=== PATIENT | female | born 1965 | race Two or more races ===

== ENCOUNTER 2021-05-20 12:42 | Emergency (ER) | payer OTHER, SELFPAY ==
--- NOTE | ~2021-05-20 | XR_ITS ---
EXAMINATION: XR LUMBOSACRAL SPINE CLINICAL INFORMATION: Fall. Pain. COMPARISON: 06/13/2015 TECHNIQUE: Three views of the lumbosacral spine. FINDINGS: No fracture or subluxation. Vertebral body height and alignment is maintained. Disc spaces are maintained. The sacroiliac joints are symmetric. The visualized sacrum is intact. XR/XR lumbar spine 2-3V IMPRESSION: Unremarkable appearance of the lumbar spine.
[2021-05-20 13:26] VITALS: BP 144/99; PULSE 84; RESP 16; TEMP 36.1; O2SAT 98; BMI 25.0
--- NOTE | 2021-05-20 15:07 | ED.FALL ---
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 Related Data Previous Rx's Medication Instructions Recorded ibuprofen 600 mg tablet 600 mg PO TID PRN #20 tab 05/20/21 Allergies Allergy/AdvReac Type Severity Reaction Status Date / Time No Known Allergies Allergy Unverified 04/05/20 17:10 Review of Systems Review of Systems: all other systems are reviewed and are negative Constitutional: Reports as per HPI and Reports no additional constitutional complaints Eyes: Reports as per HPI and Reports no additional eye complaints Reports system reviewed and no additional complaints, except as documented Cardiovascular: Reports as per HPI and Reports no additional cardiovascular complaints Respiratory: Reports as per HPI and Reports no additional respiratory complaints Gastrointestinal: Reports as per HPI and Reports no additional gastrointestinal complaints Genitourinary: Reports no additional female genitourinary complaints Musculoskeletal: Reports no additional musculoskeletal complaints Skin/Breast: Reports system reviewed and no additional complaints, except as docu Psychiatric: Reports no additional psychiatric complaints Endocrine: Reports no additional endocrine complaints Hematologic/Lymphatic: Reports no additional hematologic/lymphatic complaints Allergic/Immunologic: Reports no additional allergic/immunologic complaints Reports system reviewed and no additional complaints, except as documented and Reports Abnormal speech present [facility] Past Medical History Medical History delivery delivered Social History Social History Advance Directives: No Patient : No Physical Exam Vital Signs: Vital Signs: Last Vital Signs Temp 97 F 05/20/21 13:26 Pulse 84 05/20/21 13:26 Resp 16 05/20/21 13:26 BP 144/99 H 05/20/21 13:26 Pulse Ox 98 05/20/21 13:26 Body Mass Index 25.0 vital signs have been reviewed as appeared to be correct. Blood pressure normal. Heart rate normal. Respiration rate normal. Temperature normal. Oxygen saturation normal. Appearance: Alert. Oriented X3. No acute distress. Head: Normal external exam. Normocephalic. Atraumatic. No Paulino signs noted. No raccoon eyes noted Eyes: PERRLA. EOMI. Conjunctiva and sclera normal. Eyelids normal. ENT: TM's Normal. Pharynx normal. Uvula midline. Moist mucous membranes. No trismus noted. No drooling noted. No muffled voice noted. Neck: Normal inspection. Neck supple. FROM. No adenopathy. Thyroid Normal. No meningeal signs. No neck mass noted. CVS: Normal heart rate and rhythm. Heart sound normal. No murmurs noted. Pulses normal throughout. Respiratory: No respiratory distress. Painless inspiration. Breath sounds normal. No wheezes/rales/rhonchi noted. Chest nontender. No accessory muscle usage noted or decreased air movement noted. Abdomen: Soft and nontender. Bowel sounds normal in all 4 quadrants. No distention noted. No organomegaly noted. No visible injury noted. Back: No CVA tenderness. low back pain mostly in the lumbar area, no step-off, no deformity.. Skin: Skin warm and dry. Normal skin color. Normal skin turgor. No rashes/lesions/lacerations noted. Extremities: No lower extremity edema. Extremities exhibit normal range of motion. Extremities nontender. Neuro: Oriented X 3. Cranial nerve exam: II-XII are grossly intact No motor deficit. No sensory deficit. Reflexes normal. Course Course Course Narrative: assessment and plan. Lumbar contusion no acute fracture, no neurological deficit, able to ambulate and function. Discharge the patient on NSAIDs and heating pads if needed. MDM - Fall Imaging Data lumbar spine xrays: Radiologist's impression: Unremarkable appearance of the lumbar spine. Discharge Plan Discharge Clinical Impression: Back contusion Qualifiers: Encounter type: initial encounter Laterality: unspecified laterality Qualified Code(s): S20.229A - Contusion of unspecified back wall of thorax, initial encounter Patient Disposition: Home, Self-Care Instructions: Contusion in Adults (ED) Prescriptions: New ibuprofen 600 mg tablet 600 mg PO TID PRN (Reason: pain) Qty: 20 RF: 0 Referrals: Ashlyn Roberto MD [Primary Care Provider] - 2 days Stand Alone Forms: Work/School Release
== END 2021-05-20 16:06 | disposition home or self-care (01) ==
PROVIDERS: Emergency Provider Emergency Medicine; PCP Internal Medicine
DX: S30.0XXA Contusion of lower back and pelvis, initial encounter (principal); W19.XXXA Unspecified fall, initial encounter; Y93.9 Activity, unspecified; Y92.9 Unspecified place or not applicable; Y99.0 Civilian activity done for income or pay
CPT/HCPCS: 72100; 99283

== ENCOUNTER 2021-06-25 16:26 | Outpatient (REF) | payer OTHER, SELFPAY ==
--- NOTE | ~2021-06-25 | XR_ITS ---
EXAMINATION: XR THORACIC SPINE CLINICAL INFORMATION: Back pain. COMPARISON: None TECHNIQUE: 3 views of the thoracic spine were obtained. FINDINGS: Mild mid thoracic levoscoliosis with normal spinal alignment. The vertebral bodies are intact. The intervertebral disc spaces are unremarkable. The soft tissues are unremarkable. XR/XR thoracic spine 3V IMPRESSION: Mild thoracic levoscoliosis without other significant abnormality.
== END 2021-06-25 16:27 | disposition home or self-care (01) ==
LOC: HO.XRAY 16:26
PROVIDERS: PCP Internal Medicine; Visit Provider Nurse Practitioner Family
DX: M54.9 Dorsalgia, unspecified (principal)
CPT/HCPCS: 72072

== ENCOUNTER 2021-12-30 16:17 | Emergency (ER) | payer OTHER, SELFPAY ==
--- NOTE | ~2021-12-30 | CT_ITS ---
EXAMINATION: CT HEAD WITHOUT CONTRAST CLINICAL INFORMATION: Status post head injury with persistent pain COMPARISON: None TECHNIQUE: Imaging was performed from the skull base to vertex without intravenous administration of contrast. This CT examination was performed using dose optimization techniques as appropriate, variously including the following: *Automated exposure control *Adjustment of mA and/or kV according to patient size (this includes techniques or standardized protocols for targeted exams where dose is matched to indication/reason for exam; i.e. extremities or head) *Use of iterative reconstruction technique Total exam dose length product: 567 mGy-cm FINDINGS: No intra or extra-axial fluid collection, hemorrhage, or mass. No ventriculomegaly. No midline shift or herniation. Basal cisterns are patent. Farias-white matter differentiation is maintained. No territorial encephalomalacia. No significant volume loss. There is no abnormal attenuation within the brain parenchyma. No calvarial fracture or soft tissue abnormality. The mastoid air cells and visualized portions of the paranasal sinuses are well aerated. Mild bilateral cavernous carotid vascular calcifications. CT/CT head/brain wo con IMPRESSION: 1. No acute intracranial pathology.
[2021-12-30 16:25] VITALS: BP 136/61; PULSE 87; RESP 18; TEMP 36.6; O2SAT 100; BMI 30.1
--- NOTE | 2021-12-30 17:32 | ED_ITS ---
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 She denies loss of consciousness or being on any blood thinners or any other injuries complaints or concerns at this time. MD Complaint: head injury and head pain Onset (ago): day(s) (2) Mechanism of Injury: work related injury Place: work Loss of Consciousness: no Location of injury: parietal Severity: moderate Quality: aching Radiation: none Other Injuries: none Associated symptoms: denies other symptoms Related Data Previous Rx's Medication Instructions Recorded baclofen 10 mg tablet 10 mg PO BEDTIME PRN pain 7 days 06/25/21 #7 tabs naproxen 500 mg tablet 500 mg PO Q12H PRN pain #20 tabs 06/25/21 Allergies Allergy/AdvReac Type Severity Reaction Status Date / Time No Known Allergies Allergy Verified 12/30/21 16:25 Review of Systems Review of Systems: Constitutional : No changes in activity, No lethargy, No recent prior head injury, No agitation, No increased fussiness ENT/Mouth : No Ear Pain, No Nasal discharge/drainage Eyes: No Eye Pain, No Swelling, No Redness, No Foreign Body, No Vision Changes Cardiovascular : No Chest Pain, No SOB Respiratory : No Cough Gastrointestinal : No Nausea, No Vomiting, No abdominal Pain Genitourinary : No Dysuria, No Urinary Frequency, No Urinary Incontinence, No Urgency, No Flank Pain Musculoskeletal : No joint pain, No neck stiffness, No back pain/injury Skin : No lacerations Neuro : No unsteady gait, No Paresthesias, No Loss of Consciousness, No altered mental status, No dizziness, + Headache Denies past medical history of HIV, recent trauma, coagulopathy, recent spinal/ epidural procedure, new medication, URI symptoms, close contacts with similar symptoms, tick bite, or known CO2 exposure. Yes all other systems are reviewed and are negative PMFSH Past Medical History Attestation statement: The following information was validated with the patient. Source: old records reviewed and nursing notes reviewed Medical History delivery delivered Social History Social History Patient Tobacco Use Status: Never used Tobacco e-Cigarette/Vaping Use: Never Used Second Hand Smoke Exposure: No Advance Directives: No Advance Directives Information Provided: Yes service: No Current occupational status: unemployed Physical Exam Vital Signs: Vital Signs: Last Vital Signs Temp 97.8 F 12/30/21 16:25 Pulse 87 12/30/21 16:25 Resp 18 12/30/21 16:25 BP 136/61 12/30/21 16:25 Pulse Ox 100 12/30/21 16:25 O2 Del Method 12/30/21 16:25 BMI result Body Mass Index 30.1 vital signs have been reviewed as normal and appeared to be correct. Blood pressure normal. Heart rate normal. Respiration rate normal. Temperature normal. Oxygen saturation normal. Appearance: Alert. Oriented X3. No acute distress. Head: Normal external exam. Normocephalic. Atraumatic. No Paulino signs noted. No raccoon eyes noted Eyes: PERRLA. EOMI. Conjunctiva and sclera normal. Eyelids normal. ENT: EAC normal. TM's Normal. No septal hematoma noted. No hemotympanum noted. Pharynx normal. Uvula midline. Moist mucous membranes. No lesions/ulcerations or masses noted on the tongue. Normal voice. No trismus noted. No drooling noted. No muffled voice noted. Neck: Normal inspection. Neck supple. FROM. No adenopathy. Thyroid Normal. No meningeal signs. No neck mass noted. No signs of trauma noted. CVS: Normal heart rate and rhythm. Heart sound normal. Pulses normal throughout. No murmurs/rales/gallops. Respiratory: No respiratory distress. Painless inspiration. Breath sounds normal. No wheezes/rales/rhonchi noted. Chest nontender. No crepitus is noted. No signs of trauma noted. No accessory muscle usage noted or decreased air movement noted. No signs of trauma. Abdomen: Soft and nontender. Bowel sounds normal in all 4 quadrants. No distention noted. No organomegaly noted. No visible injury noted. Back: Full range of motion noted. Nontender. No signs of trauma. Patient neuro intact bilaterally and distally on all 4 extremities. Patient's reflexes intact bilaterally and distally on all 4 extremities. No rashes/lesion/induration/fluctuance or signs of infection noted. Skin: Skin warm and dry. Normal skin color. Normal skin turgor. No rashes/lesions/lacerations noted. Extremities: No lower extremity edema. No calf tenderness is noted. Extremities exhibit normal range of motion and nontender. Neuro: Oriented X 3. No motor deficit. No sensory deficit. Reflexes normal. Normal steady gait. No focal neuro deficits noted. CN's II-XII intact bilaterally? Vascular: + radial pulses/+ 2 distal pedal pulses/+2 dorsalis pedis b/l. Normal cap refill. No cyanosis noted to upper extremity nails and lower extremity toes nails. Course Course Course Narrative: CT scan of brain within normal limits no acute processes noted. No other injuries therefore no additional labs or imaging indicated at this time. Will DC home with instructions return if any new or worsening symptoms and to take Motrin and Tylenol and to follow-up with primary care provider. Patient understands agrees with this plan. MDM - Head Injury Medical Records Attestation: I reviewed the patient's medical records. Imaging Data CT scan of brain without contrast: Attestation: I personally reviewed and interpreted this imaging study as follows: Radiologist's impression: FINDINGS: No intra or extra-axial fluid collection, hemorrhage, or mass. No ventriculomegaly. No midline shift or herniation. Basal cisterns are patent. Farias-white matter differentiation is maintained. No territorial encephalomalacia. ?No significant volume loss. There is no abnormal attenuation within the brain parenchyma. No calvarial fracture or soft tissue abnormality. ?The mastoid air cells and visualized portions of the paranasal sinuses are well aerated. Mild bilateral cavernous carotid vascular calcifications. CT/CT head/brain wo con IMPRESSION: 1. No acute intracranial pathology. Discharge Plan Discharge Clinical Impression: Closed head injury, Concussion without loss of consciousness Patient Disposition: Home, Self-Care Instructions: Concussion (ED), Head Injury (ED) Prescriptions: No Action baclofen 10 mg tablet 10 mg PO BEDTIME PRN (Reason: pain) 7 Days Qty: 7 0RF naproxen 500 mg tablet 500 mg PO Q12H PRN (Reason: pain) Qty: 20 0RF Referrals: Ashlyn Roberto MD [Primary Care Provider] - 2 days Stand Alone Forms: Work/School Release Print Language: [place]
== END 2021-12-30 18:15 | disposition home or self-care (01) ==
PROVIDERS: Emergency Provider Internal Medicine; PCP Internal Medicine
DX: S06.0X0A Concussion without loss of consciousness, initial encounter (principal); W20.8XXA Other cause of strike by thrown, projected or falling object, initial encounter; Y93.9 Activity, unspecified; Y92.59 Other trade areas as the place of occurrence of the external cause; Y99.0 Civilian activity done for income or pay
CPT/HCPCS: 70450; 99283; 99284

== ENCOUNTER 2022-10-25 15:10 | Emergency (ER) | payer OTHER, SELFPAY ==
--- NOTE | ~2022-10-25 | XR_ITS ---
EXAMINATION: XR THORACOLUMBAR SPINE CLINICAL INFORMATION: Back pain COMPARISON: None available. TECHNIQUE: 3 views of the thoracic spine FINDINGS: The vertebral alignment is normal. No intrinsic bony abnormality. The disc heights and neural foramina are well maintained. Minimal endplate degenerative disease. No fracture or subluxation. The surrounding prevertebral soft tissues are unremarkable. XR/XR thoracic spine 2V IMPRESSION: Minimal degenerative disease of the thoracic spine.
[2022-10-25 16:01] VITALS: BP 114/70; PULSE 76; RESP 18; TEMP 36.7; O2SAT 100; BMI 24.4
--- NOTE | 2022-10-25 16:01 | ED.GENADULT ---
HPI - General Adult General Chief complaint: General Medical <WARREN Polanco Last Filed: 10/25/22 17:34> Stated complaint: Back pain <WARREN Polanco Last Filed: 10/25/22 17:34> Time Seen by Provider: 10/25/22 17:29 <WARREN Polanco Last Filed: 10/25/22 17:34> Source: patient and RN notes reviewed <WARREN Chamberlain Last Filed: 10/25/22 19:19> Mode of arrival: ambulatory <WARREN Chamberlain Last Filed: 10/25/22 19:19> Limitations: no limitations <WARREN Chamberlain Last Filed: 10/25/22 19:19> History of Present Illness HPI narrative: This is a 57-year-old female, with no significant past medical history, who presents to the emergency department today with complaints of low back pain x 3 days. patient reports that her symptoms started as she was bending over to filler picker an object. She reports that she has had a burning/itching back pain that starts in her thoracic back and radiates down to her lower back. She reports she has had no fevers, chills, nausea, vomiting, diarrhea rashes. Patient reports that her urine feels warm , but denies burning sensation. Denies any dysuria, hematuria, urinary urgency or frequency. Denies any bladder or bowel incontinence. Denies any saddle paresthesias. Denies any weakness, numbness, or tingling. Denies taking any other medications at home to treat her symptoms. <WARREN Chamberlain Last Filed: 10/25/22 19:19> MD complaint: back pain <WARREN Chamberlain Last Filed: 10/25/22 19:19> Onset (ago): day(s) <WARREN Chamberlain Last Filed: 10/25/22 19:19> Location: back <WARREN Chamberlain Last Filed: 10/25/22 19:19> Radiation: non-radiation <WARREN Chamberlain Last Filed: 10/25/22 19:19> Severity: moderate <WARREN Chamberlain Last Filed: 10/25/22 19:19> Quality: burning <WARREN Chamberlain Last Filed: 10/25/22 19:19> Pain Consistency: constant <WARREN Chamberlain - Last Filed: 10/25/22 19:19> Relieving factors: immobilization <WARREN Chamberlain - Last Filed: 10/25/22 19:19> Exacerbating factors: movement <WARREN Chamberlain - Last Filed: 10/25/22 19:19> Associated symptoms: denies other symptoms <WARREN Chamberlain - Last Filed: 10/25/22 19:19> Treatments prior to arrival: none <WARREN Chamberlain - Last Filed: 10/25/22 19:19> Related Data Home medications: Previous Rx's Medication Instructions Recorded baclofen 10 mg tablet 10 mg PO BEDTIME PRN pain 7 days 06/25/21 #7 tabs naproxen 500 mg tablet 500 mg PO Q12H PRN pain #20 tabs 06/25/21 <WARREN Polanco - Last Filed: 10/25/22 17:34> Allergies/adverse reactions: Allergies Allergy/AdvReac Type Severity Reaction Status Date / Time No Known Allergies Allergy Verified 10/25/22 16:00 <WARREN Polanco - Last Filed: 10/25/22 17:34> Review of Systems Review of Systems: Yes all other systems are reviewed and are negative <WARREN Chamberlain - Last Filed: 10/25/22 19:19> [facility] Past Medical History Medical History: Medical History delivery delivered <WARREN Polanco - Last Filed: 10/25/22 17:34> Social History Social History: Social History Patient Tobacco Use Status: Never used Tobacco e-Cigarette/Vaping Use: Never Used Second Hand Smoke Exposure: No Advance Directives: No Advance Directives Information Provided: No service: No Current occupational status: unemployed <WARREN Polanco Last Filed: 10/25/22 17:34> Physical Exam ED Vital Signs: Vital Signs - 24 hr 10/25/22 16:01 Temperature 98.0 F Pulse Rate 76 Respiratory Rate 18 Blood Pressure 114/70 Pulse Oximetry 100 Oxygen Delivery Method Room Air BMI result Body Mass Index 24.4 <WARREN Polanco Last Filed: 10/25/22 17:34> Vital Signs - 24 hr 10/25/22 16:01 Temperature 98.0 F Pulse Rate 76 Respiratory Rate 18 Blood Pressure 114/70 Pulse Oximetry 100 Oxygen Delivery Method Room Air BMI result Body Mass Index 24.4 <WARREN Chamberlain Last Filed: 10/25/22 19:19> Appearance: Alert. Oriented X3. No acute distress. Eyes: Pupils equal, round and reactive to light. ENT: Pharynx normal. Neck: Normal inspection. Neck supple. no cervical midline spine tenderness CVS: Normal heart rate and rhythm. Pulses normal. Respiratory: No respiratory distress. Breath sounds normal. Abdomen: Soft and nontender. +BS x4 Skin: Skin warm and dry. Normal skin color. Normal skin turgor. No rashes. Extremities: No lower extremity edema. Back: Tenderness to palpation over the lumbar paraspinous muscles. Negative straight leg raise. Strength is 5/5 in upper and lower extremities. Neuro: Oriented X 3. No motor deficit. No sensory deficit. CN II-XII intact. <WARREN Chamberlain Last Filed: 10/25/22 19:19> Course Course Course Narrative: RME performed by Italia Long PA-C. Patient is a 57 year old assigned female at presenting to the emergency department with back pain and a burning sensation on both sides of her back. Patient placed back in the waiting room pending room availability and results. <WARREN Polanco Last Filed: 10/25/22 17:34> Reevaluation(s) Reevaluation #1: X-rays unremarkable, blood work within normal limits, urine shows trace leuk esterase. I will not treat at this time as patient is only urinary complaint was that her urine felt warm . educated patient that her back pain is likely musculoskeletal in nature, discussed gentle stretching, massage, and ibuprofen help alleviate some of her symptoms. Advised to return if she develops any new or worsening symptoms. Patient understands and agrees with plan. Vital signs stable, patient stable for discharge <WARREN Chamberlain Last Filed: 10/25/22 19:19> Time: 19:13 <WARREN Chamberlain Last Filed: 10/25/22 19:19> Medical Decision Making Medical Decision Making [facility] Narrative: 57-year-old female presents to the emergency department for evaluation of back pain x3 days. On examination patient has tenderness to palpation Lumbar paraspinous muscles. Negative straight leg raise. No overlying rashes. Vital signs within normal limits, patient is well-appearing. Ambulatory. No red flag symptoms back pain. Will obtain x-rays common labs, and urine for further evaluation <WARREN Chamberlain - Last Filed: 10/25/22 19:19> Differential Diagnosis Differential Diagnoses: The differential diagnosis associated with the presentation includes <WARREN Chamberlain Last Filed: 10/25/22 19:19> Lumbar strain, sprain, contusion, spasm, sciatica, UTI <WARREN Chamberlain Last Filed: 10/25/22 19:19> Lab Data [facility] Lab Attestation statement: I reviewed the patient's lab results. <WARREN Chamberlain Last Filed: 10/25/22 19:19> Result Diagrams: 10/25/22 16:45 10/25/22 16:45 <WARREN Polanco - Last Filed: 10/25/22 17:34> Labs: Lab Results 10/25/22 10/25/22 10/25/22 Range/Units 16:45 16:45 18:35 WBC 9.0 (4.8-10.8) X10*3/uL RBC 5.08 (4.20-5.50) X10*6/uL Hgb 13.1 (12.0-16.0) g/dl Hct 41.0 (37.0-47.0) % MCV 80.7 (80.0-98.0) fL MCH 25.8 L (27.0-33.0) pg MCHC 32.0 (31.0-35.0) g/dl RDW 14.0 (11.0-16.0) % Plt Count 251 (160-400) X10*3/uL MPV 9.6 (9.4-12.3) fL Immature Gran % (Auto) 0.1 (0.0-0.4) % Neut % (Auto) 44.2 L (45-73) % Lymph % (Auto) 48.0 H (20-40) % Kings % (Auto) 4.7 (2-11) % Eos % (Auto) 2.6 (0-4) % Baso % (Auto) 0.4 (0-2) % Lymph # (Auto) 4.3 (1.2-4.9) X10*3/uL Kings # (Auto) 0.4 (0.1-1.2) X10*3/uL Eos # (Auto) 0.2 (0.0-0.4) X10*3/uL Baso # (Auto) 0.0 (0.0-0.2) X10*3/uL Abs Immat Gran (auto) 0.01 (0.00-0.03) X10*3/uL Absolute Neuts (auto) 4.0 (2.0-8.3) x10*3/uL Absolute Nucleated RBC 0.000 (0.0-0.012) X10*3/uL Nucleated RBC % (auto) 0.0 (0.0-0.2) /100WBC Sodium 144 (135-145) mmol/L Potassium 4.1 (3.3-5.1) mmol/L Chloride 109 H (96-108) mmol/L Carbon Dioxide 28 (22-29) mmol/L Anion Gap 11 L (12-20) BUN 13 (9-16) mg/dL Creatinine 0.75 (0.5-1.4) mg/dL Estim Creat Clear Calc 65.3 Estimated GFR > 60 Random Glucose 93 (60-115) mg/dL Calcium 9.3 (8.4-10.2) mg/dL Magnesium 2.1 (1.6-2.6) mg/dL Total Bilirubin 1.1 H (0.0-1.0) mg/dL AST 16 (5-31) U/L ALT 8 (0-31) U/L Alkaline Phosphatase 74 (39-117) U/L Total Protein 6.8 (6.5-8.0) g/dL Albumin 4.3 (3.5-5.0) g/dL Urine Color Yellow Urine Appearance Clear Urine pH 5.5 (5.0-9.0) Ur Specific [place] 1.025 (1.005-1.025) Urine Protein Negative (Neg-Trace) mg/dL Urine Glucose (UA) Negative (Negative) mg/dL Urine Ketones Trace (Negative) mg/dL Urine Blood Negative (Negative) Urine Nitrite Negative (Negative) Ur Leukocyte Esterase Trace H (Negative) Urine RBC 0-2 (0-2) /HPF Urine WBC 0-5 (0-5) /HPF Ur Squamous Epith Cells 0-2 (0-2) /HPF Urine Bacteria None Seen (None Seen) Hyaline Casts 0-2 (0-2) /LPF <WARREN Polanco - Last Filed: 10/25/22 17:34> Lab Results 10/25/22 10/25/22 10/25/22 Range/Units 16:45 16:45 18:35 WBC 9.0 (4.8-10.8) X10*3/uL RBC 5.08 (4.20-5.50) X10*6/uL Hgb 13.1 (12.0-16.0) g/dl Hct 41.0 (37.0-47.0) % MCV 80.7 (80.0-98.0) fL MCH 25.8 L (27.0-33.0) pg MCHC 32.0 (31.0-35.0) g/dl RDW 14.0 (11.0-16.0) % Plt Count 251 (160-400) X10*3/uL MPV 9.6 (9.4-12.3) fL Immature Gran % (Auto) 0.1 (0.0-0.4) % Neut % (Auto) 44.2 L (45-73) % Lymph % (Auto) 48.0 H (20-40) % Kings % (Auto) 4.7 (2-11) % Eos % (Auto) 2.6 (0-4) % Baso % (Auto) 0.4 (0-2) % Lymph # (Auto) 4.3 (1.2-4.9) X10*3/uL Kings # (Auto) 0.4 (0.1-1.2) X10*3/uL Eos # (Auto) 0.2 (0.0-0.4) X10*3/uL Baso # (Auto) 0.0 (0.0-0.2) X10*3/uL Abs Immat Gran (auto) 0.01 (0.00-0.03) X10*3/uL Absolute Neuts (auto) 4.0 (2.0-8.3) x10*3/uL Absolute Nucleated RBC 0.000 (0.0-0.012) X10*3/uL Nucleated RBC % (auto) 0.0 (0.0-0.2) /100WBC Sodium 144 (135-145) mmol/L Potassium 4.1 (3.3-5.1) mmol/L Chloride 109 H (96-108) mmol/L Carbon Dioxide 28 (22-29) mmol/L Anion Gap 11 L (12-20) BUN 13 (9-16) mg/dL Creatinine 0.75 (0.5-1.4) mg/dL Estim Creat Clear Calc 65.3 Estimated GFR > 60 Random Glucose 93 (60-115) mg/dL Calcium 9.3 (8.4-10.2) mg/dL Magnesium 2.1 (1.6-2.6) mg/dL Total Bilirubin 1.1 H (0.0-1.0) mg/dL AST 16 (5-31) U/L ALT 8 (0-31) U/L Alkaline Phosphatase 74 (39-117) U/L Total Protein 6.8 (6.5-8.0) g/dL Albumin 4.3 (3.5-5.0) g/dL Urine Color Yellow Urine Appearance Clear Urine pH 5.5 (5.0-9.0) Ur Specific [place] 1.025 (1.005-1.025) Urine Protein Negative (Neg-Trace) mg/dL Urine Glucose (UA) Negative (Negative) mg/dL Urine Ketones Trace (Negative) mg/dL Urine Blood Negative (Negative) Urine Nitrite Negative (Negative) Ur Leukocyte Esterase Trace H (Negative) Urine RBC 0-2 (0-2) /HPF Urine WBC 0-5 (0-5) /HPF Ur Squamous Epith Cells 0-2 (0-2) /HPF Urine Bacteria None Seen (None Seen) Hyaline Casts 0-2 (0-2) /LPF <WARREN Chamberlain - Last Filed: 10/25/22 19:19> Discharge Plan Discharge Clinical Impression: Back pain <WARREN Polanco - Last Filed: 10/25/22 17:34> Patient Disposition: Home, Self-Care <WARREN Polanco - Last Filed: 10/25/22 17:34> Instructions: Acute Low Back Pain (ED) <WARREN Polanco - Last Filed: 10/25/22 17:34> Additional Instructions: Your x-rays were normal today. Urine does not show any signs of infection at this time. Please take ibuprofen as directed as needed for your pain. Gentle stretching and massage can help alleviate some of your back pain. If any new or worsening symptoms occur please return for further evaluation. follow-up with your primary care physician regarding this visit. Tus radiograf?as fueron normales hoy. La orina no muestra signos de infecci?n en nixon momento. [place] ibuprofeno seg?n las indicaciones seg?n lo necesite para rahman dolor. Los estiramientos y masajes suaves pueden ayudar a aliviar parte del dolor de espalda. Si se presentan s?ntomas nuevos o que empeoran, regrese para roshni evaluaci?n adicional. seguimiento con rahman m?dico de atenci?n primaria con respecto a esta visita. <WARREN Polanco - Last Filed: 10/25/22 17:34> Prescriptions: No Action baclofen 10 mg tablet 10 mg PO BEDTIME PRN (Reason: pain) 7 Days Qty: 7 0RF naproxen 500 mg tablet 500 mg PO Q12H PRN (Reason: pain) Qty: 20 0RF <WARREN Polanco - Last Filed: 10/25/22 17:34> Print Language: Kinyarwanda <WARREN Polanco - Last Filed: 10/25/22 17:34>
[2022-10-25 16:49] LABS: MANUAL DIFF FLAG NO
[2022-10-25 16:50] LABS: Basophils Percent Auto 0.4 % (0-2); Eosinophils Absolute Auto 0.2 X10*3/uL (0.0-0.4); Eosinophils Percent Auto 2.6 % (0-4); Hemoglobin 13.1 g/dl (12.0-16.0); Imm Gran Abs Auto 0.01 X10*3/uL (0.00-0.03); Imm Gran Pct Auto 0.1 % (0.0-0.4); Lymphocytes Absolute Auto 4.3 X10*3/uL (1.2-4.9); Mean Corpuscular Hemoglobin 25.8 pg (27.0-33.0); Mean Corpuscular Volume 80.7 fL (80.0-98.0); Mean Platelet Volume 9.6 fL (9.4-12.3); Monocytes Absolute Auto 0.4 X10*3/uL (0.1-1.2); Monocytes Percent Auto 4.7 % (2-11); Neutrophils Percent Auto 44.2 % (45-73); Platelet Count 251 X10*3/uL (160-400); Red Blood Count 5.08 X10*6/uL (4.20-5.50)
[2022-10-25 17:16] LABS: Alanine Aminotransferase 8 U/L (0-31); Albumin Level 4.3 g/dL (3.5-5.0); Alkaline Phosphatase 74 U/L (39-117); Anion Gap 11 (12-20); Aspartate Amino Transferase 16 U/L (5-31); Bilirubin Total 1.1 mg/dL (0.0-1.0); Blood Urea Nitrogen 13 mg/dL (9-16); Calcium 9.3 mg/dL (8.4-10.2); Carbon Dioxide 28 mmol/L (22-29); Chloride 109 mmol/L (96-108); Creatinine Clr Calc Pharmacy 65.3; Estimated Glomerular Filt Rate > 60; Glucose Random 93 mg/dL (60-115); Magnesium 2.1 mg/dL (1.6-2.6); Potassium 4.1 mmol/L (3.3-5.1); Sodium 144 mmol/L (135-145); Total Protein 6.8 g/dL (6.5-8.0)
[2022-10-25 18:56] LABS: Appearance Urine Clear; Color Urine Yellow; Glucose Urine UA Negative (Negative); Leukocyte Esterase Urine Trace (Negative); Nitrite Urine Negative (Negative); PH 5.5 (5.0-9.0); Specific Gravity - Urine 1.025 (1.005-1.025); UMIC TRIGGER UACC YES; Urine Blood Negative (Negative); Urine Ketones Trace mg/dL (Negative); Urine Protein Negative (Neg-Trace)
[2022-10-25 18:58] LABS: Bacteria Urine None Seen (None Seen); Hyaline Casts Urine 0-2 /LPF (0-2); RBC Urine 0-2 /HPF (0-2); Squamous Epithelial Cell Urine 0-2 /HPF (0-2); WBC Urine 0-5 /HPF (0-5)
== END 2022-10-25 19:43 | disposition home or self-care (01) ==
PROVIDERS: Physician Assistant Medical; Emergency Provider Emergency Medicine; PCP Internal Medicine
DX: M54.50 Low back pain, unspecified (principal)
CPT/HCPCS: 36415; 72070; 80053; 81001; 83735; 85025; 99282; 99283

== ENCOUNTER 2023-04-07 13:24 | Emergency (ER) | payer OTHER, SELFPAY ==
[2023-04-07 14:40] VITALS: BP 110/62; PULSE 86; RESP 18; TEMP 36.1; O2SAT 98; BMI 28.2
--- NOTE | 2023-04-07 14:42 | ED.EXTPRO ---
HPI - Extremity Problem General Chief complaint: Extremity Problem Stated complaint: Pain R Foot Time Seen by Provider: 04/07/23 14:52 Source: patient and RN notes reviewed Mode of arrival: ambulatory Limitations: no limitations History of Present Illness HPI Narrative: This is a 57-year-old female presenting to the emergency department with complaints of acute on chronic right foot pain x2 months. She states that over 20 yearas ago she stepped on a piece of glass. She states that she has had pain in this region that waxes and wanes. She states she has multiple surgeries on her foot for these symptoms, and states that they remove something from my foot each time . 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 She previously was seen by bench technician, she has not called regarding her pain symptoms. No other complaints of concerns at this time. MD Complaint: extremity pain Onset (ago): year(s) Pain Consistency: constant Location: right Quality: aching Radiation: none Relieving factors: nothing Exacerbating factors: nothing Associated symptoms: denies other symptoms Related Data Previous Rx's Medication Instructions Recorded baclofen 10 mg tablet 10 mg PO BEDTIME PRN pain 7 days 06/25/21 #7 tabs naproxen 500 mg tablet 500 mg PO Q12H PRN pain #20 tabs 06/25/21 Allergies Allergy/AdvReac Type Severity Reaction Status Date / Time No Known Allergies Allergy Verified 10/25/22 16:00 Review of Systems Review of Systems: Yes all other systems are reviewed and are negative PMFSH Past Medical History Medical History delivery delivered Social History Social History Patient Tobacco Use Status: Never used Tobacco e-Cigarette/Vaping Use: Never Used Second Hand Smoke Exposure: No service: No Current occupational status: unemployed Physical Exam Vital Signs: Vital Signs: Last Vital Signs Temp 97 F 04/07/23 14:40 Pulse 86 04/07/23 14:40 Resp 18 04/07/23 14:40 BP 110/62 04/07/23 14:40 Pulse Ox 98 04/07/23 14:40 O2 Del Method Room Air 04/07/23 14:40 BMI result Body Mass Index 28.2 Const: Other: General: Awake, alert, and oriented X3. No acute distress. HEENT: Normal inspection CVS: Normal heart rate and rhythm. Pulses normal. Respiratory: No respiratory distress Skin: Warm, dry, no rashes noted to exposed skin. Normal skin color. Normal skin turgor. Extremities: Right foot, dorsal aspect, overlying the forefoot there is a plantar wart with overlying callous noted. No surrounding erythema or edema Neuro: Oriented X 3. No motor deficit. No sensory deficit. Medical Decision Making Medical Decision Making [facility] Narrative: 57 y/o F presenting to the ER for evaluation of right foot pain. On arrival, VSS. Pt is alert and nontoxic appearing. Right foot with plantar wart noted to the forefoot without any evidence of infection. She has been seen by [facility] in the past for this and was hoping to have it treated in the ER today. I urged the importance of following up with them, advised to call to make an appointment. No evidence of infection to warrant abx at this time. Pt understands and agrees with plan. Stable for d/c Differential Diagnosis Differential Diagnoses: The differential diagnosis associated with the presentation includes plantar wart, cellulitis, abscess, foreign body Discharge Plan Discharge Clinical Impression: Plantar wart of right foot Patient Disposition: Home, Self-Care Instructions: Plantar Wart (ED) Additional Instructions: You have a plantar wart on your foot that needs to be treated through bench technician or foot doctor. We unfortunately will not be able to treat this. This does not look infected, but give a close eye on this. If you develop any fevers, chills or increased redness or pain, please return for re-evaluation. If any new or worsening symptoms occur please return. Tiene roshni verruga plantar en el pie que debe ser tratada por un pod?logo o un pod?logo. Lamentablemente no podremos tratar esto. [place] no parece infectado, chana vig?caden de cerca. Si presenta fiebre, escalofr?os o aumento del enrojecimiento o dolor, regrese para roshni nueva evaluaci?n. Si ocurre alg?n s?ntoma nuevo o que empeora, regrese. Prescriptions: No Action baclofen 10 mg tablet 10 mg PO BEDTIME PRN (Reason: pain) 7 Days Qty: 7 0RF naproxen 500 mg tablet 500 mg PO Q12H PRN (Reason: pain) Qty: 20 0RF Referrals: Namita Mortensen DPM [Physician] - Stand Alone Forms: Work/School Release Discharge Date/Time: 04/07/23 15:00 Print Language: Haitian
== END 2023-04-07 15:00 | disposition home or self-care (01) ==
PROVIDERS: Emergency Provider Emergency Medicine; PCP Internal Medicine
DX: B07.0 Plantar wart (principal); M79.671 Pain in right foot
CPT/HCPCS: 99281; 99283

== ENCOUNTER 2023-05-13 10:59 | Outpatient (AMB) | payer OTHER, SELFPAY ==
[2023-05-13 11:05] VITALS: BP 112/80; PULSE 81; O2SAT 95; BMI 27.5
--- NOTE | 2023-05-13 11:05 | MHC.PC.OV ---
Vital Signs 05/13/23 11:05 Height 5 ft Weight 141 lb 0.8 oz BMI 27.5 BP 112/80 Blood Pressure Location Lt brachial Position Sitting Pulse 81 Pulse Source Pulse Oximeter Pulse Oximetry (%) 95 Oxygen Delivery Method Room Air Intake Visit Reasons: [facility], R foot pain, 04/07 Intake Note: Patient is here to follow-up after a visit the emergency department at [facility] on 04/07 Assembler Gold Frame Required: Yes Assembler Gold Frame Language: Hong [place]er Allergies No Known Allergies Allergy (Verified 05/13/23 11:31) Medication List - Last Reconciled 05/13/23 by ALYSHA Nj No Known Home Meds Tobacco use date assessed: 05/13/23 Dental Screening Dental Screen Date: 05/13/23 Did you have a dental visit in the last 12 months?: Yes Did you have a dental problem in the last 6 months where you did not have access to dental care?: No Was dental information given to patient?: Patient has dentist HPI [facility], R foot pain, 04/07 HPI Details Patient is a 57-year-old female who presents today with abdominal pain for over 3 years now. Patient reports she is not here to follow-up after ED visit due to right foot pain. Patient of Dr. Trevino. Patient reports generalized abdominal pains, acid reflux, nausea, constipation for many years now. Patient reports that her care was on hold because she was caring for her who 3 years ago. Patient also reports grief, interested in counseling referral. Patient reports normal bowel movement yesterday, she reports eating raising to help her move bowels. She does not take anything for acid reflux. No fever or chills. Denies vomiting no diarrhea no blood in stool. Reports intermittently she can feel bump on her left lower quadrant. Patient reports family history significant for cancer, her sister with history of bladder cancer and uterus. Patient also reports her daughter had stomach cancer in the past. No shortness of breath or chest pain. Patient is a [place]er-speaking and Anna was helping with interpretation. [facility] Medical History delivery delivered Social History Patient Tobacco Use Status: Never used Tobacco e-Cigarette/Vaping Use: Never Used Second Hand Smoke Exposure: No service: No Current occupational status: unemployed Cognitive needs: No Hearing needs: No Vision needs: No Questionnaire AUDIT C Alcohol Use Questionnaire (AUDIT-C) 1. How often do you have a drink containing alcohol?: Never 3. How often do you have six or more drinks on one occasion?: Never Total Score: 0 Score Reviewed/Action Taken: No EILEEN-7 AMB Questionnaire EILEEN-7 Date EILEEN - 7 assessed: 06/25/21 Source: Developed by Drs. Nick Tejada, Nadya Vyas, Adrian Mcallister and colleagues, with an educational gail from [employer]. Review of Systems Const Denies body aches, Denies chills, Denies fever(s) and Denies headache(s) ENT Denies dizziness, Denies otalgia, Denies headache(s), Denies nasal discharge, Denies sinus pain and Denies sore throat Card Denies chest pain, Denies edema, Denies lightheadedness and Denies dyspnea Resp Denies cough, Denies dyspnea and Denies wheezing GI Reports abdominal pain, Reports bloating, Denies hematochezia, Reports constipation, Reports heartburn, Denies diarrhea, Reports nausea and Denies vomiting Denies dysuria Musc Denies myalgias Skin/Breast Denies rash Neuro Denies dizziness and Denies headache(s) Aller/Immun Denies wheezing Physical exam (Primary Care) Vital Signs: Last Vital Signs Pulse 81 05/13/23 11:05 BP 112/80 05/13/23 11:05 Pulse Ox 95 05/13/23 11:05 Oxygen Delivery Method Room Air 05/13/23 11:05 BMI result Body Mass Index 27.5 Tobacco/Smoking Status: Tobacco use Status Tobacco use date assessed 05/13/23 05/13/23 11:08 Patient Tobacco Use Status Never used Tobacco 05/13/23 11:08 e-Cigarette/Vaping Use Never Used 05/13/23 11:08 Const General: cooperative and no acute distress Orientation/consciousness: patient oriented x3 HENMT Head: Yes normocephalic and Yes atraumatic Face and sinus: Yes sinuses nontender Mouth: oropharynx normal and moist mucous membranes Throat: Yes posterior oropharynx normal Eyes General: appearance normal, both eyes and all related structures Neck Neck: Yes normal visual inspection, Yes full ROM and Yes no lymphadenopathy Resp Effort & Inspection: normal respiratory effort and able to speak in complete sentences Auscultation: clear to auscultation bilaterally, no crackles, no rales, no rhonchi and no wheezes Cardio Rate: regular rate Rhythm: regular rhythm Heart sounds: S1 normal heart sound present, S2 normal heart sound present and no murmurs GI Inspection: Yes normal to inspection Palpation (GI): Soft to palpation, not firm, Tenderness to palpation present (GI) in the epigastrum, in the LLQ, in the LUQ and in the RUQ; Candelario's sign negative and with no rebound tenderness, no guarding, not rigid and no hepatosplenomegaly Auscultation: normal bowel sounds Skin General skin exam: no rashes or lesions noted Neuro General: patient oriented x3 Gait exam (Neuro): Normal gait present Extrem General: Yes full ROM and No edema Assessment and Plan Assessment & Plan (1) Grief: Code(s): F43.21 - Adjustment disorder with depressed mood Plan: Counseling referral (2) Constipation: Code(s): K59.00 - Constipation, unspecified Plan: Continue dietary fiber and fluid consumption Start Colace daily p.r.n. (3) GERD (gastroesophageal reflux disease): Code(s): K21.9 - Gastro-esophageal reflux disease without esophagitis Plan: Start omeprazole 20 mg daily Avoid GERD trigger foods Do not lay down 2-3 hours after evening meal (4) Abdominal pain: Code(s): R10.9 - Unspecified abdominal pain Plan: Patient presents with abdominal pains for over 3 years now Physical exam with right upper quadrant, epigastric, left upper quadrant, left lower quadrant tenderness, no rebound tenderness. Will obtain abdominal CT scan, blood work, urinalysis. Signs and symptoms reviewed when to notify provider or go to the emergency department. Patient agreed with the plan Plan Follow-up with PCP in 2 months for physical exam Orders: Orders UA CC w/rflx Micro + Cult Today R10.9 - Unspecified abdominal pain CT abdomen pelvis wo IV con Today R10.9 - Unspecified abdominal pain Complete Blood Count Auto Diff Today R10.9 - Unspecified abdominal pain Comprehensive Met. Panel Today R10.9 - Unspecified abdominal pain Lipase Today R10.9 - Unspecified abdominal pain Referrals Counseling Referral F43.21 - Adjustment disorder with depressed mood Medications: New omeprazole 20 mg PO DAILY 60 caps 0RF K21.9 - Gastro-esophageal reflux disease without esophagitis docusate sodium (Colace) 100 mg PO DAILY 30 caps 0RF K59.00 - Constipation, unspecified Coding Level of Care Code Est Pt Level 4 (70745) Diagnoses Grief F43.21 Constipation K59.00 GERD (gastroesophageal reflux disease) K21.9 Abdominal pain R10.9
== END 2023-05-13 12:00 | disposition home or self-care (01) ==
PROVIDERS: PCP Internal Medicine; Visit Provider Nurse Practitioner Family
DX: F43.21 Adjustment disorder with depressed mood (principal); K59.00 Constipation, unspecified; K21.9 Gastro-esophageal reflux disease without esophagitis; R10.9 Unspecified abdominal pain
CPT/HCPCS: 99214

== ENCOUNTER 2023-05-14 09:49 | Outpatient (REF) | payer OTHER, SELFPAY ==
[2023-05-14 10:06] LABS: MANUAL DIFF FLAG NO
[2023-05-14 10:54] LABS: Appearance Urine Clear; Color Urine Yellow; Glucose Urine UA Negative (Negative); Leukocyte Esterase Urine Negative (Negative); Nitrite Urine Negative (Negative); Specific Gravity - Urine 1.015 (1.005-1.025); Urine Blood Negative (Negative); Urine Ketones Negative (Negative); Urine Protein Negative (Neg-Trace)
[2023-05-14 10:55] LABS: Basophils Percent Auto 0.6 % (0-2); Eosinophils Absolute Auto 0.3 X10*3/uL (0.0-0.4); Eosinophils Percent Auto 3.7 % (0-4); Hematocrit 41.4 % (37.0-47.0); Hemoglobin 13.2 g/dl (12.0-16.0); Imm Gran Abs Auto 0.01 X10*3/uL (0.00-0.03); Imm Gran Pct Auto 0.1 % (0.0-0.4); Lymphocytes Absolute Auto 3.7 X10*3/uL (1.2-4.9); Lymphocytes Percent Auto 55.6 % (20-40); Mean Corpuscular HGB Conc 31.9 g/dl (31.0-35.0); Mean Corpuscular Volume 81.5 fL (80.0-98.0); Mean Platelet Volume 10.2 fL (9.4-12.3); Monocytes Absolute Auto 0.4 X10*3/uL (0.1-1.2); Monocytes Percent Auto 5.5 % (2-11); Neutrophils Absolute Auto 2.3 x10*3/uL (2.0-8.3); Neutrophils Percent Auto 34.5 % (45-73); Platelet Count 268 X10*3/uL (160-400); Red Blood Count 5.08 X10*6/uL (4.20-5.50); Red Cell Distribution Width 14.2 % (11.0-16.0); White Blood Count 6.7 X10*3/uL (4.8-10.8)
[2023-05-14 11:20] LABS: Alanine Aminotransferase 13 U/L (0-31); Albumin Level 4.2 g/dL (3.5-5.0); Alkaline Phosphatase 70 U/L (39-117); Anion Gap 13 (12-20); Aspartate Amino Transferase 18 U/L (5-31); Blood Urea Nitrogen 9 mg/dL (9-16); Calcium 9.5 mg/dL (8.4-10.2); Carbon Dioxide 27 mmol/L (22-29); Chloride 108 mmol/L (96-108); Estimated Glomerular Filt Rate > 60; Glucose Random 108 mg/dL (60-115); Lipase 27 U/L (8-78); Potassium 3.9 mmol/L (3.3-5.1); Sodium 144 mmol/L (135-145); Total Protein 7.1 g/dL (6.5-8.0)
== END 2023-05-14 09:50 | disposition home or self-care (01) ==
LOC: HO.LAB 09:49
PROVIDERS: PCP Nurse Practitioner Family; Visit Provider Nurse Practitioner Family
DX: R10.9 Unspecified abdominal pain (principal)
CPT/HCPCS: 36415; 80053; 81003; 83690; 85025

== ENCOUNTER 2023-06-24 15:01 | Outpatient (REF) | payer OTHER, SELFPAY ==
--- NOTE | ~2023-06-24 | MM_ITS ---
EXAMINATION: MM SCREENING DIGITAL BREAST TOMOSYNTHESIS, BILATERAL CLINICAL INFORMATION: Screening. Asymptomatic. COMPARISON: Mammography: This study is compared with prior exams dating back to 2015. TECHNIQUE: Digital breast tomosynthesis is performed in both the craniocaudal and mediolateral oblique views along with computer-aided detection (CAD). Synthesized 2D images are generated from the tomosynthesis. FINDINGS: There are scattered areas of fibroglandular density (ACR BI-RADS breast composition Category b). There are no significant masses, abnormal calcifications, or other abnormalities. MM/MM tomosynthesis screening BI IMPRESSION: No mammographic evidence of malignancy. ASSESSMENT: BI-RADS BI-RADS 1 - Negative RECOMMENDATION: Routine annual mammography screening. 1 year F/U This examination should not preclude the clinical evaluation of a suspicious palpable abnormality. This patient's information was entered into a reminder system with a target due date for their next mammogram.
== END 2023-06-24 15:02 | disposition home or self-care (01) ==
LOC: HO.MAMMO 15:01
PROVIDERS: PCP Internal Medicine; Visit Provider Internal Medicine
DX: Z12.31 Encounter for screening mammogram for malignant neoplasm of breast (principal)
CPT/HCPCS: 77063; 77067

== ENCOUNTER → 2023-06-24 15:30 | Outpatient (BNV) | payer OTHER, SELFPAY | PROVIDERS: PCP Internal Medicine; Visit Provider Radiology Diagnostic Radiology | DX: Z12.31 Encounter for screening mammogram for malignant neoplasm of breast (principal) | CPT/HCPCS: 77063; 77067 ==

== ENCOUNTER 2023-06-30 08:53 | Outpatient (REF) | payer OTHER, SELFPAY ==
--- NOTE | ~2023-06-30 | CT_ITS ---
EXAMINATION: CT ABDOMEN AND PELVIS WITH CONTRAST CLINICAL INFORMATION: Unspecified abdominal pain. COMPARISON: CT abdomen and pelvis 08/28/2015. TECHNIQUE: Multidetector volumetric images were obtained from the superior aspect of the liver through the pubic symphysis following administration 85 mL of Omnipaque 350 intravenous contrast. Sagittal and coronal reformatted images were obtained on the technologist's workstation. Oral contrast: No This CT examination was performed using dose optimization techniques as appropriate, variously including the following: *Automated exposure control *Adjustment of mA and/or kV according to patient size (this includes techniques or standardized protocols for targeted exams where dose is matched to indication/reason for exam; i.e. extremities or head) *Use of iterative reconstruction technique DLP: 361 mGy-cm FINDINGS: LUNG BASES: The visualized lung bases are unremarkable. Bibasilar atelectasis is present. LIVER, GALLBLADDER, AND BILIARY TREE: The liver is normal in size, shape, and attenuation. No focal hepatic lesion or biliary ductal dilatation is present. The gallbladder is unremarkable with no evidence of radiopaque gallstones, gallbladder wall thickening, or obvious pericholecystic inflammatory changes. PANCREAS: Unremarkable. SPLEEN: Unremarkable. ADRENAL GLANDS: Unremarkable. KIDNEYS AND URETERS: The kidneys are normal in size, shape, and attenuation. No hydronephrosis, hydroureter, or calculi seen. Mild prominence of the right ureter compared to the left. However, no filling defects or stones are seen within the ureter. There are phleboliths in the pelvis close to the ureter but not within the ureter. No perinephric stranding. BLADDER: Unremarkable. GASTROINTESTINAL TRACT: The small and large bowel are unremarkable. The appendix is unremarkable. ABDOMINAL WALL: No significant hernia is appreciated. LYMPH NODES: Normal. VASCULAR: Unremarkable. PELVIC VISCERA: The uterus and adnexa are unremarkable. OSSEOUS STRUCTURES: Some minimal degenerative changes are present in the spine most marked at T11-T12. CT/CT abdomen pelvis w IV con IMPRESSION: A cause for the patient's abdominal pain has not been found. Fleischner guidelines were followed.
[2023-06-30] MEDS: iohexoL 350 MG/ML 100 ML INFUS..BTL IV (11:30)
[2023-06-30] MEDS: Barium Sulfate Oral (Berry) 450 ML ORAL.SUSP 900 ML PO (11:30)
[2023-07-03 09:30] LABS: Creatinine POC 0.8 mg/dL (0.5-1.4); GFR POC > 60
== END 2023-06-30 08:54 | disposition home or self-care (01) ==
LOC: HO.CT 08:53
PROVIDERS: PCP Internal Medicine; Visit Provider Nurse Practitioner Family
DX: R10.9 Unspecified abdominal pain (principal)
CPT/HCPCS: 74177; 82565; Q9967

== ENCOUNTER 2023-12-11 09:44 | Emergency (ER) | payer MEDICAID, SELFPAY ==
--- NOTE | ~2023-12-11 | XR_ITS ---
EXAMINATION: XR CHEST CLINICAL INFORMATION: Lower extremity edema. COMPARISON: Chest radiograph dated 02/12/2019. TECHNIQUE: 2 views of the chest were obtained. FINDINGS: Heart size is normal. The lungs are clear. There is no pleural effusion or pneumothorax. No acute osseous abnormality. XR/XR chest 2V IMPRESSION: No acute cardiopulmonary disease. Stable appearance of the heart and lungs.
[2023-12-11 09:48] VITALS: BP 108/63; PULSE 75; RESP 16; TEMP 36.3; O2SAT 100; BMI 28.9
--- NOTE | 2023-12-11 12:25 | ECG_ITS ---
Test Reason : BL LE EDEMA Blood Pressure : / mmHG Vent. Rate : 072 BPM Atrial Rate : 072 BPM P-R Int : 148 ms QRS Dur : 076 ms QT Int : 406 ms P-R-T Axes : 055 030 029 degrees QTc Int : 444 ms Normal sinus rhythm Normal ECG Referred By: Generic ED Physician Electronically Signed By:Mike Esparza
[2023-12-11 12:50] VITALS: BP 107/63; PULSE 63; RESP 18; TEMP 36.6; O2SAT 98
[2023-12-11 12:50] LABS: MANUAL DIFF FLAG NO
[2023-12-11 12:52] LABS: Basophils Percent Auto 0.6 % (0-2); Eosinophils Absolute Auto 0.2 X10*3/uL (0.0-0.4); Eosinophils Percent Auto 3.2 % (0-4); Hemoglobin 13.4 g/dl (12.0-16.0); Imm Gran Abs Auto 0.01 X10*3/uL (0.00-0.03); Imm Gran Pct Auto 0.1 % (0.0-0.4); Lymphocytes Absolute Auto 3.2 X10*3/uL (1.2-4.9); Lymphocytes Percent Auto 44.1 % (20-40); Mean Corpuscular HGB Conc 31.9 g/dl (31.0-35.0); Mean Corpuscular Hemoglobin 26.6 pg (27.0-33.0); Mean Corpuscular Volume 83.3 fL (80.0-98.0); Mean Platelet Volume 9.5 fL (9.4-12.3); Monocytes Absolute Auto 0.4 X10*3/uL (0.1-1.2); Monocytes Percent Auto 5.5 % (2-11); Neutrophils Absolute Auto 3.4 x10*3/uL (2.0-8.3); Neutrophils Percent Auto 46.5 % (45-73); Platelet Count 234 X10*3/uL (160-400); Red Blood Count 5.04 X10*6/uL (4.20-5.50); Red Cell Distribution Width 14.1 % (11.0-16.0); White Blood Count 7.2 X10*3/uL (4.8-10.8)
[2023-12-11 12:57] LABS: INTERNATIONAL NORM RATIO 0.9 (0.9-1.1); Prothrombin Time 11.4 SEC (11.1-13.3)
[2023-12-11 13:06] LABS: Anion Gap 9 (12-20); Blood Urea Nitrogen 9 mg/dL (9-16); Calcium 9.3 mg/dL (8.4-10.2); Carbon Dioxide 30 mmol/L (22-29); Chloride 109 mmol/L (96-108); Estimated Glomerular Filt Rate > 60; Glucose Random 67 mg/dL (60-115); Potassium 3.6 mmol/L (3.3-5.1); Sodium 144 mmol/L (135-145)
[2023-12-11 13:11] LABS: Appearance Urine Clear; Color Urine Yellow; Glucose Urine UA Negative (Negative); Leukocyte Esterase Urine Negative (Negative); Nitrite Urine Negative (Negative); PH 6.5 (5.0-9.0); Specific Gravity - Urine <= 1.005 (1.005-1.025); Urine Blood Negative (Negative); Urine Ketones Negative (Negative); Urine Protein Negative (Neg-Trace)
[2023-12-11 13:13] LABS: B Type Natriuretic Peptide 90 pg/mL (<100)
--- NOTE | 2023-12-11 13:13 | ED_ITS ---
HPI - Extremity Problem General Chief complaint: Extremity Problem Stated complaint: swollen legs Time Seen by Provider: 12/11/23 12:40 Source: patient Mode of arrival: ambulatory Limitations: language barrier ( Portuguese-speaking nuclear operations specialist utilized) History of Present Illness HPI Narrative: patient is a 58-year-old female with who presents emergency department for evaluation of bilateral lower extremity edema primarily to the ankles and feet. First noticed 2 days ago after flying from [place]. Swelling was noted at the end of the day, resolved with elevation of the legs. Had similar appearance yesterday at the end of the day which again resolved after rest. Denies any wounds, lesions, rashes, redness, warmth, calf pain, precipitating trauma, shortness of breath, chest pain. Denies personal history of DVT /PE / malignancy. Reports a history of chronic right lower back pain for which she is being evaluated by her primary care provider, unchanged from her baseline. Related Data Previous Rx's ?Medication ?Instructions ?Recorded docusate sodium 100 mg capsule 100 mg PO DAILY #30 caps 05/13/23 (Colace) omeprazole 20 mg capsule,delayed 20 mg PO DAILY #60 caps 07/11/23 release Allergies Allergy/AdvReac Type Severity Reaction Status Date / Time No Known Allergies Allergy Verified 12/11/23 09:49 Review of Systems 2 Review of Systems: Yes all other systems are reviewed and are negative PMFSH Past Medical History Attestation statement: The following information was validated with the patient. Source: old records reviewed Medical History delivery delivered Social History Social History Patient Tobacco Use Status: Never used Tobacco e-Cigarette/Vaping Use: Never Used Second Hand Smoke Exposure: No Advance Directives: No Advance Directives Information Provided: Yes service: No Current occupational status: unemployed Cognitive needs: No Hearing needs: No Vision needs: No Physical Exam 2 Vital Signs: Vital Signs: Last Vital Signs Temp 97.7 F 12/11/23 14:00 Pulse 61 12/11/23 14:00 Resp 16 12/11/23 14:00 BP 106/66 12/11/23 14:00 Pulse Ox 98 12/11/23 14:00 O2 Del Method Room Air 12/11/23 14:00 BMI result Body Mass Index 28.9 Appearance: Alert.?Oriented to person, place and time. No acute distress.?Normal affect. Eyes: Pupils equal, round and reactive to light.? ENT: Pharynx normal.?? Neck: Normal inspection.? Neck supple.?? CVS: Heart sounds normal. Normal heart rate and rhythm.? Pulses normal.?? Respiratory: No respiratory distress.? Lung sounds clear to auscultation bilaterally?? Abdomen: Soft and non-tender. Normoactive bowel sounds. No pulsatile mass.?? Skin: Skin warm and dry.? Normal skin color.? Normal skin turgor.?? Extremities: No lower extremity edema.? No calf ttp. 2+ DP/PT pulse bilaterally? Neuro: Moves all extremities spontaneously. Sensation intact bilaterally. Ambulates with normal steady gait. Medical Decision Making Medical Decision Making [facility] Narrative: patient is a 58-year-old female presents emergency department for evaluation of intermittent dependent edema to the bilateral lower extremities. On examination she does not lower extremity edema. Examination is normal. Extremities are neurovascularly intact distally. Lung sounds bilaterally she is in no respiratory distress. Unlikely to be DVT given it is bilateral and resolving, favor swelling to be dependent edema venous insufficiency. Serum labs were obtain CBC is without leukocytosis anemia or thrombocytopenia. No CHAY. High sensitive troponin within normal range, EKG revealing a normal sinus rhythm with ventricular rate of 72, QTC 444, no ST elevation, ST depression or acute ischemic findings. BNP not consistent with CHF. Urinalysis without evidence of infection. CXR reveals no evidence of pulmonary congestion or acute cardiopulmonary abnormality. At this time, blood pressures are slightly soft, would defer initiating diuretics, discussed conservative treatment including rest, elevation, compression stockings with follow-up primary care provider. Differential Diagnosis Differential Diagnoses: The differential diagnosis associated with the presentation includes ( See narrative above) Admission/Observation Consideration of admission/observation: Escalation of care including admission/observation considered Lab Data [facility] Lab Attestation statement: I reviewed the patient's lab results. ( see narrative above) 12/11/23 12:46 12/11/23 12:46 Labs: Lab Results 12/11/23 12/11/23 Range/Units 12:46 13:04 WBC 7.2 (4.8-10.8) X10*3/uL RBC 5.04 (4.20-5.50) X10*6/uL Hgb 13.4 (12.0-16.0) g/dl Hct 42.0 (37.0-47.0) % MCV 83.3 (80.0-98.0) fL MCH 26.6 L (27.0-33.0) pg MCHC 31.9 (31.0-35.0) g/dl RDW 14.1 (11.0-16.0) % Plt Count 234 (160-400) X10*3/uL MPV 9.5 (9.4-12.3) fL Immature Gran % (Auto) 0.1 (0.0-0.4) % Neut % (Auto) 46.5 (45-73) % Lymph % (Auto) 44.1 H (20-40) % [place] % (Auto) 5.5 (2-11) % Eos % (Auto) 3.2 (0-4) % Baso % (Auto) 0.6 (0-2) % Lymph # (Auto) 3.2 (1.2-4.9) X10*3/uL [place] # (Auto) 0.4 (0.1-1.2) X10*3/uL Eos # (Auto) 0.2 (0.0-0.4) X10*3/uL Baso # (Auto) 0.0 (0.0-0.2) X10*3/uL Abs Immat Gran (auto) 0.01 (0.00-0.03) X10*3/uL Absolute Neuts (auto) 3.4 (2.0-8.3) x10*3/uL Absolute Nucleated RBC 0.000 (0.0-0.012) X10*3/uL Nucleated RBC % (auto) 0.0 (0.0-0.2) /100WBC PT 11.4 (11.1-13.3) SEC INR 0.9 (0.9-1.1) Sodium 144 (135-145) mmol/L Potassium 3.6 (3.3-5.1) mmol/L Chloride 109 H (96-108) mmol/L Carbon Dioxide 30 H (22-29) mmol/L Anion Gap 9 L (12-20) BUN 9 (9-16) mg/dL Creatinine 0.77 (0.5-1.4) mg/dL Estim Creat Clear Calc 68.0 Estimated GFR > 60 Random Glucose 67 (60-115) mg/dL Calcium 9.3 (8.4-10.2) mg/dL Troponin I High Sens < 2.7 (<3.5-17.0) ng/L B-Natriuretic Peptide 90 (<100) pg/mL Urine Color Yellow Urine Appearance Clear Urine pH 6.5 (5.0-9.0) Ur Specific [place] <= 1.005 (1.005-1.025) Urine Protein Negative (Neg-Trace) mg/dL Urine Glucose (UA) Negative (Negative) mg/dL Urine Ketones Negative (Negative) mg/dL Urine Blood Negative (Negative) Urine Nitrite Negative (Negative) Ur Leukocyte Esterase Negative (Negative) Independent Interpretation I performed an independent interpretation of an: EKG ( see narrative above) and Plain X-Ray ( No pulmonary congestion) Radiology Impression Discussion of test interpretation with radiology: I have reviewed the radiologist's reading. Radiologist Impression: XR/XR chest 2V IMPRESSION: No acute cardiopulmonary disease. Stable appearance of the heart and lungs. Independent Historian Clinical information obtained from an independent historian. History obtained from or confirmed by: Other ( daughter who confirms history) External Record Review External record reviewed: Outpatient record Prescription Management I considered prescription management with: Other ( see narrative above) Discharge Plan Discharge Clinical Impression: Pedal edema Patient Disposition: Home, Self-Care Instructions: Leg Edema (ED) Additional Instructions: as discussed, your blood work today was very reassuring. the swelling in your legs appears to be dependent in nature, please be sure to elevate your legs above the level of your chest, use compression stockings as described. Avoid a diet high in salt, stay as active as you can, avoid sitting or standing for prolonged periods time. If you develop new or worsening symptoms or concerns such as shortness of breath especially if you are lying down, chest pain, palpitations, redness swelling or pain to the calf /foot, cold sensation to the feet or pale color then this should be re-evaluated. Follow-up with your primary care provider. Prescriptions: No Action omeprazole 20 mg capsule,delayed release(DR/EC) 20 mg PO DAILY Qty: 60 0RF docusate sodium [Colace] 100 mg capsule 100 mg PO DAILY Qty: 30 0RF Referrals: Ashlyn Roberto MD [Primary Care Provider] - Print Language: Portuguese
[2023-12-11 13:15] LABS: Troponin-I High Sensitivity < 2.7 ng/L (<3.5-17.0)
[2023-12-11 14:00] VITALS: BP 106/66; PULSE 61; RESP 16; TEMP 36.5; O2SAT 98
[2023-12-11 15:03] VITALS: BP 106/66; PULSE 61; RESP 16; TEMP 36.5; O2SAT 98
== END 2023-12-11 15:04 | disposition home or self-care (01) ==
PROVIDERS: Nurse Practitioner Family; Emergency Provider Emergency Medicine Emergency Medical Services; PCP Internal Medicine
DX: R60.0 Localized edema (principal)
CPT/HCPCS: 36415; 71046; 80048; 81003; 83880; 84484; 85025; 85610; 93005; 99283; 99284

== ENCOUNTER → 2023-12-11 12:25 | Outpatient (BNV) | payer MEDICAID, SELFPAY | PROVIDERS: Emergency Provider Emergency Medicine Emergency Medical Services; PCP Internal Medicine; Visit Provider Internal Medicine Cardiovascular Disease | DX: R60.0 Localized edema (principal) | CPT/HCPCS: 93010 ==

== ENCOUNTER 2023-12-26 11:42 | Outpatient (AMB) | payer OTHER, SELFPAY ==
[2023-12-26 12:03] VITALS: BP 106/62; PULSE 62; TEMP 36.6; O2SAT 98
--- NOTE | 2023-12-26 12:03 | MHC.OFFWIV ---
Intake Vital Signs 12/26/23 12:03 Height 5 ft BP 106/62 Blood Pressure Location Rt brachial Position Sitting Pulse 62 Pulse Source Pulse Oximeter Temp 97.9 F Temp Source Oral Pulse Oximetry (%) 98 Intake Visit Reasons: EP Stomach heaviness/bloated 3 days-normally flat Intake Note: pt is here for stomach heaviness, bloating for 3 days Patient Tobacco Use Status: Never used Tobacco Allergies No Known Allergies Allergy (Verified 01/08/24 10:41) Do you need a note to return to daycare/school/sports/work: Yes HPI EP Stomach heaviness/bloated 3 days-normally flat HPI Details Patient is a 58-year-old female with history of GERD and constipation. She reports that she has had about 3 days of feeling like her abdomen is more bloated than usual. She denies current abdominal pain, but reports that she has had recent flare up of her GERD, and uses omeprazole as needed. She has not tried [id number]-[id number] remedies such as Mylanta or antacids for the bloating. She reports no change to her baseline diet, and no change to our activities of daily living. No fever or chills, dizziness or weakness, chest pain or shortness of breath, cough, nausea vomiting or diarrhea, changes to bowel pattern or texture, blood or coffee grinds in her stools, urinary symptoms, back pain or flank pain, or other significant associated symptoms. [facility] Medical History delivery delivered Social History Alcohol intake: never Patient Tobacco Use Status: Never used Tobacco e-Cigarette/Vaping Use: Never Used Second Hand Smoke Exposure: No service: No Current occupational status: unemployed Cognitive needs: No Hearing needs: No Vision needs: No Review of Systems Const All systems reviewed & are unremarkable except as noted in HPI and below Physical Exam Vital Signs: Last Vital Signs Temp 97.9 F 12/26/23 12:03 Pulse 62 12/26/23 12:03 BP 106/62 12/26/23 12:03 Pulse Ox 98 12/26/23 12:03 Const General: cooperative, healthy appearing, comfortable, no acute distress, alert, awake, Physically active and well groomed; No diaphoretic, ill appearing, intoxicated appearing, poor hygiene or tired appearing Nutritional Appearance: average body habitus Chest Chest palpation & inspection: normal palpation of entire chest wall Resp Effort & Inspection: normal respiratory effort, able to speak in complete sentences, no audible wheezes, no cough, no grunting, not labored, no nasal flaring, no retractions and symmetric chest movement Auscultation: clear to auscultation bilaterally, no crackles, no rales, no rhonchi, no wheezes, lung sounds not diminished and No rub present Cardio Palpation: normal PMI Rate: regular rate Rhythm: regular rhythm Heart sounds: S1 normal heart sound present and S2 normal heart sound present GI Inspection: No Abdominal wall edema and No distended Palpation (GI): Soft to palpation, not firm, Tenderness to palpation present (GI) (Mildly diffuse) not at McBurney's point, Candelario's sign negative and with no rebound tenderness, no guarding, not rigid, No hepatosplenomegaly present, no hernias and no masses Auscultation: normal bowel sounds General: Yes no CVA tenderness Back/Spine/Pelvis Back: no CVA tenderness Skin Other: Good color, warm and dry Psych Appearance: grossly normal Mental Status: mental status grossly normal Speech and movement: Normal speech and movement present Affect: normal affect Attitude: cooperative Thought process: Normal thought process present Insight: Good insight present (Psych) Judgement: Good judgement present (Psych) Results AMB Urinalysis, Automated UA Leukoctes 0 Jarod/uL Last Edit by Karri Cote CMA on 12/26/23 12:56 UA Nitrite Negative Last Edit by Karri Cote CMA on 12/26/23 12:56 UA Urobilinogen 0.2 mg/dL Last Edit by Karri Cote CMA on 12/26/23 12:56 UA Protein 0 mg/dL Last Edit by Karri Cote CMA on 12/26/23 12:56 UA pH 6.0 Last Edit by Karri Cote CMA on 12/26/23 12:56 UA Blood 10 Bhupendra/uL Last Edit by Karri Cote CMA on 12/26/23 12:56 UA Specific [place] 1.015 Last Edit by Karri Cote CMA on 12/26/23 12:56 UA Ketone Positive Last Edit by Karri Cote CMA on 12/26/23 12:56 UA Bilirubin 0 mg/dL Last Edit by Karri Cote CMA on 12/26/23 12:56 UA Glucose 0 mg/dL Last Edit by Karri Cote CMA on 12/26/23 12:56 Results Reviewed Results Reviewed: Laboratory Last Values Urine pH (Auto) 6.0 12/26/23 12:48 Specific [place] (Auto) 1.015 12/26/23 12:48 Urine Protein (Auto) 0 mg/dL 12/26/23 12:48 Glucose (UA)(Auto) 0 mg/dL 12/26/23 12:48 Urine Ketones (Auto) Positive 12/26/23 12:48 Urine Blood (Auto) 10 Bhupendra/uL 12/26/23 12:48 Urine Nitrite (Auto) Negative 12/26/23 12:48 Urine Bilirubin (Auto) 0 mg/dL 12/26/23 12:48 Urine Urobilinogen (Auto) 0.2 mg/dL 12/26/23 12:48 Leukocyte Esterase (Auto) 0 Jarod/uL 12/26/23 12:48 Positive ketones and trace heme Assessment & Plan Assessment & Plan (1) Gastritis: Code(s): K29.70 - Gastritis, unspecified, without bleeding Qualifiers: Chronicity: acute Gastritis bleeding: without bleeding Gastritis type: superficial Qualified Code(s): K29.00 - Acute gastritis without bleeding Plan: Patient is a 58-year-old female with a history of GERD, who comes to the walk-in clinic complaining of recent GERD flare-up and feeling bloated. Her vitals are stable and her exam is overall unremarkable except for some mild diffuse tenderness which would account for feeling bloated, but no localized tenderness and no surgical abdomen apparent. She has no urinary symptoms, and urinalysis was nondiagnostic for a UTI. She seems anxious and we discussed that she appears stable today, and after taking her GERD medication, her mild bloating could be due to her GERD flare-up. She should continue to take her medication regularly, and avoid any foods that might aggravate her symptoms. We discussed monitoring her symptoms and following up with PCP if they persist. She should go to the emergency department with worrisome symptoms. Orders: Orders Basic Metabolic Panel 12/26/23 R14.0 - Abdominal distension (gaseous) Amylase 12/26/23 R14.0 - Abdominal distension (gaseous) Lipase 12/26/23 R10.9 - Unspecified abdominal pain AMB Urinalysis Automated 12/26/23 Z13.9 - Encounter for screening, unspecified Coding Level of Care Code Est Pt Level 4 (37180) Diagnoses Acute superficial gastritis without hemorrhage K29.00 Chronicity: acute Gastritis bleeding: without bleeding Gastritis type: superficial
== END 2023-12-26 13:04 | disposition home or self-care (01) ==
PROVIDERS: PCP Internal Medicine; Visit Provider Physician Assistant Medical
DX: K29.00 Acute gastritis without bleeding (principal)
CPT/HCPCS: 81003; 99051; 99214

== ENCOUNTER 2023-12-27 08:45 | Emergency (ER) | payer OTHER, SELFPAY ==
--- NOTE | ~2023-12-27 | CT_ITS ---
EXAMINATION: CT ABDOMEN AND PELVIS WITHOUT CONTRAST CLINICAL INFORMATION: Abdominal distention COMPARISON: CT from 06/30/2023 TECHNIQUE: Multidetector volumetric imaging was performed from the superior aspect of the liver through the pubic symphysis. Sagittal and coronal reformatted images were obtained on the technologist's workstation. This CT examination was performed using dose optimization techniques as appropriate, variously including the following: *Automated exposure control *Adjustment of mA and/or kV according to patient size (this includes techniques or standardized protocols for targeted exams where dose is matched to indication/reason for exam; i.e. extremities or head) *Use of iterative reconstruction technique DLP: 432 mGy-cm FINDINGS: LUNG BASES: The visualized lung bases are unremarkable. LIVER, GALLBLADDER, AND BILIARY TREE: The liver is normal in size, shape, and attenuation. No focal hepatic lesion or biliary ductal dilatation is present. The gallbladder is unremarkable with no evidence of radiopaque gallstones, gallbladder wall thickening, or obvious pericholecystic inflammatory changes. PANCREAS: Unremarkable. SPLEEN: Unremarkable. ADRENAL GLANDS: Unremarkable. KIDNEYS AND URETERS: The kidneys are normal in size, shape, and attenuation. No hydronephrosis, hydroureter, or calculi seen. No perinephric stranding. BLADDER: Unremarkable. GASTROINTESTINAL TRACT: The small and large bowel are unremarkable. The appendix is unremarkable. ABDOMINAL WALL: No significant hernia is appreciated. LYMPH NODES: Normal. VASCULAR: Unremarkable. PELVIC VISCERA: The uterus and adnexa are unremarkable. OSSEOUS STRUCTURES: Unremarkable. CT/CT abdomen pelvis wo IV con IMPRESSION: No significant abnormality.
[2023-12-27 09:04] VITALS: BP 107/62; PULSE 73; RESP 16; TEMP 36.4; O2SAT 100; BMI 28.8
[2023-12-27 09:35] LABS: Basophils Absolute Auto 0.1 X10*3/uL (0.0-0.2); Basophils Percent Auto 0.7 % (0-2); Eosinophils Absolute Auto 0.3 X10*3/uL (0.0-0.4); Hemoglobin 13.6 g/dl (12.0-16.0); Imm Gran Abs Auto 0.01 X10*3/uL (0.00-0.03); Imm Gran Pct Auto 0.1 % (0.0-0.4); Lymphocytes Absolute Auto 3.6 X10*3/uL (1.2-4.9); Lymphocytes Percent Auto 51.3 % (20-40); MANUAL DIFF FLAG NO; Mean Corpuscular HGB Conc 32.4 g/dl (31.0-35.0); Mean Corpuscular Hemoglobin 26.6 pg (27.0-33.0); Mean Corpuscular Volume 82.2 fL (80.0-98.0); Mean Platelet Volume 9.4 fL (9.4-12.3); Monocytes Absolute Auto 0.4 X10*3/uL (0.1-1.2); Monocytes Percent Auto 5.4 % (2-11); Neutrophils Absolute Auto 2.7 x10*3/uL (2.0-8.3); Neutrophils Percent Auto 38.5 % (45-73); Platelet Count 244 X10*3/uL (160-400); Red Blood Count 5.11 X10*6/uL (4.20-5.50); Red Cell Distribution Width 13.7 % (11.0-16.0); White Blood Count 7.1 X10*3/uL (4.8-10.8)
[2023-12-27 09:51] LABS: Alanine Aminotransferase 15 U/L (0-31); Albumin Level 4.2 g/dL (3.5-5.0); Alkaline Phosphatase 71 U/L (39-117); Anion Gap 10 (12-20); Aspartate Amino Transferase 21 U/L (5-31); Bilirubin Total 1.1 mg/dL (0.0-1.0); Blood Urea Nitrogen 12 mg/dL (9-16); Calcium 9.8 mg/dL (8.4-10.2); Carbon Dioxide 29 mmol/L (22-29); Chloride 106 mmol/L (96-108); Creatinine Clr Calc Pharmacy 68.8; Estimated Glomerular Filt Rate > 60; Glucose Random 90 mg/dL (60-115); Potassium 4.4 mmol/L (3.3-5.1); Sodium 141 mmol/L (135-145); Total Protein 7.2 g/dL (6.5-8.0)
[2023-12-27 12:04] LABS: Lipase 17 U/L (8-78)
[2023-12-27 12:13] LABS: HCG Quantitative < 2 mIU/mL
[2023-12-27 16:13] LABS: Appearance Urine Clear; Color Urine Yellow; Glucose Urine UA Negative (Negative); Leukocyte Esterase Urine Trace (Negative); Nitrite Urine Negative (Negative); PH 6.5 (5.0-9.0); Specific Gravity - Urine 1.015 (1.005-1.025); UMIC TRIGGER UACC YES; Urine Blood Negative (Negative); Urine Ketones Negative (Negative); Urine Protein Negative (Neg-Trace)
--- NOTE | 2023-12-27 16:19 | ED_ITS ---
HPI - General Adult General Chief complaint: Abdominal Pain Stated complaint: Abd pain Time Seen by Provider: 12/27/23 15:51 History of Present Illness HPI narrative: The patient is a 58-year-old female who comes to the emergency room stating that she has had upper abdominal pain. She also feels that her abdomen is more bloated than it has been. She says that she normally has a flat abdomen. She has had no fever, sweats, chills. Her last bowel movement was yesterday and it was a normal bowel movement. She has had no black or bloody stools. The patient says that she has some siblings who have had colon cancer. She herself has never had a colonoscopy. Related Data Previous Rx's ?Medication ?Instructions ?Recorded docusate sodium 100 mg capsule 100 mg PO DAILY #30 caps 05/13/23 (Colace) pantoprazole 40 mg tablet,delayed 40 mg PO DAILY 90 days #90 tabs 01/04/24 release Allergies Allergy/AdvReac Type Severity Reaction Status Date / Time No Known Allergies Allergy Verified 01/04/24 12:49 Review of Systems 2 Review of Systems: Yes all other systems are reviewed and are negative [facility] Past Medical History Medical History delivery delivered Social History Social History (Updated 01/04/24 @ 12:55 by Ashlyn Becker MD) Alcohol intake: never Patient Tobacco Use Status: Never used Tobacco e-Cigarette/Vaping Use: Never Used Second Hand Smoke Exposure: No service: No Current occupational status: unemployed Cognitive needs: No Hearing needs: No Vision needs: No Physical Exam ED Vital Signs: Vital Signs - 24 hr 12/27/23 09:04 Temperature 97.6 F Pulse Rate 73 Respiratory Rate 16 Blood Pressure 107/62 Pulse Oximetry 100 Oxygen Delivery Method Room Air BMI result Body Mass Index 28.8 Const Other: The patient is a 58-year-old woman who was awake and alert and did not appear ill. HENMT Other: The face is symmetrical. Mucous membranes moist. Eyes Other: Pupils are round equal, conjunctivae are clear, extraocular movements intact Neck Other: No JVD Resp Effort & Inspection: normal respiratory effort Auscultation: clear to auscultation bilaterally Cardio Rate: regular rate Rhythm: regular rhythm Heart sounds: S1 normal heart sound present and S2 normal heart sound present GI Other: Mild diffuse abdominal tenderness Skin Other: Skin is dry and unremarkable Neuro Other: The patient is awake and alert. Cranial nerves 2-12 are grossly intact. She moves all 4 extremities normally. She has a normal gait. She is grossly neurologically intact. Extrem Other: No peripheral edema, no calf swelling or tenderness Medications Administered Discontinued Medications Generic Name Dose Route Start Last Admin Trade Name Nicholasq PRN Reason Stop Dose Admin Sucralfate 1 gm 12/27/23 16:47 12/27/23 17:06 Sucralfate Oral Suspension 1 Gm/10 Ml Oral.Susp PO 12/27/23 16:48 1 gm ONCE ONE Administration Medical Decision Making Medical Decision Making [facility] Narrative: The patient is a 58-year-old female who presents with a complaint of abdominal pain and bloating. She says that she feels her abdomen is much more protuberant than it typically is. She also was concerned that there is a strong family history of colon cancer and she has never had a colonoscopy. Labs were done as was a CT scan of the abdomen and pelvis. All findings are unremarkable. The patient was advised that although it is reassuring that no concerning findings were present on her abdominal CT that this does not rule out a possible problem with colon cancer. She was strongly advised to work on getting a colonoscopy as an outpatient given her concerns and family history. She will be referred to her primary care doctor for Gastroenterology referral. Lab Data 12/27/23 09:30 12/27/23 09:30 Labs: Lab Results 12/27/23 12/27/23 Range/Units 09:30 16:05 WBC 7.1 (4.8-10.8) X10*3/uL RBC 5.11 (4.20-5.50) X10*6/uL Hgb 13.6 (12.0-16.0) g/dl Hct 42.0 (37.0-47.0) % MCV 82.2 (80.0-98.0) fL MCH 26.6 L (27.0-33.0) pg MCHC 32.4 (31.0-35.0) g/dl RDW 13.7 (11.0-16.0) % Plt Count 244 (160-400) X10*3/uL MPV 9.4 (9.4-12.3) fL Immature Gran % (Auto) 0.1 (0.0-0.4) % Neut % (Auto) 38.5 L (45-73) % Lymph % (Auto) 51.3 H (20-40) % Evans % (Auto) 5.4 (2-11) % Eos % (Auto) 4.0 (0-4) % Baso % (Auto) 0.7 (0-2) % Lymph # (Auto) 3.6 (1.2-4.9) X10*3/uL Evans # (Auto) 0.4 (0.1-1.2) X10*3/uL Eos # (Auto) 0.3 (0.0-0.4) X10*3/uL Baso # (Auto) 0.1 (0.0-0.2) X10*3/uL Abs Immat Gran (auto) 0.01 (0.00-0.03) X10*3/uL Absolute Neuts (auto) 2.7 (2.0-8.3) x10*3/uL Absolute Nucleated RBC 0.000 (0.0-0.012) X10*3/uL Nucleated RBC % (auto) 0.0 (0.0-0.2) /100WBC Sodium 141 (135-145) mmol/L Potassium 4.4 D (3.3-5.1) mmol/L Chloride 106 (96-108) mmol/L Carbon Dioxide 29 (22-29) mmol/L Anion Gap 10 L (12-20) BUN 12 (9-16) mg/dL Creatinine 0.76 (0.5-1.4) mg/dL Estim Creat Clear Calc 68.8 Estimated GFR > 60 Random Glucose 90 (60-115) mg/dL Calcium 9.8 (8.4-10.2) mg/dL Total Bilirubin 1.1 H (0.0-1.0) mg/dL AST 21 (5-31) U/L ALT 15 (0-31) U/L Alkaline Phosphatase 71 (39-117) U/L Total Protein 7.2 (6.5-8.0) g/dL Albumin 4.2 (3.5-5.0) g/dL Lipase 17 (8-78) U/L Beta HCG, Quant < 2 mIU/mL Urine Color Yellow Urine Appearance Clear Urine pH 6.5 (5.0-9.0) Ur Specific [place] 1.015 (1.005-1.025) Urine Protein Negative (Neg-Trace) mg/dL Urine Glucose (UA) Negative (Negative) mg/dL Urine Ketones Negative (Negative) mg/dL Urine Blood Negative (Negative) Urine Nitrite Negative (Negative) Ur Leukocyte Esterase Trace H (Negative) Urine RBC 0-2 (0-2) /HPF Urine WBC 0-5 (0-5) /HPF Ur Squamous Epith Cells 0-2 (0-2) /HPF Urine Bacteria Trace (None Seen) Hyaline Casts 0-2 (0-2) /LPF Discharge Plan Discharge Clinical Impression: Acute epigastric pain, Abdominal bloating Patient Disposition: Home, Self-Care Instructions: Gastritis (ED) Additional Instructions: Your CT scan is not showing any concerning findings. Additionally your blood work is reassuring. I think the pain in your upper abdomen may be related to a condition we called gastritis. This is usually a problem related to stomach acid. I have sent a prescription for omeprazole to your pharmacy. Please start taking this medication daily. Please also plan on contacting your regular doctor's office tomorrow to discuss what may be gastritis and also to help you arrange for a colonoscopy to get additional testing to ensure you do not have colon cancer. Return to the emergency room if you feel significantly worse. Prescriptions: No Action docusate sodium [Colace] 100 mg capsule 100 mg PO DAILY Qty: 30 0RF pantoprazole 40 mg tablet,delayed release (DR/EC) 40 mg PO DAILY 90 Days Qty: 90 1RF Referrals: Ashlyn Roberto MD [Primary Care Provider] - (Epigastric pain likely gastritis, also patient is concerned about possible colon cancer, needs to be set up for colonoscopy) Discharge Date/Time: 12/27/23 17:00 Print Language: Welsh
[2023-12-27 16:48] LABS: Bacteria Urine Trace (None Seen); Hyaline Casts Urine 0-2 /LPF (0-2); RBC Urine 0-2 /HPF (0-2); Squamous Epithelial Cell Urine 0-2 /HPF (0-2); WBC Urine 0-5 /HPF (0-5)
[2023-12-27 16:55] VITALS: BP 107/57; PULSE 64; RESP 18; TEMP 37; O2SAT 99
[2023-12-27] MEDS: Sucralfate Oral Suspension 1 GM/10 ML ORAL.SUSP PO (17:06)
== END 2023-12-27 17:00 | disposition home or self-care (01) ==
PROVIDERS: Physician Assistant; Emergency Provider Emergency Medicine; PCP Internal Medicine
DX: R10.13 Epigastric pain (principal); R14.0 Abdominal distension (gaseous); K21.9 Gastro-esophageal reflux disease without esophagitis
CPT/HCPCS: 36415; 74176; 80053; 81001; 83690; 84702; 85025; 99282; 99284

== ENCOUNTER 2024-01-04 12:30 | Outpatient (AMB) | payer OTHER, SELFPAY ==
[2024-01-04 12:38] VITALS: BP 102/60; PULSE 74; O2SAT 98; BMI 28.3
--- NOTE | 2024-01-04 12:38 | A.OFFPC_ITS ---
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 Accompanied by: Self / Same As Patient Allergies No Known Allergies Allergy (Verified 01/04/24 12:49) Medication List - Last Reconciled 01/04/24 by Ashlyn Becker MD docusate sodium (Colace) 100 mg PO DAILY omeprazole 40 mg PO DAILY Tobacco use date assessed: 01/04/24 Dental Screening Dental Screen Date: 01/04/24 Did you have a dental visit in the last 12 months?: No Did you have a dental problem in the last 6 months where you did not have access to dental care?: No HPI HPI Comments History of Present Illness Details This is a 58-year-old female with GERD and constipation that complains of right foot pain that started few months ago. She had an injury years ago in which had a wound puncture in right foot and requires surgery occasionally to do something with the cartilage of the foot. She does get relief after surgery. I will refer her to Podiatry. GERD still present with omeprazole and I will give her pantoprazole and order an upper GI series. She does have diffuse abdominal pain and bloating and has never had a colonoscopy and will have a colonoscopy in February. Constipation stable with medications as needed. No chest pain or shortness on breath. [facility] Medical History (Updated 01/04/24 @ 13:07 by Ashlyn Becker MD) delivery delivered Social History (Updated 01/04/24 @ 12:55 by Ashlyn Becker MD) Alcohol intake: never Patient Tobacco Use Status: Never used Tobacco e-Cigarette/Vaping Use: Never Used Second Hand Smoke Exposure: No service: No Current occupational status: unemployed Cognitive needs: No Hearing needs: No Vision needs: No Questionnaire PHQ-9 Over the last 2 weeks, how often have you been bothered by any of the following problems? 1. Little interest or pleasure in doing things: not at all 2. Feeling down, depressed, or hopeless: not at all 3. Trouble falling or staying asleep, or sleeping too much: not at all 4. Feeling tired or having little energy: not at all 5. Poor appetite or overeating: not at all 6. Feeling bad about yourself - or that you are a failure or have let yourself or your family down: not at all 7. Trouble concentrating on things, such as reading the newspaper or watching television: not at all 8. Moving or speaking so slowly that other people could have noticed. Or the opposite - being so fidgety or restless that you have been moving around a lot more than usual: not at all 9. Thoughts that you would be better off or of hurting yourself in some way: not at all Total score: 0 Depression Screening Interpretation: Negative Depression Screening Done: Yes 17193 - PHQ-9 Billing: Yes Source: Developed by Drs. Nick Tejada, Nadya Vyas, Adrian Mcallister and colleagues, with an educational gail from [employer]. Thrive Questionnaire Date Thrive assessed: 01/04/24 I am a: Patient What is your living situation today?: I have a steady place to live Within the past 12 months, did the food you bought not last and you didn't have the money to get more?: Never true Within the past 12 months, did you worry whether your food would run out before you got money to buy more?: Never true Do you have trouble paying for medicines?: No Do you have trouble getting transportation to medical appointments?: No Do you have trouble paying your heating and electricity bill?: No Do you have trouble taking care of your child, family member or friend?: No Do you have trouble with day-to-day activities such as bathing, preparing meals, shopping, managing finances, etc.?: No Are you currently unemployed and looking for a job?: No Are you interested in more education?: No Please select the resources that you would like help with: None Currently or been in a relationship where the following occur: no concerns reported THRIVE Score: 0 AUDIT C Alcohol Use Questionnaire (AUDIT-C) 1. How often do you have a drink containing alcohol?: Never 3. How often do you have six or more drinks on one occasion?: Never Total Score: 0 Score Reviewed/Action Taken: No EILEEN-7 AMB Questionnaire EILEEN-7 Date EILEEN - 7 assessed: 01/04/24 Source: Developed by Drs. Nick Tejada, Nadya Vyas, Adrian Mcallister and colleagues, with an educational gail from [employer]. Review of Systems Card Denies chest pain at rest, Denies chest pain with activity, Denies edema, Denies irregular heart rhythm, Denies claudication, Denies dyspnea, Denies dyspnea on exertion, Denies orthopnea, Denies paroxysmal nocturnal dyspnea and Denies slow heart rate Resp Denies cough, Denies dyspnea and Denies dyspnea on exertion Physical exam (Primary Care) Vital Signs: Last Vital Signs Pulse 74 01/04/24 12:38 BP 102/60 01/04/24 12:38 Pulse Ox 98 01/04/24 12:38 Oxygen Delivery Method Room Air 01/04/24 12:38 BMI result Body Mass Index 28.3 Tobacco/Smoking Status: Tobacco use Status Tobacco use date assessed 01/04/24 01/04/24 12:40 Patient Tobacco Use Status Never used Tobacco 01/04/24 12:40 e-Cigarette/Vaping Use Never Used 01/04/24 12:40 PHQ-9: PHQ-9 Score PHQ-9: Total score 0 01/04/24 12:43 Depression Screening Interpretation: Negative Thrive Assessment: Date of Thrive Assessment Date Thrive assessed 01/04/24 01/04/24 12:40 Currently or been in a relationship where the following occur: no concerns reported Resp Effort & Inspection: normal respiratory effort Auscultation: clear to auscultation bilaterally Cardio Jugular venous distension: no JVD Rate: regular rate Rhythm: regular rhythm Heart sounds: S1 normal heart sound present and S2 normal heart sound present GI Inspection: Yes normal to inspection Palpation (GI): Soft to palpation and nontender Auscultation: normal bowel sounds Extrem Right lower extremity: foot (callus) Details: tenderness Assessment and Plan Assessment & Plan (1) Right foot pain: Code(s): M79.671 - Pain in right foot Plan: Referred to Podiatry. (2) GERD (gastroesophageal reflux disease): Code(s): K21.9 - Gastro-esophageal reflux disease without esophagitis Qualifiers: Esophagitis presence: esophagitis presence not specified Qualified Code(s): K21.9 - Gastro-esophageal reflux disease without esophagitis Plan: Discontinue omeprazole. Start pantoprazole. Upper GI series order. (3) Constipation: Code(s): K59.00 - Constipation, unspecified Qualifiers: Constipation type: chronic idiopathic constipation Qualified Code(s): K59.04 - Chronic idiopathic constipation Plan: Continue docusate as needed. Orders: Orders [place] upper GI series Today R10.13 - Epigastric pain Referrals Podiatry Referral L84 - Corns and callosities, M79.671 - Pain in right foot Medications: New pantoprazole 40 mg PO DAILY 90 days 90 tabs 1RF Discontinued omeprazole Discontinued Reason: Patient Completed Course 40 mg PO DAILY 30 caps 0RF Coding Level of Care Code Est Pt Level 3 (44085) Complex EM visit Add On G2211 Diagnoses Right foot pain M79.671 Gastroesophageal reflux disease, unspecified whether esophagitis present K21.9 Esophagitis presence: esophagitis presence not specified Chronic idiopathic constipation K59.04 Constipation type: chronic idiopathic constipation Time Spent (min) 19
== END 2024-01-04 13:01 | disposition home or self-care (01) ==
PROVIDERS: PCP Internal Medicine; Visit Provider Internal Medicine
DX: M79.671 Pain in right foot (principal); K21.9 Gastro-esophageal reflux disease without esophagitis; K59.04 Chronic idiopathic constipation
CPT/HCPCS: 99213; G2211

== ENCOUNTER 2024-01-08 10:31 | Outpatient (AMB) | payer OTHER, SELFPAY ==
--- NOTE | 2024-01-08 10:40 | MHC.PC.OV ---
Vital Signs 01/08/24 10:41 Height 5 ft Weight 147 lb BMI 28.7 BP 110/64 Blood Pressure Location Lt brachial Position Sitting Intake Visit Reasons: ED FOLLOW UP BLOATED STOMACH Intake Note: Patient is here to follow-up after a visit the emergency department at [facility] on 12/27/23. Complaint of right side flank pain radiating to the front. Patient Accounts Specialist Required: Yes Patient Accounts Specialist Language: Binder Coverstitch Name: Sinai ([id number]) Information Interpreted: non-clinical & clinical Bias Cutter: Not Required per policy Accompanied by: Self / Same As Patient Allergies No Known Allergies Allergy (Verified 01/08/24 10:41) Tobacco use date assessed: 01/08/24 Dental Screening Dental Screen Date: 01/04/24 HPI HPI Comments History of Present Illness Details 58 y/o female patient who presents to the clinic for ED follow up. DOS: 12/27/23 and DOD: 12/27/23 She was seen for Diagnosis of Acute abdominal bloating and Acute epigastric pain. She was prescribed Docusate and Pantoprazole Today she reports feeling much better after discharge. She has an upcoming GI appointment in February 2024. No other concerns today. [facility] Medical History delivery delivered Social History Alcohol intake: never Patient Tobacco Use Status: Never used Tobacco e-Cigarette/Vaping Use: Never Used Second Hand Smoke Exposure: No service: No Current occupational status: unemployed Cognitive needs: No Hearing needs: No Vision needs: No Questionnaire Thrive Questionnaire Date Thrive assessed: 01/04/24 EILEEN-7 AMB Questionnaire EILEEN-7 Date EILEEN - 7 assessed: 01/04/24 Source: Developed by Drs. Nick Tejada, Nadya Vyas, Adrian Mcallister and colleagues, with an educational gail from [employer]. Review of Systems Const All systems reviewed & are unremarkable except as noted in HPI and below Physical exam (Primary Care) Vital Signs: Last Vital Signs BP 110/64 01/08/24 10:41 BMI result Body Mass Index 28.7 Tobacco/Smoking Status: Tobacco use Status Tobacco use date assessed 01/08/24 01/08/24 11:01 Patient Tobacco Use Status Never used Tobacco 01/08/24 11:01 e-Cigarette/Vaping Use Never Used 01/08/24 11:01 Thrive Assessment: Date of Thrive Assessment Date Thrive assessed 01/04/24 01/08/24 11:01 Const General: comfortable and no acute distress Orientation/consciousness: patient oriented x3 GI Inspection: Yes normal to inspection Palpation (GI): Soft to palpation, not firm, Tenderness to palpation present (GI) in the epigastrum, no guarding, No hepatosplenomegaly present, no hernias and no masses Neuro General: patient oriented x3, gait normal and moves all extremities Psych Speech and movement: Normal speech and movement present Vital Signs: Last Vital Signs BP 110/64 01/08/24 10:41 BMI result Body Mass Index 28.7 Const General: comfortable and no acute distress Orientation/consciousness: patient oriented x3 GI Inspection: Yes normal to inspection Palpation (GI): Soft to palpation, not firm, Tenderness to palpation present (GI) in the epigastrum, no guarding, No hepatosplenomegaly present, no hernias and no masses Neuro General: patient oriented x3, gait normal and moves all extremities Psych Speech and movement: Normal speech and movement present Assessment and Plan Assessment & Plan (1) Acute epigastric pain: Code(s): R10.13 - Epigastric pain (2) Abdominal bloating: Code(s): R14.0 - Abdominal distension (gaseous) Coding Level of Care Code Est Pt Level 4 (92710) Diagnoses Acute epigastric pain R10.13 Abdominal bloating R14.0 Time Spent (min) 20 Comment Spent 20 minutes reviewing hospital notes and answering questions.
[2024-01-08 10:41] VITALS: BP 110/64; BMI 28.7
== END 2024-01-08 13:27 | disposition home or self-care (01) ==
PROVIDERS: PCP Internal Medicine; Visit Provider Nurse Practitioner Family
DX: R10.13 Epigastric pain (principal); R14.0 Abdominal distension (gaseous)
CPT/HCPCS: 99214

== ENCOUNTER 2024-01-21 08:02 | Emergency (ER) | payer OTHER, SELFPAY ==
--- NOTE | ~2024-01-21 | US_ITS ---
EXAMINATION: US ABDOMEN LIMITED CLINICAL INFORMATION: Right upper quadrant pain. COMPARISON: CT abdomen pelvis December 27, 2023 TECHNIQUE: Real-time imaging of the right upper quadrant abdominal viscera. FINDINGS: PANCREAS: Normal. LIVER: The liver is normal in size. The liver contour is normal. Diffusely increased liver echogenicity. No focal hepatic lesion. There is no intrahepatic biliary duct dilatation seen. GALLBLADDER: Normal. The gallbladder is physiologically distended without evidence of stones, sludge, polyps, wall thickening or pericholecystic fluid. COMMON BILE DUCT: Normal in caliber measuring 0.3 cm in diameter. RIGHT KIDNEY: Normal. No hydronephrosis. No renal calculi or focal parenchymal lesions. The kidney measures 9.4 cm in maximum dimension. FREE FLUID: None. US/US abdomen limited IMPRESSION: Diffusely increased liver echogenicity. This is a nonspecific finding but most suggestive of hepatic steatosis. Correlation with liver enzymes recommended.
[2024-01-21 08:13] VITALS: BP 129/68; PULSE 74; RESP 16; TEMP 36.6; O2SAT 100; BMI 28.8
[2024-01-21 08:33] VITALS: PULSE 71; O2SAT 100
--- NOTE | 2024-01-21 08:47 | PC.NURSE ---
pt is alert and oriented, skin appropriate for ethnicity, respirations even and unlabored, pt reports for about a week having right upper abd pain/feeling of bloating/ some nausea pain at 10/10, pain gets worse with movement, states she cant eat much because of the pain and feeling of bloating, intermittent soft/loose stools.
[2024-01-21 08:49] LABS: MANUAL DIFF FLAG NO
[2024-01-21 08:50] LABS: Basophils Percent Auto 0.5 % (0-2); Eosinophils Absolute Auto 0.2 X10*3/uL (0.0-0.4); Eosinophils Percent Auto 3.3 % (0-4); Hematocrit 37.3 % (37.0-47.0); Hemoglobin 12.2 g/dl (12.0-16.0); Imm Gran Abs Auto 0.01 X10*3/uL (0.00-0.03); Imm Gran Pct Auto 0.2 % (0.0-0.4); Lymphocytes Absolute Auto 3.5 X10*3/uL (1.2-4.9); Mean Corpuscular HGB Conc 32.7 g/dl (31.0-35.0); Mean Corpuscular Hemoglobin 26.7 pg (27.0-33.0); Mean Corpuscular Volume 81.6 fL (80.0-98.0); Mean Platelet Volume 9.8 fL (9.4-12.3); Monocytes Absolute Auto 0.3 X10*3/uL (0.1-1.2); Neutrophils Absolute Auto 2.6 x10*3/uL (2.0-8.3); Platelet Count 210 X10*3/uL (160-400); Red Blood Count 4.57 X10*6/uL (4.20-5.50); Red Cell Distribution Width 14.1 % (11.0-16.0); White Blood Count 6.7 X10*3/uL (4.8-10.8)
[2024-01-21 09:09] LABS: Alanine Aminotransferase 15 U/L (0-31); Albumin Level 3.9 g/dL (3.5-5.0); Alkaline Phosphatase 68 U/L (39-117); Anion Gap 10 (12-20); Aspartate Amino Transferase 19 U/L (5-31); Bilirubin Total 0.9 mg/dL (0.0-1.0); Blood Urea Nitrogen 10 mg/dL (9-16); Calcium 9.3 mg/dL (8.4-10.2); Carbon Dioxide 27 mmol/L (22-29); Chloride 111 mmol/L (96-108); Creatinine Clr Calc Pharmacy 70.7; Estimated Glomerular Filt Rate > 60; Glucose Random 93 mg/dL (60-115); Lipase 16 U/L (8-78); Potassium 3.6 mmol/L (3.3-5.1); Sodium 144 mmol/L (135-145); Total Protein 6.6 g/dL (6.5-8.0)
--- NOTE | 2024-01-21 10:11 | ED_ITS ---
HPI - Abdominal Pain General Chief Complaint: Abdominal Pain Stated Complaint: Abd pain/bloating Time Seen by Provider: 01/21/24 08:11 Source: patient Mode of arrival: ambulatory Limitations: no limitations History of Present Illness ED Provider: Dr. Almonte HPI narrative: patient presents with increasing abdominal distention and pain for the past few weeks. She was seen in the ED recently had a full work up including CT of Abd and labs. she now states that she has worsening RUQ pain, no fever or vomiting MD elicited complaint: abdominal pain Onset (ago): week(s) Pain Consistency: constant Location: RUQ Severity: mild Related Data Previous Rx's ?Medication ?Instructions ?Recorded docusate sodium 100 mg capsule 100 mg PO DAILY #30 caps 05/13/23 (Colace) pantoprazole 40 mg tablet,delayed 40 mg PO DAILY 90 days #90 tabs 01/04/24 release Allergies Allergy/AdvReac Type Severity Reaction Status Date / Time No Known Allergies Allergy Verified 01/21/24 08:15 Review of Systems Review of Systems Yes all other systems are reviewed and are negative Denies Sensory deficit (Neuro) [facility] Past Medical History Medical History delivery delivered Social History Social History Alcohol intake: never Patient Tobacco Use Status: Never used Tobacco Smoked in Last 30 Days: No e-Cigarette/Vaping Use: Never Used Second Hand Smoke Exposure: No Use of substances other than those prescribed or required for medical reasons: No Advance Directives: No Advance Directives Information Provided: Yes service: No Current occupational status: unemployed Cognitive needs: No Hearing needs: No Vision needs: No Physical Exam ED Vital Signs: Vital Signs - 24 hr 01/21/24 08:13 01/21/24 08:33 Temperature 97.9 F Pulse Rate 74 71 Respiratory Rate 16 Blood Pressure 129/68 Pulse Oximetry 100 100 Oxygen Delivery Method Room Air Room Air BMI result Body Mass Index 28.8 Const General: healthy appearing Nutritional Appearance: average body habitus Orientation/consciousness: oriented to person and patient oriented x3 Limitations: no limitations HENMT Head: Yes normal to inspection Ears: external ears normal General nose exam: Normal external nose present Mouth: Normal oral and palatal mucosa present and oropharynx normal Throat: Yes posterior oropharynx normal Eyes General: appearance normal, both eyes and all related structures Neck Neck: Yes normal visual inspection Chest Chest palpation & inspection: normal inspection of the chest Resp Auscultation: clear to auscultation bilaterally Cardio Jugular venous distension: no JVD Rate: regular rate Rhythm: regular rhythm Heart sounds: S1 normal heart sound present and S2 normal heart sound present GI Other: mild right upper quadrant pain Inspection: Yes normal to inspection Palpation (GI): Soft to palpation Auscultation: normal bowel sounds General: Yes no CVA tenderness Back/Spine/Pelvis Back: no CVA tenderness Skin General skin exam: no rashes or lesions noted Neuro General: oriented to person and patient oriented x3 Cranial nerves: Yes CN's II-XII intact bilaterally Motor exam (neuro): 5/5 motor strength present throughout Sensory Exam: No Sensory deficit (Neuro) Extrem General: Yes normal to inspection Psych Appearance: grossly normal Course Reevaluation(s) Reevaluation #1: no evidence of liver inflammation, normal US Time: 10:14 Medical Decision Making Differential Diagnosis Differential Diagnoses: The differential diagnosis associated with the presentation includes (biliary colic, cholecystitis, hepatitis, liver disease) Admission/Observation Consideration of admission/observation: Escalation of care including admission/observation considered (upon arrival admission was considered) Lab Data 01/21/24 08:43 01/21/24 08:43 Labs: Lab Results 01/21/24 Range/Units 08:43 WBC 6.7 (4.8-10.8) X10*3/uL RBC 4.57 (4.20-5.50) X10*6/uL Hgb 12.2 (12.0-16.0) g/dl Hct 37.3 (37.0-47.0) % MCV 81.6 (80.0-98.0) fL MCH 26.7 L (27.0-33.0) pg MCHC 32.7 (31.0-35.0) g/dl RDW 14.1 (11.0-16.0) % Plt Count 210 (160-400) X10*3/uL MPV 9.8 (9.4-12.3) fL Immature Gran % (Auto) 0.2 (0.0-0.4) % Neut % (Auto) 39.0 L (45-73) % Lymph % (Auto) 52.0 H (20-40) % [place] % (Auto) 5.0 (2-11) % Eos % (Auto) 3.3 (0-4) % Baso % (Auto) 0.5 (0-2) % Lymph # (Auto) 3.5 (1.2-4.9) X10*3/uL [place] # (Auto) 0.3 (0.1-1.2) X10*3/uL Eos # (Auto) 0.2 (0.0-0.4) X10*3/uL Baso # (Auto) 0.0 (0.0-0.2) X10*3/uL Abs Immat Gran (auto) 0.01 (0.00-0.03) X10*3/uL Absolute Neuts (auto) 2.6 (2.0-8.3) x10*3/uL Absolute Nucleated RBC 0.000 (0.0-0.012) X10*3/uL Nucleated RBC % (auto) 0.0 (0.0-0.2) /100WBC Sodium 144 (135-145) mmol/L Potassium 3.6 (3.3-5.1) mmol/L Chloride 111 H (96-108) mmol/L Carbon Dioxide 27 (22-29) mmol/L Anion Gap 10 L (12-20) BUN 10 (9-16) mg/dL Creatinine 0.74 (0.5-1.4) mg/dL Estim Creat Clear Calc 70.7 Estimated GFR > 60 Random Glucose 93 (60-115) mg/dL Calcium 9.3 (8.4-10.2) mg/dL Total Bilirubin 0.9 (0.0-1.0) mg/dL AST 19 (5-31) U/L ALT 15 (0-31) U/L Alkaline Phosphatase 68 (39-117) U/L Total Protein 6.6 (6.5-8.0) g/dL Albumin 3.9 (3.5-5.0) g/dL Lipase 16 (8-78) U/L Independent Interpretation I performed an independent interpretation of an: Ultrasound (no biliary stones) Radiology Impression Discussion of test interpretation with radiology: I have reviewed the radiologist's reading. (patient has fatty liver disease) External Record Review External record reviewed: Outpatient record and Prior outpatient radiology Prescription Management I considered prescription management with: Antibiotic (no infection noted) Discharge Plan Discharge Clinical Impression: Abdominal pain, Fatty liver disease, nonalcoholic Patient Disposition: Home, Self-Care Instructions: Liver Disease Diet (DC), Non-Alcoholic Fatty Liver Disease (ED) Prescriptions: No Action docusate sodium [Colace] 100 mg capsule 100 mg PO DAILY Qty: 30 0RF pantoprazole 40 mg tablet,delayed release (DR/EC) 40 mg PO DAILY 90 Days Qty: 90 1RF Referrals: Ashlyn Roberto MD [Primary Care Provider] - 5 days Print Language: Belarusian
[2024-01-21 10:40] VITALS: BP 136/72; PULSE 54; RESP 18; O2SAT 99
[2024-01-21 10:41] VITALS: BP 136/72; PULSE 54; RESP 18; TEMP -17.7; TEMP 0; O2SAT 99
== END 2024-01-21 10:43 | disposition home or self-care (01) ==
PROVIDERS: Emergency Provider Emergency Medicine; PCP Internal Medicine
DX: R14.0 Abdominal distension (gaseous) (principal); R10.11 Right upper quadrant pain; K76.0 Fatty (change of) liver, not elsewhere classified; Z79.899 Other long term (current) drug therapy
CPT/HCPCS: 36415; 76705; 80053; 83690; 85025; 99284

== ENCOUNTER 2024-03-07 08:01 | Outpatient (AMB) | payer OTHER, SELFPAY ==
--- NOTE | 2024-03-07 08:18 | MHC.OFFVIS ---
Vital Signs 03/07/24 08:19 Height 5 ft Weight 141 lb 15.643 oz BMI 27.7 Pulse 70 Pulse Source Pulse Oximeter Pulse Oximetry (%) 99 Oxygen Delivery Method Room Air Intake Visit Reasons: Colonoscopy Screening Intake Note: Salena presents in office today for a scheduled colo s/p scrn CC; Initial screening with previous GI hx. Pt has prior family hx of colo cancer (sister and niece). Pt reports that they are doing well with their current medications. However, she does report constant RUQ bloating. Pt reports onset approximately 3.5 months ago. Hr Shared Services Consultant Required: Yes Hr Shared Services Consultant Services: Hr Shared Services Consultant Present Hr Shared Services Consultant Name: [id number] Giovani Accompanied by: Family/Other Allergies No Known Allergies Allergy (Verified 03/07/24 08:19) HPI HPI Colonoscopy Screening: Details: 58 year old? female is here today for pre colonoscopy screening.? Patient was sent to us by her PCP.? ?Patient reports that she never had colonoscopy in the past. States that she visited [place] back in November and when she returned she started with right upper quadrant pain visitation to ER with CT scan and abdominal ultrasound both normal. Patient continues to have epigastric pain, right upper quadrant pain and swelling. Patient reports that she moves her bowels daily. Patient feels like she does empty her bowels completely. Patient denies nausea or vomiting. Was sent by PCP for upper GI series. Appointment never made. Patient reports family history of CRC. Patient's sister got diagnosed with CRC at age of 70 and her cousin at age 40. Denies history of difficulty with sedation or anesthesia in the past.? Negative for history of sleep apnea.? Denies any history of cardiac, renal, pulmonary, or hepatic disease.?? No history of infectious? diseases like hepatitis A, B, C, HIV or tuberculosis.? Patient is not on any anticoagulation [facility] Medical History delivery delivered Family History Sister Colon cancer Family/Other Colon cancer Social History Alcohol intake: never Patient Tobacco Use Status: Never used Tobacco e-Cigarette/Vaping Use: Never Used Second Hand Smoke Exposure: No service: No Current occupational status: unemployed Cognitive needs: No Hearing needs: No Vision needs: No Review of Systems Const Denies weight gain and Denies weight loss ENT Reports no additional complaints, Denies dysphagia and Denies odynophagia Card Reports no additional complaints Resp Reports no additional complaints GI Reports abdominal pain, Denies belching, Denies melena, Reports bloating, Denies change in bowel habits, Denies dysphagia, Denies excessive flatus, Reports dyspepsia, Reports heartburn, Denies diarrhea, Denies loose stools, Denies nausea, Denies odynophagia and Denies vomiting Reports no additional complaints Musc Reports no additional complaints Neuro Reports no additional complaints Psych Reports no additional complaints Endo Reports no additional complaints Physical Exam Vital Signs: Last Vital Signs Pulse 70 03/07/24 08:19 Pulse Ox 99 03/07/24 08:19 Oxygen Delivery Method Room Air 03/07/24 08:19 BMI result Body Mass Index 27.7 Const General: healthy appearing, no acute distress and well developed Nutritional Appearance: well nourished Orientation/consciousness: patient oriented x3 Resp Effort & Inspection: normal respiratory effort, able to speak in complete sentences, no tracheal deviation and symmetric chest movement Auscultation: clear to auscultation bilaterally Cardio Rate: regular rate GI Inspection: Yes normal to inspection and No distended Palpation (GI): Soft to palpation, not firm, nontender and No hepatosplenomegaly present Auscultation: normal bowel sounds General: Yes no CVA tenderness Back/Spine/Pelvis Back: no CVA tenderness Skin General skin exam: elasticity normal, turgor normal and dry skin Neuro General: patient oriented x3 Psych Appearance: grossly normal Mental Status: mental status grossly normal Assessment & Plan Assessment & Plan (1) GERD (gastroesophageal reflux disease): Code(s): K21.9 - Gastro-esophageal reflux disease without esophagitis Category: Medical Qualifiers: Esophagitis presence: esophagitis presence not specified Qualified Code(s): K21.9 - Gastro-esophageal reflux disease without esophagitis (2) Screen for colon cancer: Code(s): Z12.11 - Encounter for screening for malignant neoplasm of colon Plan Patient denies any cardiac or respiratory symptoms.? Denies any issues with anesthesia in the past.? Denies any history of sleep apnea.? No history infectious diseases in the past or present.? Positive family history for CRC. Patient reports severe abdominal bloating and pain in right upper quadrant. Patient reports that the pain is there feels like the bloating is there almost all the time. Pain is mostly in right upper quadrant postprandially. Will send patient for HIDA scan to rule out dyskinesia. Patient will start taking Nexium and stop pantoprazole. Patient reports that pantoprazole has not been working for her. Will order transglutaminase, lipase, vitamin-B 12, folate, vitamin D levels. Patient's bowel sounds are sluggish we will send her script for senna. Patient will try to take it daily to help her empty bowels completely. Severe bloating. Discussed with patient low FODMAP diet. List of food recommended as well as list of food to avoid given to patient. Colonoscopy will be scheduled. Message sent to surgical schedulers to book upper endoscopy and colonoscopy. I will see patient in 3 months to re-evaluate. Patient will call our office if she will have worsening symptoms or any other GI concerning symptoms. Patient is agreeable to this plan and verbalizes understanding of instructions. She was given the opportunity to ask questions and all questions answered. Thank you for allowing me to participate her care Orders: Orders Transglutaminase Ab IgG Today R10.9 - Unspecified abdominal pain Transglutaminase IgA Today R10.9 - Unspecified abdominal pain Lipase Today R10.9 - Unspecified abdominal pain Vitamin B12 and Folate Today R19.7 - Diarrhea, unspecified Vitamin D 25-OH (D2 and D3) Today E55.9 - Vitamin D deficiency, unspecified NM hepatobiliary w pharm Today R10.11 - Right upper quadrant pain Medications: New esomeprazole magnesium (Nexium) 40 mg PO DAILY 30 caps 5RF K21.9 - Gastro-esophageal reflux disease without esophagitis simethicone (Gas Relief (simethicone)) 125 mg PO TID-QID PRN 120 caps 2RF abdominal distention sennosides (Natural Senna Laxative) 17.2 mg (2 x 8.6 mg) PO BEDTIME 60 tabs 3RF constipation K59.00 - Constipation, unspecified Discontinued pantoprazole Discontinued Reason: Doctor's Order 40 mg PO DAILY 90 days 90 tabs 1RF Coding Level of Care Code New Pt Level 4 (80403) Diagnoses Gastroesophageal reflux disease, unspecified whether esophagitis present K21.9 Esophagitis presence: esophagitis presence not specified Screen for colon cancer Z12.11 Time Spent (min) 45 Comment 30 minutes spent with patient and additional 15 minutes spent reviewing her records
[2024-03-07 08:19] VITALS: PULSE 70; O2SAT 99; BMI 27.7
== END 2024-03-07 09:47 | disposition home or self-care (01) ==
PROVIDERS: PCP Internal Medicine; Visit Provider Nurse Practitioner Family
DX: K21.9 Gastro-esophageal reflux disease without esophagitis (principal); Z12.11 Encounter for screening for malignant neoplasm of colon
CPT/HCPCS: 99204

== ENCOUNTER 2024-03-07 08:01 | Outpatient (REF) | payer OTHER, SELFPAY ==
[2024-03-07 13:08] LABS: Lipase 23 U/L (8-78)
[2024-03-07 19:15] LABS: Folate 9.7 ng/mL (> or = 4.0); Vitamin B12 391 pg/mL (200-900)
[2024-03-08 19:37] LABS: Transglutaminase Ab IgG <1.0 U/mL; Transglutaminase IgA <1.0 U/mL
[2024-03-11 16:28] LABS: Vitamin D 25-OH, D2 <4 ng/mL; Vitamin D 25-OH, D3 23 ng/mL; Vitamin D 25-OH, Total 23 ng/mL (30-100)
== END 2024-03-07 08:02 | disposition home or self-care (01) ==
LOC: HO.LAB 08:01
PROVIDERS: PCP Internal Medicine; Visit Provider Nurse Practitioner Family
DX: R10.9 Unspecified abdominal pain (principal); E55.9 Vitamin D deficiency, unspecified; R19.7 Diarrhea, unspecified; K21.9 Gastro-esophageal reflux disease without esophagitis; Z12.11 Encounter for screening for malignant neoplasm of colon; R10.11 Right upper quadrant pain; Z80.0 Family history of malignant neoplasm of digestive organs
CPT/HCPCS: 36415; 82306; 82607; 82746; 83690; 86364; 99202

== ENCOUNTER 2024-03-14 08:06 | Outpatient (REF) | payer OTHER, SELFPAY ==
--- NOTE | ~2024-03-14 | FL_ITS ---
EXAMINATION: XR FLUOROSCOPY UPPER GI WITH AIR CLINICAL INFORMATION: Epigastric pain. Reflux. COMPARISON: None TECHNIQUE: Fluoroscopic air contrast upper GI examination was performed utilizing standard techniques with thin and thick barium and effervescent granules. Numerous spot images were obtained. FINDINGS: Dual and single contrast images of the esophagus demonstrate normal caliber, contour, and mucosal pattern. Mild cricopharyngeal achalasia is present. There is a granular appearance of the esophageal mucosa, suggestive of esophagitis. No evidence of stricture, mass, or ulcerations identified. Esophageal peristalsis is mildly disorganized. No evidence of hiatus hernia identified. No significant gastroesophageal reflux was seen during the course of the examination and on reflux views. Dual contrast and single contrast images of the stomach demonstrated a normal contour. The gastric rugal folds have a mildly thickened appearance. There are multiple foci of contrast pooling throughout the fundus and body of the stomach that may represent small superficial aphthous ulcers. No masses are present. Contrast freely passed into the gastric antrum and duodenal bulb without delay. Single and air-contrast images of the duodenal bulb demonstrate no abnormality. The duodenal sweep has a normal appearance, course, and mucosal fold appearance. The imaged proximal jejunum folds are thickened in appearance. There is also jejunization of the ileum noted. There is rapid transit of the barium with the right colon opacified less than 10 minutes. FLUOROSCOPY TIME: 3 minutes 48 seconds Number of Spot Images: 6 Number of Cine: 10 DOSE AREA PRODUCT: 1590 uGy-m2 (microgray-meter squared) FL/FL upper GI w air IMPRESSION: 1. Mild cricopharyngeal achalasia. 2. Granular appearance of the esophageal mucosa, suggestive of esophagitis. 3. Mildly disorganized esophageal peristalsis. 4. Thickened appearance of the gastric rugal folds. In addition, there are multiple foci of contrast pooling throughout the fundus and body of the stomach. These findings are suggestive of erosive gastritis. Recommend correlation of EGD. 5. Jejunization of the ileum. In addition, there is rapid transit of the barium column, with the right colon opacified in less than 10 minutes. These findings suggest a malabsorption disorder, in particular celiac disease. This procedure was performed by Noam Mishra PA-C, and supervised by Dr. Carter Electronically signed by: Yonatan Carter MD 03/15/2024 04:47 PM EDT
== END 2024-03-14 08:07 | disposition home or self-care (01) ==
LOC: HO.XRAY 08:06
PROVIDERS: PCP Internal Medicine; Visit Provider Internal Medicine
DX: R10.13 Epigastric pain (principal)
CPT/HCPCS: 74246

== ENCOUNTER → 2024-03-14 08:08 | Outpatient (BNV) | payer OTHER, SELFPAY | PROVIDERS: PCP Internal Medicine; Visit Provider Radiology Diagnostic Radiology | DX: K21.9 Gastro-esophageal reflux disease without esophagitis (principal); R10.13 Epigastric pain | CPT/HCPCS: 74246 ==

== ENCOUNTER → 2024-03-16 08:13 | Outpatient (REF) | payer OTHER, SELFPAY ==
--- NOTE | ~2024-03-16 | NM_ITS ---
EXAMINATION: BILIARY TRACT IMAGING STUDY WITH CCK CLINICAL INFORMATION: Right upper quadrant abdominal pain. COMPARISON: Right upper quadrant abdominal ultrasound done on 01/21/2024. TECHNIQUE: Serial gamma scintillation camera images were obtained over the abdomen for a total observation period of 60 minutes following the intravenous administration of 5.0 mCi Tc-99m mebrofenin. The radiotracer was injected through a right antecubital superficial vein. FINDINGS: There is good concentration of activity in the liver by 5 minutes post injection. Biliary activity is visualized by 10 minutes. The gallbladder is well visualized by 30 minutes. Small bowel is well visualized by 30 minutes. At 60 minutes post radiopharmaceutical injection, a 30-minute infusion of 1.25 micrograms Sincalide was then begun and an additional 40 minutes of images were obtained. There is good emptying of the gallbladder. By the end of the study there is good clearance of activity from the liver and visualization of diffuse small bowel activity. The calculated gallbladder ejection fraction is 78% (Normal range of gallbladder ejection fraction is between 35-80%; GBEF <35% is considered biliary hypokinesia and >80% is considered biliary hyperkinesia; Ref. #1-Clinical Journal of Gastroenterology (2020) 14:1421-6170; Ref.#2-[email or web address]). NM/NM hepatobiliary w pharm IMPRESSION: Visualization of the gallbladder is evidence of a patent cystic duct and strong evidence against the diagnosis of acute cholecystitis. The common bile duct is patent. Gallbladder emptying and ejection fraction are normal. Liver function appears normal. Electronically signed by: Lu Lucero MD 03/17/2024 10:14 AM EDT
== END ==
LOC: HO.NUCMED 08:13
PROVIDERS: PCP Internal Medicine; Visit Provider Nurse Practitioner Family
DX: R10.11 Right upper quadrant pain (principal)
CPT/HCPCS: 78227; A9537; J2805

== ENCOUNTER → 2024-03-24 08:54 | Outpatient (REF) | payer OTHER, SELFPAY ==
--- NOTE | 2024-03-24 08:59 | ECG_ITS ---
Test Reason : Pre Op Blood Pressure : / mmHG Vent. Rate : 062 BPM Atrial Rate : 062 BPM P-R Int : 140 ms QRS Dur : 084 ms QT Int : 408 ms P-R-T Axes : 003 044 031 degrees QTc Int : 414 ms Normal sinus rhythm Normal ECG When compared with ECG of 11-DEC-2023 12:31, No significant change was found Referred By: Ashlyn Becker Electronically Signed By:THANH GARZA
[2024-03-24 10:18] LABS: Amylase 111 U/L (28-100); Anion Gap 8 (12-20); Blood Urea Nitrogen 10 mg/dL (9-16); Calcium 9.4 mg/dL (8.4-10.2); Carbon Dioxide 26 mmol/L (22-29); Chloride 112 mmol/L (96-108); Estimated Glomerular Filt Rate > 60; Glucose Random 91 mg/dL (60-115); Lipase 18 U/L (8-78); Potassium 4.3 mmol/L (3.3-5.1); Sodium 142 mmol/L (135-145)
[2024-03-25 20:52] LABS: Immunoglobulin A 129 mg/dL (47-310); Transglutaminase IgA <1.0 U/mL
== END ==
LOC: HO.CARD 08:54
PROVIDERS: Physician Assistant Medical; PCP Internal Medicine; Visit Provider Internal Medicine
DX: Z01.818 Encounter for other preprocedural examination (principal); R93.3 Abnormal findings on diagnostic imaging of other parts of digestive tract; R14.0 Abdominal distension (gaseous); R10.9 Unspecified abdominal pain
CPT/HCPCS: 36415; 80048; 82150; 82784; 83690; 86364; 93005

== ENCOUNTER 2024-03-28 11:48 | Outpatient (AMB) | payer OTHER, SELFPAY ==
--- NOTE | 2024-03-28 12:10 | A.OFFPC_ITS ---
Vital Signs 03/28/24 12:22 Height 5 ft Weight 139 lb BMI 27.1 BP 102/80 Blood Pressure Location Lt brachial Position Sitting Intake Visit Reasons: preop Intake Note: Patient here for pre-op cataract right eye Dr Pagan 04/12 [employer] H[employer] Instructor Required: No Accompanied by: Self / Same As Patient Allergies No Known Allergies Allergy (Verified 03/28/24 12:41) Medication List - Last Reconciled 03/28/24 by Ashlyn Becker MD docusate sodium (Colace) 100 mg PO DAILY esomeprazole magnesium (Nexium) 40 mg PO DAILY sennosides (Natural Senna Laxative) 17.2 mg (2 x 8.6 mg) PO BEDTIME simethicone (Gas Relief (simethicone)) 125 mg PO TID-QID PRN Tobacco use date assessed: 01/08/24 Dental Screening Dental Screen Date: 03/28/24 Did you have a dental visit in the last 12 months?: No Did you have a dental problem in the last 6 months where you did not have access to dental care?: No Was dental information given to patient?: Patient has dentist HPI HPI Comments History of Present Illness Details This is a 58-year-old female comes today for preop evaluation. EKG shows normal sinus rhythm. Labs were within normal limits. She has 4-10 Mets of ADLs. By RCRI she is class 1 with 0.4% of cardiac risk complications. Patient is medically clear for cataract extraction and intraocular lens implant surgery. She denies any chest pain or shortness on breath. [facility] Medical History (Updated 03/28/24 @ 15:45 by Ashlyn Becker MD) delivery delivered Surgical History History of Family History Sister Colon cancer Family/Other Colon cancer Social History Housing: Apartment Alcohol intake: never Patient Tobacco Use Status: Never used Tobacco e-Cigarette/Vaping Use: Never Used Second Hand Smoke Exposure: No service: No Current occupational status: unemployed Cognitive needs: No Hearing needs: No Vision needs: No Questionnaire Thrive Questionnaire Date Thrive assessed: 01/04/24 EILEEN-7 AMB Questionnaire EILEEN-7 Date EILEEN - 7 assessed: 03/28/24 Feeling nervous, anxious, or on edge: 0 = Not at all Not being able to stop or control worryin = Not at all Worrying too much about different things: 0 = Not at all Trouble relaxin = Not at all Being so restless that it is hard to sit still: 0 = Not at all Becoming easily annoyed or irritable: 0 = Not at all Feeling afraid as if something awful might happen: 0 = Not at all Total EILEEN-7 score (0-4 normal; 5-9 mild; 10-14 moderate; 15-21 severe): 0 Source: Developed by Drs. Nick Tejada, Nadya Vyas, Adrian Mcallister and colleagues, with an educational gail from [employer]. Review of Systems Const All systems reviewed & are unremarkable except as noted in HPI and below Eyes Reports no additional complaints, Denies change in vision and Denies other visual disturbances Card Denies chest pain at rest, Denies chest pain with activity, Denies edema, Denies irregular heart rhythm, Denies claudication, Denies dyspnea, Denies dyspnea on exertion, Denies orthopnea, Denies paroxysmal nocturnal dyspnea and Denies slow heart rate Resp Denies cough, Denies dyspnea and Denies dyspnea on exertion GI Denies abdominal pain, Denies change in bowel habits, Denies excessive flatus, Denies nausea and Denies vomiting Physical exam (Primary Care) Vital Signs: Last Vital Signs BP 102/80 03/28/24 12:22 BMI result Body Mass Index 27.1 Tobacco/Smoking Status: Tobacco use Status Tobacco use date assessed 01/08/24 03/28/24 12:19 Patient Tobacco Use Status Never used Tobacco 03/28/24 12:19 e-Cigarette/Vaping Use Never Used 03/28/24 12:19 Thrive Assessment: Date of Thrive Assessment Date Thrive assessed 01/04/24 03/28/24 12:19 Resp Effort & Inspection: normal respiratory effort Auscultation: clear to auscultation bilaterally Cardio Jugular venous distension: no JVD Rate: regular rate Rhythm: regular rhythm Heart sounds: S1 normal heart sound present and S2 normal heart sound present Extrem General: Yes full ROM Assessment and Plan Assessment & Plan (1) Pre-op evaluation: Code(s): Z01.818 - Encounter for other preprocedural examination Plan: Patient is medically clear for surgery. Coding Level of Care Code Est Pt Level 3 (30846) Complex EM visit Add On G2211 Diagnoses Pre-op evaluation Z01.818 Time Spent (min) 19
[2024-03-28 12:22] VITALS: BP 102/80; BMI 27.1
== END 2024-03-28 12:49 | disposition home or self-care (01) ==
PROVIDERS: PCP Internal Medicine; Visit Provider Internal Medicine
DX: Z01.818 Encounter for other preprocedural examination (principal)
CPT/HCPCS: 99213; G2211

== ENCOUNTER 2024-04-11 05:53 | Day surgery (SDC) | payer OTHER, SELFPAY ==
[2024-04-07 09:05] VITALS: BMI 27.1
--- NOTE | 2024-04-07 14:21 | HO.ANESPROP2 ---
Documented by User: Allison Gordon NP 04/07/24 14:23 HPI - Anesthesia Eval Consult details Narrative: 58yo F for Left Cataract Extraction IOL Insertion No previous cataract on record. FORMERLY [facility], [facility]–1983 Active Problems Active Problems: All Active Problems Pre-op evaluation (Acute) Abnormal upper gastrointestinal barium series (Acute) Pre-op evaluation (Acute) Foot callus (Acute) Epigastric pain (Acute) Right foot pain (Acute) Grief (Acute) Constipation (Acute) GERD (gastroesophageal reflux disease) (Acute) Abdominal pain (Acute) Back pain (Acute) Past Medical History Medical History Constipation GERD (gastroesophageal reflux disease) Cataracts, bilateral delivery delivered Family History Family History Sister Colon cancer Family/Other Colon cancer Surgical History Surgical History History of Social History Social History Housing: Apartment Alcohol intake: never Patient Tobacco Use Status: Never used Tobacco e-Cigarette/Vaping Use: Never Used Second Hand Smoke Exposure: No Advance Directives: No Advance Directives Information Provided: Yes Advance Directives on File: No service: No Current occupational status: unemployed Cognitive needs: No Hearing needs: No Vision needs: No Meds Allergies Allergy/AdvReac Type Severity Reaction Status Date / Time No Known Allergies Allergy Verified 04/11/24 06:40 Exam Height,Weight and Vital Signs: Height 5 ft Weight 63.049 kg Assessment and Plan Assessment Anesthesia Assessment: Chart Reviewed Documented by User: Shannan Og MD 04/11/24 07:43 FORMERLY [facility], [facility] Past Medical History Medical History Constipation GERD (gastroesophageal reflux disease) Cataracts, bilateral delivery delivered Family History Family History Sister Colon cancer Family/Other Colon cancer Surgical History Surgical History History of History of Problems with Anesthesia: No Social History Social History Housing: Apartment Alcohol intake: never Patient Tobacco Use Status: Never used Tobacco e-Cigarette/Vaping Use: Never Used Second Hand Smoke Exposure: No Advance Directives: No Advance Directives Information Provided: Yes Advance Directives on File: No service: No Current occupational status: unemployed Cognitive needs: No Hearing needs: No Vision needs: No Meds Allergies Allergy/AdvReac Type Severity Reaction Status Date / Time No Known Allergies Allergy Verified 04/11/24 06:40 Exam Airway Mallampati Class: II TM Dist: >3cm Neck ROM: Full Loose/Missing/Broken Teeth: No Heart: RRR Lungs: CTA Assessment and Plan Assessment Anesthesia Assessment: Anesthesia Plan Discussed Final Anesthetic Review History of Problems with Anesthesia: No NPO: Yes ASA Class: II Final Preanesthetic Review: Meds/Allgs Chart Reviewed, Consent Obtained/Reviewed and Anes Risks/Benef Reviewed Patient Risk: Low Procedure Risk: Low Anesthetic Plan Anesthetic Plan: MAC: Disposition: Standard PACU
[2024-04-11] MEDS: Lactated Ringers 500 ML 50 ML IV (06:21)
[2024-04-11] MEDS: Tetracaine HCl/PF 0.5% Oph Sol 4 ML DROPS 1 DROP EYE-LEFT (06:21)
[2024-04-11] MEDS: Cyclopentolate 1 % Ophth Sol 2 ML DRPBTL 1 DROP EYE-LEFT ×3 (06:22→06:31)
[2024-04-11] MEDS: Tropicamide 1 % Ophth Sol 3 ML BTL 1 DROP EYE-LEFT ×3 (06:22→06:31)
[2024-04-11] MEDS: Ketorolac Tromethamine 0.5% Op 10 ML DROPS 1 DROP EYE-LEFT ×3 (06:22→06:31)
[2024-04-11] MEDS: Phenylephrine HCL 2.5% Oph SoL 2 ML BOTTLE 1 DROP EYE-LEFT ×3 (06:22→06:31)
[2024-04-11 06:33] VITALS: BP 109/64; PULSE 75; RESP 18; TEMP 36.7; O2SAT 100
--- NOTE | 2024-04-11 07:16 | MHC.SHP ---
Pre-Procedural Eval Section A - 24 Hr Update-Section A only Date of Service: 04/11/24 The patient is an INPATIENT: No Changes since office visit: No Cold of Flu in the past 2 weeks, No New Medical Problems, No Changes in Medication and No Patient answered all questions The patient has been examined within 24 hours of the surgical procedure. The History & Physical has been completed within 30 days and I have reviewed it.: Yes Section B - Complete if H&P > 30 days Chief Complaint: Age-related nuclear cataract, left eye Allergies: Allergies Allergy/AdvReac Type Severity Reaction Status Date / Time No Known Allergies Allergy Verified 04/11/24 06:40 Plan Diagnosis/Plan: Unchanged I have reviewed the history and physical and performed a pertinent physical examination on my patient. No changes have occurred unless specified. Time Spent With Patient Time: Total time managing care of this patient today ____ minutes.
--- NOTE | 2024-04-11 07:17 | HO.PNOPHT ---
Ophthalmology Procedure Procedure Date of Service: 04/11/24 Ophthalmology Viscoelastic: Healon Duet Dual Pack Pro Ophthalmology Lenses: IOL Acrysof MP - MA60AC
--- NOTE | 2024-04-11 07:21 | HO.PNOPHT ---
Ophthalmology Procedure Procedure Date of Service: 04/11/24 Ophthalmology Viscoelastic: Healon Duet Dual Pack Pro Ophthalmology Lenses: IOL Acrysof MP - MA60AC (21) Procedure Notes: PREOPERATIVE DIAGNOSIS: Decreased visual acuity left eye secondary to cataract POSTOPERATIVE DIAGNOSIS: Same PROCEDURE: Left cataract extraction with intraocular lens insertion SURGEON: Shashank Salinas M.D. ANESTHESIA: Topical/MAC ESTIMATED BLOOD LOSS: None COMPLICATIONS: None After obtaining informed consent, the patient was brought to the operation room suite and placed in the supine position. After adequate sedation per anesthesia, topical drops of Tetracaine were given to the left eye. The eye was then prepped and draped in the usual sterile fashion. The operating room microscope was then positioned over the operative eye and a lid speculum placed. A paracentesis was created. Viscoelastic was then instilled into the anterior chamber. A three plane incision was then created temporally, utilizing a 2.85 mm keratome. Capsulotomy forceps were then utilized to create a circular tear capsulotomy. Hydrodissection and hydrodelineation were carried out until adequate mobilization of the nucleus occurred. Phacoemulsification was then utilized to remove the dense central nucleus followed by removal of the cortical material utilizing the automated aspiration irrigation unit. Viscoat elastic was instilled into the posterior capsular bag followed by placement of a posterior chamber intraocular lens without difficulty. The residual Viscoat elastic was then removed utilizing the automated IA machine. The wound was check and found to be watertight. The patient tolerated the procedure well and the lid speculum was removed. Intracameral injection of Vigamox 0.1 mL followed by a subtenon injection of Kenalog-40 0.2 mL were administered. The patient will be seen in the a.m.
[2024-04-11 08:02] VITALS: BP 115/62; PULSE 56; RESP 17; TEMP 36.4; O2SAT 98
== END 2024-04-11 08:32 | disposition home or self-care (01) ==
PROVIDERS: PCP Internal Medicine; Visit Provider Ophthalmology
PROC: (CPT 66985; principal; 2024-04-11 07:30)
DX: H25.12 Age-related nuclear cataract, left eye (principal); H52.4 Presbyopia; Z83.511 Family history of glaucoma; H11.153 Pinguecula, bilateral; F32.A Depression, unspecified; Z79.899 Other long term (current) drug therapy; Z56.0 Unemployment, unspecified
CPT/HCPCS: 66984; J2250; J3010; J3301; V2630

== ENCOUNTER 2024-04-13 11:41 | Outpatient (AMB) | payer OTHER, SELFPAY ==
[2024-04-13 11:45] VITALS: BP 118/60; PULSE 68; O2SAT 99; BMI 27.0
--- NOTE | 2024-04-13 11:45 | A.OFFVIS_ITS ---
Vital Signs 04/13/24 11:45 Height 5 ft Weight 138 lb 0.15 oz BMI 27.0 BP 118/60 Blood Pressure Location Rt brachial Position Sitting Pulse 68 Pulse Source Pulse Oximeter Pulse Oximetry (%) 99 Oxygen Delivery Method Room Air Intake Visit Reasons: Gastritis, esophagitis. Discuss EGD Intake Note: Salena presents in office today to discuss possible EGD as well as their ongoing chronic sx. CC: Pt also would like to discuss the results of their upper GI series and how that relates to the possible EGD. Pt had been having abd and back pain which had been alleviated by tylenol. Pt had spoke to the GI RN and was informed that this is likely musculoskeletal in nature and not related to the GI system. Pt reports that they have still been experiencing their sx pertaining to stomach burning pain and an inability to get comfortable. Pt has been incapacitated by this pain lately and has been bedridden for much of the last week. 4Th Grade Teacher Required: Yes 4Th Grade Teacher Name: [id number] Ashlyn Allergies No Known Allergies Allergy (Verified 04/13/24 11:48) HPI HPI Gastritis, esophagitis. Discuss EGD: Details: LAST VISIT GERD (gastroesophageal reflux disease) Screen for colon cancer Plan Patient denies any cardiac or respiratory symptoms.? Denies any issues with anesthesia in the past.? Denies any history of sleep apnea.? No history infectious diseases in the past or present.? Positive family history for CRC. Patient reports severe abdominal bloating and pain in right upper quadrant. Patient reports that the pain is there feels like the bloating is there almost all the time. Pain is mostly in right upper quadrant postprandially. Will send patient for HIDA scan to rule out dyskinesia. Patient will start taking Nexium and stop pantoprazole. Patient reports that pantoprazole has not been working for her. Will order transglutaminase, lipase, vitamin-B 12, folate, vitamin D levels. Patient's bowel sounds are sluggish we will send her script for senna. Patient will try to take it daily to help her empty bowels completely. Severe bloating. Discussed with patient low FODMAP diet. List of food recommended as well as list of food to avoid given to patient. Colonoscopy will be scheduled. Message sent to surgical schedulers to book upper endoscopy and colonoscopy. I will see patient in 3 months to re-evaluate. Patient will call our office if she will have worsening symptoms or any other GI concerning symptoms. Patient is agreeable to this plan and verbalizes understanding of instructions. She was given the opportunity to ask questions and all questions answered. ? Thank you for allowing me to participate her care Orders Orders Transglutaminase Ab IgG Today R10.9 Transglutaminase IgA Today R10.9 Lipase Today R10.9 Vitamin B12 and Folate Today R19.7 Vitamin D 25-OH (D2 and D3) Today E55.9 NM hepatobiliary w pharm Today R10.11 Medications New esomeprazole magnesium (Nexium) 40 mg PO DAILY 30 caps 5RF K21.9 simethicone (Gas Relief (simethicone)) 125 mg PO TID-QID PRN 120 caps 2RF abdominal distention sennosides (Natural Senna Laxative) 17.2 mg (2 x 8.6 mg) PO BEDTIME 60 tabs 3RF constipation K59.00 Discontinued pantoprazole Discontinued Reason: Doctor's Order 40 mg PO DAILY 90 days 90 tabs 1RF TODAY'S VISIT Patient is here today for follow-up and to discuss going for colonoscopy and upper endoscopy. Patient reports she continues to be constipated, take Senokot 2 tablets every day. Patient is taking esomeprazole, however reports that she continues to have epigastric pain with dyspepsia. Patient reports that the pain is there all the time does not matter what she eats. Reports pain also during the night. Patient also reports acid reflux no matter what she eats. Patient has colonoscopy and endoscopy scheduled already. Patient received instructions on how to prep. Will order prep for her today. Patient denies any other GI symptoms. Patient denies any cardiac or respiratory symptoms. Patient denies any cardiac symptoms lab work and HIDA scan results discussed with patient. Normal HIDA scan [facility] Medical History (Reviewed 04/13/24 @ 11:48 by Sebastián Hook [facility]) Constipation GERD (gastroesophageal reflux disease) Cataracts, bilateral delivery delivered Surgical History (Updated 04/13/24 @ 11:56 by OMAYRA Perkins) History of cataract surgery (~03/2024) History of Family History Sister Colon cancer Family/Other Colon cancer Social History Housing: Apartment Alcohol intake: never Patient Tobacco Use Status: Never used Tobacco e-Cigarette/Vaping Use: Never Used Second Hand Smoke Exposure: No service: No Current occupational status: unemployed Cognitive needs: No Hearing needs: No Vision needs: No Review of Systems Const Denies weight gain and Denies weight loss ENT Reports no additional complaints, Denies dysphagia and Denies odynophagia Card Reports no additional complaints Resp Reports no additional complaints GI Reports abdominal pain, Denies belching, Denies melena, Reports bloating, Reports constipation, Denies dysphagia, Denies excessive flatus, Reports dyspepsia, Reports heartburn, Denies diarrhea, Denies loose stools, Denies nausea, Denies odynophagia and Denies vomiting Reports no additional complaints Musc Reports no additional complaints Neuro Reports no additional complaints Psych Reports no additional complaints Endo Reports no additional complaints Physical Exam Vital Signs: Last Vital Signs Pulse 68 04/13/24 11:45 BP 118/60 04/13/24 11:45 Pulse Ox 99 04/13/24 11:45 Oxygen Delivery Method Room Air 04/13/24 11:45 BMI result Body Mass Index 27.0 Const General: healthy appearing, no acute distress and well developed Nutritional Appearance: well nourished Orientation/consciousness: patient oriented x3 Resp Effort & Inspection: normal respiratory effort, able to speak in complete sentences, no tracheal deviation and symmetric chest movement Auscultation: clear to auscultation bilaterally Cardio Rate: regular rate GI Inspection: Yes normal to inspection and No distended Palpation (GI): Soft to palpation, not firm, nontender and No hepatosplenomegaly present Auscultation: normal bowel sounds General: Yes no CVA tenderness Back/Spine/Pelvis Back: no CVA tenderness Skin General skin exam: elasticity normal, turgor normal and dry skin Neuro General: patient oriented x3 Psych Appearance: grossly normal Mental Status: mental status grossly normal Results Reviewed Results Reviewed: Laboratory Tests 03/07/24 03/07/24 03/24/24 09:13 10:24 09:11 Amylase 111 H Lipase 18 25-OH Vitamin D Total 23 L Folate 9.7 Tiss Transglutamin IgG <1.0 Tiss Transglutamin IgA <1.0 HIDA SCAN FINDINGS: There is good concentration of activity in the liver by 5 minutes post injection. Biliary activity is visualized by 10 minutes. The gallbladder is well visualized by 30 minutes. Small bowel is well visualized by 30 minutes. At 60 minutes post radiopharmaceutical injection, a 30-minute infusion of 1.25 micrograms Sincalide was then begun and an additional 40 minutes of images were obtained. There is good emptying of the gallbladder. By the end of the study there is good clearance of activity from the liver and visualization of diffuse small bowel activity. The calculated gallbladder ejection fraction is 78% (Normal range of gallbladder ejection fraction is between 35-80%; GBEF <35% is considered biliary hypokinesia and >80% is considered biliary hyperkinesia; Ref. #1-Clinical Journal of Gastroenterology (2020) 14:5171-5546; Ref.#2-[email or web address]). NM/NM hepatobiliary w pharm IMPRESSION: Visualization of the gallbladder is evidence of a patent cystic duct and strong evidence against the diagnosis of acute cholecystitis. The common bile duct is patent. Gallbladder emptying and ejection fraction are normal. Liver function appears normal. Assessment & Plan Assessment & Plan (1) GERD (gastroesophageal reflux disease): Code(s): K21.9 - Gastro-esophageal reflux disease without esophagitis Category: Medical Qualifiers: Esophagitis presence: esophagitis presence not specified Qualified Code(s): K21.9 - Gastro-esophageal reflux disease without esophagitis (2) Epigastric pain: Code(s): R10.13 - Epigastric pain Category: Medical (3) Constipation: Code(s): K59.00 - Constipation, unspecified Category: Medical Qualifiers: Constipation type: chronic idiopathic constipation Qualified Code(s): K59.04 - Chronic idiopathic constipation (4) Screen for colon cancer: Code(s): Z12.11 - Encounter for screening for malignant neoplasm of colon Plan Continue Nexium daily. Avoid dietary triggers and late night snacking. Staying upright for minimum 3 hours after meals discussed with patient patient will start taking famotidine at bedtime. Will change senna to Dulcolax. What to expect before during and after procedure discussed with patient. Stressed the importance of good bowel prep with patient. I will see her after the procedure. Patient is agreeable to this plan and verbalizes understanding of instructions. She was given the questions questions answered. Thank you for allowing me to participate in her care Medications: New polyethylene glycol 3350 (Miralax) As directed by gastroenterology department at [facility] 238 grams PO ONCE 238 grams 0RF Z12.11 - Encounter for screening for malignant neoplasm of colon famotidine 40 mg PO BEDTIME 30 tabs 3RF K21.9 - Gastro-esophageal reflux disease without esophagitis bisacodyl (Dulcolax (bisacodyl)) 10 mg (2 x 5 mg) PO BEDTIME 180 tabs 4RF Discontinued sennosides (Natural Senna Laxative) Discontinued Reason: Doctor's Order 17.2 mg (2 x 8.6 mg) PO BEDTIME 60 tabs 3RF constipation K59.00 - Constipation, unspecified Coding Level of Care Code Est Pt Level 4 (35001) Diagnoses Gastroesophageal reflux disease, unspecified whether esophagitis present K21.9 Esophagitis presence: esophagitis presence not specified Epigastric pain R10.13 Chronic idiopathic constipation K59.04 Constipation type: chronic idiopathic constipation Screen for colon cancer Z12.11 Time Spent (min) 35 Comment 20 minutes spent with patient and additional 15 minutes spent reviewing her records
== END 2024-04-13 13:18 | disposition home or self-care (01) ==
PROVIDERS: PCP Internal Medicine; Visit Provider Nurse Practitioner Family
DX: K21.9 Gastro-esophageal reflux disease without esophagitis (principal); R10.13 Epigastric pain; K59.04 Chronic idiopathic constipation; Z12.11 Encounter for screening for malignant neoplasm of colon
CPT/HCPCS: 99214

== ENCOUNTER → 2024-04-13 11:41 | Outpatient (BNVA) | payer OTHER, SELFPAY | PROVIDERS: PCP Internal Medicine; Visit Provider Nurse Practitioner Family | DX: Z12.11 Encounter for screening for malignant neoplasm of colon (principal); K21.9 Gastro-esophageal reflux disease without esophagitis; K59.04 Chronic idiopathic constipation; R10.13 Epigastric pain | CPT/HCPCS: 99212 ==

== ENCOUNTER 2024-04-25 06:29 | Day surgery (SDC) | payer OTHER, SELFPAY ==
[2024-04-07 09:13] VITALS: BMI 27.1
--- NOTE | 2024-04-21 15:05 | P.CONAN_ITS ---
Documented by User: Allison Gordon NP 04/21/24 15:06 HPI - Anesthesia Eval Consult details Narrative: 58yo F for Right Cataract Extraction IOL Insertion Right eye 03/2024: Fent 50, Midaz 1 PMFSH Active Problems Active Problems: All Active Problems Pre-op evaluation (Acute) Abnormal upper gastrointestinal barium series (Acute) Pre-op evaluation (Acute) Foot callus (Acute) Epigastric pain (Acute) Right foot pain (Acute) Grief (Acute) Constipation (Acute) GERD (gastroesophageal reflux disease) (Acute) Abdominal pain (Acute) Back pain (Acute) Past Medical History Medical History Constipation GERD (gastroesophageal reflux disease) Cataracts, bilateral delivery delivered Family History Family History Sister Colon cancer Family/Other Colon cancer Surgical History Surgical History History of cataract surgery (~03/2024) History of History of Problems with Anesthesia: No Social History Social History Housing: Apartment Alcohol intake: never Patient Tobacco Use Status: Never used Tobacco e-Cigarette/Vaping Use: Never Used Second Hand Smoke Exposure: No Are you DNR?: No Advance Directives: No Advance Directives Information Provided: Yes Advance Directives on File: No service: No Current occupational status: unemployed Cognitive needs: No Hearing needs: No Vision needs: No Meds Allergies Allergy/AdvReac Type Severity Reaction Status Date / Time No Known Allergies Allergy Verified 04/13/24 11:48 Exam Height,Weight and Vital Signs: Height 5 ft Weight 63.049 kg Assessment and Plan Assessment Anesthesia Assessment: Chart Reviewed Final Anesthetic Review History of Problems with Anesthesia: No Documented by User: Ashanti Leahy MD 04/25/24 10:53 [facility] Past Medical History Medical History Constipation GERD (gastroesophageal reflux disease) Cataracts, bilateral delivery delivered Family History Family History Sister Colon cancer Family/Other Colon cancer Family history of problems with anesthesia: No Surgical History Surgical History History of cataract surgery (~03/2024) History of Social History Social History Housing: Apartment Alcohol intake: never Patient Tobacco Use Status: Never used Tobacco e-Cigarette/Vaping Use: Never Used Second Hand Smoke Exposure: No Are you DNR?: No Advance Directives: No Advance Directives Information Provided: Yes Advance Directives on File: No service: No Current occupational status: unemployed Cognitive needs: No Hearing needs: No Vision needs: No Meds Allergies Allergy/AdvReac Type Severity Reaction Status Date / Time No Known Allergies Allergy Verified 04/13/24 11:48 Exam Airway Mallampati Class: II TM Dist: >3cm Neck ROM: Full Heart: rrr Lungs: cta Assessment and Plan Assessment Anesthesia Assessment: Anesthesia Plan Discussed Final Anesthetic Review Family History of Problems with Anesthesia: No NPO: Yes ASA Class: II Final Preanesthetic Review: No Changes in Pt Med Stat, Meds/Allgs Chart Reviewed and Consent Obtained/Reviewed Patient Risk: Low Procedure Risk: Low Anesthetic Plan Anesthetic Plan: MAC: Disposition: Standard PACU
[2024-04-25 07:48] VITALS: BP 113/44; PULSE 61; RESP 18; TEMP 36.9; O2SAT 96; BMI 27.6
[2024-04-25] MEDS: Cyclopentolate 1 % Ophth Sol 2 ML DRPBTL 1 DROP EYE-RIGHT ×2 (08:01→08:02)
[2024-04-25] MEDS: Tropicamide 1 % Ophth Sol 3 ML BTL 1 DROP EYE-RIGHT ×2 (08:01→08:02)
[2024-04-25] MEDS: Ketorolac Tromethamine 0.5% Op 10 ML DROPS 1 DROP EYE-RIGHT ×2 (08:01→08:02)
[2024-04-25] MEDS: Tetracaine HCl/PF 0.5% Oph Sol 4 ML DROPS 1 DROP EYE-RIGHT (08:01)
[2024-04-25] MEDS: Phenylephrine HCL 2.5% Oph SoL 2 ML BOTTLE 1 DROP EYE-RIGHT ×2 (08:01→08:02)
--- NOTE | 2024-04-25 08:12 | PC.NURSE ---
verbalized understanding of d/c
--- NOTE | 2024-04-25 09:13 | P.PCNO_ITS ---
Ophthalmology Procedure Procedure Date of Service: 04/25/24 Ophthalmology Viscoelastic: Healon Duet Dual Pack Pro Ophthalmology Lenses: IOL Acrysof MP - MA60AC (20.5) Procedure Notes: PREOPERATIVE DIAGNOSIS: Decreased visual acuity right eye secondary to cataract POSTOPERATIVE DIAGNOSIS: Same PROCEDURE: Right cataract extraction with intraocular lens insertion SURGEON: Shashank Salinas M.D. ANESTHESIA: Topical/MAC ESTIMATED BLOOD LOSS: None COMPLICATIONS: None After obtaining informed consent, the patient was brought to the operating room suite and placed in the supine position. After adequate sedation per anesthesia, topical drops of Tetracaine were given to the right eye. The eye was then prepped and draped in the usual sterile fashion. The operating room microscope was then positioned over the operative eye and a lid speculum placed. A paracentesis was created. Viscoelastic was then instilled into the anterior chamber. A three plane incision was then created temporally, utilizing a 2.85 mm keratome. Capsulotomy forceps were then utilized to create a circular tear capsulotomy. Hydrodissection and hydrodelineation were carried out until adequate mobilization of the nucleus occurred. Phacoemulsification was then utilized to remove the dense central nu cleus followed by removal of the cortical material utilizing the automated aspiration irrigation unit. Viscoelastic was instilled into the posterior capsular bag followed by placement of a posterior chamber intraocular lens without difficulty. The residual Viscoelastic was then removed utilizing the automated IA machine. The wound was checked and found to be watertight. The patient tolerated the procedure well and the lid speculum was removed. Intracameral injection of Vigamox 0.1 mL followed by a subtenon injection of Kenalog-40 0.2 mL were administered. The patient will be seen in the a.m.
--- NOTE | 2024-04-25 09:13 | MHC.SHP ---
Pre-Procedural Eval Section A - 24 Hr Update-Section A only Date of Service: 04/25/24 The patient is an INPATIENT: No Changes since office visit: No Cold of Flu in the past 2 weeks, No New Medical Problems, No Changes in Medication and No Patient answered all questions The patient has been examined within 24 hours of the surgical procedure. The History & Physical has been completed within 30 days and I have reviewed it.: Yes Section B - Complete if H&P > 30 days Chief Complaint: Age-related nuclear cataract, right eye Allergies: Allergies Allergy/AdvReac Type Severity Reaction Status Date / Time No Known Allergies Allergy Verified 04/13/24 11:48 Plan Diagnosis/Plan: Unchanged I have reviewed the history and physical and performed a pertinent physical examination on my patient. No changes have occurred unless specified. Time Spent With Patient Time: Total time managing care of this patient today ____ minutes.
[2024-04-25 09:48] VITALS: BP 130/68; PULSE 60; RESP 12; TEMP 36.1; O2SAT 97
== END 2024-04-25 10:08 | disposition home or self-care (01) ==
PROVIDERS: PCP Internal Medicine; Visit Provider Ophthalmology
PROC: (CPT 66985; principal; 2024-04-25 09:00)
DX: H25.11 Age-related nuclear cataract, right eye (principal); Z83.511 Family history of glaucoma; H52.4 Presbyopia; H11.153 Pinguecula, bilateral; F32.A Depression, unspecified; Z79.899 Other long term (current) drug therapy; Z56.0 Unemployment, unspecified
CPT/HCPCS: 66984; J2250; J3301; V2630

== ENCOUNTER 2024-06-02 09:14 | Outpatient (AMB) | payer OTHER, SELFPAY ==
[2024-06-02 09:23] VITALS: BP 102/68; BMI 26.8
--- NOTE | 2024-06-02 09:23 | MHC.PC.OV ---
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 Mammogram done June of last year was normal. Pap smear was few years ago and will be referred to OBGYN for that matter. Will have colonoscopy soon. No chest pain or shortness on breath. Complains of low back pain radiating to the right leg and associated with right leg numbness. Will order x-ray and send her to physical therapy. [facility] Medical History (Updated 06/02/24 @ 10:08 by Ashlyn Becker MD) Constipation GERD (gastroesophageal reflux disease) Cataracts, bilateral delivery delivered Surgical History (Updated 06/02/24 @ 10:01 by Ashlyn Becker MD) History of foot surgery History of cataract surgery (~03/2024) History of Family History (Updated 06/02/24 @ 10:02 by Ashlyn Becker MD) Sister Colon cancer, Onset Age: 75 Family/Other Colon cancer Social History Housing: Apartment Alcohol intake: never Patient Tobacco Use Status: Never used Tobacco e-Cigarette/Vaping Use: Never Used Second Hand Smoke Exposure: No service: No Current occupational status: unemployed Cognitive needs: No Hearing needs: No Vision needs: No Questionnaire PHQ-9 Over the last 2 weeks, how often have you been bothered by any of the following problems? 1. Little interest or pleasure in doing things: not at all 2. Feeling down, depressed, or hopeless: not at all 3. Trouble falling or staying asleep, or sleeping too much: not at all 4. Feeling tired or having little energy: not at all 5. Poor appetite or overeating: nearly every day 6. Feeling bad about yourself - or that you are a failure or have let yourself or your family down: not at all 7. Trouble concentrating on things, such as reading the newspaper or watching television: not at all 8. Moving or speaking so slowly that other people could have noticed. Or the opposite - being so fidgety or restless that you have been moving around a lot more than usual: several days 9. Thoughts that you would be better off or of hurting yourself in some way: not at all Total score: 4 Depression Screening Interpretation: Positive Depression Screening Follow-up: Existing condition and Follow-up Visit Requested Depression Screening Done: Yes 53111 - PHQ-9 Billing: Yes Source: Developed by Drs. Nick Tejada, Nadya Vyas, Adrian Mcallister and colleagues, with an educational gail from [employer]. Thrive Questionnaire Date Thrive assessed: 06/02/24 I am a: Patient What is your living situation today?: I have a steady place to live Within the past 12 months, did the food you bought not last and you didn't have the money to get more?: Sometimes True Within the past 12 months, did you worry whether your food would run out before you got money to buy more?: Sometimes True Do you have trouble paying for medicines?: No Do you have trouble getting transportation to medical appointments?: No Do you have trouble paying your heating and electricity bill?: Yes Do you have trouble taking care of your child, family member or friend?: No Do you have trouble with day-to-day activities such as bathing, preparing meals, shopping, managing finances, etc.?: No Are you currently unemployed and looking for a job?: No Are you interested in more education?: No Please select the resources that you would like help with: None Currently or been in a relationship where the following occur: No concerns reported THRIVE Score: 3 AUDIT C Alcohol Use Questionnaire (AUDIT-C) 1. How often do you have a drink containing alcohol?: Never Total Score: 0 EILEEN-7 AMB Questionnaire EILEEN-7 Date EILEEN - 7 assessed: 06/02/24 Feeling nervous, anxious, or on edge: 1 = Several days Not being able to stop or control worryin = Several days Worrying too much about different things: 1 = Several days Trouble relaxin = Not at all Being so restless that it is hard to sit still: 0 = Not at all Becoming easily annoyed or irritable: 3 = Nearly every day Feeling afraid as if something awful might happen: 3 = Nearly every day Total EILEEN-7 score (0-4 normal; 5-9 mild; 10-14 moderate; 15-21 severe): 9 Source: Developed by Drs. Nick Tejada, Nadya Vyas, Adrian Mcallister and colleagues, with an educational gail from [employer]. EILEEN-7 Assessment Billing EILEEN-7 Assessment Tool: EILEEN-7 Assessment 98459 Review of Systems Const All systems reviewed & are unremarkable except as noted in HPI and below Card Denies chest pain at rest, Denies chest pain with activity, Denies edema, Denies irregular heart rhythm, Denies claudication, Denies dyspnea, Denies dyspnea on exertion, Denies orthopnea, Denies paroxysmal nocturnal dyspnea and Denies slow heart rate Resp Denies cough, Denies dyspnea and Denies dyspnea on exertion Physical exam (Primary Care) Vital Signs: Last Vital Signs BP 102/68 06/02/24 09:23 BMI result Body Mass Index 26.8 Tobacco/Smoking Status: Tobacco use Status Tobacco use date assessed 01/08/24 06/02/24 09:28 Patient Tobacco Use Status Never used Tobacco 06/02/24 09:28 e-Cigarette/Vaping Use Never Used 06/02/24 09:28 PHQ-9: PHQ-9 Score PHQ-9: Total score 4 06/02/24 10:02 Depression Screening Interpretation: Positive Depression Screening Follow-up: Existing condition and Follow-up Visit Requested Thrive Assessment: Date of Thrive Assessment Date Thrive assessed 06/02/24 06/02/24 09:28 Currently or been in a relationship where the following occur: No concerns reported HENNJ Head: Yes normal to inspection, Yes normocephalic and Yes atraumatic Ears: external ears normal Eyes General: appearance normal, both eyes and all related structures Eyelids: Yes eyelids normal Conjunctivae: conjunctivae normal Neck Neck: Yes normal visual inspection and Yes supple Resp Effort & Inspection: normal respiratory effort Auscultation: clear to auscultation bilaterally Cardio Jugular venous distension: no JVD Rate: regular rate Rhythm: regular rhythm Heart sounds: S1 normal heart sound present and S2 normal heart sound present GI Inspection: Yes normal to inspection Palpation (GI): Soft to palpation and nontender Auscultation: normal bowel sounds Skin General skin exam: no rashes or lesions noted Neuro General: no focal motor deficits Extrem General: Yes full ROM Psych Appearance: grossly normal Office Procedures Flu Questionnaire Does the patient have a severe egg allergy?: No Immunizations Fluarix Triv [id number] (PF) 45 mcg (15 mcg x 3)/0.5 mL IM syringe Performing Provider: Ashlyn Becker MD [place] [facility] [place] [place] [facility] Documented (not given) by: MINNIE Pantoja on 06/02/24 09:28 Reason Not Given: Patient Refused Coding Level of Care Code Est Pt Level 3 (14873) Est Pt Prev Care 40-64y(05058) Diagnoses Physical exam Z00.00 Right sided sciatica M54.31 Additional Codes EILEEN-7 Assessment Billing - EILEEN-7 Assessment Tool: EILEEN-7 Assessment 17308 ([id number]) PHQ-9 - 17601 - PHQ-9 Billing: Yes ([id number]) Time Spent (min) 35 Assessment & Plan Assessment & Plan (1) Physical exam: Code(s): Z00.00 - Encounter for general adult medical examination without abnormal findings Category: Medical Plan: Repeat in a year. (2) Right sided sciatica: Code(s): M54.31 - Sciatica, right side Category: Medical Plan: X-ray ordered. Start physical therapy. Orders: Orders Comprehensive [place]. 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
== END 2024-06-02 10:09 | disposition home or self-care (01) ==
PROVIDERS: PCP Internal Medicine; Visit Provider Internal Medicine
DX: Z00.00 Encounter for general adult medical examination without abnormal findings (principal); M54.31 Sciatica, right side

== ENCOUNTER → 2024-06-02 09:14 | Outpatient (BNVA) | payer OTHER, SELFPAY | PROVIDERS: PCP Internal Medicine; Visit Provider Internal Medicine | DX: Z00.00 Encounter for general adult medical examination without abnormal findings (principal); M54.31 Sciatica, right side | CPT/HCPCS: 96127; 99212; 99396 ==

== ENCOUNTER 2024-06-07 10:43 | Outpatient (AMB) | payer OTHER, SELFPAY ==
--- NOTE | 2024-06-07 10:48 | A.OFFVIS_ITS ---
Vital Signs 06/07/24 10:49 Height 5 ft Weight 138 lb 0.15 oz BMI 27.0 BP 96/64 Blood Pressure Location Rt brachial Position Sitting Pulse 72 Pulse Source Pulse Oximeter Pulse Oximetry (%) 98 Oxygen Delivery Method Room Air Intake Visit Reasons: 3 month follow up Intake Note: PRESCRIPTIONS LAST GENERATED [famotidine 40 mg tablet?40 mg PO BEDTIME 30 tabs 3RF] Eleanor Robles Johan 04/13/24 12:17 (Transmitted) Pt has only been taking nexium and not famotidine. Pt is still taking docusate however. Relevant Flags or Indicators ? Requires Dyed Raw Stock Blower Feeder? Debra Martino presents in office today for a scheduled 2 mos FUV. CC; No recent labs, diagnostics, placed. ?Pt did have labs ordered by another provider. Relevant GI Sx as reported per pt? Nausea ? Abdominal Pain - generalized, does not favor one quadrant. 03/29 ? Bloating ? Abdominal distention * Reflux ? Hx of any recent surgeries? Pt reports having OU or B/L Cataract surgery last month. Dyed Raw Stock Blower Feeder Required: Yes Dyed Raw Stock Blower Feeder Services: Dyed Raw Stock Blower Feeder Present Dyed Raw Stock Blower Feeder Name: [id number] Zakiya Information Interpreted: non-clinical & clinical Accompanied by: Self / Same As Patient Allergies No Known Allergies Allergy (Verified 06/07/24 10:49) HPI HPI 3 month follow up: Details: LAST VISIT: GERD (gastroesophageal reflux disease) Epigastric pain Constipation Screen for colon cancer Plan Continue Nexium daily. Avoid dietary triggers and late night snacking. Staying upright for minimum 3 hours after meals discussed with patient patient will start taking famotidine at bedtime. Will change senna to Dulcolax. What to expect before during and after procedure discussed with patient. Stressed the importance of good bowel prep with patient. I will see her after the procedure. Patient is agreeable to this plan and verbalizes understanding of instructions. She was given the questions questions answered. ? Thank you for allowing me to participate in her care Medications New polyethylene glycol 3350 (Miralax) As directed by gastroenterology department at [facility] 238 grams PO ONCE 238 grams 0RF Z12.11 famotidine 40 mg PO BEDTIME 30 tabs 3RF K21.9 bisacodyl (Dulcolax (bisacodyl)) 10 mg (2 x 5 mg) PO BEDTIME 180 tabs 4RF Discontinued sennosides (Natural Senna Laxative) Discontinued Reason: Doctor's Order 17.2 mg (2 x 8.6 mg) PO BEDTIME 60 tabs 3RF constipation K59.00 TODAY'S VISIT Patient is here today for follow-up and to discuss going for colonoscopy. Patient reports that she continues to have abdominal pain and bloating postprandially. Epigastric discomfort with heartburn. Patient denies any dyspepsia, dysphagia or odynophagia. She was taking Nexium and famotidine, however she continues to have acid reflux. Patient states that she tries to avoid dietary triggers. Reports that she is moving her bowels better now that she is taking Dulcolax. Patient reports that she feels like she empties her bowels completely. Patient denies any melena, hematochezia, unintentional weight loss or ribbon like stools. No issues with anesthesia in the past. No history of sleep apnea. Not on any anticoagulation medication. Patient denies any cardiac or respiratory symptoms. Procedure is scheduled for early July [facility] Medical History Constipation GERD (gastroesophageal reflux disease) Cataracts, bilateral delivery delivered Surgical History History of foot surgery History of cataract surgery (~03/2024) History of Family History Sister Colon cancer, Onset Age: 75 Family/Other Colon cancer Social History Housing: Apartment Alcohol intake: never Patient Tobacco Use Status: Never used Tobacco e-Cigarette/Vaping Use: Never Used Second Hand Smoke Exposure: No service: No Current occupational status: unemployed Cognitive needs: No Hearing needs: No Vision needs: No Review of Systems Const Denies weight gain and Denies weight loss ENT Reports no additional complaints, Denies dysphagia and Denies odynophagia Card Reports no additional complaints Resp Reports no additional complaints GI Reports abdominal pain (Generalized), Denies belching, Denies melena, Reports bloating, Denies change in bowel habits, Reports constipation, Denies dysphagia, Denies excessive flatus, Denies dyspepsia, Reports heartburn, Denies diarrhea, Denies loose stools, Denies nausea, Denies odynophagia and Denies vomiting Reports no additional complaints Musc Reports no additional complaints Neuro Reports no additional complaints Psych Reports no additional complaints Endo Reports no additional complaints Physical Exam Vital Signs: Last Vital Signs Pulse 72 06/07/24 10:49 BP 96/64 06/07/24 10:49 Pulse Ox 98 06/07/24 10:49 Oxygen Delivery Method Room Air 06/07/24 10:49 BMI result Body Mass Index 27.0 Const General: healthy appearing, no acute distress and well developed Nutritional Appearance: well nourished Orientation/consciousness: patient oriented x3 Resp Effort & Inspection: normal respiratory effort, able to speak in complete sentences, no tracheal deviation and symmetric chest movement Auscultation: clear to auscultation bilaterally Cardio Rate: regular rate GI Inspection: Yes normal to inspection and No distended Palpation (GI): Soft to palpation, not firm, nontender and No hepatosplenomegaly present Auscultation: normal bowel sounds General: Yes no CVA tenderness Back/Spine/Pelvis Back: no CVA tenderness Skin General skin exam: elasticity normal, turgor normal and dry skin Neuro General: patient oriented x3 Psych Appearance: grossly normal Mental Status: mental status grossly normal Assessment & Plan Assessment & Plan (1) GERD (gastroesophageal reflux disease): Code(s): K21.9 - Gastro-esophageal reflux disease without esophagitis Category: Medical Qualifiers: Esophagitis presence: esophagitis presence not specified Qualified Code(s): K21.9 - Gastro-esophageal reflux disease without esophagitis (2) Epigastric pain: Code(s): R10.13 - Epigastric pain Category: Medical (3) Constipation: Code(s): K59.00 - Constipation, unspecified Category: Medical Qualifiers: Constipation type: chronic idiopathic constipation Qualified Code(s): K59.04 - Chronic idiopathic constipation (4) Screen for colon cancer: Code(s): Z12.11 - Encounter for screening for malignant neoplasm of colon (5) Postprandial abdominal bloating: Code(s): R14.0 - Abdominal distension (gaseous) Plan Patient will stop taking Nexium and will start lansoprazole. Continue taking Dulcolax daily. Colonoscopy and endoscopy is scheduled for beginning of July. What to expect before during and after procedure discussed with patient. Stressed the importance of clear liquid diet and good bowel prep day before procedure. Patient denies any issues with anesthesia in the past. No history of sleep apnea. Not on any anticoagulation medication. Patient has appointment with me for follow-up after the procedure. She is agreeable to current plan of care and verbalizes understanding of instructions. She was given the opportunity to ask questions and all questions answered. Thank you for allowing me to participate in her care Medications: New lansoprazole 30 mg PO DAILY 30 caps 3RF K21.9 - Gastro-esophageal reflux disease without esophagitis bisacodyl (Dulcolax (bisacodyl)) 10 mg (2 x 5 mg) PO BEDTIME 180 tabs 4RF sucralfate 1 g PO BEDTIME 30 tabs 4RF R19.7 - Diarrhea, unspecified Discontinued esomeprazole magnesium Discontinued Reason: Doctor's Order 40 mg PO DAILY 30 caps 5RF K21.9 - Gastro-esophageal reflux disease without esophagitis famotidine Discontinued Reason: Doctor's Order 40 mg PO BEDTIME 30 tabs 3RF K21.9 - Gastro-esophageal reflux disease without esophagitis Coding Level of Care Code Est Pt Level 4 (91370) Complex EM visit Add On G2211 Diagnoses Gastroesophageal reflux disease, unspecified whether esophagitis present K21.9 Esophagitis presence: esophagitis presence not specified Epigastric pain R10.13 Chronic idiopathic constipation K59.04 Constipation type: chronic idiopathic constipation Screen for colon cancer Z12.11 Postprandial abdominal bloating R14.0 Time Spent (min) 35 Comment 25 minutes spent with patient and additional 10 minutes spent reviewing her records
[2024-06-07 10:49] VITALS: BP 96/64; PULSE 72; O2SAT 98; BMI 27.0
== END 2024-06-07 11:23 | disposition home or self-care (01) ==
PROVIDERS: PCP Internal Medicine; Visit Provider Nurse Practitioner Family
DX: K21.9 Gastro-esophageal reflux disease without esophagitis (principal); R10.13 Epigastric pain; K59.04 Chronic idiopathic constipation; Z12.11 Encounter for screening for malignant neoplasm of colon; R14.0 Abdominal distension (gaseous)
CPT/HCPCS: 99214; G2211

== ENCOUNTER → 2024-06-07 10:43 | Outpatient (BNVA) | payer OTHER, SELFPAY | PROVIDERS: PCP Internal Medicine; Visit Provider Nurse Practitioner Family | DX: Z12.11 Encounter for screening for malignant neoplasm of colon (principal); K21.9 Gastro-esophageal reflux disease without esophagitis; K59.04 Chronic idiopathic constipation; R10.13 Epigastric pain; R14.0 Abdominal distension (gaseous) | CPT/HCPCS: 99212 ==

== ENCOUNTER 2024-10-18 08:49 | Day surgery (SDC) | payer OTHER, SELFPAY ==
--- NOTE | 2024-10-17 09:49 | P.CONAN_ITS ---
Documented by User: Allison Gordon NP 10/17/24 09:49 HPI - Anesthesia Eval Consult details Narrative: 59yo F for Upper Endoscopy PMFSH Active Problems Active Problems: All Active Problems Right sided sciatica (Acute) Physical exam (Acute) Screening for cervical cancer (Acute) Pre-op evaluation (Acute) Abnormal upper gastrointestinal barium series (Acute) Pre-op evaluation (Acute) Foot callus (Acute) Epigastric pain (Acute) Right foot pain (Acute) Grief (Acute) Constipation (Acute) GERD (gastroesophageal reflux disease) (Acute) Abdominal pain (Acute) Back pain (Acute) Past Medical History Medical History Constipation GERD (gastroesophageal reflux disease) Family History Family History Sister Colon cancer, Onset Age: 75 Family/Other Colon cancer Family history of problems with anesthesia: No Surgical History Surgical History History of foot surgery History of cataract surgery (~03/2024) History of History of Problems with Anesthesia: No Social History Social History Housing: Apartment Are you a primary healthcare marketer to a significant other at home: No Do you presently have visiting nurse or other home services: No Alcohol intake: never Patient Tobacco Use Status: Never used Tobacco e-Cigarette/Vaping Use: Never Used Second Hand Smoke Exposure: No Substance Use Frequency: Daily Have you been hit, kicked, punched, or otherwise hurt by someone within the past year? If so, by whom?: No Are you DNR?: No Advance Directives: No Advance Directives Information Provided: Yes service: No Current occupational status: unemployed Cognitive needs: No Hearing needs: No Vision needs: No Meds Allergies Allergy/AdvReac Type Severity Reaction Status Date / Time No Known Allergies Allergy Verified 10/18/24 10:58 Assessment and Plan Assessment Anesthesia Assessment: Chart Reviewed Final Anesthetic Review Family History of Problems with Anesthesia: No History of Problems with Anesthesia: No Documented by User: Shannan Og MD 10/18/24 11:50 PMFSH Past Medical History Medical History Constipation GERD (gastroesophageal reflux disease) Family History Family History Sister Colon cancer, Onset Age: 75 Family/Other Colon cancer Surgical History Surgical History History of foot surgery History of cataract surgery (~03/2024) History of Social History Social History Housing: Apartment Are you a primary healthcare marketer to a significant other at home: No Do you presently have visiting nurse or other home services: No Alcohol intake: never Patient Tobacco Use Status: Never used Tobacco e-Cigarette/Vaping Use: Never Used Second Hand Smoke Exposure: No Substance Use Frequency: Daily Have you been hit, kicked, punched, or otherwise hurt by someone within the past year? If so, by whom?: No Are you DNR?: No Advance Directives: No Advance Directives Information Provided: Yes service: No Current occupational status: unemployed Cognitive needs: No Hearing needs: No Vision needs: No Meds Allergies Allergy/AdvReac Type Severity Reaction Status Date / Time No Known Allergies Allergy Verified 10/18/24 10:58 Exam Airway Mallampati Class: II TM Dist: >3cm Neck ROM: Full Loose/Missing/Broken Teeth: No Heart: RRR Lungs: CTA Assessment and Plan Assessment Anesthesia Assessment: Anesthesia Plan Discussed Final Anesthetic Review NPO: Yes ASA Class: II Final Preanesthetic Review: Meds/Allgs Chart Reviewed, Consent Obtained/Reviewed and Anes Risks/Benef Reviewed Patient Risk: Low Procedure Risk: Intermediate Anesthetic Plan Anesthetic Plan: MAC: Disposition: Standard PACU
[2024-10-18 10:56] VITALS: BMI 25.4
[2024-10-18 11:14] VITALS: BP 114/54; PULSE 68; RESP 18; TEMP 36.8; O2SAT 98
[2024-10-18] MEDS: Lactated Ringers 1,000 ML 100 ML IVCONT (11:24)
--- NOTE | 2024-10-18 11:29 | PC.NURSE ---
Dr. Og aware that patient had 2 gummy type transparent vitamins at 0700. Okay to proceed. No interventions at this time.
--- NOTE | 2024-10-18 11:33 | P.HPSUR_ITS ---
Pre-Procedural Eval Section A - 24 Hr Update-Section A only Date of Service: 10/18/24 Section B - Complete if H&P > 30 days Chief Complaint: gerd, Relevant Family History (Specify if Yes): No Relevant Social History: None Present Medications: see Short Stay Collaborative assessment Medical History: Significant History (Constipation GERD (gastroesophageal reflux disease) Cataracts, bilateral delivery delivered) History of Previous Operations: Relevant previous surgery/procedure and date(s) (History of foot surgery History of cataract surgery (~03/2024) History of C-s ection) Allergies: Allergies Allergy/AdvReac Type Severity Reaction Status Date / Time No Known Allergies Allergy Verified 10/18/24 10:58 Review of Systems Sugical H&P ROS: Negative: Constitution, Cardiovascular, Respiratory, Neurological, Psychiatric, Hem-Onc, Allergic/Immunologic, Gastrointestinal, Genitourinary, Musculoskeletal, Integumentary, Endocrine and Eyes/Ears/Nose/Throat Exam Surgical H&P Exam: Normal: HEENT, Normal: Heart, Normal: Lungs, Normal: Extremities, Normal: Abdomen, Normal: Skin and Normal: Neurological Plan Diagnosis/Plan: Unchanged I have reviewed the history and physical and performed a pertinent physical examination on my patient. No changes have occurred unless specified. Time Spent With Patient Time: Total time managing care of this patient today ____ minutes.
--- NOTE | 2024-10-18 12:39 | W.PM.OPN ---
Operative Note Operative Note Date of Service: 10/18/24 Narrative: Procedure Description: EGD Indication: epigastric pain Anesthesia: MAC FLEXIBLE TRANSORAL UPPER GASTROINTESTINAL ENDOSCOPY UPPER ENDOSCOPY Consent: Indications for the procedure and potential complications of bleeding, perforation, reaction to medications and missed diagnosis were discussed with the patient and informed consent was obtained. Instrument: Olympus GIF H 190 J mid size upper endoscope Monitoring: Vital signs and clinical assessment, continuous EKG monitoring, Pulse oximetry, Carbon Dioxide monitoring and blood pressure monitoring were done throughout the procedure. Procedure: The patient was placed in the left lateral decubitis position and pre-procedure medications were administered and a bite block was placed. The endoscope was inserted into the mouth and advanced under direct vision to the third part of duodenum. A careful inspection was made as the upper endoscope was withdrawn including a retroflexed examination of the proximal stomach; Findings and interventions are described below. Findings: Larynx:normal Esophagus: GE junction at 38 cm, diaphragm hiatus at 38 cm, bx taken from GEj and distal esophagus Stomach: patchy erythema . Biopsies were obtained. Grade 2 flap valve on retroflexed examination of the cardia. pancreatic rest noted in the distal stomach, bx taken Duodenum: Normal bulb and descending duodenum, bx taken Intervention: Biopsies as noted above, Impression/Findings: gastritis heterotropic pancreatic tissue PLAN: if H pylori pos then treat GERD precautions if ongoing sx can consider endoscopic resection of pancreatic rest
[2024-10-18 12:42] VITALS: BP 102/49; PULSE 67; RESP 16; TEMP 36.3; O2SAT 100
[2024-10-18 12:55] VITALS: BP 121/61; PULSE 72; RESP 16; TEMP 36.1; O2SAT 100
== END 2024-10-18 13:35 | disposition home or self-care (01) ==
PROVIDERS: PCP Internal Medicine; Visit Provider Internal Medicine Gastroenterology
PROC: 0DJ08ZZ Inspection of Upper Intestinal Tract, Via Natural or Artificial Opening Endoscopic (ICD-10-PCS; CPT 43235; principal; 2024-10-18 13:10)
DX: Q45.3 Other congenital malformations of pancreas and pancreatic duct (principal); K29.70 Gastritis, unspecified, without bleeding; K20.80 Other esophagitis without bleeding; K44.9 Diaphragmatic hernia without obstruction or gangrene; K21.9 Gastro-esophageal reflux disease without esophagitis; Z79.899 Other long term (current) drug therapy
CPT/HCPCS: 43239; 88305; 88313; 88342; J2003; J2704

== ENCOUNTER → 2024-10-18 08:49 | Outpatient (BNV) | payer OTHER, SELFPAY | PROVIDERS: PCP Internal Medicine; Visit Provider Internal Medicine Gastroenterology | DX: K29.70 Gastritis, unspecified, without bleeding (principal); K20.90 Esophagitis, unspecified without bleeding | CPT/HCPCS: 43239 ==

== ENCOUNTER 2024-10-20 16:35 | Outpatient (AMB) | payer OTHER, SELFPAY ==
[2024-10-20 16:54] VITALS: BP 110/70; BMI 24.8
--- NOTE | 2024-10-20 16:54 | MHC.PC.OV ---
Vital Signs 10/20/24 16:54 Height 5 ft Weight 127 lb BMI 24.8 BP 110/70 Blood Pressure Location Lt brachial Position Sitting Intake Visit Reasons: Liver issue Radiology Rn Required: No Accompanied by: Self / Same As Patient Allergies No Known Allergies Allergy (Verified 10/20/24 17:04) Medication List - Last Reconciled 10/20/24 by Ashlyn Becker MD bisacodyl (Dulcolax (bisacodyl)) 10 mg (2 x 5 mg) PO BEDTIME docusate sodium (Colace) 100 mg PO DAILY lansoprazole 30 mg PO DAILY sucralfate 1 g PO BEDTIME Tobacco use date assessed: 10/20/24 Dental Screening Dental Screen Date: 10/20/24 Did you have a dental visit in the last 12 months?: No Did you have a dental problem in the last 6 months where you did not have access to dental care?: No Was dental information given to patient?: Patient has dentist HPI HPI Comments History of Present Illness Details The patient is a 59-year-old female presenting with concerns related to gastrointestinal discomfort. She has recently undergone an endoscopy, revealing mild chronic inactive inflammation of the duodenum with no Helicobacter pylori detected. She reports persistent nausea and decreased appetite leading to unintentional weight loss, although she maintains there have been no changes in her dietary habits. She also has GERD and constipation and will follow with Gastroenterology next month. She denies any tobacco smoking history but acknowledges occasional marijuana use. Her family history is notable for colon cancer in her sister at around age seventy-five and renal cancer in her brother, currently aged fifty-four. The patient is anticipating further evaluation through laboratory work next week and is scheduled for follow-up with a child care lead teacher to potentially discuss a future colonoscopy. [facility] Medical History (Updated 10/20/24 @ 17:12 by Ashlyn Becker MD) Constipation GERD (gastroesophageal reflux disease) Surgical History History of foot surgery History of cataract surgery (~03/2024) History of Family History Sister Colon cancer, Onset Age: 75 Family/Other Colon cancer Social History Housing: Apartment Are you a primary director of home care hospice to a significant other at home: No Do you presently have visiting nurse or other home services: No Alcohol intake: never Patient Tobacco Use Status: Never used Tobacco e-Cigarette/Vaping Use: Never Used Second Hand Smoke Exposure: No service: No Current occupational status: unemployed Cognitive needs: No Hearing needs: No Vision needs: No Questionnaire PHQ-9 Over the last 2 weeks, how often have you been bothered by any of the following problems? 1. Little interest or pleasure in doing things: not at all 2. Feeling down, depressed, or hopeless: several days 3. Trouble falling or staying asleep, or sleeping too much: nearly every day 4. Feeling tired or having little energy: several days 5. Poor appetite or overeating: nearly every day 6. Feeling bad about yourself - or that you are a failure or have let yourself or your family down: not at all 7. Trouble concentrating on things, such as reading the newspaper or watching television: not at all 8. Moving or speaking so slowly that other people could have noticed. Or the opposite - being so fidgety or restless that you have been moving around a lot more than usual: several days 9. Thoughts that you would be better off or of hurting yourself in some way: not at all Total score: 9 Depression Screening Interpretation: Positive Depression Screening Follow-up: Existing condition and Follow-up Visit Requested Depression Screening Done: Yes Source: Developed by Drs. Nick Tejada, Nadya Vyas, Adrian Mcallister and colleagues, with an educational gail from [employer]. Thrive Questionnaire Date Thrive assessed: 10/20/24 I am a: Patient What is your living situation today?: I have a steady place to live Within the past 12 months, did the food you bought not last and you didn't have the money to get more?: Sometimes True Within the past 12 months, did you worry whether your food would run out before you got money to buy more?: Sometimes True Do you have trouble paying for medicines?: No Do you have trouble getting transportation to medical appointments?: No Do you have trouble paying your heating and electricity bill?: Yes Do you have trouble taking care of your child, family member or friend?: No Do you have trouble with day-to-day activities such as bathing, preparing meals, shopping, managing finances, etc.?: No Are you currently unemployed and looking for a job?: No Are you interested in more education?: No Please select the resources that you would like help with: None Currently or been in a relationship where the following occur: No concerns reported THRIVE Score: 3 AUDIT C Alcohol Use Questionnaire (AUDIT-C) 1. How often do you have a drink containing alcohol?: Never Total Score: 0 EILEEN-7 AMB Questionnaire EILEEN-7 Date EILEEN - 7 assessed: 10/20/24 Feeling nervous, anxious, or on edge: 1 = Several days Not being able to stop or control worryin = Several days Worrying too much about different things: 1 = Several days Trouble relaxin = Not at all Being so restless that it is hard to sit still: 0 = Not at all Becoming easily annoyed or irritable: 3 = Nearly every day Feeling afraid as if something awful might happen: 3 = Nearly every day Total EILEEN-7 score (0-4 normal; 5-9 mild; 10-14 moderate; 15-21 severe): 9 Source: Developed by Drs. Nick Tejada, Nadya Vyas, Adrian Mcallister and colleagues, with an educational gail from [employer]. EILEEN-7 Assessment Billing EILEEN-7 Assessment Tool: EILEEN-7 Assessment 67085 Review of Systems Const All systems reviewed & are unremarkable except as noted in HPI and below Card Denies chest pain at rest, Denies chest pain with activity, Denies edema, Denies irregular heart rhythm, Denies claudication, Denies dyspnea, Denies dyspnea on exertion, Denies orthopnea, Denies paroxysmal nocturnal dyspnea and Denies slow heart rate Resp Denies cough, Denies dyspnea and Denies dyspnea on exertion GI Denies abdominal pain, Denies change in bowel habits, Denies excessive flatus, Denies nausea and Denies vomiting Physical exam (Primary Care) Vital Signs: Last Vital Signs BP 110/70 10/20/24 16:54 BMI result Body Mass Index 24.8 Tobacco/Smoking Status: Tobacco use Status Tobacco use date assessed 10/20/24 10/20/24 17:00 Patient Tobacco Use Status Never used Tobacco 10/20/24 17:00 e-Cigarette/Vaping Use Never Used 10/20/24 17:00 PHQ-9: PHQ-9 Score PHQ-9: Total score 9 10/20/24 17:00 Depression Screening Interpretation: Positive Depression Screening Follow-up: Existing condition and Follow-up Visit Requested Thrive Assessment: Date of Thrive Assessment Date Thrive assessed 10/20/24 10/20/24 17:00 Currently or been in a relationship where the following occur: No concerns reported Resp Effort & Inspection: normal respiratory effort Auscultation: clear to auscultation bilaterally Cardio Jugular venous distension: no JVD Rate: regular rate Rhythm: regular rhythm Heart sounds: S1 normal heart sound present and S2 normal heart sound present GI Inspection: Yes normal to inspection Palpation (GI): Soft to palpation and nontender Auscultation: normal bowel sounds Extrem General: Yes full ROM Coding Level of Care Code Est Pt Level 4 (31979) Complex EM visit Add On G2211 Diagnoses Pelvic pain in female R10.2 Unintentional weight loss R63.4 Gastroesophageal reflux disease, unspecified whether esophagitis present K21.9 Esophagitis presence: esophagitis presence not specified Chronic idiopathic constipation K59.04 Constipation type: chronic idiopathic constipation Additional Codes EILEEN-7 Assessment Billing - EILEEN-7 Assessment Tool: EILEEN-7 Assessment 84270 ([id number]) Time Spent (min) 23 Assessment & Plan Assessment & Plan (1) Pelvic pain in female: Code(s): R10.2 - Pelvic and perineal pain Category: Medical (2) Unintentional weight loss: Code(s): R63.4 - Abnormal weight loss Category: Medical (3) GERD (gastroesophageal reflux disease): Code(s): K21.9 - Gastro-esophageal reflux disease without esophagitis Category: Medical Qualifiers: Esophagitis presence: esophagitis presence not specified Qualified Code(s): K21.9 - Gastro-esophageal reflux disease without esophagitis (4) Constipation: Code(s): K59.00 - Constipation, unspecified Category: Medical Qualifiers: Constipation type: chronic idiopathic constipation Qualified Code(s): K59.04 - Chronic idiopathic constipation Plan We will proceed with routine laboratory evaluations to address the patient's symptoms of weight loss and gastrointestinal discomfort. Results from her recent endoscopy, showing mild inflammation, will be reviewed during her child care lead teacher appointment. Follow-up includes potential colonoscopy given family history and for cancer screening purposes. Continued observation of her nutritional status and weight changes is essential, and routine screening tests will be scheduled, including mammography. Patient was informed and verbally consented to the use of an ambient scribe for clinic note documentation during this visit. During today's visit, I discussed with the patient her recent endoscopy findings and the lack of Helicobacter pylori infection. We explored the significance of her symptoms and possible gastrointestinal inflammation. I advised her about potential connections between her symptoms and her family history of colon and kidney cancers. We reviewed the benefits of undergoing a colonoscopy to ensure early detection of colorectal issues. I've instructed her to complete laboratory testing prior to her next appointment with the child care lead teacher and we will continue to monitor her symptoms and nutritional health. I encouraged her to keep her upcoming appointments and emphasized the importance of complete compliance with testing and follow-up care. Orders: Orders Thyroid Stimulating Hormone Today R63.4 - Abnormal weight loss Complete Blood Count Auto Diff Today R63.4 - Abnormal weight loss Comprehensive [place]. Panel Fast Today R63.4 - Abnormal weight loss Lipid Panel Today E78.5 - Hyperlipidemia, unspecified MM tomosynthesis screening BI Today Z12.31 - Encounter for screening mammogram for malignant neoplasm of breast US pelvic and transvaginal Today R10.2 - Pelvic and perineal pain Patient Instructions: - Complete scheduled laboratory tests as soon as possible. - Attend your gastroenterology appointment on November 18 for further evaluation. - Continue monitoring your weight and appetite, note any changes. - Keep all upcoming screening test appointments, including mammography. - Adhere to advised appointments and be observant of any changes or worsening of symptoms.
--- OUTSIDE RECORDS SUMMARY | 2024-10-20 17:12 | XMS_ITS | Encounter Summary ---
Author Organization [facility] Address [id number] [place] [phone] Care Team Providers Care Top Spotter Name Role Phone Physician, Pcp Unknown Primary Care Provider Belinda vailable Reason for Visit * Reason Comments Consult NPV-corn and calluse s * Consultation (Routine) - Closed Specialty Diagnoses / Procedures Referred By Contact Referred To Contact Podiatry / Orthopaedic Surgery Diagnoses Corns and callosities Procedures AMB Referral to Podiatry. Ashlyn Becker MD [address] [place] [address] DrTaya, [address] [facility] [place], [place] Phone: tel: fax: Orthopedic Surgery [facility] [address] [phone] Phone: tel: fax: Referral ID Status Reason Start Date Expiration Date V isits Requested Visits Authorized [id number] Closed Consult and Treat 1 1 Encounter Details Date Type Department Care Team (Late st Contact Info) Description 10/19/2024 2:30 PM EDT Office Visit Orthopedic Surgery [place] [address] [phone] Jamar Kyle DPM [address] [address] Verruca plantaris (Primary Dx) Social History Tobacco Use Types Packs/Day Years Used Date Smoking Tobacco: Never Assessed Comments Unknown Sex and Gender Information Value Date Recorded Sex Assigned at Not on file Legal Sex Female 3:50 PM EDT Gender Identity Not on file Sexual Orientation Not on file documented as of this encounter Last Filed Vital Signs Vital Sign Reading Time Taken Comments Blood Pressure - - Pulse - - Temperature - - Respiratory Rate - - Oxygen Saturation - - Inhaled Oxygen Concentration - - Weight 57.6 kg (127 lb) 10/19/2024 2:17 PM EDT Height 152.4 cm (5') 10/19/2024 2:17 PM EDT Body Mass Index 24.8 10/19/2024 2:17 PM EDT documented in this encounter Ordered Prescriptions Prescription Sig Dispense Quantity Refills Last Filled Start Date End Date ammonium lactate (AmLactin) 12 % lotion Apply topically if needed for dry skin. 400 g 10/19/2024 documented in this encounter Progress Notes * Jamar Kyle DPM - 10/19/2024 2:30 PM EDT Last PCP visit:Referring MD: Ashlyn Becker MD IDENTIFIER: Isaias Bolivar is a 59 y.o. year old female who presents for consultation. CC: Foot pain HPI: Patient has a complaint pain in her right foot she feels like she is walking on rocks she has been very painful achy she is seeing other doctors who have not been able to treat it she states that thepain continues she states pain discomfort is 7 out of 10 on a visual analog scale denies trauma to the area eeg tech ID #[id number] ROS: GENERAL: Pt denies nausea, fever, vomiting, chills, or shortness of breath. Pt in NAD. CARDIOLOGY: pt denies chest pain, palpitations LUNGS: pt denies shortness of breath MUSCULOSKELETAL: See HPI, otherwise no joint pain or swelling, back pain, or muscle pain. SKIN: see HPI, otherwise no lesions, rash or itching NEURO: No persistent headache, weakness or numbness The remainder of the review of systems is noncontributory PAST MEDICAL HISTORY: There is no problem list on file for this patient. SOCIAL HISTORY: Social History Tobacco Use Smoking status: Not on file Smokeless tobacco: Not on file Substance Use Topics Alcohol use: Not on file ACTIVE MEDICATIONS: No outpatient medications have been marked as taking for the 10/19/24 encounter (Office Visit) with Jamar Kyle DPM. ALLERGIES: Not on File PHYSICAL EXAM: Visit Vitals Ht 1.524 m (60 ) Wt 57.6 kg (127 lb) BMI 24.80 kg/m?? BSA 1.54 m?? PODIATRIC EXAMINATION: GENERAL: Patient appears well nourished, with NAD. VASCULAR: Dorsalis pedis pulses are 2/4 bilaterally and Posterior tibial pulses are 2/4 bilaterally. Capillary filling time within normal limits the digits. No pallor on elevation or rubor on dependency. No varicosities. Denies rest pain or claudication pain. NEUROLOGICAL: Sharp/dull sensation intact, protective sensation intact 10/10 with 5.07 semmes katia bilaterally, vibratory sensation with tuning fork intact to the tibial tuberosity. ORTHOPEDIC: Good muscle strength 5/5 of all flexors and extensors. Dorsi flexion of ankle ,10 degrees, plantar flexion WNL. No muscle atrophy. DERMATOLOGICAL:.Right foot subsecond metatarsal deep central core pathologic compression pinpoint bleeding on debridement loss of skin lines BIOMECHANICS: Ankle ROM WNL, STJ ROM wnl, MTJ ROM wnl, 1st MPJ ROM wnl. IMAGING: IMPRESSION: 1. Verruca plantaris PLAN: Pt was seen and examined, history reviewed. treatment options verrucous plantaris were discussed and reviewed including definitive diagnosis with biopsy Discussed with patient concerns for biopsy as it may lead to scar tissue formation but would have surgical cure and definitive diagnosis patient declined Would recommend destructive procedures patient is willing to proceed ammonium lactate acid was prescribed to be used at home daily at night Follow-up in 1 month [id number]: Destruction of Plantar Verrucae: Verbal informed consent was obtained from the patient. Debrided wart(s) with a scalpel. Aggressive debridement dermal curette and 15 scalpel blade followed by chemical destruction and cauterization with silver nitrate sticks. Jamar Kyle DPM documented in this encounter Plan of Treatment Upcoming Encounters Date Type Department Care Team (Late st Contact Info) Description 11/24/2024 9:15 AM EDT Office Visit Orthopedic Surgery [facility] [place] [address] [phone] Jamar Kyle DPM [address] [address] documented as of this encounter Visit Diagnoses Diagnosis Verruca plantaris- Primary Plantar wart documented in this encounter Care Teams Top Spotter Relationship Specialty Start Date End Date Physician, Pcp Unknown PCP - General 07/25/24 documented as of this encounter
--- OUTSIDE RECORDS SUMMARY | 2024-10-20 17:12 | XMS_ITS | Clinical Summary ---
Author Organization 175 [facility] Address [address] [place] [address] Phone Care Team Providers Care Health Actuary Name Role Phone Physician, Pcp Unknown Primary Care Provider Belinda vailable Medications ammonium lactate (AmLactin) 12 % lotion Apply topically if needed for dry skin. 400 g 5 10/20/19 26 Active Encounters Date Type Department Care Team Description 10/19/2024 2:30 PM EDT Office Visit Orthopedic [facility] [address] [phone] Jamar Kyle DPM Verruca plantaris (Primary Dx) from Last 3 Months Social History Tobacco Use Types Packs/Day Years Used Date Smoking Tobacco: Never Assessed Comments Unknown Sex and Gender Information Value Date Recorded Sex Assigned at Not on file Legal Sex Female 3:50 PM EDT Gender Identity Not on file Sexual Orientation Not on file Last Filed Vital Signs Vital Sign Reading Time Taken Comments Blood Pressure - - Pulse - - Temperature - - Respiratory Rate - - Oxygen Saturation - - Inhaled Oxygen Concentration - - Weight 57.6 kg (127 lb) 10/19/2024 2:17 PM EDT Height 152.4 cm (5') 10/19/2024 2:17 PM EDT Body Mass Index 24.8 10/19/2024 2:17 PM EDT Plan of Treatment Upcoming Encounters Date Type Department Care Team (Late st Contact Info) Description 11/24/2024 9:15 AM EDT Office Visit Orthopedic [facility] [address] [phone] Jamar Kyle DPM [address] [address] Health Maintenance Due Date Last Done Comments Breast Cancer Screening 1965 DTaP,Tdap,and Td Vaccines (1 - Tdap) 1984 Hepatitis B Vaccines (1 of 3 - 19+ 3-dose series) 1984 Cervical Cancer Screening: P ap Smear 1986 Pneumococcal Vaccine: 50+ Ye ars (1 of 1 - PCV) 2015 Zoster Vaccines (1 of 2) 2015 COVID-19 Vaccine ( - 2023-2 5 season) 2024 Colorectal Cancer Screening: Colonoscopy 05/20/2024 Depression Screening 05/20/2024 HIV Screening 05/20/2024 Hepatitis C Screening 05/20/2024 Social Influencers of Health Screening 05/20/2024 Influenza Vaccine (Season Ended) 2025 RSV Immunization Adult Patie nts (1 - 1-dose 75+ series) 2040 HIB Vaccines Aged Out No longer eligi ble based on patient's age to complete this topic HPV Vaccines Aged Out No longer eligi ble based on patient's age to complete this topic Hepatitis A Vaccines Aged Out No long er eligible based on patient's age to complete this topic IPV Vaccines Aged Out No longer eligi ble based on patient's age to complete this topic MMR Vaccines Aged Out No longer eligi ble based on patient's age to complete this topic Meningococcal ACWY Vaccine Aged Out N o longer eligible based on patient's age to complete this topic Meningococcal B Vacine Aged Out No lo nger eligible based on patient's age to complete this topic Pneumococcal Vaccine: Pediat rics (0 to 5 Years) and At-Risk Patients (6 to 64 Years) Aged Out No longer eligible b ased on patient's age to complete this topic RSV Immunization Patients Un janna 20 months Aged Out No longer eligible b ased on patient's age to complete this topic Varicella Vaccines Aged Out No longer eligible based on patient's age to complete this topic Insurance [facility] [place] [address] Care Teams Health Actuary Relationship Specialty Start Date End Date Physician, Pcp Unknown PCP - General 07/25/24
== END 2024-10-20 17:14 | disposition home or self-care (01) ==
LOC: HO.HMCH 16:36
PROVIDERS: PCP Internal Medicine; Visit Provider Internal Medicine
DX: R10.2 Pelvic and perineal pain (principal); R63.4 Abnormal weight loss; K21.9 Gastro-esophageal reflux disease without esophagitis; K59.04 Chronic idiopathic constipation

== ENCOUNTER → 2024-10-20 16:35 | Outpatient (BNVA) | payer OTHER, SELFPAY | PROVIDERS: PCP Internal Medicine; Visit Provider Internal Medicine | DX: R10.2 Pelvic and perineal pain (principal); R63.4 Abnormal weight loss; K21.9 Gastro-esophageal reflux disease without esophagitis; K59.04 Chronic idiopathic constipation; E78.5 Hyperlipidemia, unspecified | CPT/HCPCS: 96127; 99212 ==

== ENCOUNTER 2024-10-26 07:54 | Outpatient (REF) | payer OTHER, SELFPAY ==
--- OUTSIDE RECORDS SUMMARY | 2024-10-26 07:56 | XMS_ITS | Clinical Summary ---
Author Organization 175 [facility] Address [address] [place] [address] Phone Care Team Providers Care Sales Intern Name Role Phone Physician, Pcp Unknown Primary Care Provider Belinda vailable Medications ammonium lactate (AmLactin) 12 % lotion Apply topically if needed for dry skin. 400 g 5 10/20/19 26 Active Encounters Date Type Department Care Team Description 10/19/2024 2:30 PM EDT Office Visit Orthopedic [facility] [address] [phone] Jamar Kyle DPM Verruca plantaris [...] 11/24/2024 9:15 AM EDT Office Visit Orthopedic [facility] [address] [phone] Jamar Kyle DPM [address] [address] Health Maintenance Due Date Last Done Comments [...] age to complete this topic Meningococcal B Vaccine Aged Out No l onger eligible based on patient's age to complete [...] patient's age to complete this topic Insurance [facility] Care Teams Sales Intern Relationship Specialty Start Date End Date Physician, Pcp Unknown PCP - General 07/25/24
[2024-10-26 08:08] LABS: MANUAL DIFF FLAG NO
[2024-10-26 08:34] LABS: Basophils Percent Auto 0.4 % (0-2); Eosinophils Absolute Auto 0.2 X10*3/uL (0.0-0.4); Eosinophils Percent Auto 3.4 % (0-4); Hematocrit 39.8 % (37.0-47.0); Hemoglobin 12.5 g/dl (12.0-16.0); Imm Gran Abs Auto 0.02 X10*3/uL (0.00-0.03); Imm Gran Pct Auto 0.3 % (0.0-0.4); Lymphocytes Absolute Auto 3.4 X10*3/uL (1.2-4.9); Lymphocytes Percent Auto 48.2 % (20-40); Mean Corpuscular HGB Conc 31.4 g/dl (31.0-35.0); Mean Corpuscular Hemoglobin 26.5 pg (27.0-33.0); Mean Corpuscular Volume 84.5 fL (80.0-98.0); Mean Platelet Volume 9.6 fL (9.4-12.3); Monocytes Absolute Auto 0.3 X10*3/uL (0.1-1.2); Monocytes Percent Auto 4.4 % (2-11); Neutrophils Absolute Auto 3.1 x10*3/uL (2.0-8.3); Neutrophils Percent Auto 43.3 % (45-73); Platelet Count 257 X10*3/uL (160-400); Red Blood Count 4.71 X10*6/uL (4.20-5.50); Red Cell Distribution Width 14.5 % (11.0-16.0); White Blood Count 7.1 X10*3/uL (4.8-10.8)
[2024-10-26 08:52] LABS: Alanine Aminotransferase 16 U/L (0-31); Albumin Level 4.1 g/dL (3.5-5.0); Alkaline Phosphatase 66 U/L (39-117); Anion Gap 12 (12-20); Aspartate Amino Transferase 24 U/L (5-31); Bilirubin Total 1.1 mg/dL (0.0-1.0); Blood Urea Nitrogen 12 mg/dL (9-16); Calcium 9.6 mg/dL (8.4-10.2); Carbon Dioxide 27 mmol/L (22-29); Chloride 114 mmol/L (96-108); Cholesterol 196 mg/dL (<200); Estimated Glomerular Filt Rate > 60; Glucose Fasting 105 mg/dL (60-99); HDL Cholesterol 45 mg/dL (>40); LDL Cholesterol Calculated 132 mg/dL (<100); Sodium 148 mmol/L (135-145); Total Protein 6.8 g/dL (6.5-8.0); Triglycerides 95 mg/dL (<150)
[2024-10-26 09:07] LABS: Thyroid Stimulating Hormone 1.05 uIU/mL (0.32-4.0)
== END 2024-10-26 07:55 | disposition home or self-care (01) ==
LOC: HO.LAB 07:54
PROVIDERS: PCP Internal Medicine; Visit Provider Internal Medicine
DX: Z00.00 Encounter for general adult medical examination without abnormal findings (principal); R63.4 Abnormal weight loss; E78.5 Hyperlipidemia, unspecified
CPT/HCPCS: 36415; 80053; 80061; 84443; 85025

== ENCOUNTER 2024-11-18 13:26 | Outpatient (REF) | payer OTHER, SELFPAY ==
--- NOTE | ~2024-11-18 | US_ITS ---
CLINICAL HISTORY: R10.2 - Pelvic and perineal pain US pelvis transabdominal and transvaginal Comparison: None Findings: Transabdominal scanning performed for overall anatomy. Transvaginal scanning performed for additional detail. Anteverted uterus is 6.0 cm length. Normal myometrium. Endometrium 3.0 mm thickness. Right ovary notvisualized. Left ovary 1.9 x 1.6 x 1.1 cm. Normal color Doppler of left ovary. No free fluid. IMPRESSION: 1. Normal pelvic ultrasound This document has been electronically signed by: Liang Buitrago MD on 11/19/2024 08:48:46
--- OUTSIDE RECORDS SUMMARY | 2024-11-18 13:43 | XMS_ITS | Clinical Summary ---
Author Organization 175 [facility] Address [address] [place] [address] Phone Care Team Providers Care Specialty Sales Representative Name Role Phone Physician, Pcp Unknown Primary Care Provider Belinda vailable Medications ammonium lactate (AmLactin) 12 % lotion Apply topically if needed for dry skin. 400 g 5 10/20/19 26 Active Encounters Date Type Department Care Team Description 10/19/2024 2:30 PM EDT Office Visit Orthopedic [facility] [address] [phone] Jamar Kyle DPM Verruca plantaris [...] 11/24/2024 9:15 AM EDT Office Visit Orthopedic [facility] [address] [phone] Jamar Kyle DPM [address] [address] Health Maintenance Due Date Last Done Comments [...] patient's age to complete this topic Insurance [facility] Care Teams Specialty Sales Representative Relationship Specialty Start Date End Date Physician, Pcp Unknown PCP - General 07/25/24
== END 2024-11-18 13:27 | disposition home or self-care (01) ==
LOC: HO.US 13:26
PROVIDERS: PCP Internal Medicine; Visit Provider Internal Medicine
DX: R10.2 Pelvic and perineal pain (principal)
CPT/HCPCS: 76830; 76856

== ENCOUNTER → 2024-11-18 13:30 | Outpatient (BNV) | payer OTHER, SELFPAY | PROVIDERS: PCP Internal Medicine; Visit Provider Specialist | DX: R10.2 Pelvic and perineal pain (principal) | CPT/HCPCS: 76830; 76856 ==

== ENCOUNTER 2024-11-18 15:21 | Outpatient (AMB) | payer OTHER, SELFPAY ==
--- OUTSIDE RECORDS SUMMARY | 2024-11-18 15:22 | XMS_ITS | Clinical Summary ---
Author Organization 175 [facility] Address [address] [place] [address] Phone Care Team Providers Care Technology Applications Consultant Name Role Phone Physician, Pcp Unknown Primary Care Provider Belinda vailable Medications ammonium lactate (AmLactin) 12 % lotion Apply topically if needed for dry skin. 400 g 5 10/20/19 26 Active Encounters Date Type Department Care Team Description 10/19/2024 2:30 PM EDT Office Visit Orthopedic [facility] [address] [phone] Jamar Kyle DPM Verruca plantaris [...] 11/24/2024 9:15 AM EDT Office Visit Orthopedic [facility] [address] [phone] Jamar Kyle DPM [address] [address] Health Maintenance Due Date Last Done Comments [...] patient's age to complete this topic Insurance [facility] Care Teams Technology Applications Consultant Relationship Specialty Start Date End Date Physician, Pcp Unknown PCP - General 07/25/24
[2024-11-18 15:27] VITALS: BP 108/60; PULSE 58; O2SAT 100; BMI 24.8
--- NOTE | 2024-11-18 15:27 | A.OFFVIS_ITS ---
Vital Signs 11/18/24 15:27 Height 5 ft Weight 127 lb BMI 24.8 BP 108/60 Blood Pressure Location Rt brachial Position Sitting Pulse 58 Pulse Source Pulse Oximeter Pulse Oximetry (%) 100 Oxygen Delivery Method Room Air Intake Visit Reasons: S/P EGD; Dr. Blackwood Intake Note: ESTABLISHED PATIENT for s/p EGD w/ TH. Chief Complaint; Pt denies any GI sx or concerns at this time. Pt is here to review results of EGD. Veneer Slicing Machine Operator Required: Yes Veneer Slicing Machine Operator Services: Veneer Slicing Machine Operator Present Veneer Slicing Machine Operator Name: [id number] [facility] [place] Interpreted: clinical only Accompanied by: Self / Same As Patient Allergies No Known Allergies Allergy (Verified 11/18/24 15:34) HPI HPI S/P EGD; Dr. Blackwood: Details: LAST VISIT: GERD (gastroesophageal reflux disease) Epigastric pain Constipation Screen for colon cancer Postprandial abdominal bloating Plan Patient will stop taking Nexium and will start lansoprazole. Continue taking Dulcolax daily. Colonoscopy and endoscopy is scheduled for beginning of July. What to expect before during and after procedure discussed with patient. Stressed the importance of clear liquid diet and good bowel prep day before procedure. Patient denies any issues with anesthesia in the past. No history of sleep apnea. Not on any anticoagulation medication. Patient has appointment with me for follow-up after the procedure. She is agreeable to current plan of care and verbalizes understanding of instructions. She was given the opportunity to ask questions and all questions answered. ? Thank you for allowing me to participate in her care Medications New lansoprazole 30 mg PO DAILY 30 caps 3RF K21.9 bisacodyl (Dulcolax (bisacodyl)) 10 mg (2 x 5 mg) PO BEDTIME 180 tabs 4RF sucralfate 1 g PO BEDTIME 30 tabs 4RF R19.7 Discontinued esomeprazole magnesium Discontinued Reason: Doctor's Order 40 mg PO DAILY 30 caps 5RF K21.9 famotidine Discontinued Reason: Doctor's Order 40 mg PO BEDTIME 30 tabs 3RF K21.9 UPPER ENDOSCOPY Findings: Larynx:normal Esophagus: GE junction at 38 cm, diaphragm hiatus at 38 cm, bx taken from GEj and distal esophagus Stomach: patchy erythema . Biopsies were obtained. Grade 2 flap valve on retroflexed examination of the cardia. pancreatic rest noted in the distal stomach, bx taken Duodenum: Normal bulb and descending duodenum, bx taken Intervention: Biopsies as noted above, Impression/Findings: gastritis heterotropic pancreatic tissue PLAN: if H pylori pos then treat GERD precautions if ongoing sx can consider endoscopic resection of pancreatic rest PATHOLOGY RESULTS Diagnosis A. Duodenum, biopsy: Duodenal mucosa within normal limits. B. Stomach, biopsy: Antral-type and oxyntic mucosa with mild chronic inactive inflammation; no Helicobacter organisms seen. C. Stomach, pancreatic rest, biopsy: Reactive gastropathy with background mild chronic inactive inflammation; no Helicobacter organisms seen; no pancreatic tissue identified. D. GE junction, biopsy: - Cardiofundic-type mucosa with mild chronic inactive inflammation; no intestinal metaplasia seen. - Active esophagitis (rare eosinophils and neutrophils). E. Esophagus, distal, biopsy: Squamous epithelium within normal limits; no inflammation seen TODAY'S VISIT: Patient is here today for follow-up and to discuss upper endoscopy results. Mild gastritis and pancreatic rest found. Patient reports that she is feeling somewhat better, however occasionally she will still have epigastric pain. Patient denies any dyspepsia, dysphagia or odynophagia. She currently is taking a PPI and sucralfate at bedtime.. Patient reports that she is trying to avoid dietary triggers. Patient is trying to eat healthy. Reports that has better appetite. She did lose another 11 lb since last visit. Patient denies any nausea or vomiting. Denies any abdominal pain or discomfort. Reports to have normal bowel movement. Currently is taking Dulcolax and is able to have normal BM. [facility] Medical History Constipation GERD (gastroesophageal reflux disease) Surgical History History of foot surgery History of cataract surgery (~03/2024) History of Family History Sister Colon cancer, Onset Age: 75 Family/Other Colon cancer Social History Housing: Apartment Are you a primary care asst to a significant other at home: No Do you presently have visiting nurse or other home services: No Alcohol intake: never Patient Tobacco Use Status: Never used Tobacco e-Cigarette/Vaping Use: Never Used Second Hand Smoke Exposure: No service: No Current occupational status: unemployed Cognitive needs: No Hearing needs: No Vision needs: No Review of Systems Const Denies weight gain and Denies weight loss ENT Reports no additional complaints, Denies dysphagia and Denies odynophagia Card Reports no additional complaints Resp Reports no additional complaints GI Reports abdominal pain (Generalized), Denies belching, Denies melena, Reports bloating, Denies change in bowel habits, Reports constipation, Denies dysphagia, Denies excessive flatus, Denies dyspepsia, Reports heartburn, Denies diarrhea, Denies loose stools, Denies nausea, Denies odynophagia and Denies vomiting Reports no additional complaints Musc Reports no additional complaints Neuro Reports no additional complaints Psych Reports no additional complaints Endo Reports no additional complaints Physical Exam Vital Signs: Last Vital Signs Pulse 58 11/18/24 15:27 BP 108/60 11/18/24 15:27 Pulse Ox 100 11/18/24 15:27 Oxygen Delivery Method Room Air 11/18/24 15:27 BMI result Body Mass Index 24.8 Const General: healthy appearing, no acute distress and well developed Nutritional Appearance: well nourished Orientation/consciousness: patient oriented x3 Resp Effort & Inspection: normal respiratory effort, able to speak in complete sentences, no tracheal deviation and symmetric chest movement Auscultation: clear to auscultation bilaterally Cardio Rate: regular rate GI Inspection: Yes normal to inspection and No distended Palpation (GI): Soft to palpation, not firm, nontender and No hepatosplenomegaly present Auscultation: normal bowel sounds General: Yes no CVA tenderness Back/Spine/Pelvis Back: no CVA tenderness Skin General skin exam: elasticity normal, turgor normal and dry skin Neuro General: patient oriented x3 Psych Appearance: grossly normal Mental Status: mental status grossly normal Assessment & Plan Assessment & Plan (1) GERD (gastroesophageal reflux disease): Code(s): K21.9 - Gastro-esophageal reflux disease without esophagitis Category: Medical Qualifiers: Esophagitis presence: esophagitis presence not specified Qualified Code(s): K21.9 - Gastro-esophageal reflux disease without esophagitis (2) Epigastric pain: Code(s): R10.13 - Epigastric pain Category: Medical (3) Constipation: Code(s): K59.00 - Constipation, unspecified Category: Medical Qualifiers: Constipation type: chronic idiopathic constipation Qualified Code(s): K59.04 - Chronic idiopathic constipation (4) Postprandial abdominal bloating: Code(s): R14.0 - Abdominal distension (gaseous) Plan Encourage patient to increase more protein intake. Continue taking Nexium and sucralfate twice a day. Continue taking Dulcolax. Patient was encouraged to increase fluid intake and activity to promote better bowel motility. Patient was encouraged to avoid dietary triggers and late night snacking. Staying upright for minimum 3 hours after meals discussed with patient. Patient will follow-up in our office 3 months. Patient was encouraged to call us if she will have any GI concerning symptoms. Patient is agreeable to this plan and verbalizes understanding of instructions. She was given the opportunity to ask questions and all questions answered. Thank you for allowing me to participate in her care Medications: Changed From sucralfate 1 g PO BEDTIME 30 tabs 4RF R19.7 - Diarrhea, unspecified To sucralfate 1 g PO BID 60 tabs 4RF R19.7 - Diarrhea, unspecified Coding Level of Care Code Est Pt Level 4 (60067) Complex EM visit Add On G2211 Diagnoses Gastroesophageal reflux disease, unspecified whether esophagitis present K21.9 Esophagitis presence: esophagitis presence not specified Epigastric pain R10.13 Chronic idiopathic constipation K59.04 Constipation type: chronic idiopathic constipation Postprandial abdominal bloating R14.0 Time Spent (min) 35 Comment 25 minutes spent with patient and additional 10 minutes spent reviewing her records
== END 2024-11-18 16:05 | disposition home or self-care (01) ==
LOC: HO.HGI 15:21
PROVIDERS: PCP Internal Medicine; Visit Provider Nurse Practitioner Family
DX: K21.9 Gastro-esophageal reflux disease without esophagitis (principal); R10.13 Epigastric pain; K59.04 Chronic idiopathic constipation; R14.0 Abdominal distension (gaseous)
CPT/HCPCS: 99214; G2211

== ENCOUNTER 2024-12-13 13:21 | Outpatient (AMB) | payer OTHER, SELFPAY ==
--- OUTSIDE RECORDS SUMMARY | 2024-12-13 13:27 | XMS_ITS | Clinical Summary ---
Author Organization 175 [facility] Address [address] [place] [address] Phone Care Team Providers Care Recruitment Advertising Manager Name Role Phone Physician, Pcp Unknown Primary Care Provider Belinda vailable Allergies No known active allergies Medications ammonium lactate (AmLactin) 12 % lotion Apply topically if needed for dry skin. 400 g 5 10/20/19 26 Active salicylic acid 17 % gel Apply topically 1 (one) time each day. 15 g 5 12/25/19 25 Active Encounters Date Type Department Care Team Description 11/24/2024 9:15 AM EDT Office Visit Orthopedic Surgery [place] [address] [phone] Jamar Kyle DPM Acquired hammer toe of right foot (Primary Dx); Verruca plantaris 10/19/2024 2:30 PM EDT Office Visit [address] [phone] Jamar Kyle DPM Verruca plantaris (Primary Dx) [...] - - Weight 57.6 kg (127 lb) 11/24/2024 8:57 AM EDT Height 152.4 cm (5') 11/24/2024 8:57 AM EDT Body Mass Index 24.8 11/24/2024 8:57 AM EDT Plan of Treatment Upcoming Encounters Date Type Department Care Team (Late st Contact Info) Description 01/09/2025 2:30 PM EDT Office Visit Orthopedic Surgery - [place] [address] [phone] Jamar Kyle, DPM [address] [id number] Health Maintenance Due Date Last Done Comments [...] patient's age to complete this topic Insurance [facility] Care Teams Recruitment Advertising Manager Relationship Specialty Start Date End Date Physician, Pcp Unknown PCP - General 07/25/24
--- NOTE | 2024-12-13 13:29 | A.OFFPC_ITS ---
Vital Signs 12/13/24 13:30 Height 5 ft Weight 129 lb BMI 25.2 BP 112/70 Blood Pressure Location Lt brachial Position Sitting Intake Visit Reasons: Lump on [place] Promotions Specialist Required: No Accompanied by: Self / Same As Patient Allergies No Known Allergies Allergy (Verified 12/13/24 13:37) Medication List - Last Reconciled 12/13/24 by Ashlyn Becker MD bisacodyl (Dulcolax (bisacodyl)) 10 mg (2 x 5 mg) PO BEDTIME docusate sodium (Colace) 100 mg PO DAILY esomeprazole magnesium 40 mg PO DAILY sucralfate 1 g PO BID Tobacco use date assessed: 10/20/24 Dental Screening Dental Screen Date: 10/20/24 HPI HPI Comments History of Present Illness Details The patient is a 59-year-old female presenting with abdominal discomfort and hepatic concerns. She experiences a persistent sensation of swelling and discomfort in the abdominal area. Previously, she was diagnosed with hepatic steatosis, with a history of normal liver function testing. A recent ultrasound of the pelvis was normal, and an endoscopy was conducted in October. She denies problems with urination or bowel movements and reports no ja undice. Additionally, she has noted a history of hemorrhoids. Constipation and GERD stable with medications as needed. [facility] Medical History (Updated 12/13/24 @ 13:49 by Ashlyn Becker MD) Constipation GERD (gastroesophageal reflux disease) Surgical History History of foot surgery History of cataract surgery (~03/2024) History of Family History Sister Colon cancer, Onset Age: 75 Family/Other Colon cancer Social History (Updated 12/13/24 @ 13:42 by Ashlyn Becker MD) Housing: Apartment Are you a primary nurse behavioral health care to a significant other at home: No Do you presently have visiting nurse or other home services: No Alcohol intake: former Patient Tobacco Use Status: Never used Tobacco e-Cigarette/Vaping Use: Never Used Second Hand Smoke Exposure: No service: No Current occupational status: unemployed Cognitive needs: No Hearing needs: No Vision needs: No Questionnaire PHQ-9 Over the last 2 weeks, how often have you been bothered by any of the following problems? 1. Little interest or pleasure in doing things: several days 2. Feeling down, depressed, or hopeless: several days 3. Trouble falling or staying asleep, or sleeping too much: several days 4. Feeling tired or having little energy: several days 5. Poor appetite or overeating: nearly every day 6. Feeling bad about yourself - or that you are a failure or have let yourself or your family down: not at all 7. Trouble concentrating on things, such as reading the newspaper or watching television: several days 8. Moving or speaking so slowly that other people could have noticed. Or the opposite - being so fidgety or restless that you have been moving around a lot more than usual: several days 9. Thoughts that you would be better off or of hurting yourself in some way: not at all Total score: 9 Depression Screening Interpretation: Positive Depression Screening Follow-up: Existing condition and Follow-up Visit Requested Depression Screening Done: Yes 94092 - PHQ-9 Billing: Yes Source: Developed by Drs. Nick Tejada, Nadya Vyas, Adrian Mcallister and colleagues, with an educational gail from [employer]. Thrive Questionnaire Date Thrive assessed: 12/13/24 I am a: Patient What is your living situation today?: I have a steady place to live Within the past 12 months, did the food you bought not last and you didn't have the money to get more?: Sometimes True Within the past 12 months, did you worry whether your food would run out before you got money to buy more?: Sometimes True Do you have trouble paying for medicines?: No Do you have trouble getting transportation to medical appointments?: No Do you have trouble paying your heating and electricity bill?: I choose not to answer this question Do you have trouble taking care of your child, family member or friend?: No Do you have trouble with day-to-day activities such as bathing, preparing meals, shopping, managing finances, etc.?: Yes Are you currently unemployed and looking for a job?: No Are you interested in more education?: No Please select the resources that you would like help with: None Currently or been in a relationship where the following occur: I choose not to answer THRIVE Score: 2 AUDIT C Alcohol Use Questionnaire (AUDIT-C) 1. How often do you have a drink containing alcohol?: Never Total Score: 0 Score Reviewed/Action Taken: No EILEEN-7 AMB Questionnaire EILEEN-7 Date EILEEN - 7 assessed: 12/13/24 Feeling nervous, anxious, or on edge: 3 = Nearly every day Not being able to stop or control worryin = Nearly every day Worrying too much about different things: 3 = Nearly every day Trouble relaxin = Nearly every day Being so restless that it is hard to sit still: 3 = Nearly every day Becoming easily annoyed or irritable: 3 = Nearly every day Feeling afraid as if something awful might happen: 1 = Several days Total EILEEN-7 score (0-4 normal; 5-9 mild; 10-14 moderate; 15-21 severe): 19 Source: Developed by Drs. Nick Tejada, Nadya Vyas, Adrian Mcallister and colleagues, with an educational gail from [employer]. EILEEN-7 Assessment Billing EILEEN-7 Assessment Tool: EILEEN-7 Assessment 74355 Review of Systems Const All systems reviewed & are unremarkable except as noted in HPI and below Card Denies chest pain at rest, Denies chest pain with activity, Denies edema, Denies irregular heart rhythm, Denies claudication, Denies dyspnea, Denies dyspnea on exertion, Denies orthopnea, Denies paroxysmal nocturnal dyspnea and Denies slow heart rate Resp Denies cough, Denies dyspnea and Denies dyspnea on exertion GI Denies abdominal pain, Denies change in bowel habits, Denies excessive flatus, Denies nausea and Denies vomiting Musc Denies atrophy, Denies deformity and Denies limited range of motion Physical exam (Primary Care) Vital Signs: Last Vital Signs BP 112/70 12/13/24 13:30 BMI result Body Mass Index 25.2 Tobacco/Smoking Status: Tobacco use Status Tobacco use date assessed 10/20/24 12/13/24 13:34 Patient Tobacco Use Status Never used Tobacco 12/13/24 13:42 e-Cigarette/Vaping Use Never Used 12/13/24 13:42 PHQ-9: PHQ-9 Score PHQ-9: Total score 9 12/13/24 13:40 Depression Screening Interpretation: Positive Depression Screening Follow-up: Existing condition and Follow-up Visit Requested Thrive Assessment: Date of Thrive Assessment Date Thrive assessed 12/13/24 12/13/24 13:34 Currently or been in a relationship where the following occur: I choose not to answer Resp Effort & Inspection: normal respiratory effort Auscultation: clear to auscultation bilaterally Cardio Jugular venous distension: no JVD Rate: regular rate Rhythm: regular rhythm Heart sounds: S1 normal heart sound present and S2 normal heart sound present GI Inspection: Yes normal to inspection Palpation (GI): Soft to palpation and nontender Auscultation: normal bowel sounds Extrem General: Yes full ROM Coding Level of Care Code Est Pt Level 4 (43496) Complex EM visit Add On G2211 Diagnoses Right upper quadrant abdominal pain R10.11 Chronic idiopathic constipation K59.04 Constipation type: chronic idiopathic constipation Gastroesophageal reflux disease, unspecified whether esophagitis present K21.9 Esophagitis presence: esophagitis presence not specified ALMAGUER (nonalcoholic steatohepatitis) K75.81 Additional Codes EILEEN-7 Assessment Billing - EILEEN-7 Assessment Tool: EILEEN-7 Assessment 01274 ([id number]) PHQ-9 - 87331 - PHQ-9 Billing: Yes ([id number]) Time Spent (min) 20 Assessment & Plan Assessment & Plan (1) Right upper quadrant abdominal pain: Code(s): R10.11 - Right upper quadrant pain Category: Medical (2) Constipation: Code(s): K59.00 - Constipation, unspecified Category: Medical Qualifiers: Constipation type: chronic idiopathic constipation Qualified Code(s): K59.04 - Chronic idiopathic constipation (3) GERD (gastroesophageal reflux disease): Code(s): K21.9 - Gastro-esophageal reflux disease without esophagitis Category: Medical Qualifiers: Esophagitis presence: esophagitis presence not specified Qualified Code(s): K21.9 - Gastro-esophageal reflux disease without esophagitis (4) ALMAGUER (nonalcoholic steatohepatitis): Code(s): K75.81 - Nonalcoholic steatohepatitis (ALMAGUER) Category: Medical Plan Continue current meds. US abd ordered. Patient was informed and verbally consented to the use of an ambient scribe for clinic note documentation during this visit. Orders: Orders US abdomen limited Today R10.11 - Right upper quadrant pain
[2024-12-13 13:30] VITALS: BP 112/70; BMI 25.2
== END 2024-12-13 13:46 | disposition home or self-care (01) ==
LOC: HO.HMCH 13:22
PROVIDERS: PCP Internal Medicine; Visit Provider Internal Medicine
DX: R10.11 Right upper quadrant pain (principal); K59.04 Chronic idiopathic constipation; K21.9 Gastro-esophageal reflux disease without esophagitis; K75.81 Nonalcoholic steatohepatitis (NASH)

== ENCOUNTER → 2024-12-13 13:21 | Outpatient (BNVA) | payer OTHER, SELFPAY | PROVIDERS: PCP Internal Medicine; Visit Provider Internal Medicine | DX: K21.9 Gastro-esophageal reflux disease without esophagitis (principal); K64.9 Unspecified hemorrhoids; K59.04 Chronic idiopathic constipation; K75.81 Nonalcoholic steatohepatitis (NASH); R10.11 Right upper quadrant pain | CPT/HCPCS: 96127; 99212 ==

== ENCOUNTER 2024-12-14 12:47 | Emergency (ER) | payer OTHER, SELFPAY ==
--- NOTE | ~2024-12-14 | US_ITS ---
CLINICAL HISTORY: GB, CBD, liver US abdomen limited Comparison: Ultrasound of the abdomen limited from 01/21/2024 Findings: The majority of the pancreas is obscured by overlying bowel gas. Majority of the aorta is obscured by overlying bowel gas. Imaged IVC is unremarkable. Periportal echoes of the imaged liver, which measures 12.3 cm. Portions of the liver obscured by side of the artifacts. Borderline increased echogenicity of the liver relative to right kidney. No hydronephrosis of the imaged right kidney, which measures 10.2 cm long axis. Portions of the right kidney obscured by side of the artifacts. No gallbladder wall thickening or pericholecystic fluid of the imaged gallbladder. Portions of the gallbladder, including fundus are obscured. No definite shadowing stones within the imaged gallbladder lumen, where reverberation artifacts are noted. Imaged CBD is nondilated measuring 5 mm diameter. No right upper quadrant ascites or right pleural effusion in the [id number]. Doppler: Peak velocity of the imaged main portal vein is 20 cm/sec with hepatopetal flow. IMPRESSION: 1. No ultrasound findings of acute cholecystitis. 2. Imaged CBD is nondilated. 3. Likely mild steatotic change of the liver. 4. Hepatopetal flow of the imaged main portal vein. This document has been electronically signed by: Jose R Adair MD on 12/14/2024 20:27:39
--- NOTE | ~2024-12-14 | XR_ITS ---
CLINICAL HISTORY: pain --- Additional Notes or Special Instructions: constipation 1 view abdomen Comparison: CT of the abdomen from 12/27/2023 Findings: Mild bibasilar atelectasis and borderline cardiomegaly in the [id number]. Mild gaseous distention of the imaged small bowel loops without small-bowel dilatation greater than 3 cm diameter. Severe stool burden present, including in the cecum, and imaged splenic flexure. Degenerative changes include imaged hips and imaged spine. Likely calcific tendinitis adjacent to the left greater trochanter. IMPRESSION: 1. No small bowel obstruction. 2. Severe stool burden. This document has been electronically signed by: Jose R Adair MD on 12/14/2024 21:13:07
[2024-12-14 12:55] VITALS: BP 122/81; PULSE 82; RESP 16; TEMP 36.4; O2SAT 96; BMI 24.9
--- NOTE | 2024-12-14 12:56 | ED.ABDPAIN ---
HPI - Abdominal Pain General Chief Complaint: Abdominal Pain Stated Complaint: Abd Pain Time Seen by Provider: 12/14/24 18:08 Source: patient Limitations: language barrier History of Present Illness ED Provider: Louise Gilbert PA-C HPI narrative: 59-year-old female with a history of ALMAGUER, constipation, GERD presents with right upper quadrant pain x1 year. Patient states she can feel a ?ball? in her upper abdomen. Complains of nausea vomiting at times. Associated abdominal distention for 1 year. Denies constipation or inability to pass flatus. Denies fever. Related Data Previous Rx's ?Medication ?Instructions ?Recorded docusate sodium 100 mg capsule 100 mg PO DAILY #30 caps 05/13/23 (Colace) bisacodyl 5 mg tablet,delayed 10 mg (2 x 5 mg) PO BEDTIME #180 06/07/24 release (Dulcolax (bisacodyl)) tabs esomeprazole magnesium 40 mg 40 mg PO DAILY #90 caps 10/25/24 capsule,delayed release sucralfate 1 gram tablet 1 g PO BID #60 tabs 11/18/24 Allergies Allergy/AdvReac Type Severity Reaction Status Date / Time No Known Allergies Allergy Verified 12/14/24 12:59 Review of Systems Review of Systems Yes all other systems are reviewed and are negative Constitutional: Denies fatigue and Denies fever(s) Cardiovascular: Denies chest pain and Denies dyspnea Respiratory: Denies dyspnea Gastrointestinal: Reports abdominal pain, Denies constipation, Denies diarrhea, Reports nausea and Reports vomiting Endocrine: Denies fatigue PMFSH Past Medical History Attestation statement: The following information was validated with the patient. Medical History Constipation GERD (gastroesophageal reflux disease) Surgical History History of foot surgery History of cataract surgery (~03/2024) History of Family History Family History Sister Colon cancer, Onset Age: 75 Family/Other Colon cancer Social History Social History (Updated 12/13/24 @ 13:42 by Ashlyn Becker MD) Housing: Apartment Are you a primary adult day care worker to a significant other at home: No Do you presently have visiting nurse or other home services: No Unable to assess alcohol history related to: Unknown Alcohol intake: former Patient Tobacco Use Status: Never used Tobacco e-Cigarette/Vaping Use: Never Used Second Hand Smoke Exposure: No Use of substances other than those prescribed or required for medical reasons: Unknown Advance Directives: No Advance Directives Information Provided: No Do you have a plan to hurt others: No Plan Patient : No service: No Current occupational status: unemployed Cognitive needs: No Hearing needs: No Vision needs: No Physical Exam ED Vital Signs: Vital Signs - 24 hr 12/14/24 12:55 12/14/24 17:57 12/14/24 18:15 Temperature 97.6 F 98.1 F 98.1 F Pulse Rate 82 65 65 Respiratory Rate 16 18 18 Blood Pressure 122/81 113/57 L 113/57 L Pulse Oximetry 96 98 98 Oxygen Delivery Method Room Air Room Air Room Air BMI result Body Mass Index 24.9 Const Other: Alert well-appearing Orientation/consciousness: patient oriented x3 Resp Effort & Inspection: normal respiratory effort Cardio Other: Normal peripheral perfusion GI Other: Abdomen is objectively distended, but soft, generalized tenderness to palpation without guarding no palpable mass Skin Other: Warm dry no rash Neuro General: patient oriented x3, gait normal, no focal motor deficits and CN's II-XI intact bilaterally Psych Other: Cooperative Course Course Course Narrative: 59 yo female with PMH of ALMAGUER, chronic RUQ Pain with reassuring US CT scans and HIDA scan, GERD, constipation, notes she has RUQ pain with a ball that will not go away and she has n/v and loose stools starting last night. They did note she needs MRI I explained she probably needs outpatient GI follow up. At this time will obtain labs, EKG. this is a RAPID medical screening exam the rest of the history and physical exam is to be done by the main provider. TERESSA 12/14/24 1258pm. Medical Decision Making Medical Decision Making [facility] Narrative: 59-year-old female with a history of ALMAGUER, constipation, GERD presents with right upper quadrant pain x1 year. Patient states she can feel a ?ball? in her upper abdomen. Complains of nausea vomiting at times. Associated abdominal distention for 1 year. Denies constipation or inability to pass flatus. Denies fever. Problem: Chronic abdominal pain, GERD and constipation History: Per patient I have considered the following differential diagnoses: Biliary colic, cholecystitis, GERD, pancreatitis, constipation, bowel obstruction Plan: The patient has numerous chronic abdominal pain issues. Screening labs were obtained from triage, no abnormality, her LFTs are at her baseline. We will obtain an ultrasound of the right upper quadrant. The patient states she is not constipated, however her abdomen is quite distended, obtaining a KUB, she is not having obstructive symptoms, she does not warrant a CT scan at this time. We will be giving GI cocktail, Zofran and Valium for her discomfort. Labs: No leukocytosis, not anemic, no electrolyte abnormality, LFTs at baseline US RUQ:MPRESSION: 1. No ultrasound findings of acute cholecystitis. 2. Imaged CBD is nondilated. 3. Likely mild steatotic change of the liver. 4. Hepatopetal flow of the imaged main portal vein. KUB:MPRESSION: 1. No small bowel obstruction. 2. Severe stool burden. Lab Data 12/14/24 13:12 12/14/24 13:12 Labs: Lab Results 12/14/24 12/14/24 Range/Units 13:12 13:14 WBC 7.6 (4.8-10.8) X10*3/uL RBC 4.76 (4.20-5.50) X10*6/uL Hgb 12.5 (12.0-16.0) g/dl Hct 39.6 (37.0-47.0) % MCV 83.2 (80.0-98.0) fL MCH 26.3 L (27.0-33.0) pg MCHC 31.6 (31.0-35.0) g/dl RDW 14.5 (11.0-16.0) % Plt Count 267 (160-400) X10*3/uL MPV 9.6 (9.4-12.3) fL Immature Gran % (Auto) 0.3 (0.0-0.4) % Neut % (Auto) 51.3 (45-73) % Lymph % (Auto) 40.7 H (20-40) % [place] % (Auto) 4.9 (2-11) % Eos % (Auto) 2.5 (0-4) % Baso % (Auto) 0.3 (0-2) % Lymph # (Auto) 3.1 (1.2-4.9) X10*3/uL [place] # (Auto) 0.4 (0.1-1.2) X10*3/uL Eos # (Auto) 0.2 (0.0-0.4) X10*3/uL Baso # (Auto) 0.0 (0.0-0.2) X10*3/uL Abs Immat Gran (auto) 0.02 (0.00-0.03) X10*3/uL Absolute Neuts (auto) 3.9 (2.0-8.3) x10*3/uL Absolute Nucleated RBC 0.000 (0.0-0.012) X10*3/uL Nucleated RBC % (auto) 0.0 (0.0-0.2) /100WBC Sodium 143 (135-145) mmol/L Potassium 5.0 (3.3-5.1) mmol/L Chloride 111 H (96-108) mmol/L Carbon Dioxide 26 (22-29) mmol/L Anion Gap 11 L (12-20) BUN 13 (9-16) mg/dL Creatinine 0.70 (0.5-1.4) mg/dL Estim Creat Clear Calc 68.9 Estimated GFR > 60 Random Glucose 96 (60-115) mg/dL Calcium 9.0 D (8.4-10.2) mg/dL Magnesium 2.0 (1.6-2.6) mg/dL Total Bilirubin 0.9 (0.0-1.0) mg/dL Direct Bilirubin 0.2 (0.0-0.5) mg/dL AST 27 (5-31) U/L ALT 20 (0-31) U/L Alkaline Phosphatase 84 (39-117) U/L Troponin I High Sens < 2.7 (<3.5-17.0) ng/L Total Protein 6.8 (6.5-8.0) g/dL Albumin 4.2 (3.5-5.0) g/dL Lipase 18 (8-78) U/L Urine Color Yellow Urine Appearance Clear Urine pH 6.5 (5.0-9.0) Ur Specific [place] 1.020 (1.005-1.025) Urine Protein Negative (Neg-Trace) mg/dL Urine Glucose (UA) Negative (Negative) mg/dL Urine Ketones Negative (Negative) mg/dL Urine Blood Trace H (Negative) Urine Nitrite Negative (Negative) Ur Leukocyte Esterase Negative (Negative) Urine RBC 3-5 H (0-2) /HPF Urine WBC 0-5 (0-5) /HPF Ur Squamous Epith Cells 0-2 (0-2) /HPF Ur Transition Epith Cell None seen Ur Renal Epithelial Cell None seen Urine Bacteria None Seen (None Seen) Hyaline Casts 0-2 (0-2) /LPF Medications Administered Discontinued Medications Generic Name Dose Route Start Last Admin Trade Name Freq PRN Reason Stop Dose Admin Diazepam 2.5 mg 12/14/24 20:41 12/14/24 20:57 Diazepam 10 Mg/2 Ml Cartridge IVPUSH 12/14/24 20:42 2.5 mg STAT STA Administration Sodium Chloride 1,000 mls @ 999 mls/hr 12/14/24 18:15 12/14/24 19:21 Ns IV 12/14/24 19:15 Infused .Q1H1M MARÍA Infusion Ketorolac Tromethamine 15 mg 12/14/24 18:10 12/14/24 18:28 Ketorolac Tromethamine 15 Mg/Ml Vial IVPUSH 12/14/24 18:11 15 mg ONCE ONE Administration Ondansetron HCl 4 mg 12/14/24 18:10 12/14/24 18:28 Ondansetron Hcl 4 Mg/2 Ml Vial IVPUSH 12/14/24 18:11 4 mg ONCE ONE Administration Sucralfate 1 gm 12/14/24 18:10 12/14/24 18:28 Sucralfate Oral Suspension 1 Gm/10 Ml Oral.Susp PO 12/14/24 18:11 1 gm ONCE ONE Administration Discharge Plan Discharge Clinical Impression: Constipation Patient Disposition: Home, Self-Care Instructions: Constipation (ED) Additional Instructions: You were found to be severely constipated. This is the reason for your abdominal pain. See home care instructions. Take the Colace as directed, this is a stool softener, take it twice a day. Use the MiraLax as directed, you need to use it 4 times a day, until you begin having multiple large volume bowel movements. Once you clear your current stool burden, you need to stay on the stool softener every day, you may require the MiraLax 1 to 2 times a week. You will have to see what works for you. Otherwise follow up with your primary care provider as needed. Prescriptions: No Action esomeprazole magnesium 40 mg capsule,delayed release(DR/EC) 40 mg PO DAILY Qty: 90 1RF docusate sodium [Colace] 100 mg capsule 100 mg PO DAILY Qty: 30 0RF bisacodyl [Dulcolax (bisacodyl)] 5 mg tablet,delayed release (DR/EC) 10 mg PO BEDTIME Qty: 180 4RF sucralfate 1 gram tablet 1 g PO BID Qty: 60 4RF Print Language: Danish
--- NOTE | 2024-12-14 12:57 | ECG_ITS ---
Test Reason : abd pain Blood Pressure : */* mmHG Vent. Rate : 71 BPM Atrial Rate : 71 BPM P-R Int : 140 ms QRS Dur : 78 ms QT Int : 380 ms P-R-T Axes : 73 40 38 degrees QTcB Int : 412 ms Normal sinus rhythm with sinus arrhythmia Normal ECG When compared with ECG of 24-Mar-2024 09:01, No significant change was found Referred By: Collette Sims Electronically Signed By: DAI GARCIA MD
[2024-12-14 13:18] LABS: MANUAL DIFF FLAG NO
[2024-12-14 13:20] LABS: Basophils Percent Auto 0.3 % (0-2); Eosinophils Absolute Auto 0.2 X10*3/uL (0.0-0.4); Eosinophils Percent Auto 2.5 % (0-4); Hematocrit 39.6 % (37.0-47.0); Hemoglobin 12.5 g/dl (12.0-16.0); Imm Gran Abs Auto 0.02 X10*3/uL (0.00-0.03); Imm Gran Pct Auto 0.3 % (0.0-0.4); Lymphocytes Absolute Auto 3.1 X10*3/uL (1.2-4.9); Lymphocytes Percent Auto 40.7 % (20-40); Mean Corpuscular HGB Conc 31.6 g/dl (31.0-35.0); Mean Corpuscular Hemoglobin 26.3 pg (27.0-33.0); Mean Corpuscular Volume 83.2 fL (80.0-98.0); Mean Platelet Volume 9.6 fL (9.4-12.3); Monocytes Absolute Auto 0.4 X10*3/uL (0.1-1.2); Monocytes Percent Auto 4.9 % (2-11); Neutrophils Absolute Auto 3.9 x10*3/uL (2.0-8.3); Neutrophils Percent Auto 51.3 % (45-73); Platelet Count 267 X10*3/uL (160-400); Red Blood Count 4.76 X10*6/uL (4.20-5.50); Red Cell Distribution Width 14.5 % (11.0-16.0); White Blood Count 7.6 X10*3/uL (4.8-10.8)
[2024-12-14 13:22] LABS: Appearance Urine Clear; Color Urine Yellow; Glucose Urine UA Negative (Negative); Leukocyte Esterase Urine Negative (Negative); Nitrite Urine Negative (Negative); PH 6.5 (5.0-9.0); UMIC TRIGGER UACC YES; Urine Blood Trace (Negative); Urine Ketones Negative (Negative); Urine Protein Negative (Neg-Trace)
[2024-12-14 13:35] LABS: Alanine Aminotransferase 20 U/L (0-31); Albumin Level 4.2 g/dL (3.5-5.0); Alkaline Phosphatase 84 U/L (39-117); Anion Gap 11 (12-20); Aspartate Amino Transferase 27 U/L (5-31); Bilirubin Direct 0.2 mg/dL (0.0-0.5); Bilirubin Total 0.9 mg/dL (0.0-1.0); Blood Urea Nitrogen 13 mg/dL (9-16); Carbon Dioxide 26 mmol/L (22-29); Chloride 111 mmol/L (96-108); Creatinine Clr Calc Pharmacy 68.9; Estimated Glomerular Filt Rate > 60; Glucose Random 96 mg/dL (60-115); Lipase 18 U/L (8-78); Sodium 143 mmol/L (135-145); Total Protein 6.8 g/dL (6.5-8.0)
[2024-12-14 13:36] LABS: Renal Epithelial Cells Urine None seen; Squamous Epithelial Cell Urine 0-2 /HPF (0-2); Transitional Epi Cells Urine None seen; WBC Urine 0-5 /HPF (0-5)
[2024-12-14 13:37] LABS: Bacteria Urine None Seen (None Seen); Hyaline Casts Urine 0-2 /LPF (0-2)
[2024-12-14 13:43] LABS: Troponin-I High Sensitivity < 2.7 ng/L (<3.5-17.0)
--- OUTSIDE RECORDS SUMMARY | 2024-12-14 17:24 | XMS_ITS | Clinical Summary ---
Author Organization [address] [facility] Address [address] [place] [address] Phone Care Team Providers Care Ui Developer Name Role Phone Physician, Pcp Unknown Primary [...] 9:15 AM EDT Office Visit Orthopedic Surgery [place] [phone] [phone] Jamar Kyle DPM Acquired hammer toe of right foot (Primary Dx); Verruca plantaris 10/19/2024 2:30 PM EDT Office Visit [address] [phone] Jamar Kyle DPM Verruca plantaris (Primary Dx) [...] PM EDT Office Visit Orthopedic Surgery - [place] [address] [phone] Jamar Kyle, DPM [address] [address] Health Maintenance Due Date Last Done Comments [...] complete this topic Insurance [facility] Care Teams Ui Developer Relationship Specialty Start Date End Date Physician, Pcp Unknown PCP - General 07/25/24
[2024-12-14 17:57] VITALS: BP 113/57; PULSE 65; RESP 18; TEMP 36.7; O2SAT 98
[2024-12-14 18:15] VITALS: BP 113/57; PULSE 65; RESP 18; TEMP 36.7; O2SAT 98
[2024-12-14] MEDS: 0.9 % Sodium Chloride 1,000 ML 999 ML IV (18:25)
[2024-12-14] MEDS: Sucralfate Oral Suspension 1 GM/10 ML ORAL.SUSP PO (18:28)
[2024-12-14] MEDS: Ketorolac Tromethamine 15 MG/ML VIAL IVPUSH (18:28)
[2024-12-14] MEDS: ondansetron HCL 4 MG/2 ML VIAL IVPUSH (18:28)
[2024-12-14] MEDS: diazePAM 10 MG/2 ML CARTRIDGE 2.5 MG IVPUSH (20:57)
[2024-12-14 23:31] VITALS: BP 118/78; PULSE 72; RESP 18; TEMP 36.6; O2SAT 97
== END 2024-12-14 23:32 | disposition home or self-care (01) ==
PROVIDERS: Emergency Medicine; Emergency Provider Emergency Medicine; PCP Internal Medicine
DX: K59.00 Constipation, unspecified (principal); R10.11 Right upper quadrant pain
CPT/HCPCS: 36415; 74018; 76705; 80048; 80076; 81001; 83690; 83735; 84484; 85025; 93005; 96361; 96374; 96375; 99284; 99285; J1885; J2405; J3360

== ENCOUNTER → 2024-12-14 12:57 | Outpatient (BNV) | payer OTHER, SELFPAY | PROVIDERS: PCP Internal Medicine; Visit Provider Internal Medicine Cardiovascular Disease | DX: R10.9 Unspecified abdominal pain (principal) | CPT/HCPCS: 93010 ==

== ENCOUNTER → 2024-12-14 18:10 | Outpatient (BNV) | payer OTHER, SELFPAY | PROVIDERS: PCP Internal Medicine; Visit Provider Radiology Neuroradiology | DX: K76.0 Fatty (change of) liver, not elsewhere classified (principal); K56.41 Fecal impaction | CPT/HCPCS: 74018; 76705 ==

== ENCOUNTER 2024-12-19 08:17 | Emergency (ER) | payer OTHER, SELFPAY ==
--- NOTE | ~2024-12-19 | CT_ITS ---
EXAMINATION: CT ABDOMEN AND PELVIS WITH CONTRAST CLINICAL INFORMATION: Severe constipation, rule out obstruction. Abdominal pain. COMPARISON: 12/27/2023. TECHNIQUE: Multidetector volumetric images were obtained from the superior aspect of the liver through the pubic symphysis following administration 85 mL of Omnipaque 350 intravenous contrast. Sagittal and coronal reformatted images were obtained on the technologist's workstation. Oral contrast: No This CT examination was performed using dose optimization techniques as appropriate, variously including the following: *Automated exposure control *Adjustment of mA and/or kV according to patient size (this includes techniques or standardized protocols for targeted exams where dose is matched to indication/reason for exam; i.e. extremities or head) *Use of iterative reconstruction technique FINDINGS: LUNG BASES: Mild arthritic changes in the lung bases bilaterally. No effusions. Normal heart size. LIVER, GALLBLADDER, AND BILIARY TREE: The liver is normal in size, shape, and attenuation. No focal hepatic lesion or biliary ductal dilatation is present. The gallbladder is unremarkable with no evidence of radiopaque gallstones, gallbladder wall thickening, or obvious pericholecystic inflammatory changes. PANCREAS: Unremarkable. SPLEEN: Unremarkable. ADRENAL GLANDS: Unremarkable. KIDNEYS AND URETERS: The kidneys are normal in size, shape, and attenuation. No hydronephrosis, hydroureter, or calculi seen. No perinephric stranding. BLADDER: Unremarkable. GASTROINTESTINAL TRACT: There is wall thickening of the splenic flexure of the colon, descending colon and proximal sigmoid colon, findings in keeping with segmental colitis. There does not appear to be rectal involvement. The right hemicolon appears minimally thickened. Normal appendix is visualized. There is no small bowel obstruction. Contrast has reached the splenic flexure of the colon. No small bowel wall thickening or inflammation. ABDOMINAL WALL: No significant hernia is appreciated. LYMPH NODES: No abnormal lymphadenopathy is evident. VASCULAR: Mild predominately soft plaque of the aorta and iliac arteries. No aneurysm. PELVIC VISCERA: The uterus and adnexa are unremarkable. OSSEOUS STRUCTURES: No suspicious lytic or blastic bone lesions. Mild degenerative spinal changes. Mild arthritis in the right greater than left SI joints, for which inflammatory arthropathy is possible given the appearance. CT/CT abdomen pelvis w IV con IMPRESSION: 1. Acute colitis, mainly affecting the splenic flexure and descending/sigmoid colon. There does not appear to be rectal involvement. This could be infectious or inflammatory in nature. No complication evident. 2. There is no small bowel obstruction or small bowel inflammation identified. 3. Additional ancillary findings as discussed in the body of the report. Electronically signed by: Yonatan Carter MD 12/19/2024 12:05 PM EDT
[2024-12-19 08:25] VITALS: BP 99/63; PULSE 77; RESP 16; TEMP 36.6; O2SAT 100; BMI 24.0
--- NOTE | 2024-12-19 08:50 | ED_ITS ---
HPI - Abdominal Pain General Chief Complaint: Abdominal Pain Stated Complaint: r side abd pain Time Seen by Provider: 12/19/24 08:31 Source: patient and flume ride operator (Portuguese) Mode of arrival: ambulatory Limitations: language barrier (Portuguese) History of Present Illness ED Provider: MARIA FERNANDA YOU PA-C HPI narrative: 59 year old Portuguese speaking female with pmhx significant for GERD and constipation presents to the ED today for evaluation of right-sided abdominal pain x7 days. She was evaluated for same at our facility on 12/14/2024 (6 days ago). Blood work was reassuring however KUB showed severe constipation. She was advised to take MiraLax and Colace. She states that she has been taking this at home as prescribed. Reports multiple episodes of vomiting and loose stool on Thursday (4 days). Since this time, she has not had any further episodes of vomiting or loose stools. No blood noted to stool/emesis. States she has not had a BM since. She is passing flatus. Reports belching. Surgical history includes section x3. No other abdominal surgeries. Denies fever, chills, flank pain, urinary sx. No known sick contacts. Denies any abnormal food ingestions. Related Data Previous Rx's ?Medication ?Instructions ?Recorded docusate sodium 100 mg capsule 100 mg PO DAILY #30 caps 05/13/23 (Colace) esomeprazole magnesium 40 mg 40 mg PO DAILY #90 caps 10/25/24 capsule,delayed release sucralfate 1 gram tablet 1 g PO BID #60 tabs 11/18/24 bisacodyl 5 mg tablet,delayed 10 mg (2 x 5 mg) PO BEDTIME #180 12/16/24 release (Dulcolax (bisacodyl)) tabs amoxicillin 875 mg-potassium 1 tab PO Q12H 7 days #14 tabs 12/19/24 clavulanate 125 mg tablet Allergies Allergy/AdvReac Type Severity Reaction Status Date / Time No Known Allergies Allergy Verified 12/19/24 08:26 Review of Systems Review of Systems Constitutional: No fever, chills, fatigue, night sweats, weight changes ENT/Mouth: No ear pain, hearing loss, nasal congestion, sinus pain, rhinorrhea, sore throat Eyes: No eye pain, swelling, redness, vision changes, discharge Cardio: No chest pain, palpitations, SAENZ, orthopnea, peripheral edema Pulm: No SOB, cough, sputum, wheezing, dyspnea, hemoptysis GI: No nausea, vomiting, hematemesis, diarrhea, constipation, hematochezia, melena, +abdominal pain : No irregular bleeding, dysuria, frequency, urgency, hesitancy, hematuria, flank pain, urinary flow changes, urinary incontinence or retention MSK: No back pain, neck pain, joint pain, myalgias Skin: No lesions, rashes Neuro: No weakness, numbness, paresthesias, LOC, dizziness, headache Psych: No anxiety/panic, depression, SI/HI, AH/VH All other systems reviewed and are negative. [facility] Past Medical History Attestation statement: The following information was validated with the patient. Source: old records reviewed and nursing notes reviewed Medical History Constipation GERD (gastroesophageal reflux disease) Surgical History History of foot surgery History of cataract surgery (~03/2024) History of Family History Family History Sister Colon cancer, Onset Age: 75 Family/Other Colon cancer Social History Social History Housing: Apartment Are you a primary healthcare applications analyst to a significant other at home: No Do you presently have visiting nurse or other home services: No Unable to assess alcohol history related to: Unknown Alcohol intake: former Patient Tobacco Use Status: Never used Tobacco Smoked in Last 30 Days: No e-Cigarette/Vaping Use: Never Used Second Hand Smoke Exposure: No Advance Directives: No Advance Directives Information Provided: Yes service: No Current occupational status: unemployed Cognitive needs: No Hearing needs: No Vision needs: No Physical Exam ED Vital Signs: Vital Signs - 24 hr 12/19/24 08:25 12/19/24 08:54 12/19/24 10:00 Temperature 97.8 F Pulse Rate 77 71 60 Respiratory Rate 16 16 16 Blood Pressure 99/63 115/63 122/64 Pulse Oximetry 100 98 99 Oxygen Delivery Method Room Air Room Air Room Air 12/19/24 12:57 12/19/24 14:00 12/19/24 15:44 Temperature 97.3 F 97.7 F 97.7 F Pulse Rate 66 56 56 Respiratory Rate 16 16 16 Blood Pressure 133/67 127/63 127/63 Pulse Oximetry 99 99 99 Oxygen Delivery Method Room Air Room Air Room Air BMI result Body Mass Index 24.0 Vital signs stable General: Well appearing, in no acute distress. Skin: Warm, dry, intact. No rashes or lesions. Head: Normocephalic, atraumatic. EENT: Hearing is intact b/l. Conjunctiva clear. Sclera is anicteric. PERRLA. EOM intact. Moist mucous membranes.? Cardiac: Chest wall symmetric. RRR Lungs: Normal respiratory effort without accessory muscle use. CTA bilaterally Abdomen: soft, mildly distended, tender to palpation of both right upper and right lower quadrants without rebound or guarding. active bowel sounds. Back: No midline spinous or paraspinal tenderness. No step off deformity. Ext: Upper and lower extremities atraumatic, without tenderness, deformity, swelling or erythema Neuro: AOx3. Normal speech. Ambulating with steady gait Course Course Course Narrative: 1300 -- CBC without leukocytosis or left shift. No anemia. H&H stable. Chemistry without acute electrolyte abnormality requiring intervention. No CHAY. Chronic hyperbilirubinemia. Liver function WNL. Lipase WNL. Negative COVID, flu, RSV. UA without infection. > CT abdomen/pelvis showing evidence of colitis. No evidence of bowel obstruction. Given length of symptoms, will start patient on Augmentin. She is agreeable. Tolerating p.o. intake. Patient has remained stable throughout ED visit today. Discussed worrisome signs and symptoms and when to return to the ED. All questions answered at this time. Patient is agreeable with disposition and stable for discharge. Medical Decision Making Medical Decision Making MDM Narrative: 59 year old Portuguese speaking female with pmhx significant for GERD and constipation presents to the ED today for evaluation of right-sided abdominal pain x7 days. Vital signs stable, afebrile. Differential diagnoses: appendicitis, diverticulitis, diverticulosis, UTI, IUP, constipation, colitis, SBO Abdominal exam without peritoneal signs. No evidence of acute abdomen at this time. Well appearing. Low suspicion for acute hepatobiliary disease (including acute cholecystitis), acute infectious processes (pneumonia, hepatitis, pyelonephritis, PID, TOA), vascular catastrophe or viscus perforation, ovarian cyst/ rupture/ torsion, ectopic. Presentation not consistent with other acute, emergent causes of abdominal pain at this time. Plan: labs, UA, CT AP, pain control, fluids, serial reassessment Differential Diagnosis Differential Diagnoses: The differential diagnosis associated with the presentation includes as above. Admission/Observation not indicated. Lab Data MDM Lab Attestation statement: I reviewed the patient's lab results. as above. 12/19/24 09:07 12/19/24 09:06 Labs: Lab Results 12/19/24 12/19/24 12/19/24 Range/Units 09:06 09:07 15:03 WBC 6.0 (4.8-10.8) X10*3/uL RBC 4.84 (4.20-5.50) X10*6/uL Hgb 13.2 (12.0-16.0) g/dl Hct 39.8 (37.0-47.0) % MCV 82.2 (80.0-98.0) fL MCH 27.3 (27.0-33.0) pg MCHC 33.2 (31.0-35.0) g/dl RDW 14.0 (11.0-16.0) % Plt Count 272 (160-400) X10*3/uL MPV 9.8 (9.4-12.3) fL Immature Gran % (Auto) 0.2 (0.0-0.4) % Neut % (Auto) 39.8 L (45-73) % Lymph % (Auto) 51.3 H (20-40) % [place] % (Auto) 5.2 (2-11) % Eos % (Auto) 2.8 (0-4) % Baso % (Auto) 0.7 (0-2) % Lymph # (Auto) 3.1 (1.2-4.9) X10*3/uL [place] # (Auto) 0.3 (0.1-1.2) X10*3/uL Eos # (Auto) 0.2 (0.0-0.4) X10*3/uL Baso # (Auto) 0.0 (0.0-0.2) X10*3/uL Abs Immat Gran (auto) 0.01 (0.00-0.03) X10*3/uL Absolute Neuts (auto) 2.4 (2.0-8.3) x10*3/uL Absolute Nucleated RBC 0.000 (0.0-0.012) X10*3/uL Nucleated RBC % (auto) 0.0 (0.0-0.2) /100WBC Sodium 144 (135-145) mmol/L Potassium 4.0 (3.3-5.1) mmol/L Chloride 108 (96-108) mmol/L Carbon Dioxide 29 (22-29) mmol/L Anion Gap 11 L (12-20) BUN 13 (9-16) mg/dL Creatinine 0.74 (0.5-1.4) mg/dL Estim Creat Clear Calc 64.1 Estimated GFR > 60 Random Glucose 89 (60-115) mg/dL Calcium 9.2 (8.4-10.2) mg/dL Magnesium 2.1 (1.6-2.6) mg/dL Total Bilirubin 1.5 H (0.0-1.0) mg/dL AST 29 (5-31) U/L ALT 27 (0-31) U/L Alkaline Phosphatase 77 (39-117) U/L Total Protein 6.8 (6.5-8.0) g/dL Albumin 4.1 (3.5-5.0) g/dL Lipase 18 (8-78) U/L Urine Color Yellow Urine Appearance Clear Urine pH 6.5 (5.0-9.0) Ur Specific [place] >= 1.030 H (1.005-1.025) Urine Protein Negative (Neg-Trace) mg/dL Urine Glucose (UA) Negative (Negative) mg/dL Urine Ketones Negative (Negative) mg/dL Urine Blood Negative (Negative) Urine Nitrite Negative (Negative) Ur Leukocyte Esterase Negative (Negative) Influenza Type A (PCR) NEGATIVE (Negative) Influenza Type B (PCR) NEGATIVE (Negative) RSV RNA Qual (PCR) NEGATIVE (Negative) SARS-CoV-2 RNA (RT-PCR) NEGATIVE (Negative) Independent Interpretation I performed an independent interpretation of an: CT Scan Interpretation: CT a/p without evidence of bowel obstruction Radiology Impression Discussion of test interpretation with radiology: I have reviewed the radiologist's reading. Radiologist Impression: Procedure(s): CT abdomen pelvis w IV con Accession Number(s): [id number] cc: Maria Fernanda You; Ashlyn Roberto MD~ Report Number: [id number]: Total DLP = 373.00 mGy-cm EXAMINATION: CT ABDOMEN AND PELVIS WITH CONTRAST CLINICAL INFORMATION: Severe constipation, rule out obstruction. Abdominal pain. COMPARISON: 12/27/2023. TECHNIQUE: Multidetector volumetric images were obtained from the superior aspect of the liver through the pubic symphysis following administration 85 mL of Omnipaque 350 intravenous contrast. Sagittal and coronal reformatted images were obtained on the technologist's workstation. Oral contrast: No This CT examination was performed using dose optimization techniques as appropriate, variously including the following: *Automated exposure control *Adjustment of mA and/or kV according to patient size (this includes techniques or standardized protocols for targeted exams where dose is matched to indication/reason for exam; i.e. extremities or head) *Use of iterative reconstruction technique FINDINGS: LUNG BASES: Mild arthritic changes in the lung bases bilaterally. No effusions. Normal heart size. LIVER, GALLBLADDER, AND BILIARY TREE: The liver is normal in size, shape, and attenuation. No focal hepatic lesion or biliary ductal dilatation is present. The gallbladder is unremarkable with no evidence of radiopaque gallstones, gallbladder wall thickening, or obvious pericholecystic inflammatory changes. PANCREAS: Unremarkable. SPLEEN: Unremarkable. ADRENAL GLANDS: Unremarkable. KIDNEYS AND URETERS: The kidneys are normal in size, shape, and attenuation. No hydronephrosis, hydroureter, or calculi seen. No perinephric stranding. BLADDER: Unremarkable. GASTROINTESTINAL TRACT: There is wall thickening of the splenic flexure of the colon, descending colon and proximal sigmoid colon, findings in keeping with segmental colitis. There does not appear to be rectal involvement. The right hemicolon appears minimally thickened. Normal appendix is visualized. There is no small bowel obstruction. Contrast has reached the splenic flexure of the colon. No small bowel wall thickening or inflammation. ABDOMINAL WALL: No significant hernia is appreciated. LYMPH NODES: No abnormal lymphadenopathy is evident. VASCULAR: Mild predominately soft plaque of the aorta and iliac arteries. No aneurysm. PELVIC VISCERA: The uterus and adnexa are unremarkable. OSSEOUS STRUCTURES: No suspicious lytic or blastic bone lesions. Mild degenerative spinal changes. Mild arthritis in the right greater than left SI joints, for which inflammatory arthropathy is possible given the appearance. CT/CT abdomen pelvis w IV con IMPRESSION: 1. Acute colitis, mainly affecting the splenic flexure and descending/sigmoid colon. There does not appear to be rectal involvement. This could be infectious or inflammatory in nature. No complication evident. 2. There is no small bowel obstruction or small bowel inflammation identified. 3. Additional ancillary findings as discussed in the body of the report. Electronically signed by: Yonatan Carter MD 12/19/2024 12:05 PM EDT External Record Review External record reviewed: Inpatient record, Prior outpatient labs and Prior outpatient radiology Prescription Management I considered prescription management with: Antibiotic (augmentin) Social Determinants Patient?s care significantly limited by Social Determinants of Health including: Other Social Determinant of Health Medications Administered Discontinued Medications Generic Name Dose Route Start Last Admin Trade Name Freq PRN Reason Stop Dose Admin Diatrizoate Meglum/Diatrizoate Sod 30 ml 12/19/24 11:52 12/19/24 11:53 Diatrizoate Meglumine, Sodium 30 Ml Solution PO 12/19/24 11:53 30 ml ONCE ONE Administration Sodium Chloride 1,000 mls @ 999 mls/hr 12/19/24 09:45 12/19/24 11:00 Ns IV 12/19/24 10:45 Infused .Q1H1M MARÍA Infusion Iohexol 100 ml 12/19/24 11:53 12/19/24 11:53 Iohexol 350 Mg/Ml 100 Ml Infus..Btl IV 12/19/24 11:54 85 ml ONCE ONE Administration Morphine Sulfate 4 mg 12/19/24 09:31 12/19/24 09:38 Morphine Sulfate 4 Mg/Ml Cartridge IVPUSH 12/19/24 09:32 4 mg ONCE ONE Administration Protocol Critical Care Time Critical Care Time Critical Care Time: Yes Total Critical Care Time: 32 Attestation: Critical care time in the amount of 32 minutes has been provided to the patient in terms of direct patient care, frequent reevaluation on IV morphine, review and interpretation of medical data and results, and management of potentially life-threatening conditions. This is all outside of any medical procedures. Discharge Plan Discharge Clinical Impression: Colitis Patient Disposition: Home, Self-Care Instructions: Colitis (ED) Additional Instructions: Your blood work today is reassuring. Your urine does not demonstrate infection. The CT scan of your abdomen shows evidence of colitis. Given your length of symptoms, you are being started on an antibiotic. Augmentin as an antibiotic that has been sent to your pharmacy. Take this twice daily for 7 days. On Augmentin, softer bowel movements are to be expected. Call your provider if you move your bowels more than 4 times a day, your bowel movements are almost all liquid, or you get a rash.? I also recommend you stick to a soft or liquid diet over the next few days to give your bowels a rest. I also recommend taking an [id number] probiotic supplement for gut health. Make sure you are staying adequately hydrated. Follow up with your primary care provider. Return with any new or worsening symptoms. In the case of an emergency call 911. Prescriptions: New amoxicillin-pot clavulanate 875-125 mg tablet 1 tab PO Q12H 7 Days Qty: 14 0RF No Action esomeprazole magnesium 40 mg capsule,delayed release(DR/EC) 40 mg PO DAILY Qty: 90 1RF bisacodyl [Dulcolax (bisacodyl)] 5 mg tablet,delayed release (DR/EC) 10 mg PO BEDTIME Qty: 180 4RF docusate sodium [Colace] 100 mg capsule 100 mg PO DAILY Qty: 30 0RF sucralfate 1 gram tablet 1 g PO BID Qty: 60 4RF Referrals: Ashlyn Roberto MD [Primary Care Provider] - Interventions: ED Discharge Assessment Last Done: 12/19/24 15:44 Discharge Date/Time: 12/19/24 15:45 Print Language: Portuguese
[2024-12-19 08:54] VITALS: BP 115/63; PULSE 71; RESP 16; O2SAT 98
[2024-12-19 09:10] LABS: MANUAL DIFF FLAG NO
[2024-12-19 09:12] LABS: Basophils Percent Auto 0.7 % (0-2); Eosinophils Absolute Auto 0.2 X10*3/uL (0.0-0.4); Eosinophils Percent Auto 2.8 % (0-4); Hematocrit 39.8 % (37.0-47.0); Hemoglobin 13.2 g/dl (12.0-16.0); Imm Gran Abs Auto 0.01 X10*3/uL (0.00-0.03); Imm Gran Pct Auto 0.2 % (0.0-0.4); Lymphocytes Absolute Auto 3.1 X10*3/uL (1.2-4.9); Lymphocytes Percent Auto 51.3 % (20-40); Mean Corpuscular HGB Conc 33.2 g/dl (31.0-35.0); Mean Corpuscular Hemoglobin 27.3 pg (27.0-33.0); Mean Corpuscular Volume 82.2 fL (80.0-98.0); Mean Platelet Volume 9.8 fL (9.4-12.3); Monocytes Absolute Auto 0.3 X10*3/uL (0.1-1.2); Monocytes Percent Auto 5.2 % (2-11); Neutrophils Absolute Auto 2.4 x10*3/uL (2.0-8.3); Neutrophils Percent Auto 39.8 % (45-73); Platelet Count 272 X10*3/uL (160-400); Red Blood Count 4.84 X10*6/uL (4.20-5.50)
--- OUTSIDE RECORDS SUMMARY | 2024-12-19 09:13 | XMS_ITS | Clinical Summary ---
Author Organization 175 [facility] Address [address] [place] [address] Phone Care Team Providers Care Quantitative Analyst Developer Name Role Phone Physician, Pcp Unknown [...] 9:15 AM EDT Office Visit Orthopedic Surgery [place] [phone] [phone] Jamar Kyle DPM Acquired hammer toe of right foot (Primary Dx); Verruca plantaris 10/19/2024 2:30 PM EDT Office Visit [address] [phone] Jamar Kyle DPM Verruca plantaris (Primary Dx) [...] PM EDT Office Visit Orthopedic Surgery - [place] [address] [phone] Jamar Kyle, DPM [address] [phone] Health Maintenance Due Date Last Done Comments [...] patient's age to complete this topic Insurance [facility] Care Teams Quantitative Analyst Developer Relationship Specialty Start Date End Date Physician, Pcp Unknown PCP - General 07/25/24
--- NOTE | 2024-12-19 09:14 | PC.NURSE ---
Patient is a 59-year-old female presenting with abdominal discomfort and hepatic concerns. She experiences a persistent sensation of swelling and discomfort in the abdominal area. Previously, she was diagnosed with hepatic steatosis, with a history of normal liver function testing. A recent ultrasound of the pelvis was normal, and an endoscopy was conducted in October. Additionally, she has noted a history of hemorrhoids. Constipation and GERD stable with medications as needed. Presents from home with chronic abdominal pain located to RUQ, states it feels like a ball . Lungs clear bilat. Respirations even and non-labored. Abdomen soft with positive bowel sounds. c/o RUQ abdominal pain. Positive pedal pulses with no edema noted. Medical History Constipation GERD (gastroesophageal reflux dise
[2024-12-19 09:34] LABS: Alanine Aminotransferase 27 U/L (0-31); Albumin Level 4.1 g/dL (3.5-5.0); Alkaline Phosphatase 77 U/L (39-117); Anion Gap 11 (12-20); Aspartate Amino Transferase 29 U/L (5-31); Bilirubin Total 1.5 mg/dL (0.0-1.0); Blood Urea Nitrogen 13 mg/dL (9-16); Calcium 9.2 mg/dL (8.4-10.2); Carbon Dioxide 29 mmol/L (22-29); Chloride 108 mmol/L (96-108); Creatinine Clr Calc Pharmacy 64.1; Estimated Glomerular Filt Rate > 60; Glucose Random 89 mg/dL (60-115); Lipase 18 U/L (8-78); Magnesium 2.1 mg/dL (1.6-2.6); Sodium 144 mmol/L (135-145); Total Protein 6.8 g/dL (6.5-8.0)
[2024-12-19] MEDS: 0.9 % Sodium Chloride 1,000 ML 999 ML IV (09:38)
[2024-12-19] MEDS: Morphine Sulfate 4 MG/ML CARTRIDGE IVPUSH (09:38)
[2024-12-19 10:00] VITALS: BP 122/64; PULSE 60; RESP 16; O2SAT 99
[2024-12-19 10:13] LABS: Influenza A PCR NEGATIVE (Negative); Influenza B PCR NEGATIVE (Negative); Resp Syncy Virus RNA Qual PCR NEGATIVE (Negative); SARS COV2 PCR INHOUSE NEGATIVE (Negative)
[2024-12-19] MEDS: iohexoL 350 MG/ML 100 ML INFUS..BTL IV (11:53)
[2024-12-19] MEDS: Diatrizoate Meglumine, Sodium 30 ML SOLUTION PO (11:53)
[2024-12-19 12:57] VITALS: BP 133/67; PULSE 66; RESP 16; TEMP 36.3; O2SAT 99
[2024-12-19 14:00] VITALS: BP 127/63; PULSE 56; RESP 16; TEMP 36.5; O2SAT 99
[2024-12-19 15:09] LABS: Appearance Urine Clear; Color Urine Yellow; Glucose Urine UA Negative (Negative); Leukocyte Esterase Urine Negative (Negative); Nitrite Urine Negative (Negative); PH 6.5 (5.0-9.0); Specific Gravity - Urine >= 1.030 (1.005-1.025); Urine Blood Negative (Negative); Urine Ketones Negative (Negative); Urine Protein Negative (Neg-Trace)
[2024-12-19 15:44] VITALS: BP 127/63; PULSE 56; RESP 16; TEMP 36.5; O2SAT 99
== END 2024-12-19 15:45 | disposition home or self-care (01) ==
PROVIDERS: Physician Assistant Medical; Emergency Provider Emergency Medicine Emergency Medical Services; PCP Internal Medicine
DX: K52.9 Noninfective gastroenteritis and colitis, unspecified (principal); R10.2 Pelvic and perineal pain; R10.31 Right lower quadrant pain; R11.0 Nausea; K59.00 Constipation, unspecified; Z03.818 Encounter for observation for suspected exposure to other biological agents ruled out; Z79.899 Other long term (current) drug therapy
CPT/HCPCS: 0241U; 74177; 80053; 81003; 83690; 83735; 85025; 96361; 96374; 99284; 99285; J2270; Q9967

== ENCOUNTER → 2024-12-19 08:47 | Outpatient (BNV) | payer OTHER, SELFPAY | PROVIDERS: Emergency Provider Emergency Medicine Emergency Medical Services; PCP Internal Medicine; Visit Provider Radiology Diagnostic Radiology | DX: K52.9 Noninfective gastroenteritis and colitis, unspecified (principal); K59.00 Constipation, unspecified | CPT/HCPCS: 74177 ==

== ENCOUNTER → 2025-01-27 13:13 | Outpatient (BNVA) | payer OTHER, SELFPAY | PROVIDERS: PCP Internal Medicine; Visit Provider Nurse Practitioner Family | DX: K21.9 Gastro-esophageal reflux disease without esophagitis (principal); R93.3 Abnormal findings on diagnostic imaging of other parts of digestive tract; K75.81 Nonalcoholic steatohepatitis (NASH); K59.04 Chronic idiopathic constipation; R10.11 Right upper quadrant pain; R10.13 Epigastric pain; K52.9 Noninfective gastroenteritis and colitis, unspecified | CPT/HCPCS: 99212 ==

== ENCOUNTER → 2025-01-27 13:13 | Outpatient (AMB) | payer OTHER, SELFPAY ==
--- OUTSIDE RECORDS SUMMARY | 2025-01-27 13:15 | XMS_ITS | Clinical Summary ---
Author Organization 175 [facility] Address [address] [place] [address] Phone Care Team Providers Care Port Engineer Name Role Phone Physician, Pcp Unknown Primary Care Provider Belinda vailable Allergies No known active allergies Medications ammonium lactate (AmLactin) 12 % lotion Apply topically if needed for dry skin. 400 g 10/20/19 26 Active Active Problems Problem Noted Date Diagnosed Date Metatarsalgia of right foot 01/09/2025 Dermatofibroma of right lower leg 01/09/2025 Acquired hammer toe of right foot 01/09/2025 Verruca plantaris 01/09/2025 Encounters Date Type Department Care Team Description 01/09/2025 2:30 PM EDT Office Visit Orthopedic [place] [phone] [phone] Jamar Kyle DPM Acquired hammer toe of right foot (Primary Dx); Follow-up exam; Metatarsalgia of right foot; Dermatofibroma of right lower leg; Verruca plantaris 11/24/2024 9:15 AM EDT Office Visit [place] [phone] [phone] Jamar Kyle DPM Acquired hammer toe of right foot (Primary Dx); Verruca plantaris from Last 3 Months Social History Tobacco [...] Care Team (Late st Contact Info) Description 02/27/2025 8:00 AM EDT Consult Orthopedic Surgery - [place] [address] [phone] Jamar Kyle DPM [address] [phone] 03/03/2025 12:45 PM EDT Hospital Encounter [facility] [place] [address] [place] [phone] Jamar Kyle DPM [address] [phone] 03/03/2025 12:45 PM EDT - 03/03/2025 2:30 PM EDT Surgery [facility] [place] [address] [place] [phone] Jamar Kyle DPM [address] [phone] REPAIR HAMMER TOE [24502 (CPT ) +3 more] 03/16/2025 2:00 PM EDT Office Visit Orthopedic Surgery - [place] [address] [phone] Jamar Kyle DPM [address] [address] Scheduled Procedures Name Priority Associated Diagnoses Date/Ti me REPAIR HAMMER TOE Metatarsalgia of right foot Dermatofibroma of right lower leg Acquired hammer toe of right foot Verruca plantaris 03/03/2025 12:45 PM EDT Health Maintenance Due Date Last Done Comments Breast Cancer Screening 1965 COVID-19 Vaccine (#1) 1970 DTaP,Tdap,and Td Vaccines (1 - Tdap) 1984 Hepatitis B Vaccines (1 of 3 - 19+ 3-dose series) 1984 Zoster Vaccines (1 of 2) 1984 Cervical Cancer Screening: P ap Smear 1986 Pneumococcal Vaccine: 50+ Ye ars (1 of 1 - PCV) 2015 Colorectal Cancer Screening: Colonoscopy 05/20/2024 Depression Screening 05/20/2024 HIV Screening 05/20/2024 Hepatitis C Screening 05/20/2024 Social Influencers of Health Screening 05/20/2024 Influenza Vaccine (#1) 2025 RSV Immunization Adult Patie nts (1 [...] on patient's age to complete this topic Procedures Procedure Name Priority Date/Time Associated Diagnosis Comments XR FOOT 3+ VIEWS RIGHT Routine 01/09/2025 2:33 PM EDT Follow-up exam from Last 3 Months Results * XR Foot 3+ Views Right (01/09/2025 2:33 PM EDT) Anatomical Region Laterality Modality Lower Extremities, Foot Right Computed Radiography Narrative 01/12/2025 7:59 AM EDT Right foot 3 views No fracture. No radiopaque foreign joint spaces normal Hammering of digits 2 through 5 right foot mild to moderate nonweightbearing films us Jamar Kyle DPM IMG XR PROCEDURES Final R esult from Last 3 Months Insurance [facility] [employer] Care Teams Port Engineer Relationship Specialty Start Date End Date Physician, Pcp Unknown PCP - General 07/25/24
--- NOTE | 2025-01-27 13:26 | MHC.OFFVIS ---
Vital Signs 01/27/25 13:30 Height 5 ft Weight 127 lb BMI 24.8 BP 85/47 L Blood Pressure Location Lt brachial Position Sitting Pulse 80 Pulse Oximetry (%) 96 Oxygen Delivery Method Room Air Intake Visit Reasons: Nause Colitis per ED, decreased appetite Intake Note: Patient follow up for nauseas, Colitis per ED, Decrease appetite Patient cc: burning with BM, RUQ pain, abdominal pain with bloating, decrease appetite, swallowing difficulty at night time and acid reflux. 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 Continue taking Nexium and sucralfate twice a day. Continue taking Dulcolax. Patient was encouraged to increase fluid intake and activity to promote better bowel motility. Patient was encouraged to avoid dietary triggers and late night snacking. Staying upright for minimum 3 hours after meals discussed with patient. Patient will follow-up in our office 3 months. Patient was encouraged to call us if she will have any GI concerning symptoms. Patient is agreeable to this plan and verbalizes understanding of instructions. She was given the opportunity to ask questions and all questions answered. ? Thank you for allowing me to participate in her care Changed Changed From sucralfate 1 g PO BEDTIME 30 tabs 4RF R19.7 Changed To sucralfate 1 g PO BID 60 tabs 4RF R19.7 TODAY'S VISIT Patient is here today for follow-up ED visit. Patient continues to have abdominal pain. Seen back in the beginning of December and diagnosed with colitis. Prior to that patient had severe constipation. KUB from the 14 of December showed moderate amount of stool in her colon. Today patient presents and continues to have right upper quadrant pain. PCP ordered ultrasound and patient is scheduled for the 18th of this month. Patient diagnosed with colitis on ED visit. Colitis was in the splenic flexure. Patient reports today pain in the right upper quadrant. Patient reports nausea, decreased appetite. Epigastric pain no matter what she eats. Still feeling constipated, however she does report occasional postprandial diarrhea. Denies melena, hematochezia denies any fever or chills. [facility] Medical History Constipation GERD (gastroesophageal reflux disease) Surgical History History of foot surgery History of cataract surgery (~03/2024) History of Family History Sister Colon cancer, Onset Age: 75 Family/Other Colon cancer Social History Housing: Apartment Are you a primary palliative care specialist to a significant other at home: No Do you presently have visiting nurse or other home services: No Unable to assess alcohol history related to: Unknown Alcohol intake: former Patient Tobacco Use Status: Never used Tobacco e-Cigarette/Vaping Use: Never Used Second Hand Smoke Exposure: No service: No Current occupational status: unemployed Cognitive needs: No Hearing needs: No Vision needs: No Review of Systems Const Denies weight gain and Denies weight loss ENT Reports no additional complaints, Denies dysphagia and Denies odynophagia Card Reports no additional complaints Resp Reports no additional complaints GI Reports abdominal pain (Generalized), Denies belching, Denies melena, Reports bloating, Denies change in bowel habits, Reports constipation, Denies dysphagia, Denies excessive flatus, Denies dyspepsia, Reports heartburn, Denies diarrhea, Reports loose stools, Denies nausea, Denies odynophagia and Denies vomiting Reports no additional complaints Musc Reports no additional complaints Neuro Reports no additional complaints Psych Reports no additional complaints Endo Reports no additional complaints Physical Exam Vital Signs: Last Vital Signs Pulse 80 01/27/25 13:30 BP 85/47 L 01/27/25 13:30 Pulse Ox 96 01/27/25 13:30 Oxygen Delivery Method Room Air 01/27/25 13:30 BMI result Body Mass Index 24.8 Const General: healthy appearing, no acute distress and well developed Nutritional Appearance: well nourished Orientation/consciousness: patient oriented x3 Resp Effort & Inspection: normal respiratory effort, able to speak in complete sentences, no tracheal deviation and symmetric chest movement Auscultation: clear to auscultation bilaterally Cardio Rate: regular rate GI Inspection: Yes normal to inspection and No distended Palpation (GI): Soft to palpation, not firm, nontender and No hepatosplenomegaly present Auscultation: normal bowel sounds General: Yes no CVA tenderness Back/Spine/Pelvis Back: no CVA tenderness Skin General skin exam: elasticity normal, turgor normal and dry skin Neuro General: patient oriented x3 Psych Appearance: grossly normal Mental Status: mental status grossly normal Results Reviewed Results Reviewed: KUB 12/14/2024 Findings: Mild bibasilar atelectasis and borderline cardiomegaly in the [id number]. Mild gaseous distention of the imaged small bowel loops without small-bowel dilatation greater than 3 cm diameter. Severe stool burden present, including in the cecum, and imaged splenic flexure. Degenerative changes include imaged hips and imaged spine. Likely calcific tendinitis adjacent to the left greater trochanter. IMPRESSION: 1. No small bowel obstruction. 2. Severe stool burden. CT OF ABDOMEN AND PELVIS 12/19/24 IMPRESSION: 1. Acute colitis, mainly affecting the splenic flexure and descending/sigmoid colon. There does not appear to be rectal involvement. This could be infectious or inflammatory in nature. No complication evident. 2. There is no small bowel obstruction or small bowel inflammation identified. 3. Additional ancillary findings as discussed in the body of the report. Assessment & Plan Assessment & Plan (1) GERD (gastroesophageal reflux disease): Code(s): K21.9 - Gastro-esophageal reflux disease without esophagitis Category: Medical Qualifiers: Esophagitis presence: esophagitis presence not specified Qualified Code(s): K21.9 - Gastro-esophageal reflux disease without esophagitis (2) Abnormal upper gastrointestinal barium series: Code(s): R93.3 - Abnormal findings on diagnostic imaging of other parts of digestive tract Category: Medical (3) ALMAGUER (nonalcoholic steatohepatitis): Code(s): K75.81 - Nonalcoholic steatohepatitis (ALMAGUER) Category: Medical (4) Constipation: Code(s): K59.00 - Constipation, unspecified Category: Medical Qualifiers: Constipation type: chronic idiopathic constipation Qualified Code(s): K59.04 - Chronic idiopathic constipation (5) Abdominal pain: Code(s): R10.9 - Unspecified abdominal pain Category: Medical Qualifiers: Abdominal location: right upper quadrant Qualified Code(s): R10.11 - Right upper quadrant pain (6) Epigastric pain: Code(s): R10.13 - Epigastric pain Category: Medical (7) Colitis: Code(s): K52.9 - Noninfective gastroenteritis and colitis, unspecified Plan Will check lipase, CRP, fecal calprotectin. I will order HIDA scan. Patient is going for ultrasound next week. We were able to book her for colonoscopy for next week. Went over the prep and clear liquid diet day before procedure. Patient had no issues with anesthesia in the past. Not on any anticoagulation medication. Denies any cardiac or respiratory symptoms. I will see patient after procedure, sooner on as needed basis. She is agreeable to this plan and verbalizes understanding of instructions. She was given the opportunity to ask questions and all questions answered. Thank you for allowing me to participate in her care Orders: Orders Calprotectin, Fecal 01/30/25 R15.9 - Full incontinence of feces Lipase 01/27/25 R10.9 - Unspecified abdominal pain C Reactive Protein 01/27/25 K58.9 - Irritable bowel syndrome, unspecified NM hepatobiliary w pharm 01/27/25 R10.11 - Right upper quadrant pain Coding Level of Care Code Est Pt Level 4 (20679) Complex EM visit Add On G2211 Diagnoses Gastroesophageal reflux disease, unspecified whether esophagitis present K21.9 Esophagitis presence: esophagitis presence not specified Abnormal upper gastrointestinal barium series R93.3 ALMAGUER (nonalcoholic steatohepatitis) K75.81 Chronic idiopathic constipation K59.04 Constipation type: chronic idiopathic constipation Right upper quadrant abdominal pain R10.11 Abdominal location: right upper quadrant Epigastric pain R10.13 Colitis K52.9 Time Spent (min) 40 Comment 25 minutes spent with patient and additional 15 minutes spent reviewing her records
[2025-01-27 13:30] VITALS: BP 85/47; PULSE 80; O2SAT 96; BMI 24.8
== END ==
LOC: HO.HGI 13:13
PROVIDERS: PCP Internal Medicine; Visit Provider Nurse Practitioner Family
DX: K21.9 Gastro-esophageal reflux disease without esophagitis (principal); R93.3 Abnormal findings on diagnostic imaging of other parts of digestive tract; K75.81 Nonalcoholic steatohepatitis (NASH); K59.04 Chronic idiopathic constipation; R10.11 Right upper quadrant pain; R10.13 Epigastric pain; K52.9 Noninfective gastroenteritis and colitis, unspecified
CPT/HCPCS: 99214; G2211

== ENCOUNTER 2025-01-27 14:30 | Outpatient (REF) | payer OTHER, SELFPAY ==
[2025-01-27 16:27] LABS: Lipase 19 U/L (8-78)
== END 2025-01-27 14:31 | disposition home or self-care (01) ==
LOC: HO.LAB 14:30
PROVIDERS: PCP Internal Medicine; Visit Provider Nurse Practitioner Family
DX: K58.9 Irritable bowel syndrome, unspecified (principal); R10.9 Unspecified abdominal pain
CPT/HCPCS: 36415; 83690; 86140

== ENCOUNTER 2025-01-29 17:45 | Outpatient (REF) | payer OTHER, SELFPAY ==
--- OUTSIDE RECORDS SUMMARY | 2025-01-30 12:29 | XMS_ITS | Clinical Summary ---
Author Organization 175 [facility] Address [address] [place] [address] Phone Care Team Providers Care Audit Control Clerk Name Role Phone Physician, Pcp Unknown Primary [...] 01/09/2025 2:30 PM EDT Office Visit Orth[place] [id number] [phone] Jamar Kyle DPM Acquired hammer toe of right foot (Primary Dx); Follow-up exam; Metatarsalgia of right foot; Dermatofibroma of right lower leg; Verruca plantaris 11/24/2024 9:15 AM EDT Office Visit [place] [address] [phone] Jamar Kyle DPM Acquired hammer toe of [...] 8:00 AM EDT Consult Orthopedic Surgery - [place] [address] [phone] Jamar Kyle DPM [address] [address] 03/03/2025 12:45 PM EDT Hospital Encounter [facility] Main OR [address] [place] [phone] Jamar Kyle DPM [address] [address] 03/03/2025 12:45 PM EDT - 03/03/2025 2:30 PM EDT Surgery [facility] Main OR [address] [place] [phone] Jamar Kyle DPM [address] [address] REPAIR HAMMER TOE [[id number] (CPT ) +3 more] 03/16/2025 2:00 PM EDT Office Visit Orthopedic Surgery [place] [address] [phone] Jamar Kyle DPM [address] [address] Scheduled Procedures Name Priority Associated Diagnoses Date/Ti [...] R esult from Last 3 Months Insurance [facility] Care Teams Audit Control Clerk Relationship Specialty Start Date End Date Physician, Pcp Unknown PCP - General 07/25/24
[2025-02-04 22:03] LABS: Calprotectin, Fecal 106 mcg/g
== END 2025-01-29 17:46 | disposition home or self-care (01) ==
LOC: HO.LNP 17:45
PROVIDERS: Visit Provider Nurse Practitioner Family
DX: R15.9 Full incontinence of feces (principal)
CPT/HCPCS: 83993

== ENCOUNTER 2025-02-03 07:19 | Outpatient (REF) | payer OTHER, SELFPAY ==
--- NOTE | ~2025-02-03 | US_ITS ---
CLINICAL HISTORY: R10.11 - Right upper quadrant pain US abdomen limited Comparison: CT/SD/SR - CT ABDOMEN PELVIS WITH IV CONTRAST - 12/19/24 11:41 EDT US - US ABDOMEN LIMITED - 12/14/24 19:29 EDT Findings: The visualized pancreas is normal. The aorta and inferior vena cava are normal caliber. The liver is normal in size and echotexture. There is no intrahepatic bile duct dilatation. The common duct is for mm in diameter. The gallbladder is normal. There is no sonographic Candelario sign. The main portal vein is antegrade. The right kidney is 9.3 cm in length. No ascites. IMPRESSION: 1. Normal limited abdominal ultrasound. This document has been electronically signed by: Rex Morillo MD on 02/03/2025 08:33:59
--- OUTSIDE RECORDS SUMMARY | 2025-02-03 07:21 | XMS_ITS | Clinical Summary ---
Author Organization 175 [facility] Address [address] [place] [address] Phone Care Team Providers Care Modeling Manager Name Role Phone Physician, Pcp Unknown [...] 01/09/2025 2:30 PM EDT Office Visit Orth[place] [phone] [phone] Jamar Kyle DPM Acquired hammer toe of right foot (Primary Dx); Follow-up exam; Metatarsalgia of right foot; Dermatofibroma of right lower leg; Verruca plantaris 11/24/2024 9:15 AM EDT Office Visit [place] [address] [phone] Jamar Kyle DPM Acquired hammer toe of [...] 8:00 AM EDT Consult Orthopedic Surgery - [place] [address] [phone] Jamar Kyle DPM [address] [address] 03/03/2025 12:45 PM EDT Hospital Encounter [facility] Main [place] [address] [place] [phone] Jamar Kyle DPM [address] [address] 03/03/2025 12:45 PM EDT - 03/03/2025 2:30 PM EDT Surgery [facility] Main OR [address] [place] [phone] Jamar Kyle DPM [address] [address] REPAIR HAMMER TOE [[id number] (CPT ) +3 more] 03/16/2025 2:00 PM EDT Office Visit Orthopedic Surgery [place] [address] [phone] Jamar Kyle DPM [address] [address] Scheduled Procedures Name Priority Associated Diagnoses Date/Ti [...] PCV) 2015 Colorectal Cancer Screening: Colonoscopy 05/20/2024 HIV Screening 05/20/2024 Hepatitis C Screening 05/20/2024 Social Influencers of Health Screening 05/20/2024 Depression Screening 07/20/2024 Influenza Vaccine (#1) 2025 RSV Immunization Adult [...] R esult from Last 3 Months Insurance [facility] Care Teams Modeling Manager Relationship Specialty Start Date End Date Physician, Pcp Unknown PCP - General 07/25/24
== END 2025-02-03 07:20 | disposition home or self-care (01) ==
LOC: HO.US 07:19
PROVIDERS: PCP Internal Medicine; Visit Provider Internal Medicine
DX: R10.11 Right upper quadrant pain (principal)
CPT/HCPCS: 76705

== ENCOUNTER → 2025-02-03 07:21 | Outpatient (BNV) | payer OTHER, SELFPAY | PROVIDERS: PCP Internal Medicine; Visit Provider Radiology Diagnostic Radiology | DX: R10.11 Right upper quadrant pain (principal) | CPT/HCPCS: 76705 ==

== ENCOUNTER 2025-02-05 08:14 | Emergency (ER) | payer OTHER, SELFPAY ==
--- NOTE | ~2025-02-05 | CT_ITS ---
CLINICAL HISTORY: right side abd pain Exam: CT abdomen and pelvis with IV contrast Comparison: US - US ABDOMEN LIMITED - 02/03/25 07:[address]/[place] - CT ABDOMEN PELVIS WITH IV CONTRAST - 12/19/24 11:41 EDT Findings: Unremarkable lung bases. Mild bibasilar dependent atelectasis. Liver, gallbladder, spleen, pancreas, adrenal glands, left kidney and ureter, bladder, reproductive organs are unremarkable. Mildly dilated right extrarenal pelvis, proximal to mid ureter with mild urothelial thickening of proximal ureter, new. No ureteral calculus or compressing mass is seen, smooth tapering of ureteral caliber distally. No suspicious renal lesion or abnormal renal enhancement. The colon is decompressed with equivocal mural thickening along the entire course, limited evaluation, mildly more conspicuous when compared to prior. Stomach, small bowel and appendix are unremarkable. Unremarkable vasculature. No lymphadenopathy. No ascites or pneumoperitoneum. Unremarkable abdominopelvic wall. Mild degenerative changes of lumbar spine. Osseous demineralization noted. Impression: 1. New mild dilatation of the right extrarenal pelvis, proximal to mid ureter with smooth tapering distally, uncertain etiology, no ureteral calculus is seen, mild mural thickening of the right proximal ureter is non-specific, but urinary tract infection can have this appearance, please correlate clinically. No CT features of the acute pyelonephritis. 2. Equivocal pancolitis versus pseudo thickening related to underdistention. This document has been electronically signed by: Sandrine Santo MD on 02/05/2025 11:04:12
[2025-02-05 08:17] VITALS: BP 107/56; PULSE 75; RESP 16; TEMP 36.3; O2SAT 97; BMI 30.2
[2025-02-05 08:53] LABS: MANUAL DIFF FLAG NO
[2025-02-05 08:54] LABS: Hematocrit 36.5 % (37.0-47.0); Hemoglobin 11.8 g/dl (12.0-16.0); Imm Gran Abs Auto 0.01 X10*3/uL (0.00-0.03); Imm Gran Pct Auto 0.2 % (0.0-0.4); Lymphocytes Absolute Auto 2.9 X10*3/uL (1.2-4.9); Mean Corpuscular HGB Conc 32.3 g/dl (31.0-35.0); Mean Corpuscular Hemoglobin 26.6 pg (27.0-33.0); Mean Corpuscular Volume 82.2 fL (80.0-98.0); NRBC Abs Auto 0.000 X10*3/uL (0.0-0.012); NRBC Pct Auto 0.0 /100WBC (0.0-0.2); Platelet Count 202 X10*3/uL (160-400); Red Blood Count 4.44 X10*6/uL (4.20-5.50); White Blood Count 5.8 X10*3/uL (4.8-10.8)
[2025-02-05 09:02] VITALS: BP 106/66; PULSE 56; RESP 16; O2SAT 100
[2025-02-05 09:08] LABS: Alanine Aminotransferase 15 U/L (0-31); Albumin Level 4.1 g/dL (3.5-5.0); Alkaline Phosphatase 70 U/L (39-117); Anion Gap 9 (12-20); Aspartate Amino Transferase 27 U/L (5-31); Blood Urea Nitrogen 12 mg/dL (9-16); Calcium 8.5 mg/dL (8.4-10.2); Carbon Dioxide 23 mmol/L (22-29); Chloride 115 mmol/L (96-108); Creatinine Clr Calc Pharmacy 81.9; Estimated Glomerular Filt Rate > 60; Lipase 18 U/L (8-78); Potassium 3.9 mmol/L (3.3-5.1); Sodium 143 mmol/L (135-145); Total Protein 6.6 g/dL (6.5-8.0)
--- NOTE | 2025-02-05 09:08 | ED_ITS ---
HPI - Abdominal Pain General Chief Complaint: Abdominal Pain Stated Complaint: R Abdominal Pain Time Seen by Provider: 02/05/25 08:36 Source: patient, family (Daughter) and interpreter and translator Mode of arrival: ambulatory Limitations: no limitations History of Present Illness ED Provider: DR. Mckeon HPI narrative: 59-year-old female brought in with her daughter for evaluation of a right-sided abdominal pain x2 weeks has been constant, no clear aggravating factors or relieving factors in particular food does not affect the pain, no recent travel, no shortness of breath, no chest pain, no fever, no chills, no nausea, no vomiting no loss of weight, no loss of appetite. Patient has suffered from chronic constipation last bowel movement was yesterday, passing flatus, no history of intra-abdominal surgery. Patient had abdominal ultrasound on 02/03/2025 by her PCP was unremarkable. Related Data Previous Rx's ?Medication ?Instructions ?Recorded docusate sodium 100 mg capsule 100 mg PO DAILY #30 cap s 05/13/23 (Colace) esomeprazole magnesium 40 mg 40 mg PO DAILY #90 caps 0 10/25/24 capsule,delayed release sucralfate 1 gram tablet 1 g PO BID #60 tabs 11/18/24 bisacodyl 5 mg tablet,delayed 10 mg (2 x 5 mg) PO BEDT MIGUELINA #180 12/16/24 release (Dulcolax (bisacodyl)) tabs amoxicillin 875 mg-potassium 1 tab PO Q12H 7 days #14 tabs 12/19/24 clavulanate 125 mg tablet bisacodyl 10 mg/30 mL enema (Fleet 10 mg (30 mL) CT ON CE PRN 12/22/24 Bisacodyl) constipation #37 mL polyethylene glycol 3350 17 17 g PO BID PRN constipati on #238 12/22/24 gram/dose oral powder (Miralax) grams hydrocortisone 2.5 % topical cream [address] BID-QID P RN hemorrhoids 01/31/25 with perineal applicator #30 grams (Proctosol HC) Allergies Allergy/AdvReac Type Severity Reaction Status Date / Time No Known Allergies Allergy Verified 02/05/25 08:21 Review of Systems Review of Systems All other systems are reviewed and are negative Constitutional: Reports as per HPI and Reports no additional constitutional complaints Eyes: Reports as per HPI and Reports no additional eye complaints Reports system reviewed and no additional complaints, except as documented Cardiovascular: Reports as per HPI and Reports no additional cardiovascular complaints Respiratory: Reports as per HPI and Reports no additional respiratory complaints Gastrointestinal: Reports as per HPI and Reports no additional gastrointestinal complaints Genitourinary: Reports no additional female genitourinary complaints Musculoskeletal: Reports no additional musculoskeletal complaints Skin/Breast: Reports system reviewed and no additional complaints, except as docu Psychiatric: Reports no additional psychiatric complaints Endocrine: Reports no additional endocrine complaints Hematologic/Lymphatic: Reports no additional hematologic/lymphatic complaints Allergic/Immunologic: Reports no additional allergic/immunologic complaints Reports system reviewed and no additional complaints, except as documented and Reports Abnormal speech present [facility] Past Medical History Medical History Constipation GERD (gastroesophageal reflux disease) Surgical History History of foot surgery History of cataract surgery (~03/2024) History of Family History Family History Sister Colon cancer, Onset Age: 75 Family/Other Colon cancer Social History Social History Housing: Apartment Are you a primary career technical education teacher to a significant other at home: No Do you presently have visiting nurse or other home services: No Unable to assess alcohol history related to: Unknown Alcohol intake: former Patient Tobacco Use Status: Never used Tobacco Smoked in Last 30 Days: No e-Cigarette/Vaping Use: Never Used Second Hand Smoke Exposure: No Substance Use Type: Marijuana Advance Directives: No Advance Directives Information Provided: Yes service: No Current occupational status: unemployed Cognitive needs: No Hearing needs: No Vision needs: No Physical Exam ED Vital Signs: Vital Signs - 24 hr 02/05/25 08:17 02/05/25 09:02 02/05/25 10:00 Temperature 97.3 F 97.8 F Pulse Rate 75 56 55 Respiratory Rate 16 16 16 Blood Pressure 107/56 L 106/66 119/58 L Pulse Oximetry 97 100 96 Oxygen Delivery Method Room Air Room Air Room Air BMI result Body Mass Index 30.2 Vital signs have been reviewed and appear to be correct. Blood pressure elevated. Heart rate normal. Respiratory rate normal. Temperature normal. Oxygen saturation normal. Appearance: Alert. Oriented X3. No acute distress. Head: Normal external exam. Normocephalic. Atraumatic. No Paulino signs noted. No raccoon eyes noted Eyes: PERRLA. EOMI. Conjunctiva and sclera normal. Eyelids normal. ENT: TM's Normal. Pharynx normal. Uvula midline. Moist mucous membranes. No trismus noted. No drooling noted. No muffled voice noted. Neck: Normal inspection. Neck supple. FROM. No adenopathy. Thyroid Normal. No meningeal signs. No neck mass noted. CVS: Normal heart rate and rhythm. Heart sound normal. No murmurs noted. Pulses normal throughout. Respiratory: No respiratory distress. Painless inspiration. Breath sounds normal. No wheezes/rales/rhonchi noted. Chest nontender. No accessory muscle usage noted or decreased air movement noted. Abdomen: Soft and nontender. Bowel sounds normal in all 4 quadrants. No distention noted. No organomegaly noted. No visible injury noted. Back: No CVA tenderness. Full range of motion noted. Skin: Skin warm and dry. Normal skin color. Normal skin turgor. No rashes/lesions/lacerations noted. Extremities: No lower extremity edema. Extremities exhibit normal range of motion. Extremities nontender. Neuro: Oriented X 3. Cranial nerve exam: II-XII are grossly intact No motor deficit. No sensory deficit. Reflexes normal. Course Reevaluation(s) Reevaluation #1: Acute on chronic abdominal pain, ultrasound 2 days ago with negative for gallbladder disease, patient in the room in no apparent distress talking with her family, unremarkable lab workup. CT abdomen pelvis is showing nonspecific dilatation of the right renal pelvis with mild hydroureter with unclear etiology. Also CAT scan is revealing possible pain colitis which is unlikely since patient has no diarrhea fever or chills. Patient will be instructed to follow-up with GI/. Time: 12:00 Medical Decision Making Differential Diagnosis Differential Diagnoses: The differential diagnosis associated with the presentation includes (Cholelithiasis, acute cholecystitis, kidney stone, colitis, constipation, diverticulitis, acute appendicitis, electrolyte derangement, severe anemia, myofascial pain.) Admission/Observation Consideration of admission/observation: Escalation of care including admission/observation considered Lab Data MDM Lab Attestation statement: I reviewed the patient's lab results. 02/05/25 08:49 02/05/25 08:49 Labs: Lab Results 02/05/25 02/05/25 Range/Units 08:49 09:36 WBC 5.8 (4.8-10.8) X10*3/uL RBC 4.44 (4.20-5.50) X10*6/uL Hgb 11.8 L (12.0-16.0) g/dl Hct 36.5 L (37.0-47.0) % MCV 82.2 (80.0-98.0) fL MCH 26.6 L (27.0-33.0) pg MCHC 32.3 (31.0-35.0) g/dl RDW 14.0 (11.0-16.0) % Plt Count 202 D (160-400) X10*3/uL MPV 9.7 (9.4-12.3) fL Immature Gran % (Auto) 0.2 (0.0-0.4) % Neut % (Auto) 42.0 L (45-73) % Lymph % (Auto) 49.2 H (20-40) % [place] % (Auto) 5.0 (2-11) % Eos % (Auto) 3.1 (0-4) % Baso % (Auto) 0.5 (0-2) % Lymph # (Auto) 2.9 (1.2-4.9) X10*3/uL [place] # (Auto) 0.3 (0.1-1.2) X10*3/uL Eos # (Auto) 0.2 (0.0-0.4) X10*3/uL Baso # (Auto) 0.0 (0.0-0.2) X10*3/uL Abs Immat Gran (auto) 0.01 (0.00-0.03) X10*3/uL Absolute Neuts (auto) 2.4 (2.0-8.3) x10*3/uL Absolute Nucleated RBC 0.000 (0.0-0.012) X10*3/uL Nucleated RBC % (auto) 0.0 (0.0-0.2) /100WBC D-Dimer High Sensitivty 200 NG/ML Sodium 143 (135-145) mmol/L Potassium 3.9 (3.3-5.1) mmol/L Chloride 115 H (96-108) mmol/L Carbon Dioxide 23 (22-29) mmol/L Anion Gap 9 L (12-20) BUN 12 (9-16) mg/dL Creatinine 0.70 (0.5-1.4) mg/dL Estim Creat Clear Calc 81.9 Estimated GFR > 60 Random Glucose 92 (60-115) mg/dL Calcium 8.5 D (8.4-10.2) mg/dL Total Bilirubin 1.2 H (0.0-1.0) mg/dL AST 27 (5-31) U/L ALT 15 (0-31) U/L Alkaline Phosphatase 70 (39-117) U/L Total Protein 6.6 (6.5-8.0) g/dL Albumin 4.1 (3.5-5.0) g/dL Lipase 18 (8-78) U/L Independent Interpretation I performed an independent interpretation of an: CT Scan (Abdomen pelvis with IV contrast:1. New mild dilatation of the right extrarenal pelvis, proximal to mid ureter with smooth tapering distally, uncertain etiology, no ureteral calculus is seen, mild mural thickening of the right proximal ureter is non-specific, but urinary tract infection can have t) Radiology Impression Discussion of test interpretation with radiology: I have reviewed the radiologist's reading. Medications Administered Discontinued Medications Generic Name Dose Route Start Last Admin Trade Name Freq PRN Reason Stop Dose Admin Iohexol 100 ml 02/05/25 10:00 02/05/25 10:01 Iohexol 350 Mg/Ml 100 Ml Infus..Btl IV 02/05/25 10:01 85 ml ONCE ONE Administration Ketorolac Tromethamine 15 mg 02/05/25 09:07 02/05/25 09:15 Ketorolac Tromethamine 15 Mg/Ml Vial IVPUSH 02/05/25 09:08 15 mg ONCE ONE Administration Discharge Plan Discharge Clinical Impression: Chronic abdominal pain Patient Disposition: Home, Self-Care Instructions: Abdominal Pain (ED) Prescriptions: No Action esomeprazole magnesium 40 mg capsule,delayed release(DR/EC) 40 mg PO DAILY Qty: 90 1RF bisacodyl [Dulcolax (bisacodyl)] 5 mg tablet,delayed release (DR/EC) 10 mg PO BEDTIME Qty: 180 4RF polyethylene glycol 3350 [Miralax] 17 gram/dose powder 17 g PO BID PRN (Reason: constipation) Qty: 238 0RF Fleet Bisacodyl 10 mg/30 mL enema [address] ONCE PRN (Reason: constipation) Qty: 37 0RF hydrocortisone [Proctosol HC] 2.5 % cream with perineal applicator [address] BID-QID PRN (Reason: hemorrhoids) Qty: 30 2RF amoxicillin-pot clavulanate 875-125 mg tablet 1 tab PO Q12H 7 Days Qty: 14 0RF docusate sodium [Colace] 100 mg capsule 100 mg PO DAILY Qty: 30 0RF sucralfate 1 gram tablet 1 g PO BID Qty: 60 4RF Referrals: Santa Silva MD [Physician, Urology] Chu Delatorre MD [Physician, General Surgery] Ashlyn Roberto MD [Primary Care Provider, Internal Medicine] Iman Blackwood MD [Physician, Gastroenterology] Print Language: Slovak
--- NOTE | 2025-02-05 09:19 | PC.NURSE ---
Addendum entered by Kady Velasquez RN 02/05/25 09:21: Patient is a 59-year-old female presenting with abdominal discomfort and hepatic concerns. She experiences a persistent sensation of swelling and discomfort in the RUQ abdominal area with assoc nausesa for the past 2 weeks. Previously, she was diagnosed with hepatic steatosis, with a history of normal liver function testing. Was recently seen for an office visit for same complaint and abdominal U/S was completed on 02/03 which was normal. Alert and oriented, primarily armenian speaking. Lungs clear bilat. Respirations even and non-labored. Abdomen soft, distended with positive bowel sounds. c/o RUQ abominal pain. States daily marijuana use. Positive pedal pulses with no edema noted. Original Note: Medical History Constipation GERD (gastroesophageal reflux disease)
[2025-02-05 10:00] VITALS: BP 119/58; PULSE 55; RESP 16; TEMP 36.6; O2SAT 96
[2025-02-05] MEDS: iohexoL 350 MG/ML 100 ML INFUS..BTL IV (10:01)
[2025-02-05 10:06] LABS: D Dimer High Sensitivity 200 NG/ML
[2025-02-05 11:33] LABS: Appearance Urine Clear; Glucose Urine UA Negative (Negative); PH 6.0 (5.0-9.0); Specific Gravity - Urine >= 1.030 (1.005-1.025)
[2025-02-05 12:00] VITALS: BP 126/62; PULSE 55; RESP 18; O2SAT 100
[2025-02-05 13:34] VITALS: BP 126/62; PULSE 55; RESP 18; TEMP 36.7; O2SAT 100
== END 2025-02-05 13:36 | disposition home or self-care (01) ==
PROVIDERS: Emergency Provider Emergency Medicine; PCP Internal Medicine
DX: R10.2 Pelvic and perineal pain (principal); Z79.899 Other long term (current) drug therapy
CPT/HCPCS: 36415; 74177; 80053; 81003; 83690; 85025; 85379; 96374; 99284; 99285; J1885; Q9967

== ENCOUNTER → 2025-02-05 09:07 | Outpatient (BNV) | payer OTHER, SELFPAY | PROVIDERS: Emergency Provider Emergency Medicine; PCP Internal Medicine; Visit Provider Radiology Diagnostic Radiology | DX: R10.31 Right lower quadrant pain (principal) | CPT/HCPCS: 74177 ==

== ENCOUNTER 2025-02-07 09:33 | Outpatient (AMB) | payer OTHER, SELFPAY ==
--- NOTE | 2025-02-07 09:37 | A.OFFVIS_ITS ---
Vital Signs 02/07/25 09:38 Height 5 ft 2 in Weight 130 lb 15.273 oz BMI 23.9 BP 114/58 L Blood Pressure Location Rt brachial Position Sitting Pulse 62 Pulse Source Pulse Oximeter Pulse Oximetry (%) 99 Oxygen Delivery Method Room Air Intake Visit Reasons: F/U seen in er Intake Note: Est pt for mgmt of GERD w/ abd pain. S/P ED admission. CC; C.O. RLQ abd pain and an abnormal sensation like a swelling or a ball in that same quadrant. Pt would like to review any recent results as she is feeling like she is not aware of her current status and is missing details pertaining to the testing she has had done. Assistant Store Manager Required: Yes Assistant Store Manager Services: Assistant Store Manager Present Assistant Store Manager Name: [facility] [place] + Brad [phone] Information Interpreted: clinical only Accompanied by: Self / Same As Patient Allergies No Known Allergies Allergy (Verified 02/07/25 09:37) HPI HPI F/U seen in er: Details: LAST VISIT: GERD (gastroesophageal reflux disease) Abnormal upper gastrointestinal barium series ALMAGUER (nonalcoholic steatohepatitis) Constipation Abdominal pain Epigastric pain Colitis Plan Will check lipase, CRP, fecal calprotectin. I will order HIDA scan. Patient is going for ultrasound next week. We were able to book her for colonoscopy for next week. Went over the prep and clear liquid diet day before procedure. Patient had no issues with anesthesia in the past. Not on any anticoagulation medication. Denies any cardiac or respiratory symptoms. I will see patient after procedure, sooner on as needed basis. She is agreeable to this plan and verbalizes understanding of instructions. She was given the opportunity to ask questions and all questions answered. ? Thank you for allowing me to participate in her care Orders Calprotectin, Fecal 01/30/25 R15.9 Lipase 01/27/25 R10.9 C Reactive Protein 01/27/25 K58.9 NM hepatobiliary w pharm 01/27/25 R10.11 ED VISIT 02/05/2025 Course Reevaluation(s) Reevaluation #1: Acute on chronic abdominal pain, ultrasound 2 days ago with negative for gallbladder disease, patient in the room in no apparent distress talking with her family, unremarkable lab workup. CT abdomen pelvis is showing nonspecific dilatation of the right renal pelvis with mild hydroureter with unclear etiology. Also CAT scan is revealing possible pain colitis which is unlikely since patient has no diarrhea fever or chills. Patient will be instructed to follow-up with GI/. Time: 12:00 Medical Decision Making Differential Diagnosis Differential Diagnoses: The differential diagnosis associated with the presentation includes (Cholelithiasis, acute cholecystitis, kidney stone, colitis, constipation, diverticulitis, acute appendicitis, electrolyte derangement, severe anemia, myofascial pain.) TODAY'S VISIT Patient is here today follow-up ED visit today's ago. Patient is here today with her daughter. Patient had another CT scan did not show colitis. Patient reports that she has been constipated and very bloated. Her pain is in the right upper quadrant. Ultrasound did not show any acute processes. She is going for HIDA scan. Pain and bloating is severe per patient and her daughter. Patient's daughter reports that it feels like in the right upper quadrant she has a ball when the pain gets very strong. History of constipation in the past. Denies any melena, hematochezia, unintentional weight loss or ribbon like stools. No matter what she eats feels like the pain gets worse. Patient reports that she takes Dulcolax in the evening and in the morning she starts with cramping and then has bowel movements and more cramping. Patient denies any dyspepsia, dysphagia or odynophagia. Reports nausea without vomiting. Denies any fever or chills. FORMERLY [facility] Medical History Constipation GERD (gastroesophageal reflux disease) Surgical History History of foot surgery History of cataract surgery (~03/2024) History of Family History Sister Colon cancer, Onset Age: 75 Family/Other Colon cancer Social History Housing: Apartment Are you a primary healthcare economics consultant to a significant other at home: No Do you presently have visiting nurse or other home services: No Unable to assess alcohol history related to: Unknown Alcohol intake: former Patient Tobacco Use Status: Never used Tobacco e-Cigarette/Vaping Use: Never Used Second Hand Smoke Exposure: No Substance Use Type: Marijuana service: No Current occupational status: unemployed Cognitive needs: No Hearing needs: No Vision needs: No Review of Systems Const Denies weight gain and Denies weight loss ENT Reports no additional complaints, Denies dysphagia and Denies odynophagia Card Reports no additional complaints Resp Reports no additional complaints GI Reports abdominal pain (Generalized), Denies belching, Denies melena, Reports bloating, Denies change in bowel habits, Reports constipation, Denies dysphagia, Denies excessive flatus, Denies dyspepsia, Reports heartburn, Denies diarrhea, Reports loose stools, Reports nausea, Denies odynophagia and Denies vomiting Reports no additional complaints Musc Reports no additional complaints Neuro Reports no additional complaints Psych Reports no additional complaints Endo Reports no additional complaints Physical Exam Vital Signs: Last Vital Signs Pulse 62 02/07/25 09:38 BP 114/58 L 02/07/25 09:38 Pulse Ox 99 02/07/25 09:38 Oxygen Delivery Method Room Air 02/07/25 09:38 BMI result Body Mass Index 23.9 Const General: healthy appearing, no acute distress and well developed Nutritional Appearance: well nourished Orientation/consciousness: patient oriented x3 Resp Effort & Inspection: normal respiratory effort, able to speak in complete sentences, no tracheal deviation and symmetric chest movement Auscultation: clear to auscultation bilaterally Cardio Rate: regular rate GI Inspection: Yes normal to inspection and Yes distended Palpation (GI): Soft to palpation, not firm, Tenderness to palpation present (GI) in the RUQ; Candelario's sign negative and No hepatosplenomegaly present Auscultation: normal bowel sounds General: Yes no CVA tenderness Back/Spine/Pelvis Back: no CVA tenderness Skin General skin exam: elasticity normal, turgor normal and dry skin Neuro General: patient oriented x3 Psych Appearance: grossly normal Mental Status: mental status grossly normal Assessment & Plan Assessment & Plan (1) Abdominal pain: Code(s): R10.9 - Unspecified abdominal pain Category: Medical Qualifiers: Abdominal location: right upper quadrant Qualified Code(s): R10.11 - Right upper quadrant pain (2) Right upper quadrant abdominal pain: Code(s): R10.11 - Right upper quadrant pain Category: Medical (3) GERD (gastroesophageal reflux disease): Code(s): K21.9 - Gastro-esophageal reflux disease without esophagitis Category: Medical Qualifiers: Esophagitis presence: esophagitis presence not specified Qualified Code(s): K21.9 - Gastro-esophageal reflux disease without esophagitis (4) Constipation: Code(s): K59.00 - Constipation, unspecified Category: Medical Qualifiers: Constipation type: chronic idiopathic constipation Qualified Code(s): K59.04 - Chronic idiopathic constipation (5) Epigastric pain: Code(s): R10.13 - Epigastric pain Category: Medical Plan Patient has tenderness to right upper quadrant, negative Candelario sign. Will send her for MRI. Patient will start taking Motegrity in the morning and if she does not have a bowel movement in 2 days she will take Dulcolax. However we will have her try to avoid Dulcolax as possibly they are causing her to have so much pain. Simethicone with meals to prevent bloating. Patient can take dicyclomine. Script for nausea medicine given to patient. Avoid dietary triggers. Eat smaller meals and more often. Patient will follow-up in our office in 1 week. She will call us if she will have worsening symptoms. She is agreeable to this plan and verbalizes understanding of instructions. She was given the opportunity to ask questions and all questions answered. Thank you for allowing me to participate in her care Orders: Orders MR abdomen wo/w con Today R10.11 - Right upper quadrant pain Medications: New prucalopride (Motegrity) 2 mg PO DAILY 30 tabs 2RF K59.04 - Chronic idiopathic constipation simethicone 125 mg PO BID-QID PRN 120 caps 3RF abdominal distention K21.9 - Gastro-esophageal reflux disease without esophagitis dicyclomine 10 mg PO BID PRN 90 caps 2RF abdominal discomfort K58.9 - Irritable bowel syndrome, unspecified ondansetron 4 mg PO Q8H PRN 30 tabs 0RF nausea and vomiting Motegrity (prucalopride) 2 mg PO DAILY 30 tabs 2RF NS K59.04 - Chronic idiopathic constipation Coding Level of Care Code Est Pt Level 5 (26486) Complex EM visit Add On G2211 Diagnoses Right upper quadrant abdominal pain R10.11 Abdominal location: right upper quadrant Right upper quadrant abdominal pain R10.11 Gastroesophageal reflux disease, unspecified whether esophagitis present K21.9 Esophagitis presence: esophagitis presence not specified Chronic idiopathic constipation K59.04 Constipation type: chronic idiopathic constipation Epigastric pain R10.13 Time Spent (min) 50 Comment 35 minutes spent with patient and additional 15 minutes spent reviewing her records
[2025-02-07 09:38] VITALS: BP 114/58; PULSE 62; O2SAT 99; BMI 23.9
--- OUTSIDE RECORDS SUMMARY | 2025-02-07 10:11 | XMS_ITS | Clinical Summary ---
Author Organization 175 [facility] Address [address] [place] [address] Phone Care Team Providers Care Customer Professional Name Role Phone Physician, Pcp Unknown Primary [...] 01/09/2025 2:30 PM EDT Office Visit [place] [address] [phone] Jamar Kyle DPM Acquired hammer toe of right foot (Primary Dx); Follow-up exam; Metatarsalgia of right foot; Dermatofibroma of right lower leg; Verruca plantaris 11/24/2024 9:15 AM EDT Office Visit [place] [address] [phone] Jamar Kyle DPM Acquired hammer toe of [...] 8:00 AM EDT Consult Orthopedic Surgery - [place] [address] [phone] Jamar Kyle DPM [address] [address] 03/03/2025 12:45 PM EDT Hospital Encounter [facility] [place] [address] [place] [phone] Jamar Kyle DPM [address] [address] 03/03/2025 12:45 PM EDT - 03/03/2025 2:30 PM EDT Surgery [facility] Main [place] [address] [place] [phone] Jamar Kyle DPM [address] [address] REPAIR HAMMER TOE [91288 (CPT ) +3 more] 03/16/2025 2:00 PM EDT Office Visit Orthopedic [place] [address] [phone] Jamar Kyle DPM [address] [address] Scheduled Procedures Name Priority Associated Diagnoses Date/Ti [...] R esult from Last 3 Months Insurance [facility] PL[facility] Care Teams Customer Professional Relationship Specialty Start Date End Date Physician, Pcp Unknown PCP - General 07/25/24
== END 2025-02-07 10:18 | disposition home or self-care (01) ==
LOC: HO.HGI 09:34
PROVIDERS: PCP Internal Medicine; Visit Provider Nurse Practitioner Family
DX: R10.11 Right upper quadrant pain (principal); K21.9 Gastro-esophageal reflux disease without esophagitis; K59.04 Chronic idiopathic constipation; R10.13 Epigastric pain
CPT/HCPCS: 99215; G2211

== ENCOUNTER → 2025-02-07 09:33 | Outpatient (BNVA) | payer OTHER, SELFPAY | PROVIDERS: PCP Internal Medicine; Visit Provider Nurse Practitioner Family | DX: R10.11 Right upper quadrant pain (principal); K21.9 Gastro-esophageal reflux disease without esophagitis; K59.04 Chronic idiopathic constipation; R10.13 Epigastric pain | CPT/HCPCS: 99212 ==

== ENCOUNTER → 2025-02-13 12:48 | Outpatient (REF) | payer OTHER, SELFPAY ==
--- NOTE | ~2025-02-13 | NM_ITS ---
EXAMINATION: CECI BILIARY TRACT CLINICAL INFORMATION: Right upper quadrant pain and bloating COMPARISON: CT February 05, 2025 and ultrasound February 03, 2025 Radioparhmaceutical: 5.0mCi technetium 99m labeled mebrofenin Other medications: 1.1mcg CCK infused IV over 30 minutes , one hour post injection of mebrofenin (a.k.a. Choletec) TECHNIQUE: Hepatobiliary scintigraphy was performed after the intravenous administration of technetium 99m labeled Choletec. Imaging was performed every 2 minutes for 60 minutes after which, CCK was infused IV over 30 minutes with imaging continuing for an additional 30minutes. Ejection fraction curve was generated with a region of interest placed over the gallbladder. FINDINGS: After Choletech injection, there is prompt uptake of radiotracer by the liver. Intrahepatic biliary filling was visible within 13 minutes and gallbladder filling was visible within 15minutes. Small bowel filling was noted within 31minutes. After CCK infusion, ejection fraction measured 93%. NM/NM hepatobiliary w pharm IMPRESSION: Within normal limits. Electronically signed by: Oskar Richmond MD 02/13/2025 03:31 PM EDT
--- OUTSIDE RECORDS SUMMARY | 2025-02-13 13:30 | XMS_ITS | Clinical Summary ---
Author Organization 175 [facility] Address [address] [place] [address] Phone Care Team Providers Care Solid Waste Collector Name Role Phone Physician, Pcp Unknown Primary [...] 01/09/2025 2:30 PM EDT Office Visit Orthopedic [place] [phone] [phone] Jamar Kyle DPM Acquired hammer toe of right foot (Primary Dx); Follow-up exam; Metatarsalgia of right foot; Dermatofibroma of right lower leg; Verruca plantaris 11/24/2024 9:15 AM EDT Office Visit [place] [address] [phone] Jamar Kyle DPM Acquired hammer toe of [...] 8:00 AM EDT Consult Orthopedic Surgery - [place] [address] [phone] Jamar Kyle DPM [address] [address] 03/03/2025 12:45 PM EDT Hospital Encounter [facility] Main [place] [address] [place] [phone] Jamar Kyle DPM [address] [address] 03/03/2025 12:45 PM EDT - 03/03/2025 2:30 PM EDT Surgery [facility] Main OR [address] [place] [phone] Jamar Kyle DPM [address] [address] REPAIR HAMMER TOE [37475 (CPT ) +3 more] 03/16/2025 2:00 PM EDT Office Visit Orthopedic Surgery [place] [address] [phone] Jamar Kyle DPM [address] [address] Scheduled Procedures Name Priority Associated Diagnoses Date/Ti [...] R esult from Last [address] [facility] Care Teams Solid Waste Collector Relationship Specialty Start Date End Date Physician, Pcp Unknown PCP - General 07/25/24
== END ==
LOC: HO.NUCMED 12:48
PROVIDERS: PCP Internal Medicine; Visit Provider Nurse Practitioner Family
DX: R10.11 Right upper quadrant pain (principal)
CPT/HCPCS: 78227; A9537; J2805

== ENCOUNTER → 2025-02-13 13:12 | Outpatient (BNV) | payer OTHER, SELFPAY | PROVIDERS: PCP Internal Medicine; Visit Provider Radiology Diagnostic Radiology | DX: R10.11 Right upper quadrant pain (principal) | CPT/HCPCS: 78227 ==

== ENCOUNTER 2025-02-14 08:35 | Outpatient (AMB) | payer OTHER, SELFPAY ==
[2025-02-14 08:45] VITALS: BP 116/80; BMI 23.6
--- NOTE | 2025-02-14 08:45 | A.OFFPC_ITS ---
Vital Signs 02/14/25 08:45 Height 5 ft 2 in Weight 129 lb 3.054 oz BMI 23.6 BP 116/80 Blood Pressure Location Lt brachial Position Sitting Intake Visit Reasons: [facility] 02/06 RT side pain Irrigationist Designer Required: No Accompanied by: Self / Same As Patient Allergies No Known Allergies Allergy (Verified 02/14/25 09:20) Medication List - Last Reconciled 02/14/25 by Ashlyn Becker MD bisacodyl (Dulcolax (bisacodyl)) 10 mg (2 x 5 mg) PO BEDTIME bisacodyl (Fleet Bisacodyl) 10 mg (30 mL) AK ONCE PRN dicyclomine 10 mg PO BID PRN docusate sodium (Colace) 100 mg PO DAILY esomeprazole magnesium 40 mg PO DAILY hydrocortisone 2.5% (Proctosol HC) 1 appl AK BID-QID PRN lubiprostone (Amitiza) 24 mcg PO DAILY ondansetron 4 mg PO Q8H PRN polyethylene glycol 3350 (Miralax) 17 grams PO BID PRN simethicone 125 mg PO BID-QID PRN sucralfate 1 g PO BID Tobacco use date assessed: 10/20/24 Dental Screening Dental Screen Date: 10/20/24 HPI HPI Comments History of Present Illness Details The patient is a 59-year-old female presenting with dyspepsia, constipation, and gastroesophageal reflux disease. She is currently taking dicyclomine twice daily for dyspepsia, Colace for constipation, and esomeprazole for acid reflux. Additionally, she has been prescribed Amitiza for constipation. The patient reports a recent fall that occurred last Thursday, resulting in trauma to the right parietal region of her head. She denies any neck injury and confirms the impact was localized to the right side of her head. FORMERLY [facility] Medical History (Updated 02/14/25 @ 09:31 by Ashlyn Becker MD) Constipation GERD (gastroesophageal reflux disease) Surgical History History of foot surgery History of cataract surgery (~03/2024) History of Family History Sister Colon cancer, Onset Age: 75 Family/Other Colon cancer Social History Housing: Apartment Are you a primary daycare director to a significant other at home: No Do you presently have visiting nurse or other home services: No Unable to assess alcohol history related to: Unknown Alcohol intake: former Patient Tobacco Use Status: Never used Tobacco e-Cigarette/Vaping Use: Never Used Second Hand Smoke Exposure: No Substance Use Type: Marijuana service: No Current occupational status: unemployed Cognitive needs: No Hearing needs: No Vision needs: No Questionnaire Thrive Questionnaire Date Thrive assessed: 12/13/24 I am a: Patient What is your living situation today?: I have a steady place to live Within the past 12 months, did the food you bought not last and you didn't have the money to get more?: Sometimes True Within the past 12 months, did you worry whether your food would run out before you got money to buy more?: Sometimes True Do you have trouble paying for medicines?: No Do you have trouble getting transportation to medical appointments?: No Do you have trouble paying your heating and electricity bill?: I choose not to answer this question Do you have trouble taking care of your child, family member or friend?: No Do you have trouble with day-to-day activities such as bathing, preparing meals, shopping, managing finances, etc.?: Yes Are you currently unemployed and looking for a job?: No Are you interested in more education?: No Please select the resources that you would like help with: None Currently or been in a relationship where the following occur: I choose not to answer THRIVE Score: 2 EILEEN-7 AMB Questionnaire EILEEN-7 Date EILEEN - 7 assessed: 12/13/24 Source: Developed by Drs. Nick Tejada, Nadya Vyas, Adrian Mcallister and colleagues, with an educational gail from [employer]. Review of Systems Const All systems reviewed & are unremarkable except as noted in HPI and below Card Denies chest pain at rest, Denies chest pain with activity, Denies edema, Denies irregular heart rhythm, Denies claudication, Denies dyspnea, Denies dyspnea on exertion, Denies orthopnea, Denies paroxysmal nocturnal dyspnea and Denies slow heart rate Resp Denies cough, Denies dyspnea and Denies dyspnea on exertion GI Denies abdominal pain, Denies change in bowel habits, Denies excessive flatus, Denies nausea and Denies vomiting Denies urinary incontinence, Denies urinary hesitancy and Denies urinary urgency Musc Denies atrophy, Denies deformity and Denies limited range of motion Physical exam (Primary Care) Vital Signs: Last Vital Signs BP 116/80 02/14/25 08:45 BMI result Body Mass Index 23.6 Tobacco/Smoking Status: Tobacco use Status Tobacco use date assessed 10/20/24 02/14/25 08:49 Patient Tobacco Use Status Never used Tobacco 02/14/25 08:49 e-Cigarette/Vaping Use Never Used 02/14/25 08:49 Thrive Assessment: Date of Thrive Assessment Date Thrive assessed 12/13/24 02/14/25 08:49 Currently or been in a relationship where the following occur: I choose not to answer Resp Effort & Inspection: normal respiratory effort Auscultation: clear to auscultation bilaterally Cardio Jugular venous distension: no JVD Rate: regular rate Rhythm: regular rhythm Heart sounds: S1 normal heart sound present and S2 normal heart sound present Extrem General: Yes full ROM Coding Level of Care Code Est Pt Level 4 (41459) Complex EM visit Add On G2211 Diagnoses Gastroesophageal reflux disease, unspecified whether esophagitis present K21.9 Esophagitis presence: esophagitis presence not specified Chronic idiopathic constipation K59.04 Constipation type: chronic idiopathic constipation Head trauma S09.90XA Anxiety F41.9 Time Spent (min) 21 Assessment & Plan Assessment & Plan (1) GERD (gastroesophageal reflux disease): Code(s): K21.9 - Gastro-esophageal reflux disease without esophagitis Category: Medical Qualifiers: Esophagitis presence: esophagitis presence not specified Qualified Code(s): K21.9 - Gastro-esophageal reflux disease without esophagitis (2) Constipation: Code(s): K59.00 - Constipation, unspecified Category: Medical Qualifiers: Constipation type: chronic idiopathic constipation Qualified Code(s): K59.04 - Chronic idiopathic constipation (3) Head trauma: Code(s): S09.90XA - Unspecified injury of head, initial encounter Category: Medical (4) Anxiety: Code(s): F41.9 - Anxiety disorder, unspecified Category: Medical Plan The patient will continue with her current medications, including dicyclomine for dyspepsia, Colace and Amitiza for constipation, and esomeprazole for gastroesophageal reflux disease. She is advised to abstain from marijuana use for a week to assess any potential impact on her symptoms. Follow-up with the green feed attendant is scheduled for further evaluation, including an MRI. The patient is instructed to take prazolem 30 to 45 minutes before the MRI. She is also advised to monitor for any new or worsening symptoms following her recent head trauma and to seek medical attention if necessary. Patient was informed and verbally consented to the use of an ambient scribe for clinic note documentation during this visit. Orders: Orders CT head/brain wo IV con Today S09.90XA - Unspecified injury of head, initial encounter Medications: New alprazolam 0.5 mg PO DAILY 1 tab 0RF 1 day
--- OUTSIDE RECORDS SUMMARY | 2025-02-14 08:51 | XMS_ITS | Clinical Summary ---
Author Organization 175 [facility] Address [address] [place] [address] Phone Care Team Providers Care Folding Machine Tender Name Role Phone Physician, Pcp Unknown Primary [...] 01/09/2025 2:30 PM EDT Office Visit Orthopedic [place] [address] [phone] Jamar Kyle DPM Acquired hammer toe of right foot (Primary Dx); Follow-up exam; Metatarsalgia of right foot; Dermatofibroma of right lower leg; Verruca plantaris 11/24/2024 9:15 AM EDT Office Visit [place] [address] [phone] Jamar Kyle DPM Acquired hammer toe of [...] 8:00 AM EDT Consult Orthopedic Surgery - [place] [address] [phone] Jamar Kyle DPM [address] [address] 03/03/2025 12:45 PM EDT Hospital Encounter [facility] Main [place] [address] [place] [phone] Jamar Kyle DPM [address] [address] 03/03/2025 12:45 PM EDT - 03/03/2025 2:30 PM EDT Surgery [facility] Main [place] [address] [place] [phone] Jamar Kyle DPM [address] [address] REPAIR HAMMER TOE [32866 (CPT ) +3 more] 03/16/2025 2:00 PM EDT Office Visit Orthopedic Surgery - [place] [address] [phone] Jamar Kyle DPM [address] [address] Scheduled Procedures Name Priority Associated Diagnoses Date/Ti [...] R esult from Last 3 Months Insurance [facility] PLAN Care Teams Folding Machine Tender Relationship Specialty Start Date End Date Physician, Pcp Unknown PCP - General 07/25/24
== END 2025-02-14 09:32 | disposition home or self-care (01) ==
LOC: HO.HMCH 08:35
PROVIDERS: PCP Internal Medicine; Visit Provider Internal Medicine
DX: K21.9 Gastro-esophageal reflux disease without esophagitis (principal); K59.04 Chronic idiopathic constipation; S09.90XA Unspecified injury of head, initial encounter; F41.9 Anxiety disorder, unspecified

== ENCOUNTER → 2025-02-14 08:35 | Outpatient (BNVA) | payer OTHER, SELFPAY | PROVIDERS: PCP Internal Medicine; Visit Provider Internal Medicine | DX: K21.9 Gastro-esophageal reflux disease without esophagitis (principal); K59.04 Chronic idiopathic constipation; F41.9 Anxiety disorder, unspecified; S09.90XA Unspecified injury of head, initial encounter; W19.XXXA Unspecified fall, initial encounter; Y93.9 Activity, unspecified; Y92.9 Unspecified place or not applicable; Y99.9 Unspecified external cause status | CPT/HCPCS: 99212 ==

== ENCOUNTER 2025-02-15 11:56 | Outpatient (AMB) | payer OTHER, SELFPAY ==
--- NOTE | 2025-02-15 12:06 | MHC.OFFVIS ---
Vital Signs 02/15/25 12:19 Height 5 ft 2 in Weight 129 lb BMI 23.6 BP 129/70 Blood Pressure Location Lt brachial Position Sitting Pulse 77 Pulse Oximetry (%) 98 Oxygen Delivery Method Room Air Intake Visit Reasons: 1 week f/u , per Aminata anderson to schedule Intake Note: Patient one week follow up for abdominal pain Patient cc: abdominal pain with bloating, acid reflux with burning sensation, always clearing her thraot, constipation, poor appetite, and dizziness. 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 Will send her for MRI. Patient will start taking Motegrity in the morning and if she does not have a bowel movement in 2 days she will take Dulcolax. However we will have her try to avoid Dulcolax as possibly they are causing her to have so much pain. Simethicone with meals to prevent bloating. Patient can take dicyclomine. Script for nausea medicine given to patient. Avoid dietary triggers. Eat smaller meals and more often. Patient will follow-up in our office in 1 week. She will call us if she will have worsening symptoms. She is agreeable to this plan and verbalizes understanding of instructions. She was given the opportunity to ask questions and all questions answered. ? Thank you for allowing me to participate in her care Orders MR abdomen wo/w con Today R10.11 New prucalopride (Motegrity) 2 mg PO DAILY 30 tabs 2RF K59.04 simethicone 125 mg PO BID-QID PRN 120 caps 3RF abdominal distention K21.9 dicyclomine 10 mg PO BID PRN 90 caps 2RF abdominal discomfort K58.9 ondansetron 4 mg PO Q8H PRN 30 tabs 0RF nausea and vomiting Motegrity (prucalopride) 2 mg PO DAILY 30 tabs 2RF NS K59.04 TODAY'S VISIT Patient is here today for follow-up. Patient had normal HIDA scan, however the gallbladder EF was high at 93%. Patient will be going for MRI today and if that is normal we will speak to general surgery. Patient continues to have right upper quadrant pain postprandially. Patient reports bloating all the time. She has not started Motegrity yet, as she just got it from the pharmacy today. Patient is moving her bowels, however does not feel like she empty them completely. Patient has been having abdominal cramping all the time mostly in the right upper quadrant. Sometimes the pain is there all the time. Patient feels like there is a large ball and very sensitive spot. Painful to touch. Patient has to sit up high in order for her to have really. Patient has not taking the dicyclomine yet. Patient reports occasional dyspepsia without dysphagia or odynophagia. Although patient reports that occasionally she feels like she has trouble swallowing. Patient denies any melena, hematochezia, unintentional weight loss or ribbon like stools. [facility] Medical History Constipation GERD (gastroesophageal reflux disease) Surgical History History of foot surgery History of cataract surgery (~03/2024) History of Family History Sister Colon cancer, Onset Age: 75 Family/Other Colon cancer Social History Housing: Apartment Are you a primary career counselor to a significant other at home: No Do you presently have visiting nurse or other home services: No Unable to assess alcohol history related to: Unknown Alcohol intake: former Patient Tobacco Use Status: Never used Tobacco e-Cigarette/Vaping Use: Never Used Second Hand Smoke Exposure: No Substance Use Type: Marijuana service: No Current occupational status: unemployed Cognitive needs: No Hearing needs: No Vision needs: No Review of Systems Const Denies weight gain and Denies weight loss ENT Reports no additional complaints, Denies dysphagia and Denies odynophagia Card Reports no additional complaints Resp Reports no additional complaints GI Reports abdominal pain (Generalized), Denies belching, Denies melena, Reports bloating, Denies change in bowel habits, Reports constipation, Denies dysphagia, Denies excessive flatus, Denies dyspepsia, Reports heartburn, Denies diarrhea, Reports loose stools, Reports nausea, Denies odynophagia and Denies vomiting Reports no additional complaints Musc Reports no additional complaints Neuro Reports no additional complaints Psych Reports no additional complaints Endo Reports no additional complaints Physical Exam Vital Signs: Last Vital Signs Pulse 77 02/15/25 12:19 BP 129/70 02/15/25 12:19 Pulse Ox 98 02/15/25 12:19 Oxygen Delivery Method Room Air 02/15/25 12:19 BMI result Body Mass Index 23.6 Const General: healthy appearing, no acute distress and well developed Nutritional Appearance: well nourished Orientation/consciousness: patient oriented x3 Resp Effort & Inspection: normal respiratory effort, able to speak in complete sentences, no tracheal deviation and symmetric chest movement Auscultation: clear to auscultation bilaterally Cardio Rate: regular rate GI Inspection: Yes normal to inspection and Yes distended Palpation (GI): Soft to palpation, not firm, Tenderness to palpation present (GI) in the RUQ; Candelario's sign negative and No hepatosplenomegaly present Auscultation: normal bowel sounds General: Yes no CVA tenderness Back/Spine/Pelvis Back: no CVA tenderness Skin General skin exam: elasticity normal, turgor normal and dry skin Neuro General: patient oriented x3 Psych Appearance: grossly normal Mental Status: mental status grossly normal Results Reviewed Results Reviewed: HIDA FINDINGS: After Choletech injection, there is prompt uptake of radiotracer by the liver. Intrahepatic biliary filling was visible within 13 minutes and gallbladder filling was visible within 15minutes. Small bowel filling was noted within 31minutes. After CCK infusion, ejection fraction measured 93%. NM/NM hepatobiliary w pharm IMPRESSION: Within normal limits. Assessment & Plan Assessment & Plan (1) Abdominal pain: Code(s): R10.9 - Unspecified abdominal pain Category: Medical Qualifiers: Abdominal location: right upper quadrant Qualified Code(s): R10.11 - Right upper quadrant pain (2) Right upper quadrant abdominal pain: Code(s): R10.11 - Right upper quadrant pain Category: Medical (3) GERD (gastroesophageal reflux disease): Code(s): K21.9 - Gastro-esophageal reflux disease without esophagitis Category: Medical Qualifiers: Esophagitis presence: esophagitis presence not specified Qualified Code(s): K21.9 - Gastro-esophageal reflux disease without esophagitis (4) Constipation: Code(s): K59.00 - Constipation, unspecified Category: Medical Qualifiers: Constipation type: chronic idiopathic constipation Qualified Code(s): K59.04 - Chronic idiopathic constipation (5) Epigastric pain: Code(s): R10.13 - Epigastric pain Category: Medical Plan Patient has MRI today after evaluating if MRI normal will discuss with General surgery possibly having patient go for cholecystectomy. Hyperactive gallbladder emptying. EF 93% and the normal should be 35-85%. Patient continues to have a post prandial pain in the right upper quadrant. Patient was encouraged to take dicyclomine. I do suspect she has gas trapping cramping and pain as she is not moving her bowels well. Patient will start taking Motegrity tomorrow morning. Follow up in 1 week. Urged to go to ED if the pain gets worse. Encouraged to avoid dietary triggers. Follow-up that low FODMAP diet. Continue sucralfate twice a day and Nexium every morning. Both patient and her daughter are agreeable to plan of care and verbalizes understanding of instructions. They were given the opportunity to ask questions and all questions answered. Thank you for allowing me to participate in her care Coding Level of Care Code Est Pt Level 5 (26844) Complex EM visit Add On G2211 Diagnoses Right upper quadrant abdominal pain R10.11 Abdominal location: right upper quadrant Right upper quadrant abdominal pain R10.11 Gastroesophageal reflux disease, unspecified whether esophagitis present K21.9 Esophagitis presence: esophagitis presence not specified Chronic idiopathic constipation K59.04 Constipation type: chronic idiopathic constipation Epigastric pain R10.13 Time Spent (min) 45 Comment 30 minutes spent with patient and additional 15 minutes spent reviewing her records
[2025-02-15 12:19] VITALS: BP 129/70; PULSE 77; O2SAT 98; BMI 23.6
--- OUTSIDE RECORDS SUMMARY | 2025-02-15 12:49 | XMS_ITS | Encounter Summary ---
Author Organization [facility] Address [address] [place] [address] Care Team Providers Care Lung Gun Operator Name Role Phone Physician, Pcp Unknown Primary Care Provider Belinda vailable Reason for Visit * Reason Onset Date Comments Prior Auth 02/15/2025 Encounter Details Date Type Department Care Team (Late Contact Info) Description 02/15/2025 Telephone Orthopedic Surgery [facility] [address] [phone] Jamar Kyle DPM [address] [address] Prior Auth Social History Tobacco Use Types Packs/Day Years Used Date Smoking Tobacco: Never Assessed Comments Unknown Sex and Gender Information Value Date Recorded Sex Assigned at Not on file Legal Sex Female 3:50 PM EDT Gender Identity Not on file Sexual Orientation Not on file documented as of this encounter Progress Notes * Felicia Cruz - 02/15/2025 11:52 AM EDT No prior auth is required for CPT codes 89525,91849,92301 per [facility] portal. documented in this encounter Plan of Treatment Upcoming Encounters Date Type Department Care Team (Late st Contact Info) Description 02/27/2025 8:00 AM EDT Consult Orthopedic Surgery - [place] [address] [phone] Jamar Kyle DPM [address] [address] 03/03/2025 12:45 PM EDT Hospital Encounter [facility] [place] [address] [place] [phone] Jamar Kyle DPM [address] [address] 03/03/2025 12:45 PM EDT - 03/03/2025 2:30 PM EDT Surgery [facility] [place] [address] [place] [phone] Jamar Kyle DPM [address] [address] REPAIR HAMMER TOE [90754 (CPT ) +3 more] 03/16/2025 2:00 PM EDT Office Visit Orthopedic Surgery - [place] [address] [phone] Jamar Kyle DPM [address] [address] Scheduled Procedures Name Priority Associated Diagnoses Date/Ti me REPAIR HAMMER TOE Metatarsalgia of right foot Dermatofibroma of right lower leg Acquired hammer toe of right foot Verruca plantaris 03/03/2025 12:45 PM EDT documented as of this encounter Visit Diagnoses Not on filedocumented in this encounter Care Teams Lung Gun Operator Relationship Specialty Start Date End Date Physician, Pcp Unknown PCP - General 07/25/24 documented as of this encounter
== END 2025-02-15 12:43 | disposition home or self-care (01) ==
LOC: HO.HGI 11:57
PROVIDERS: PCP Internal Medicine; Visit Provider Nurse Practitioner Family
DX: R10.11 Right upper quadrant pain (principal); K21.9 Gastro-esophageal reflux disease without esophagitis; K59.04 Chronic idiopathic constipation; R10.13 Epigastric pain
CPT/HCPCS: 99215

== ENCOUNTER 2025-02-15 12:51 | Outpatient (REF) | payer OTHER, SELFPAY ==
--- NOTE | ~2025-02-15 | MM_ITS ---
EXAMINATION: MM DIAGNOSTIC DIGITAL BREAST TOMOSYNTHESIS, BILATERAL Limited left breast ultrasound. CLINICAL INFORMATION: Left breast pain which comes and goes 12:00. Patient does not have right breast pain. COMPARISON: Mammography: Comparison is made with relevant prior exams. TECHNIQUE: Digital breast mammography with tomosynthesis is performed in both the craniocaudal and mediolateral oblique views along with computer-aided detection (CAD). FINDINGS: There are scattered areas of fibroglandular density (ACR BI-RADS breast composition Category b). Triangular marker in the central slightly inner breast without underlying abnormal finding at site of patient's pain. There are no significant masses, abnormal calcifications, or other abnormalities. Targeted color Doppler ultrasound in the left breast at the site of patient's pain upper inner quadrant demonstrates normal fibroglandular breast tissue. There is an incidental benign simple to minimally complicated cyst at 12:00 4 cm from the nipple measuring 3 x 4 x 2 mm. Results are provided to the patient at time of visit by the technologist. MM/MM tomosynthesis diagnostic BI IMPRESSION: Right: Negative. Left: No mammographic or sonographic abnormal finding to account for the patient's on and off breast pain. Recommend clinical evaluation follow-up. Incidental simple to minimally complicated cyst at 11:00 on ultrasound. Benign. ASSESSMENT: BI-RADS BI-RADS 2 - Benign Findings RECOMMENDATION: 1 year F/U This patient's information was entered into a reminder system with a target due date for their next mammogram. Electronically signed by: Mag Powers DO 02/15/2025 01:36 PM EDT
== END 2025-02-15 12:52 | disposition home or self-care (01) ==
LOC: HO.MAMMO 12:51
PROVIDERS: PCP Internal Medicine; Visit Provider Internal Medicine
DX: N64.4 Mastodynia (principal); R10.11 Right upper quadrant pain; K21.9 Gastro-esophageal reflux disease without esophagitis; K59.04 Chronic idiopathic constipation; R10.13 Epigastric pain
CPT/HCPCS: 76642; 77062; 77066; 99212

== ENCOUNTER → 2025-02-15 13:00 | Outpatient (BNV) | payer OTHER, SELFPAY | PROVIDERS: PCP Internal Medicine; Visit Provider Internal Medicine | DX: R10.11 Right upper quadrant pain (principal); N60.02 Solitary cyst of left breast; N64.4 Mastodynia | CPT/HCPCS: 74183; 76642; 77062; 77066 ==

== ENCOUNTER 2025-02-15 18:07 | Outpatient (REF) | payer OTHER, SELFPAY ==
--- NOTE | ~2025-02-15 | MR_ITS ---
CLINICAL HISTORY: R10.11 - Right upper quadrant pain MR abdomen with and without gadolinium Comparison: CT/SR - CT ABDOMEN PELVIS W IV CON - 02/05/25 09:53 EDT US - US ABDOMEN LIMITED - 02/03/25 07:30 EDT Findings: Mild atrophy of the pancreas. Liver, gallbladder, spleen, adrenal glands, and kidneys are within normal limits. No biliary duct dilatation. Visualized bowel is normal caliber. No ascites. IMPRESSION: No acute findings. This document has been electronically signed by: Srikanth Gambino MD on 02/15/2025 20:34:48
== END 2025-02-15 18:08 | disposition home or self-care (01) ==
LOC: HO.MRI 18:07
PROVIDERS: PCP Internal Medicine; Visit Provider Nurse Practitioner Family
DX: R10.11 Right upper quadrant pain (principal)
CPT/HCPCS: 74183; A9585

== ENCOUNTER 2025-02-17 14:04 | Outpatient (AMB) | payer OTHER, SELFPAY ==
--- OUTSIDE RECORDS SUMMARY | 2025-02-16 23:59 | XMS_ITS | Continuity of Care Document ---
Author Organization [facility] Address [address] [place] [address]- Care Team Providers Care Sales Review Clerk Name Role Phone Uriel Becker MD, Klaudia Primary Care Physician Encounter [facility] [id number] Date(s): 02/09/25 - 02/16/25 [facility] [address] [place], [place] [address] Attending Physician: Franklin Alarcon DO Referring Physician: Jamar Kyle DPM Encounter Type: Office Visit Allergies, Adverse Reactions, Alerts No Known Allergies Medications bisacodyl 5 mg oral delayed release tablet 2 tablet = 10 mg, By Mouth, Daily, PRN for constipation, # 20 tablet, 0 Refills, Maintenance, 02/09/25 1:02:00 PM EDT, EC Tablet, Partial fill upon patient request if the prescription is for a schedule II opioid drug. Start Date: 02/09/25 Status: Ordered Quantity: 20.0 Unit: tablet Repeat number: 1 dicyclomine 10 mg oral capsule 1 capsule = 10 mg, By Mouth, 2 times a day, PRN abdominal pain, # 40 capsule, 0 Refills, Maintenance, 02/09/25 1:00:00 PM EDT, Capsule, Partial fill upon patient request if the prescription is for a schedule II opioid drug. Start Date: 02/09/25 Stop Date: 02/19/25 Status: Ordered Quantity: 40.0 Unit: capsule Repeat number: 1 esomeprazole 40 mg oral enteric coated capsule 1 capsule = 40 mg, By Mouth, Daily, # 30 capsule, 0 Refills, Maintenance, 02/09/25 1:01:00 PM EDT, EC Capsule, Partial fill upon patient request if the prescription is for a schedule II opioid drug. Start Date: 02/09/25 Status: Ordered Quantity: 30.0 Unit: capsule Repeat number: 1 GaviLAX oral powder for reconstitution = 17 Gm, By Mouth, 2 times a day, PRN Constipation, dissolve in 4 to 8 oz of beverage, # 238 Gm, 0 Refills, Maintenance, 02/09/25 1:01:00 PM EDT, REC Powder, Partial fill upon patient request if the prescription is for a schedule II opioid drug. Start Date: 02/09/25 Status: Ordered Quantity: 238.0 Unit: g Repeat number: 1 ondansetron 4 mg oral tablet, disintegrating 1 tablet = 4 mg, By Mouth, Every 8 hours, PRN as needed for nausea/vomiting, 0 Refills, Maintenance, 02/09/25 1:00:00 PM EDT, DIS Tablet, Partial fill upon patient request if the prescription is for aschedule II opioid drug. Start Date: 02/09/25 Status: Ordered Repeat number: 1 simethicone 125 mg oral capsule 1 capsule = 125 mg, By Mouth, 4 times a day, PRN gas, # 30 capsule, 0 Refills, Maintenance, 251:00:00 PM EDT, Capsule, Partial fill upon patient request if the prescription is for a schedule IIopioid drug. Start Date: 02/09/25 Status: Ordered Quantity: 30.0 Unit: capsule Repeat number: 1 Problem List Condition Confirmation Course Effective Dates Status Health St atus Informant Abdominal pain Confirmed Active Constipation Confirmed Active Abnormal CT of the abdomen-see comments 1 Confirmed Active GERD (gastroesophageal reflux disease) 2 Confirmed Active History of colitis Confirmed Active DJD (degenerative joint disease), lumbar Confirmed Active Marijuana smoker Confirmed Active ALMAGUER (nonalcoholic steatohepatitis) Confirmed Active [address] [place] [address] 02/05/2025: New mild dilatation of the right extrarenal pelvis proximal to the mid ureter with smooth tapering distally. Uncertain etiology, no calculus is seen. Mild mural thickening of the right proximal ureter is nonspecific. Equivocal pancolitis versus pseudo thickening from underdistention. 2Had EGD at [place]. Path: Normal duodenal biopsy Mild chronic inactive inflammation of stomach Reactive gastropathy with background mild chronic inactive inflammation. No H. pylori. No pancreatic tissue identified. GE junction biopsy: Cardia fundic type mucosa with mild chronic inactive inflammation, no intestinal metaplasia, activeesophagitis Distal esophagus showing squamous epithelium. Procedures Procedure Date Related Diagnosis Body Site Status Cataract surgery Complete d section x3 Compl eted Foot surgery x5 per pt Co mpleted Social History Social History Type Response Smoking Status Never (less than 100 in lifetime) entered on: 02/09/25 Sex Sex Representation Female (finding) History and physical note * Event Display: History and Physical Hospital Authored Date: [id number] Patient Care team information Care Team Personnel Name: Uriel Becker MD , Ashlyn Villalobos Position: Reference Physician Member Role: PCP [address]: [address] [place] [address] [address] [place] [address] Telecom: Care Team Related Persons Name: CB SANDOVAL Name: LAUREN CORDOBA Insurance Providers Guarantor name: MELISA Health Plan Information #: 1 Payer: [employer] Payer Identifier: MELISA Member Number: [id number] Group Number: [id number] Subscriber Identifier: [id number] Relationship to Subscriber: self Coverage Type: NA Coverage Verification Date: Telecom: NA Address:
--- NOTE | 2025-02-17 14:05 | A.OFFVIS_ITS ---
Vital Signs 02/17/25 14:19 Height 5 ft 2 in Weight 129 lb BMI 23.6 BP 94/72 Blood Pressure Location Rt brachial Position Sitting Pulse 88 Pulse Source Pulse Oximeter Pulse Oximetry (%) 98 Oxygen Delivery Method Room Air Intake Visit Reasons: Chronic abd pain. MRI results. Pt req earlier appt Intake Note: Est pt for mgmt of GERD w/ abd pain. MRI done. CC; Pt denies any changes in sx at this time. Is here to review MRI results. Pt had said over the phone via [employer] that her sx had been getting worse. Pt now states at this time, that this was not the case. Irrigation Service Technician Required: Yes Irrigation Service Technician Services: Irrigation Service Technician Present Irrigation Service Technician Name: Abrahan [id number] + [facility] [place] Information Interpreted: clinical only Accompanied by: Family/Other Allergies No Known Allergies Allergy (Verified 02/17/25 14:06) HPI HPI Chronic abd pain. MRI results. Pt req earlier appt: Details: LAST VISIT Abdominal pain Right upper quadrant abdominal pain GERD (gastroesophageal reflux disease) Constipation Epigastric pain Plan Patient has MRI today after evaluating if MRI normal will discuss with General surgery possibly having patient go for cholecystectomy. Hyperactive gallbladder emptying. EF 93% and the normal should be 35-85%. Patient continues to have a post prandial pain in the right upper quadrant. Patient was encouraged to take dicyclomine. I do suspect she has gas trapping cramping and pain as she is not moving her bowels well. Patient will start taking Motegrity tomorrow morning. Follow up in 1 week. Urged to go to ED if the pain gets worse. Encouraged to avoid dietary triggers. Follow-up that low FODMAP diet. Continue sucralfate twice a day and Nexium every morning. Both patient and her daughter are agreeable to plan of care and verbalizes understanding of instructions. They were given the opportunity to ask questions and all questions answered. TODAY'S VISIT: Patient is here today for requested visit. Patient had MRI done couple days ago of the abdomen for right upper quadrant pain. Patient continues to have right upper quadrant pain postprandially. Patient reports she is feeling tenderness to that area as well after eating. Patient took Amitiza yesterday and has still not gone to the bathroom. Patient did not take it does this morning as she was afraid that she is going to have a diarrhea. Patient will take it when she gets home. Atrophic pancreas was found otherwise normal MRI. Patient denies history of drinking alcohol in the past. No history of pancreatitis in the past. Patient denies any nausea or vomiting. Patient reports that pain is better after she takes dicyclomine, however does not go away completely. Patient is due to go over colonoscopy. Previously we tried her to have a colonoscopy, however patient did not have a good prep and they were not able to do the procedure. Patient denies acid reflux, dyspepsia, dysphagia or odynophagia. Patient denies melena, hematochezia, unintentional weight loss or ribbon like stools. [facility] Medical History Constipation GERD (gastroesophageal reflux disease) Surgical History History of foot surgery History of cataract surgery (~03/2024) History of Family History Sister Colon cancer, Onset Age: 75 Family/Other Colon cancer Social History Housing: Apartment Are you a primary child care leader to a significant other at home: No Do you presently have visiting nurse or other home services: No Unable to assess alcohol history related to: Unknown Alcohol intake: former Patient Tobacco Use Status: Never used Tobacco e-Cigarette/Vaping Use: Never Used Second Hand Smoke Exposure: No Substance Use Type: Marijuana service: No Current occupational status: unemployed Cognitive needs: No Hearing needs: No Vision needs: No Assessment & Plan Assessment & Plan (1) Right upper quadrant abdominal pain: Code(s): R10.11 - Right upper quadrant pain Category: Medical (2) Abdominal pain: Code(s): R10.9 - Unspecified abdominal pain Category: Medical Qualifiers: Abdominal location: right upper quadrant Qualified Code(s): R10.11 - Right upper quadrant pain (3) GERD (gastroesophageal reflux disease): Code(s): K21.9 - Gastro-esophageal reflux disease without esophagitis Category: Medical Qualifiers: Esophagitis presence: esophagitis presence not specified Qualified Code(s): K21.9 - Gastro-esophageal reflux disease without esophagitis (4) Constipation: Code(s): K59.00 - Constipation, unspecified Category: Medical Qualifiers: Constipation type: chronic idiopathic constipation Qualified Code(s): K59.04 - Chronic idiopathic constipation (5) Epigastric pain: Code(s): R10.13 - Epigastric pain Category: Medical Plan Atrophic pancreas seen on MRI. Will start her on digestive enzymes. This could be the reason why patient is in pain, however patient will try to avoid dietary triggers. Patient does report to have pain right in the right upper quadrant as well as tenderness. Rapid gallbladder emptying seen on HIDA scan. Although this is usually normal, however patient might be experiencing pain and could benefit from cholecystectomy. We will refer her to surgery so they can evaluate. Patient is to continue Amitiza. May take Dulcolax as needed. Increase fluid intake and activity to promote better bowel motility. Patient will follow-up in 1-2 weeks time. She will call our office if she will have any worsening symptoms. Continue taking dicyclomine for pain may take 20 mg at that time do not exceed more than 2 times a day until he she becomes more regular with her bowels. Both patient and her daughter are agreeable to plan of care and verbalized understanding of instructions. They were given the opportunity to ask questions and all questions answered. Thank you for allowing me to participate in her care Orders: Referrals General Surgery Referral R10.11 - Right upper quadrant pain Medications: New rolhrg-ofslicpd-ofsmqhr 36,000-114,000- 180,000 unit (Creon) administer with meals and/or snacks 1 cap PO QID 120 caps 3RF K86.89 - Other specified diseases of pancreas Coding Level of Care Code Est Pt Level 4 (07040) Diagnoses Right upper quadrant abdominal pain R10.11 Right upper quadrant abdominal pain R10.11 Abdominal location: right upper quadrant Gastroesophageal reflux disease, unspecified whether esophagitis present K21.9 Esophagitis presence: esophagitis presence not specified Chronic idiopathic constipation K59.04 Constipation type: chronic idiopathic constipation Epigastric pain R10.13 Time Spent (min) 35 Comment 25 minutes spent with patient and additional 10 minutes spent reviewing her records
--- OUTSIDE RECORDS SUMMARY | 2025-02-17 14:07 | XMS_ITS | Encounter Summary ---
Author Organization [facility] Address [address] [place] [address] Care Team Providers Care Irrigation Technician Name Role Phone Physician, Pcp Unknown Primary Care Provider Belinda vailable Reason for Visit * Reason Onset Date Comments Prior Auth 02/15/2025 Encounter Details Date Type Department Care Team (Late Contact Info) Description 02/15/2025 Telephone Orthopedic Surgery [facility] [address] [phone] Jamar Kyle DPM [address] [address] Prior Auth Social History Tobacco Use Types [...] prior auth is required for CPT codes 15292,83433,25656 per [facility] portal. documented in this encounter Plan of Treatment Upcoming Encounters Date Type Department Care Team (Late st Contact Info) Description 02/27/2025 8:00 AM EDT Consult Orthopedic Surgery - [place] [address] [phone] Jamar Kyle DPM [address] [address] 03/03/2025 12:45 PM EDT Hospital Encounter [facility] [place] [address] [place] [phone] Jamar Kyle DPM [address] [address] 03/03/2025 12:45 PM EDT - 03/03/2025 2:30 PM EDT Surgery [facility] [place] [address] [place] [phone] Jamar Kyle DPM [address] [address] REPAIR HAMMER TOE [[id number] (CPT ) +3 more] 03/16/2025 2:00 PM EDT Office Visit Orthopedic Surgery - [place] [address] [phone] Jamar Kyle DPM [address] [address] Scheduled Procedures Name Priority Associated Diagnoses Date/Ti me REPAIR HAMMER TOE Metatarsalgia of right foot Dermatofibroma of right lower leg Acquired hammer toe of right foot Verruca plantaris 03/03/2025 12:45 PM EDT documented as of this encounter Visit Diagnoses Not on filedocumented in this encounter Care Teams Irrigation Technician Relationship Specialty Start Date End Date Physician, Pcp Unknown PCP - General 07/25/24 documented as of this encounter
[2025-02-17 14:19] VITALS: BP 94/72; PULSE 88; O2SAT 98; BMI 23.6
== END 2025-02-17 14:34 | disposition home or self-care (01) ==
LOC: HO.HGI 14:05
PROVIDERS: PCP Internal Medicine; Visit Provider Nurse Practitioner Family
DX: R10.11 Right upper quadrant pain (principal); K21.9 Gastro-esophageal reflux disease without esophagitis; K59.04 Chronic idiopathic constipation; R10.13 Epigastric pain
CPT/HCPCS: 99214

== ENCOUNTER → 2025-02-17 14:04 | Outpatient (BNVA) | payer OTHER, SELFPAY | PROVIDERS: PCP Internal Medicine; Visit Provider Nurse Practitioner Family | DX: Z71.2 Person consulting for explanation of examination or test findings (principal); K21.9 Gastro-esophageal reflux disease without esophagitis; R10.11 Right upper quadrant pain; K59.04 Chronic idiopathic constipation; R10.13 Epigastric pain | CPT/HCPCS: 99212 ==

== ENCOUNTER 2025-03-15 11:51 | Outpatient (AMB) | payer OTHER, SELFPAY ==
--- OUTSIDE RECORDS SUMMARY | 2025-03-11 23:59 | XMS_ITS | Continuity of Care Document ---
Author Organization [facility] Address [address] [place] [address]- Care Team Providers Care Induction Heat Treater Name Role Phone Uriel Becker MD, Ashlyn Villalobos Primary Care Physician Encounter [facility] [place] Date(s): 02/09/25 - 03/11/25 [facility] [address] [place], [place] [address] Attending Physician: Richie Sanchez Admitting Physician: Richie Sanchez Referring Physician: Richie Sanchez Encounter Type: Triage Allergies, Adverse Reactions, Alerts No Known Allergies [...] gas, # 30 capsule, 0 Refills, Maintenance, :00:00 PM EDT, Capsule, Partial fill upon patient [...] Confirmed Active ALMAGUER (nonalcoholic steatohepatitis) [facility] New mild dilatation of the right extrarenal pelvis proximal to the mid ureter with smooth tapering distally. Uncertain etiology, no calculus is seen. Mild mural thickening of the right proximal ureter is nonspecific. Equivocal pancolitis versus pseudo thickening from underdistention. 2Had EGD at [place]. Path: Normal duodenal biopsy Mild chronic inactive inflammation of stomach Reactive gastropathy with background mild chronic inactive inflammation. No H. pylori. No pancreatic tissue identified. GE junction biopsy: Cardia fundic type mucosa with mild chronic inactive inflammation, no intestinal metaplasia, activeesophagitis Distal esophagus showing squamous epithelium. Social History Social History Type Response Smoking Status Never (less than 100 in lifetime) entered on: 02/09/25 Sex Sex Representation Female (finding) Patient Care team information Care Team Personnel Name: Uriel Becker MD , Ashlyn Villalobos Position: Reference Physician Member Role: PCP Address: [address] [place] [address] [address] Telecom: Care Team Related Persons Name: CB SANDOVAL Name: LAUREN CORDOBA Insurance Providers Guarantor name: MELISA Health Plan Information #: 1 Payer: [employer] Payer Identifier: MELISA Member Number: [id number] Group Number: [id number] Subscriber Identifier: [id number] Relationship to Subscriber: self Coverage Type: NA Coverage Verification Date: MELISA Telecom: Address:
--- NOTE | 2025-03-15 11:56 | A.OFFVIS_ITS ---
Vital Signs 03/15/25 11:57 Height 5 ft 2 in Weight 125 lb BMI 22.9 BP 100/58 L Blood Pressure Location Rt brachial Position Sitting Pulse 62 Pulse Source Pulse Oximeter Pulse Oximetry (%) 100 Oxygen Delivery Method Room Air Intake Visit Reasons: 3w Intake Note: Est pt for mgmt of GERD w/ abd pain. CC; C.O. chronic sx mgmt. Pt states that she has been doing OK since last visit but has remained static with regard to her sx. Pt has not seen a very significant improvement in her sx. However, no new sx or concerns at this time. Production Control Expediter Required: Yes Production Control Expediter Services: Production Control Expediter Present Production Control Expediter Name: [facility] [place] Information Interpreted: clinical only Accompanied by: Self / Same As Patient Allergies No Known Allergies Allergy (Verified 03/23/25 10:39) HPI HPI 3w: Details: LAST VISIT: Right upper quadrant abdominal pain Abdominal pain GERD (gastroesophageal reflux disease) Constipation Epigastric pain Plan Atrophic pancreas seen on MRI. Will start her on digestive enzymes. This could be the reason why patient is in pain, however patient will try to avoid dietary triggers. Patient does report to have pain right in the right upper quadrant as well as tenderness. Rapid gallbladder emptying seen on HIDA scan. Although this is usually normal, however patient might be experiencing pain and could benefit from cholecystectomy. We will refer her to surgery so they can evaluate. Patient is to continue Amitiza. May take Dulcolax as needed. Increase fluid intake and activity to promote better bowel motility. Patient will follow-up in 1-2 weeks time. She will call our office if she will have any worsening symptoms. Continue taking dicyclomine for pain may take 20 mg at that time do not exceed more than 2 times a day until he she becomes more regular with her bowels. Both patient and her daughter are agreeable to plan of care and verbalized understanding of instructions. They were given the opportunity to ask questions and all questions answered. ? Thank you for allowing me to participate in her care Referrals General Surgery Referral R10.11 New dpwafq-qjthjgbg-ejoegsj 36,000-114,000- 180,000 unit (Creon) administer with meals and/or snacks 1 cap PO QID 120 caps 3RF K86.89 TODAY'S VISIT Patient is here today for follow-up. Patient reports that she started to take Creon with meals and is feeling little better. She is not having as much abdominal bloating or cramping. She is moving her bowels better now that she is taking Dulcolax. Patient is taking Nexium daily. Patient denies any dyspepsia, dysphagia or odynophagia. Denies any melena, hematochezia, unintentional weight loss or ribbon like stools. Patient admits that her symptoms are sometimes related to food she eats or or if she does not empty her bowels. [facility] Medical History (Updated 03/30/25 @ 20:[address] [facility]) Pancreatic atrophy Constipation GERD (gastroesophageal reflux disease) Surgical History History of foot surgery History of cataract surgery (~03/2024) History of Family History Sister Colon cancer, Onset Age: 75 Family/Other Colon cancer Social History Housing: Apartment Are you a primary critical care nurse practitioner to a significant other at home: No Do you presently have visiting nurse or other home services: No Unable to assess alcohol history related to: Unknown Alcohol intake: former Patient Tobacco Use Status: Never used Tobacco e-Cigarette/Vaping Use: Never Used Second Hand Smoke Exposure: No Substance Use Type: Marijuana service: No Current occupational status: unemployed Cognitive needs: No Hearing needs: No Vision needs: No Physical Exam Vital Signs: Last Vital Signs Pulse 62 03/15/25 11:57 BP 100/58 L 03/15/25 11:57 Pulse Ox 100 03/15/25 11:57 Oxygen Delivery Method Room Air 03/15/25 11:57 BMI result Body Mass Index 22.9 Assessment & Plan Assessment & Plan (1) GERD (gastroesophageal reflux disease): Code(s): K21.9 - Gastro-esophageal reflux disease without esophagitis Category: Medical Qualifiers: Esophagitis presence: esophagitis presence not specified Qualified Code(s): K21.9 - Gastro-esophageal reflux disease without esophagitis (2) ALMAGUER (nonalcoholic steatohepatitis): Code(s): K75.81 - Nonalcoholic steatohepatitis (ALMAGUER) Category: Medical (3) Constipation: Code(s): K59.00 - Constipation, unspecified Category: Medical Qualifiers: Constipation type: chronic idiopathic constipation Qualified Code(s): K59.04 - Chronic idiopathic constipation (4) Epigastric pain: Code(s): R10.13 - Epigastric pain Category: Medical (5) Right upper quadrant abdominal pain: Code(s): R10.11 - Right upper quadrant pain Category: Medical (6) Pancreatic atrophy: Code(s): K86.89 - Other specified diseases of pancreas Category: Medical Plan Patient will continue taking Creon with meals. Avoid dietary triggers. Avoid greasy and fried food. Patient was also encouraged to avoid sugar. Continue Nexium and sucralfate. Avoid dietary triggers and late night snacking. Staying upright for minimum 3 hours after meals discussed with patient. Patient will continue low-fat diet. Follow-up in 3 months, sooner on as needed basis. Patient is agreeable to this plan and verbalizes understanding of instructions. She was given the opportunity to ask questions and all questions answered. Thank you for allowing me to participate in her care Medications: New ondansetron HCl 4 mg PO Q8H PRN 20 tabs 0RF nausea and vomiting Coding Level of Care Code Est Pt Level 4 (06002) Complex EM visit Add On G2211 Diagnoses Gastroesophageal reflux disease, unspecified whether esophagitis present K21.9 Esophagitis presence: esophagitis presence not specified ALMAGUER (nonalcoholic steatohepatitis) K75.81 Chronic idiopathic constipation K59.04 Constipation type: chronic idiopathic constipation Epigastric pain R10.13 Right upper quadrant abdominal pain R10.11 Pancreatic atrophy K86.89 Time Spent (min) 35 Comment 25 minute spent with patient and additional 10 minute spent reviewing her records her
[2025-03-15 11:57] VITALS: BP 100/58; PULSE 62; O2SAT 100; BMI 22.9
--- OUTSIDE RECORDS SUMMARY | 2025-03-15 12:41 | XMS_ITS | Clinical Summary ---
Author Organization 175 [facility] Address [address] [place] [address] Phone Care Team Providers Care Porcelain Finish Sprayer Name Role Phone Ashlyn Becker MD Primary Care Provider [phone] Allergies No known active allergies Medications ammonium lactate (AmLactin) 12 % lotion Apply topically if needed for dry skin. 400 g 5 10/20/19 26 Active dicyclomine (BENTYL) 10 mg capsule Take 1 capsule (10 mg total) by mouth 2 (two) times a day if needed. Active esomeprazole (NexIUM) [address] capsule Take 1 capsule (40 mg total) by mouth 1 (one) time each day before breakfast. Do not open capsule. Active lubiprostone (AMITIZA) 24 mcg capsule Take 1 capsule (24 mcg total) by mouth 1 (one) time each day. Active ondansetron (ZOFRAN) 4 mg tablet Take 1 tablet (4 mg total) by mouth every 8 (eight) hours if needed for nausea or vomiting. Active simethicone (MYLICON) 125 mg chewable tablet Chew 1 tablet (125 mg total) every 6 (six) hours if needed for flatulence. Active oxyCODONE (ROXICODONE) 5 mg immediate release tabletIndicatio ns:Metatarsalgi a of right foot,Acquired hammer toe of right foot Take 1 tablet (5 mg total) by mouth every 4 (four) hours if needed for severe pain. Max Daily Amount: 30 mg 35 tablet 5 Active acetaminophen (TYLENOL 8 HOUR) 650 mg 8 hr tablet Take 1 tablet (650 mg total) by mouth every 8 (eight) hours if needed for mild pain for up to 10 days. Do not crush, chew, or split. 30 tablet 03/13/20 Active Problems Problem Noted Date Diagnosed Date Metatarsalgia of right foot 01/09/2025 Dermatofibroma of right lower leg 01/09/2025 Acquired hammer toe of right foot 01/09/2025 Verruca plantaris 01/09/2025 Encounters Date Type Department Care Team Description 03/03/2025 2:59 PM EDT Anesthesia Event [facility] OR [address] [place] [phone] Oscar Monk DO Steele, Matthew G, CRNA 03/03/2025 1:02 PM EDT - 03/03/2025 2:47 PM EDT Surgery [facility] OR [address] [place] [phone] Jamar Kyle DPM REPAIR HAMMER TOE [81573 (CPT ) +3 more] 03/03/2025 12:02 PM EDT - 03/03/2025 5:05 PM EDT Hospital Encounter [facility] OR [address] [place] [phone] Jamar Kyle DPM Metatarsalgia of right foot; Dermatofibroma of right lower leg; Acquired hammer toe of right foot; Verruca plantaris Discharge Disposition: Home or Self Care 02/27/2025 8:00 AM EDT Consult Orthopedic Surgery [facility] [address] [phone] Jamar Kyle DPM Acquired hammer toe of right foot (Primary Dx); Metatarsalgia of right foot; Dermatofibroma of right lower leg; Verruca plantaris 02/15/2025 Telephone Orthopedic Surgery [facility] [address] [phone] Jamar Kyle DPM 01/09/2025 2:30 PM EDT Office Visit Orthopedic [facility] [address] [phone] Jamar Kyle DPM Acquired hammer toe of right foot (Primary Dx); Follow-up exam; Metatarsalgia of right foot; Dermatofibroma of right lower leg; Verruca plantaris from Last 3 Months Surgical History Surgery Date Site/Laterality Comments CATARACT EXTRACTION, BILATERAL EYE SURGERY SECTION, LOW TRANSVERSE X 3 FOOT SURGERY X 5 Medical History Medical History Date Comments GERD (gastroesophageal reflux disease) Degenerative joint disease Ulcerative colitis ([facility] V24, [facility] V28) ALMAGUER (nonalcoholic steatohepatitis) Social History Tobacco Use Types Packs/Day Years Used Date Smoking Tobacco: Never Smokeless Tobacco: Never Tobacco Cessation:Counseling Given: Not Answered Alcohol Use Standard Drinks/Week Comments Not Currently 0 (1 standard drink = 0.6 oz pur e alcohol) Interpersonal Safety Answer Date Record ed Physical Abuse 03/03/2025 Verbal Abuse 03/03/2025 Comments No Sex and Gender Information Value Date Recorded Sex Assigned at Not on file Legal Sex Female 3:50 PM EDT Gender Identity Not on file Sexual Orientation Not on file Obstetrics History Last Filed Vital Signs Vital Sign Reading Time Taken Comments Blood Pressure 119/58 03/03/2025 4:18 PM EDT Pulse 56 03/03/2025 4:18 PM EDT Temperature 36.6 C (97.8 F) 03/03/2025 3:55 PM EDT Respiratory Rate 14 03/03/2025 4:18 PM EDT Oxygen Saturation 99% 03/03/2025 4:18 PM EDT Inhaled Oxygen Concentration - - Weight 55.8 kg (123 lb) 03/03/2025 12:51 PM EDT Height 152.4 cm (5') 11/24/2024 8:57 AM EDT Body Mass Index 24.02 11/24/2024 8:57 AM EDT Plan of Treatment Upcoming Encounters Date Type Department Care Team (Late st Contact Info) Description 03/16/2025 2:00 PM EDT Office Visit Orthopedic Surgery - [address] [phone] Jamar Kyle DPM [address] [place] [phone] Health Maintenance Due Date Last Done Comments Breast Cancer Screening 1965 COVID-19 Vaccine (#1) 1970 DTaP,Tdap,and Td Vaccines (1 - Tdap) 1984 Hepatitis A Vaccines (1 of 2 - Risk 2-dose series) 1984 Hepatitis B Vaccines (1 of 3 [...] Comments XR FOOT 3+ VIEWS RIGHT Routine 03/03/2025 4:27 PM EDT TISSUE EXAM Routine 03/03/2025 3:26 PM EDT Metatarsalgia of right foot Dermatofibroma of right lower leg Acquired hammer toe of right foot Verruca plantaris RI BIOPSY SKIN PUNCH SINGLE LESION 03/03/2025 3:01 PM EDT Metatarsalgia of right foot Dermatofibroma of right lower leg Acquired hammer toe of right foot Verruca plantaris Case Notes MINI C-ARM, k wires; SHEET ROCK NAILER Special Needs Contacted pt, requested surgery 03/03 12:45pm RI OSTECTOMY COMPLETE EXCISION OTHER METATARSAL HEAD 03/03/2025 3:01 PM EDT Metatarsalgia of right foot Dermatofibroma of right lower leg Acquired hammer toe of right foot Verruca plantaris Case Notes MINI C-ARM, k wires; SHEET ROCK NAILER Special Needs Contacted pt, requested surgery 03/03 12:45pm RI CORRECTION HAMMERTOE 03/03/2025 3:01 PM EDT Metatarsalgia of right foot Dermatofibroma of right lower leg Acquired hammer toe of right foot Verruca plantaris Case Notes MINI C-ARM, k wires; SHEET ROCK NAILER Special Needs Contacted pt, requested surgery 03/03 12:45pm XR FOOT 3+ VIEWS RIGHT Routine 01/09/2025 2:33 PM EDT Follow-up exam from Last 3 Months Results * XR Foot 3+ Views Right (03/03/2025 4:27 PM EDT) Only the most recent of2 resultswithin the time period is included. Anatomical Region Laterality Modality Lower Extremities, Foot Right [facility] 03/03/2025 4:49 PM EDT Impressions 03/03/2025 4:53 PM EDT FINDINGS/IMPRESSION: Postoperative changes at the 5th toe with overlying soft tissue swelling. Anatomic alignment. No fracture. -------- FINAL REPORT -------- Dictated By: MARTÍNEZ KEENE Dictated Date: 03/03/2025 16:49 ET Assigned Physician: MARTÍNEZ KEENE Reviewed and Electronically Signed By: MARTÍNEZ KEENE Signed Date: 03/03/2025 16:53 ET Workstation ID: [id number] Transcribed By: Self Edit Transcribed Date: 03/03/2025 16:49 ET Narrative 03/03/2025 4:53 PM EDT XR FOOT 3+ VIEWS RIGHT INDICATION: Pain TECHNIQUE: XR FOOT 3+ VIEWS RIGHT COMPARISON: No priors available. Procedure Note Martínez Keene MD - 03/03/2025 XR FOOT 3+ VIEWS RIGHT INDICATION: Pain TECHNIQUE: XR FOOT 3+ VIEWS RIGHT COMPARISON: No priors available. IMPRESSION: FINDINGS/IMPRESSION: Postoperative changes at the 5th toe with overlyingsoft tissue swelling. Anatomic alignment. No fracture. -------- FINAL REPORT -------- Dictated By: MARTÍNEZ KEENE Dictated Date: 03/03/2025 16:49 ET Assigned Physician: MARTÍNEZ KEENE Reviewed and Electronically Signed By: MARTÍNEZ KEENE Signed Date: 03/03/2025 16:53 ET Workstation ID: [id number] Transcribed By: Self Edit Transcribed Date: 03/03/2025 16:49 ET us Jamar Kyle DPGriselda IMG XR PROCEDURES Final R esult * Tissue exam (03/03/2025 3:26 PM EDT) Final Diagnosis A. Right, 4th and 5th Phalangeal Bones-repair: -DEGENERATIVE OSTEOARTHROPATHY, CONSISTENT WITH HAMMERTOE DEFORMITY/ EXOSTOSIS B.Right Foot 3rd Metatarsal Bone-repair: -DEGENERATIVE OSTEOARTHROPATHY, CONSISTENT WITH HAMMERTOE DEFORMITY/ EXOSTOSIS C. Foot, Right, Skin Lesion-excision: -HYPERKERATOTIC EPITHELIAL HYPERPLASIA COMMENT: Massive hyperkeratosis fills a symmetrical epithelial dell. The features are consistent with clavus or callus but are not specific. Diagnostic features of verruca vulgaris are not present, but a resolved wart cannot be entirely ruled out. 03/07/2025 2:01 PM EDT [facility] Comment C) There is no evidence of a dermatofibroma. 03/07/2025 2:01 PM EDT [facility] Gross Description A. Foot, Right, 4th and 5th Phalangeal Bones: Labeled foot R, fourth and 5 . Received in formalin are two irregular almeida-yellow bone fragments, measuring 0.8 x 0.6 x 0.4 cm and 1.1 x 0.8 x 0.6 cm. The larger fragment displays a almeida-white smooth cartilage covered articular surface. The cut surfaces of the larger fragment display pink-yellow trabecular bone. The bisected larger fragment and the smaller fragment in toto are submitted in one cassette following decalcification, three pieces. B. Foot, Right, Right Foot 3rd Metatarsal Bone: Labeled foot R, right foot backspace. Received in formalin is a 1.3 x 0.9 x 0.4 cm almeida-white, convex articular bone fragment. The cartilage covered articular surface is almeida-white, smooth and glistening. The cut surfaces are comprised of pink-yellow trabecular bone. The specimen is trisected and entirely submitted in one cassette following decalcification, three pieces. C. Foot, Right, Skin Lesion: Labeled foot R, right maciel . Received in formalin is a 0.8 x 0.5 cm vieyra-white skin shave which is entirely surfaced by a vieyra-white 0.7 x 0.6 x 0.4 cm keratotic horn. The margin is inked blue. The specimen is bisected and entirely submitted in one cassette, two pieces, multiple levels on one slide.. EVELYN EVELYN 03/07/2025 2:01 PM EDT [facility] Disclaimer Unless otherwise specified, all tissue is 10% NB formalin fixed and paraffin embedded. 03/07/2025 2:01 PM EDT [facility] Tissue Structure of right foot / Unknown 03/03/2025 3:26 PM EDT 03/03/2025 4:04 PM EDT Tissue specimen (specimen) Structure of right foot / Unknown 03/03/2025 3:42 PM EDT 03/03/2025 4:04 PM EDT Tissue specimen (specimen) Structure of right foot / Unknown 03/03/2025 3:43 PM EDT 03/03/2025 4:04 PM EDT Jamar Kyle DPM LAB PATHOLOGY ORDERABLES Final Result [facility] [address] [place] [address], from Last 3 Months Insurance [employer] Care Teams Porcelain Finish Sprayer Relationship Specialty Start Date End Date Ashlyn Becker MD [address] [place] [address] PCP - General Internal Medicine 02/23/25
== END 2025-03-15 12:44 | disposition home or self-care (01) ==
LOC: HO.HGI 11:52
PROVIDERS: PCP Internal Medicine; Visit Provider Nurse Practitioner Family
DX: K21.9 Gastro-esophageal reflux disease without esophagitis (principal); K75.81 Nonalcoholic steatohepatitis (NASH); K59.04 Chronic idiopathic constipation; R10.13 Epigastric pain; R10.11 Right upper quadrant pain; K86.89 Other specified diseases of pancreas
CPT/HCPCS: 99214

== ENCOUNTER → 2025-03-15 11:51 | Outpatient (BNVA) | payer OTHER, SELFPAY | PROVIDERS: PCP Internal Medicine; Visit Provider Nurse Practitioner Family | DX: K21.9 Gastro-esophageal reflux disease without esophagitis (principal); K75.81 Nonalcoholic steatohepatitis (NASH); K59.04 Chronic idiopathic constipation; R10.13 Epigastric pain; R10.11 Right upper quadrant pain; K86.89 Other specified diseases of pancreas | CPT/HCPCS: 99212 ==

== ENCOUNTER 2025-03-22 15:44 | Outpatient (REF) | payer OTHER, SELFPAY ==
--- NOTE | ~2025-03-22 | CT_ITS ---
CLINICAL HISTORY: S09.90XA - Unspecified injury of head, initial encounter CT head without contrast Comparison: CT/SR - CT HEAD WITHOUT IV CONTRAST - 12/30/21 17:11 EDT Findings: No acute hemorrhage, acute major vascular distribution infarct, intracranial mass, midline shift or hydrocephalus. No extra-axial fluid collection. Empty sella. Visualized paranasal sinuses and mastoid air cells normal. Orbits unremarkable. The cranium appears intact. Superficial soft tissue is unremarkable. Impression: 1. No acute intracranial finding. 2. Stable empty sella. This document has been electronically signed by: Sandrine Santo MD on 03/23/2025 16:43:09
--- OUTSIDE RECORDS SUMMARY | 2025-03-22 17:41 | XMS_ITS | Clinical Summary ---
Author Organization 175 [facility] Address [address] [place] [address] Phone Care Team Providers Care Phthalic Acid Purifier Name Role Phone Ashlyn Becker MD Primary Care Provider [phone] Allergies No known active allergies Medications ammonium [...] Amount: 30 mg 35 tablet 5 Active oxyCODONE (ROXICODONE) 5 mg immediate release tabletIndicatio ns:Acquired hammer toe of right foot Take 1 tablet (5 mg total) by mouth every 4 (four) hours if needed for severe pain for up to 7 days. Max Daily Amount: 30 mg 35 tablet 03/23/20 25 Active acetaminophen (TYLENOL 8 HOUR) 650 mg 8 hr tablet Take 1 tablet (650 mg total) by mouth every 8 (eight) hours if needed for mild pain for up to 10 days. Do not crush, chew, or split. 30 tablet 03/13/20 25 Active Problems Problem Noted Date Diagnosed Date Metatarsalgia of right foot 01/09/2025 Dermatofibroma of right lower leg 01/09/2025 Acquired hammer toe of right foot 01/09/2025 Verruca plantaris 01/09/2025 Encounters Date Type Department Care Team Description 03/16/2025 2:00 PM EDT Office Visit Orthopedic Surgery [facility] [address] [phone] Jamar Kyle DPM Acquired hammer toe of right foot (Primary Dx) 03/03/2025 2:59 PM EDT Anesthesia Event [facility] OR [address] [place] [phone] Oscar Monk DO Steele, Matthew G, CRNA 03/03/2025 1:02 PM EDT - 03/03/2025 2:47 PM EDT Surgery [facility] OR [address] [place] [phone] Jamar Kyle DPM REPAIR HAMMER TOE [[id number] (CPT ) +3 more] 03/03/2025 12:02 PM EDT - 03/03/2025 5:05 PM EDT Hospital Encounter [facility] OR [address] [place] [phone] Jamar Kyle DPM Metatarsalgia of right foot; Dermatofibroma of right lower leg; Acquired hammer toe of right foot; Verruca plantaris Discharge Disposition: Home or Self Care 02/27/2025 8:00 AM EDT Consult Orthopedic Surgery [facility] [address] [phone] Jamar Kyle DPM Acquired hammer toe of right foot (Primary Dx); Metatarsalgia of right foot; Dermatofibroma of right lower leg; Verruca plantaris 02/15/2025 Telephone Orthopedic Surgery [facility] [address] [phone] Jamar Kyle DPM 01/09/2025 2:30 PM EDT Office Visit Orthopedic Surgery [facility] [address] [phone] Jamar Kyle DPM Acquired hammer toe of right foot (Primary Dx); Follow-up exam; Metatarsalgia of right foot; Dermatofibroma of right lower leg; Verruca plantaris from Last 3 Months Surgical History Surgery Date Site/Laterality Comments CATARACT EXTRACTION, BILATERAL EYE SURGERY SECTION, LOW TRANSVERSE X 3 FOOT SURGERY X 5 Medical History Medical History Date Comments GERD (gastroesophageal reflux disease) Degenerative joint disease Ulcerative colitis ([facility] V24, [facility] V28) ALMAGUER (nonalcoholic steatohepatitis) Social History [...] Care Team (Late st Contact Info) Description 03/27/2025 8:15 AM EDT Office Visit Orthopedic Surgery - [place] [address] [phone] Jamar Kyle, DPM [address] [phone] Health Maintenance Due Date Last Done Comments [...] hammer toe of right foot Verruca plantaris CT BIOPSY SKIN PUNCH SINGLE LESION 03/03/2025 3:01 PM EDT Metatarsalgia of right foot Dermatofibroma of right lower leg Acquired hammer toe of right foot Verruca plantaris Case Notes MINI C-ARM, k wires; TOMATO GRADER Special Needs Contacted pt, requested surgery 03/03 12:45pm CT OSTECTOMY COMPLETE EXCISION OTHER METATARSAL HEAD 03/03/2025 3:01 PM EDT Metatarsalgia of right foot Dermatofibroma of right lower leg Acquired hammer toe of right foot Verruca plantaris Case Notes MINI C-ARM, k wires; TOMATO GRADER Special Needs Contacted pt, requested surgery 03/03 12:45pm CT CORRECTION HAMMERTOE 03/03/2025 3:01 PM EDT Metatarsalgia of right foot Dermatofibroma of right lower leg Acquired hammer toe of right foot Verruca plantaris Case Notes MINI C-ARM, k wires; TOMATO GRADER Special Needs Contacted pt, requested surgery 03/03 12:45pm XR FOOT 3+ VIEWS RIGHT Routine 01/09/2025 2:33 PM EDT Follow-up exam from Last 3 Months Results * XR Foot 3+ Views Right (03/03/2025 4:27 PM EDT) Only the most recent of2 resultswithin the time period is included. Anatomical Region Laterality Modality Lower Extremities, Foot Right [facility] 03/03/2025 4:49 PM EDT Impressions 03/03/2025 4:53 PM EDT FINDINGS/IMPRESSION: Postoperative changes at the 5th toe with overlying soft tissue swelling. Anatomic alignment. No fracture. -------- FINAL REPORT -------- Dictated By: MARTÍNEZ KEENE Dictated Date: 03/03/2025 16:49 ET Assigned Physician: MARTÍNEZ KEENE Reviewed and Electronically Signed By: MARTÍNEZ KEENE Signed Date: 03/03/2025 16:53 ET Workstation ID: [id number] Transcribed By: Self Edit Transcribed Date: 03/03/2025 [...] Signed Date: 03/03/2025 16:53 ET Workstation ID: [id number] Transcribed By: Self Edit Transcribed Date: 03/03/2025 16:49 ET Jamar Kyle DPM IMG XR PROCEDURES Final R esult * [...] ruled out. 03/07/2025 2:01 PM EDT [facility] Comment C) There is no evidence of a dermatofibroma. 03/07/2025 2:01 PM EDT [facility] Gross Description A. Foot, Right, 4th [...] slide.. EVELYN EVELYN 03/07/2025 2:01 PM EDT [facility] Disclaimer Unless otherwise specified, all tissue is 10% NB formalin fixed and paraffin embedded. 03/07/2025 2:01 PM T [facility] Tissue Structure of right foot / Unknown 03/03/2025 3:26 PM EDT 03/03/2025 4:04 PM EDT Tissue specimen (specimen) Structure of right foot / Unknown 03/03/2025 3:42 PM EDT 03/03/2025 4:04 PM EDT Tissue specimen (specimen) Structure of right foot / Unknown 03/03/2025 3:43 PM EDT 03/03/2025 4:04 PM EDT us Jamar Kyle DPGriselda LAB PATHOLOGY ORDERABLES Final Result [facility] [address] [place] [address], [place] [phone] from Last 3 Months Insurance [employer] Care Teams Phthalic Acid Purifier Relationship Specialty Start Date End Date Ashlyn Becker MD [address] [place] [phone] PCP - General Internal Medicine 02/23/25
== END 2025-03-22 15:45 | disposition home or self-care (01) ==
LOC: HO.CT 15:44
PROVIDERS: PCP Internal Medicine; Visit Provider Internal Medicine
DX: S09.90XA Unspecified injury of head, initial encounter (principal)
CPT/HCPCS: 70450

== ENCOUNTER → 2025-03-22 15:46 | Outpatient (BNV) | payer OTHER, SELFPAY | PROVIDERS: PCP Internal Medicine; Visit Provider Radiology Diagnostic Radiology | DX: S09.90XA Unspecified injury of head, initial encounter (principal) | CPT/HCPCS: 70450 ==

== ENCOUNTER 2025-03-23 10:00 | Outpatient (AMB) | payer OTHER, SELFPAY ==
[2025-03-23 10:20] VITALS: BP 122/60; RESP 18
--- NOTE | 2025-03-23 10:20 | MHC.PC.OV ---
Vital Signs 03/23/25 10:20 Height 5 ft 2 in BMI Reason not done Patient refused/unable BP 122/60 Blood Pressure Location Rt brachial Position Sitting Respiration 18 Pulse Source Pulse Oximeter Temp Source Temporal Artery Scan Oxygen Delivery Method Room Air Intake Visit Reasons: DEPRESSION, FOOT PAIN Mayonnaise Mixer Required: No Accompanied by: Self / Same As Patient Allergies No Known Allergies Allergy (Verified 03/23/25 10:39) Medication List - Last Reconciled 03/23/25 by Ashlyn Becker MD alprazolam 0.5 mg PO DAILY 1 day bisacodyl (Dulcolax (bisacodyl)) 10 mg (2 x 5 mg) PO BEDTIME bisacodyl (Fleet Bisacodyl) 10 mg (30 mL) FL ONCE PRN dicyclomine 10 mg PO BID PRN docusate sodium (Colace) 100 mg PO DAILY esomeprazole magnesium 40 mg PO DAILY hydrocortisone 2.5% (Proctosol HC) 1 appl FL BID-QID PRN [id number]-[id number] 36,000-114,000- 180,000 unit (Creon) 1 cap PO QID lubiprostone (Amitiza) 24 mcg PO DAILY ondansetron 4 mg PO Q8H PRN ondansetron HCl 4 mg PO Q8H PRN oxycodone-acetaminophen 5-325 mg (Percocet) 1 tab PO Q8H PRN polyethylene glycol 3350 (Miralax) 17 grams PO BID PRN simethicone 125 mg PO BID-QID PRN sucralfate 1 g PO BID Tobacco use date assessed: 03/23/25 Dental Screening Dental Screen Date: 03/23/25 Did you have a dental visit in the last 12 months?: No Did you have a dental problem in the last 6 months where you did not have access to dental care?: No Was dental information given to patient?: No HPI HPI Comments History of Present Illness Details This is a 59-year-old female with chronic right foot pain that recently had surgical intervention and is now using a walker and a boot. She is complaining about right sciatica most likely secondary to the way she is walking because of foot surgery. I will give her a muscle relaxer. She also has GERD follow by Gastroenterology. She is accompanied by daughter which complains of some cognitive impairment and will be referred to Neurology. PFSH Medical History (Updated 03/23/25 @ 10:50 by Ashlyn Becker MD) Constipation GERD (gastroesophageal reflux disease) Surgical History History of foot surgery History of cataract surgery (~03/2024) History of Family History Sister Colon cancer, Onset Age: 75 Family/Other Colon cancer Social History Housing: Apartment Are you a primary career placement services counselor to a significant other at home: No Do you presently have visiting nurse or other home services: No Unable to assess alcohol history related to: Unknown Alcohol intake: former Patient Tobacco Use Status: Never used Tobacco e-Cigarette/Vaping Use: Never Used Second Hand Smoke Exposure: No Substance Use Type: Marijuana service: No Current occupational status: unemployed Cognitive needs: No Hearing needs: No Vision needs: No Questionnaire PHQ-9 Over the last 2 weeks, how often have you been bothered by any of the following problems? 1. Little interest or pleasure in doing things: several days 2. Feeling down, depressed, or hopeless: several days 3. Trouble falling or staying asleep, or sleeping too much: several days 4. Feeling tired or having little energy: several days 5. Poor appetite or overeating: nearly every day 6. Feeling bad about yourself - or that you are a failure or have let yourself or your family down: not at all 7. Trouble concentrating on things, such as reading the newspaper or watching television: several days 8. Moving or speaking so slowly that other people could have noticed. Or the opposite - being so fidgety or restless that you have been moving around a lot more than usual: several days 9. Thoughts that you would be better off or of hurting yourself in some way: not at all Total score: 9 Depression Screening Interpretation: Positive Depression Screening Follow-up: Existing condition, In treatment and Follow-up Visit Requested Depression Screening Done: Yes 02326 - PHQ-9 Billing: Yes Source: Developed by Drs. Nick L. TerrellNadya treviño, Adrian Mcallister and colleagues, with an educational gail from [employer]. Thrive Questionnaire Date Thrive assessed: 03/23/25 I am a: Patient What is your living situation today?: I have a steady place to live Within the past 12 months, did the food you bought not last and you didn't have the money to get more?: Sometimes True Within the past 12 months, did you worry whether your food would run out before you got money to buy more?: Sometimes True Do you have trouble paying for medicines?: No Do you have trouble getting transportation to medical appointments?: No Do you have trouble paying your heating and electricity bill?: I choose not to answer this question Do you have trouble taking care of your child, family member or friend?: No Do you have trouble with day-to-day activities such as bathing, preparing meals, shopping, managing finances, etc.?: Yes Are you currently unemployed and looking for a job?: No Are you interested in more education?: No Please select the resources that you would like help with: None Currently or been in a relationship where the following occur: I choose not to answer THRIVE Score: 2 AUDIT C Alcohol Use Questionnaire (AUDIT-C) 1. How often do you have a drink containing alcohol?: Never Total Score: 0 Score Reviewed/Action Taken: No EILEEN-7 AMB Questionnaire EILEEN-7 Date EILEEN - 7 assessed: 03/23/25 Feeling nervous, anxious, or on edge: 3 = Nearly every day Not being able to stop or control worryin = Nearly every day Worrying too much about different things: 3 = Nearly every day Trouble relaxin = Nearly every day Being so restless that it is hard to sit still: 3 = Nearly every day Becoming easily annoyed or irritable: 3 = Nearly every day Feeling afraid as if something awful might happen: 1 = Several days Total EILEEN-7 score (0-4 normal; 5-9 mild; 10-14 moderate; 15-21 severe): 19 Source: Developed by Nadya Gomes, Adrian Mcallister and colleagues, with an educational gail from [employer]. EILEEN-7 Assessment Billing EILEEN-7 Assessment Tool: EILEEN-7 Assessment 59240 Review of Systems Const All systems reviewed & are unremarkable except as noted in HPI and below Card Denies chest pain at rest, Denies chest pain with activity, Denies edema, Denies irregular heart rhythm, Denies claudication, Denies dyspnea, Denies dyspnea on exertion, Denies orthopnea, Denies paroxysmal nocturnal dyspnea and Denies slow heart rate Resp Denies cough, Denies dyspnea and Denies dyspnea on exertion Physical exam (Primary Care) Vital Signs: Last Vital Signs Resp 18 03/23/25 10:20 BP 122/60 03/23/25 10:20 Oxygen Delivery Method Room Air 03/23/25 10:20 Tobacco/Smoking Status: Tobacco use Status Tobacco use date assessed 03/23/25 03/23/25 10:32 Patient Tobacco Use Status Never used Tobacco 03/23/25 10:32 e-Cigarette/Vaping Use Never Used 03/23/25 10:32 PHQ-9: PHQ-9 Score PHQ-9: Total score 9 03/23/25 10:43 Depression Screening Interpretation: Positive Depression Screening Follow-up: Existing condition, In treatment and Follow-up Visit Requested Thrive Assessment: Date of Thrive Assessment Date Thrive assessed 03/23/25 03/23/25 10:32 Currently or been in a relationship where the following occur: I choose not to answer Resp Effort & Inspection: normal respiratory effort Auscultation: clear to auscultation bilaterally Cardio Jugular venous distension: no JVD Rate: regular rate Rhythm: regular rhythm Heart sounds: S1 normal heart sound present and S2 normal heart sound present Extrem General: Yes full ROM Coding Level of Care Code Est Pt Level 4 (48365) Complex EM visit Add On G2211 Diagnoses Cognitive impairment R41.89 Right foot pain M79.671 Right sided sciatica M54.31 Gastroesophageal reflux disease, unspecified whether esophagitis present K21.9 Esophagitis presence: esophagitis presence not specified Additional Codes EILEEN-7 Assessment Billing - EILEEN-7 Assessment Tool: EILEEN-7 Assessment 90320 ([id number]) PHQ-9 - 68348 - PHQ-9 Billing: Yes ([id number]) Time Spent (min) 22 Assessment & Plan Assessment & Plan (1) Cognitive impairment: Code(s): R41.89 - Other symptoms and signs involving cognitive functions and awareness Category: Medical (2) Right foot pain: Code(s): M79.671 - Pain in right foot Category: Medical (3) Right sided sciatica: Code(s): M54.31 - Sciatica, right side Category: Medical (4) GERD (gastroesophageal reflux disease): Code(s): K21.9 - Gastro-esophageal reflux disease without esophagitis Category: Medical Qualifiers: Esophagitis presence: esophagitis presence not specified Qualified Code(s): K21.9 - Gastro-esophageal reflux disease without esophagitis Plan Start muscle relaxer as needed for sciatica. Follow-up with podiatry for foot surgery. Continue PPIs and follow-up with Gastroenterology for GERD. I did refer her to Neurology for cognitive impairment. Orders: Referrals Neurology Referral R41.89 - Other symptoms and signs involving cognitive functions and awareness Medications: New baclofen 10 mg PO TID 90 tabs 0RF 30 days
--- OUTSIDE RECORDS SUMMARY | 2025-03-23 11:07 | XMS_ITS | Clinical Summary ---
Author Organization 175 [facility] Address [address] [place] [address] Phone Care Team Providers Care Post Anesthesia Nurse Name Role Phone Ashlyn Becker MD Primary Care Provider [phone] Allergies No known active allergies Medications ammonium [...] 2:00 PM EDT Office Visit Orthopedic Surgery [facility] [address] [phone] Jamar Kyle DPM Acquired hammer toe of right foot (Primary Dx) 03/03/2025 2:59 PM EDT Anesthesia Event [facility] [address] [place] [address] Oscar Monk DO Steele, Matthew G, CRNA 03/03/2025 1:02 PM EDT - 03/03/2025 2:47 PM EDT Surgery [facility] OR [address] [place] [phone] Jamar Kyle DPM REPAIR HAMMER TOE [31529 (CPT ) +3 more] 03/03/2025 12:02 PM EDT - 03/03/2025 5:05 PM EDT Hospital Encounter [facility] [address] [place] [phone] Jamar Kyle DPM Metatarsalgia of right foot; Dermatofibroma of right lower leg; Acquired hammer toe of right foot; Verruca plantaris Discharge Disposition: Home or Self Care 02/27/2025 8:00 AM EDT Consult Orthopedic Surgery [facility] [address] [phone] Jamar Kyle DPM Acquired hammer toe of right foot (Primary Dx); Metatarsalgia of right foot; Dermatofibroma of right lower leg; Verruca plantaris 02/15/2025 Telephone Orthopedic Surgery [facility] [address] [phone] Jamar Kyle DPM 01/09/2025 2:30 PM EDT Office Visit Orthopedic Surgery [facility] [address] [phone] Jamar Kyle DPM Acquired hammer [...] reflux disease) Degenerative joint disease Ulcerative colitis ([facility] V24, [facility] V28) ALMAGUER (nonalcoholic steatohepatitis) Social History Tobacco [...] AM EDT Office Visit Orthopedic Surgery - [place] [address] [phone] Jamar Kyle, DPM [address] [phone] Health Maintenance Due Date Last [...] hammer toe of right foot Verruca plantaris AL BIOPSY SKIN PUNCH SINGLE LESION 03/03/2025 3:01 PM EDT Metatarsalgia of right foot Dermatofibroma of right lower leg Acquired hammer toe of right foot Verruca plantaris Case Notes MINI C-ARM, k wires; COAT HANGER SHAPER MACHINE OPERATOR Special Needs Contacted pt, requested surgery 03/03 12:45pm AL OSTECTOMY COMPLETE EXCISION OTHER METATARSAL HEAD 03/03/2025 3:01 PM EDT Metatarsalgia of right foot Dermatofibroma of right lower leg Acquired hammer toe of right foot Verruca plantaris Case Notes MINI C-ARM, k wires; COAT HANGER SHAPER MACHINE OPERATOR Special Needs Contacted pt, requested surgery 03/03 12:45pm AL CORRECTION HAMMERTOE 03/03/2025 3:01 PM EDT Metatarsalgia of right foot Dermatofibroma of right lower leg Acquired hammer toe of right foot Verruca plantaris Case Notes MINI C-ARM, k wires; COAT HANGER SHAPER MACHINE OPERATOR Special Needs Contacted pt, requested surgery 03/03 12:45pm XR FOOT 3+ VIEWS RIGHT Routine 01/09/2025 2:33 PM EDT Follow-up exam from Last 3 Months Results * XR Foot 3+ Views Right (03/03/2025 4:27 PM EDT) Only the most recent of2 resultswithin the time period is included. Anatomical Region Laterality Modality Lower Extremities, Foot Right [facility] 03/03/2025 4:49 PM EDT Impressions 03/03/2025 4:53 PM EDT FINDINGS/IMPRESSION: Postoperative changes at the 5th toe with overlying soft tissue swelling. Anatomic alignment. No fracture. -------- FINAL REPORT -------- Dictated By: MARTÍNEZ KEENE Dictated Date: 03/03/2025 16:49 ET Assigned Physician: MARTÍNEZ KEENE Reviewed and Electronically Signed By: MARTÍNEZ KEENE Signed Date: 03/03/2025 16:53 ET Workstation ID: [id number] Transcribed By: Self Edit Transcribed Date: 03/03/2025 [...] Signed Date: 03/03/2025 16:53 ET Workstation ID: [id number] Transcribed By: Self Edit Transcribed Date: 03/03/2025 [...] of a dermatofibroma. 03/07/2025 2:01 PM EDT [facility] Gross Description A. Foot, Right, [...] slide.. EVELYN EVELYN 03/07/2025 2:01 PM EDT [facility] Disclaimer Unless otherwise specified, all tissue is 10% NB formalin fixed and paraffin embedded. 03/07/2025 2:01 PM T [facility] Tissue Structure of right foot [...] Final Result [facility] [address] [place] [address], [place] [phone] from Last 3 Months [facility] [employer] Care Teams Post Anesthesia Nurse Relationship Specialty Start Date End Date Ashlyn Becker MD [address] [place] [phone] PCP - General Internal Medicine 02/23/25
== END 2025-03-23 10:51 | disposition home or self-care (01) ==
LOC: HO.HMCH 10:01
PROVIDERS: PCP Internal Medicine; Visit Provider Internal Medicine
DX: R41.89 Other symptoms and signs involving cognitive functions and awareness (principal); M79.671 Pain in right foot; M54.31 Sciatica, right side; K21.9 Gastro-esophageal reflux disease without esophagitis

== ENCOUNTER → 2025-03-23 10:00 | Outpatient (BNVA) | payer OTHER, SELFPAY | PROVIDERS: PCP Internal Medicine; Visit Provider Internal Medicine | DX: M79.671 Pain in right foot (principal); M54.31 Sciatica, right side; K21.9 Gastro-esophageal reflux disease without esophagitis; R41.89 Other symptoms and signs involving cognitive functions and awareness | CPT/HCPCS: 96127; 99212 ==

== ENCOUNTER 2025-04-06 10:52 | Outpatient (AMB) | payer OTHER, SELFPAY ==
--- NOTE | 2025-04-06 10:53 | A.OFFVIS_ITS ---
Vital Signs 04/06/25 11:03 Height 5 ft 2 in Weight 125 lb BMI 22.9 BP 102/61 Blood Pressure Location Rt radial Position Sitting Pulse 85 Intake Visit Reasons: Rt upper abd pain Intake Note: Patient seen at [facility] for abdominal pain in January 2025. Patient c/o: RUQ pain that spreads to back. Denies nausea. Imaging: MRI abdomen~ 02-05-2025, Abdomen pelvis CT 02-05-2025, Abdomen pelvis US 02-03-2025 Roto Mixer Operator Required: No Information Interpreted: clinical only (Alyssa HARTMAN) Accompanied by: daughter Carissa Allergies No Known Allergies Allergy (Verified 04/06/25 11:00) Medication List - Last Reconciled 04/06/25 by Moihnder Montana MD alprazolam 0.5 mg PO DAILY 1 day baclofen 10 mg PO TID 30 days bisacodyl (Dulcolax (bisacodyl)) 10 mg (2 x 5 mg) PO BEDTIME bisacodyl (Fleet Bisacodyl) 10 mg (30 mL) MO ONCE PRN dicyclomine 10 mg PO BID PRN docusate sodium (Colace) 100 mg PO DAILY esomeprazole magnesium 40 mg PO DAILY hydrocortisone 2.5% (Proctosol HC) 1 appl MO BID-QID PRN [id number]-wtjwogez-rorfzpr 36,000-114,000- 180,000 unit (Creon) 1 cap PO QID lubiprostone (Amitiza) 24 mcg PO DAILY ondansetron 4 mg PO Q8H PRN ondansetron HCl 4 mg PO Q8H PRN polyethylene glycol 3350 (Miralax) 17 grams PO BID PRN simethicone 125 mg PO BID-QID PRN sucralfate 1 g PO BID HPI HPI Rt upper abd pain: Details: [age] year old female referred for chronic abdominal pain. She says that she has had abdominal pain which seems to be mostly consent but would come and go with severe episodes for so many years now. She says that has lost a lot of weight already because of this as she would get nauseous with food as well. She denies any vomiting. She does describe her pain to be mostly in the right side. She says this would radiate to the entire back a lot of times. She admits to chronic constipation. She says she takes Dulcolax for her to have bowel movements She has been following the group exercise manager service. She had endoscopy in the early this year and she was told she had gastritis. She says she has never had any colonoscopy. She denies any bleeding per rectum. [facility] Medical History Pancreatic atrophy Constipation GERD (gastroesophageal reflux disease) Surgical History History of foot surgery History of cataract surgery (~03/2024) History of Family History Sister Colon cancer, Onset Age: 75 Family/Other Colon cancer Social History Housing: Apartment Are you a primary patient care to a significant other at home: No Do you presently have visiting nurse or other home services: No Unable to assess alcohol history related to: Unknown Alcohol intake: former Patient Tobacco Use Status: Never used Tobacco e-Cigarette/Vaping Use: Never Used Second Hand Smoke Exposure: No Substance Use Type: Marijuana service: No Current occupational status: unemployed Cognitive needs: No Hearing needs: No Vision needs: No Review of Systems Const Denies chills and Denies fever(s) Card Denies chest pain, Denies dyspnea and Denies dyspnea on exertion Resp Denies cough, Denies dyspnea and Denies dyspnea on exertion GI Denies hematochezia and Denies change in bowel habits Denies hematuria Musc Denies back pain and Denies limited range of motion Neuro Denies focal weakness and Denies convulsions Psych Denies depression and Denies mood swings Physical Exam Vital Signs: Last Vital Signs Pulse 85 04/06/25 11:03 BP 102/61 04/06/25 11:03 BMI result Body Mass Index 22.9 Const General: comfortable and no acute distress Orientation/consciousness: patient oriented x3 Neck Neck: Yes no lymphadenopathy Resp Auscultation: clear to auscultation bilaterally Cardio Rhythm: regular rhythm GI Other: Protuberant with no palpable mass Palpation (GI): Soft to palpation, nontender and no guarding Neuro General: patient oriented x3 Assessment & Plan Assessment & Plan (1) Chronic abdominal pain: Code(s): R10.9 - Unspecified abdominal pain; G89.29 - Other chronic pain Category: Medical Plan: She has had chronic abdominal pain as described above for so many years I have reviewed her multiple imaging studies including CAT scans, MRIs, HIDA scan and ultrasound. There is no identifiable etiology. She does not have any gallstones or any pathology in the colon Her abdominal exam is otherwise benign She does have chronic constipation so this may be contributory to her pain I have recommended for her to undergo a colonoscopy. I am going to start her on Colace and Metamucil as well and I told her to stop Dulcolax . Her family was with her during the visit. Coding Level of Care Code New Pt Level 3 (79154) Diagnoses Chronic abdominal pain R10.9; G89.29
[2025-04-06 11:03] VITALS: BP 102/61; PULSE 85; BMI 22.9
--- OUTSIDE RECORDS SUMMARY | 2025-04-06 13:00 | XMS_ITS | Clinical Summary ---
Author Organization 175 [facility] Address [address] [place] [address] Phone Care Team Providers Care Study Assistant Name Role Phone Ashlyn Becker MD Primary Care Provider [phone] Allergies No known active allergies Medications ammonium [...] Amount: 30 mg 35 tablet 5 Active baclofen (LIORESAL) 10 mg tablet Take 1 tablet (10 mg total) by mouth. 5 Active acetaminophen (TYLENOL 8 HOUR) 650 mg 8 hr tablet Take 1 tablet (650 mg total) by mouth every 8 (eight) hours if needed for mild pain for up to 10 days. Do not crush, chew, or split. 30 tablet 03/13/20 oxyCODONE (ROXICODONE) 5 mg immediate release tabletIndicatio ns:Acquired hammer toe of right foot Take 1 tablet (5 mg total) by mouth every 4 (four) hours if needed for severe pain for up to 7 days. Max Daily Amount: 30 mg 35 tablet 03/23/20 Active Problems Problem Noted Date Diagnosed Date Metatarsalgia of right foot 01/09/2025 Dermatofibroma of right lower leg 01/09/2025 Acquired hammer toe of right foot 01/09/2025 Verruca plantaris 01/09/2025 Encounters Date Type Department Care Team Description 03/27/2025 8:15 AM EDT Office Visit Orthopedic Surgery [place] [address] [phone] Jamar Kyle DPM Post-operative state (Primary Dx) 03/16/2025 2:00 PM EDT Office Visit Orthopedic Surgery [address] [phone] Jamar Kyle DPM Acquired hammer toe of right foot (Primary Dx) 03/03/2025 2:59 PM EDT Anesthesia Event [facility] OR [address] [place] [phone] Oscar Monk DO Steele, Matthew G, CRNA 03/03/2025 1:02 PM EDT - 03/03/2025 2:[address] [facility] OR [address] [place] [phone] Jamar Kyle DPM REPAIR HAMMER TOE [83698 (CPT ) +3 more] 03/03/2025 12:02 PM EDT - 03/03/2025 5:05 PM EDT Hospital Encounter [facility] OR [address] [place] [phone] Jamar Kyle DPM Metatarsalgia of right foot; Dermatofibroma of right lower leg; Acquired hammer toe of right foot; Verruca plantaris Discharge Disposition: Home or Self Care 02/27/2025 8:00 AM EDT Consult Orthopedic Surgery [place] [address] [phone] Jamar Kyle DPM Acquired hammer toe of right foot (Primary Dx); Metatarsalgia of right foot; Dermatofibroma of right lower leg; Verruca plantaris 02/15/2025 Telephone Orthopedic Surgery [place] [address] [phone] Jamar Kyle DPM 01/09/2025 2:30 PM EDT Office Visit Orthopedic Surgery [place] [address] [phone] Jamar Kyle DPM Acquired hammer toe of right foot (Primary Dx); Follow-up exam; Metatarsalgia of right foot; Dermatofibroma of right lower leg; Verruca plantaris from Last 3 Months Surgical History Surgery Date Site/Laterality Comments CATARACT EXTRACTION, BILATERAL EYE SURGERY SECTION, LOW TRANSVERSE X 3 FOOT SURGERY X 5 Medical History Medical History Date Comments GERD (gastroesophageal reflux disease) Degenerative joint disease Ulcerative colitis ([facility] V24, [facility] V28) ALMAGUER (nonalcoholic steatohepatitis) Social History Tobacco [...] Care Team (Late st Contact Info) Description 05/08/2025 8:45 AM EDT Office Visit Orthopedic Surgery - [place] [address] [phone] Jamar Kyle, DPM [address] [phone] Health Maintenance Due Date Last [...] Comments XR FOOT 3+ VIEWS RIGHT Routine 03/27/2025 8:17 AM EDT Post-operative state XR FOOT 3+ VIEWS RIGHT Routine 03/03/2025 4:27 PM EDT TISSUE EXAM Routine 03/03/2025 3:26 PM EDT Metatarsalgia of right foot Dermatofibroma of right lower leg Acquired hammer toe of right foot Verruca plantaris [place] BIOPSY SKIN PUNCH SINGLE LESION 03/03/2025 3:01 PM EDT Metatarsalgia of right foot Dermatofibroma of right lower leg Acquired hammer toe of right foot Verruca plantaris Case Notes MINI C-ARM, k wires; TOUR ESCORT Special Needs Contacted pt, requested surgery 03/03 12:45pm [place] OSTECTOMY COMPLETE EXCISION OTHER METATARSAL HEAD 03/03/2025 3:01 PM EDT Metatarsalgia of right foot Dermatofibroma of right lower leg Acquired hammer toe of right foot Verruca plantaris Case Notes MINI C-ARM, k wires; TOUR ESCORT Special Needs Contacted pt, requested surgery 03/03 12:45pm [place] CORRECTION HAMMERTOE 03/03/2025 3:01 PM EDT Metatarsalgia of right foot Dermatofibroma of right lower leg Acquired hammer toe of right foot Verruca plantaris Case Notes MINI C-ARM, k wires; TOUR ESCORT Special Needs Contacted pt, requested surgery 03/03 12:45pm XR FOOT 3+ VIEWS RIGHT Routine 01/09/2025 2:33 PM EDT Follow-up exam from Last 3 Months Results * XR Foot 3+ Views Right (03/27/2025 8:17 AM EDT) Only the most recent of3 resultswithin the time period is included. Anatomical Region Laterality Modality Lower Extremities, Foot Right Computed Radiography Narrative 03/27/2025 1:02 PM EDT Right foot 3 views Stable postoperative changes without acute findings us Jamar Villalobos Kyle DPM IMG XR PROCEDURES Final R [...] entirely ruled out. 03/07/2025 2:01 PM EDT [facility] Comment C) There is no evidence of a dermatofibroma. 03/07/2025 2:01 PM EDT [facility] Gross Description A. Foot, Right, 4th [...] slide.. EVELYN EVELYN 03/07/2025 2:01 PM EDT [facility] Disclaimer Unless otherwise specified, all tissue is 10% NB formalin fixed and paraffin embedded. 03/07/2025 2:01 PM EDT [facility] Tissue Structure of right foot / Unknown 03/03/2025 3:26 PM EDT 03/03/2025 4:04 PM EDT Tissue specimen (specimen) Structure of right foot / Unknown 03/03/2025 3:42 PM EDT 03/03/2025 4:04 PM EDT Tissue specimen (specimen) Structure of right foot / Unknown 03/03/2025 3:43 PM EDT 03/03/2025 4:04 PM EDT Jamar Kyle DPM LAB PATHOLOGY ORDERABLES Final Result [facility] [address] [place] [address], from Last 3 Months Insurance [facility] Care Teams Study Assistant Relationship Specialty Start Date End Date Ashlyn Becker MD [address] [place] [phone] PCP - General Internal Medicine 02/23/25
== END 2025-04-06 11:12 | disposition home or self-care (01) ==
LOC: HO.HGS 10:53
PROVIDERS: PCP Internal Medicine; Visit Provider Surgery
DX: R10.9 Unspecified abdominal pain (principal); G89.29 Other chronic pain
CPT/HCPCS: 99203

== ENCOUNTER → 2025-04-06 10:52 | Outpatient (BNVA) | payer OTHER, SELFPAY | PROVIDERS: PCP Internal Medicine; Visit Provider Surgery | DX: R10.9 Unspecified abdominal pain (principal); G89.29 Other chronic pain | CPT/HCPCS: 99202 ==

== ENCOUNTER 2025-04-13 11:01 | Outpatient (REF) | payer MEDICAID, SELFPAY ==
--- NOTE | ~2025-04-13 | XR_ITS ---
EXAMINATION: XR ABDOMEN 3 VIEWS HISTORY: R10.13 - Epigastric pain COMPARISON: Comparison is made with the prior examination dated 12/14/2024. FINDINGS: Supine and upright views of the abdomen are submitted. The bowel gas pattern is unremarkable, without evidence of mechanical obstruction. There is no free intraperitoneal gas. There is a large amount of stool throughout the colon. Multiple phleboliths are noted in the pelvis. There are no abnormal soft tissue masses. The bones are intact. XR/XR abdomen 3V IMPRESSION: Large amount of stool throughout the colon. Electronically signed by: Nick Beard MD 04/13/2025 01:49 PM EDT
[2025-04-13 13:41] LABS: Hematocrit 40.0 % (37.0-47.0); Hemoglobin 12.6 g/dl (12.0-16.0); Imm Gran Abs Auto 0.01 X10*3/uL (0.00-0.03); Imm Gran Pct Auto 0.1 % (0.0-0.4); Lymphocytes Absolute Auto 4.6 X10*3/uL (1.2-4.9); MANUAL DIFF FLAG SCAN; Mean Corpuscular HGB Conc 31.5 g/dl (31.0-35.0); Mean Corpuscular Hemoglobin 26.6 pg (27.0-33.0); Mean Corpuscular Volume 84.6 fL (80.0-98.0); NRBC Abs Auto 0.000 X10*3/uL (0.0-0.012); NRBC Pct Auto 0.0 /100WBC (0.0-0.2); Platelet Count 282 X10*3/uL (160-400); Red Blood Count 4.73 X10*6/uL (4.20-5.50); SCAN SMEAR FLAG 1; White Blood Count 7.5 X10*3/uL (4.8-10.8)
[2025-04-13 14:06] LABS: Alanine Aminotransferase 20 U/L (0-31); Albumin Level 4.6 g/dL (3.5-5.0); Alkaline Phosphatase 90 U/L (39-117); Anion Gap 12 (12-20); Aspartate Amino Transferase 24 U/L (5-31); Blood Urea Nitrogen 14 mg/dL (9-16); Calcium 9.6 mg/dL (8.4-10.2); Carbon Dioxide 31 mmol/L (22-29); Chloride 107 mmol/L (96-108); Estimated Glomerular Filt Rate > 60; Potassium 4.1 mmol/L (3.3-5.1); Sodium 146 mmol/L (135-145); Total Protein 7.3 g/dL (6.5-8.0)
[2025-04-13 14:21] LABS: Erythrocyte Sedimentation Rate 21 MM/HR (0-20)
== END 2025-04-13 11:02 | disposition home or self-care (01) ==
LOC: HO.LAB 11:01
PROVIDERS: PCP Internal Medicine; Visit Provider Internal Medicine
DX: R10.13 Epigastric pain (principal); R10.84 Generalized abdominal pain; D64.9 Anemia, unspecified; M79.7 Fibromyalgia; Z79.899 Other long term (current) drug therapy
CPT/HCPCS: 36415; 74021; 80053; 85025; 85652; 86140; 99212

== ENCOUNTER 2025-04-13 11:01 | Outpatient (AMB) | payer MEDICAID, SELFPAY ==
[2025-04-13 11:52] VITALS: BP 118/80; PULSE 80; O2SAT 97
--- NOTE | 2025-04-13 11:52 | MHC.PC.OV ---
Vital Signs 04/13/25 11:52 Height 5 ft 2 in BMI Reason not done Patient refused/unable BP 118/80 Blood Pressure Location Lt brachial Position Sitting Pulse 80 Pulse Source Pulse Oximeter Pulse Oximetry (%) 97 Oxygen Delivery Method Room Air Intake Visit Reasons: Stomach ache Patient Services Technician Required: No Accompanied by: Self / Same As Patient Allergies No Known Allergies Allergy (Verified 04/13/25 12:37) Medication List - Last Reconciled 04/13/25 by Jose Gottlieb MD alprazolam 0.5 mg PO DAILY 1 day baclofen 10 mg PO TID 30 days bisacodyl (Dulcolax (bisacodyl)) 10 mg (2 x 5 mg) PO BEDTIME bisacodyl (Fleet Bisacodyl) 10 mg (30 mL) OK ONCE PRN dicyclomine 10 mg PO BID PRN docusate sodium (Colace) 100 mg PO DAILY docusate sodium (Colace) 100 mg PO BID esomeprazole magnesium 40 mg PO DAILY hydrocortisone 2.5% (Proctosol HC) 1 appl OK BID-QID PRN rgclpe-awgcnrrq-wkrnzbe 36,000-114,000- 180,000 unit (Creon) 1 cap PO QID lubiprostone (Amitiza) 24 mcg PO DAILY ondansetron 4 mg PO Q8H PRN ondansetron HCl 4 mg PO Q8H PRN polyethylene glycol 3350 (Miralax) 17 grams PO BID PRN psyllium husk (Metamucil) 1 tbsp PO BID simethicone 125 mg PO BID-QID PRN sucralfate 1 g PO BID Tobacco use date assessed: 04/13/25 Dental Screening Dental Screen Date: 04/13/25 Did you have a dental visit in the last 12 months?: No Did you have a dental problem in the last 6 months where you did not have access to dental care?: No Was dental information given to patient?: No HPI Stomach ache HPI Details Patient comes in today complaining of increased diffuse abdominal pain that she states started yesterday after she ate some chicken that was bought from her local [facility] [employer] food restaurant States that she went to the bathroom and relates that while she was inside the bathroom, her mind suddenly went blank and she reportedly passed out but she did not suffer any head trauma as her daughter supposedly was able to catch her before she fell Her daughter states that patient was only out for a couple of minutes and as soon as she regained consciousness, she started throwing up and this has been going on since She is still currently experiencing some dry heaving at times She denies any diarrhea or change in bowel habits lately - states that she is normally constipated and still is She denies any fever, headaches or dizziness Denies any chest pains, no increased SOB PFSH Medical History Pancreatic atrophy Constipation GERD (gastroesophageal reflux disease) Surgical History History of foot surgery History of cataract surgery (~03/2024) History of Family History Sister Colon cancer, Onset Age: 75 Family/Other Colon cancer Social History Housing: Apartment Are you a primary patient care specialist to a significant other at home: No Do you presently have visiting nurse or other home services: No Alcohol intake: former Patient Tobacco Use Status: Never used Tobacco e-Cigarette/Vaping Use: Never Used Second Hand Smoke Exposure: No Substance Use Type: Marijuana service: No Current occupational status: unemployed Cognitive needs: No Hearing needs: No Vision needs: No Questionnaire PHQ-9 Over the last 2 weeks, how often have you been bothered by any of the following problems? Depression Screening Interpretation: Negative Depression Screening Done: Yes Source: Developed by Drs. Nick Tejada, Nadya Vyas, Adrian Mcallister and colleagues, with an educational gail from [employer]. Thrive Questionnaire Date Thrive assessed: 12/13/24 I am a: Patient What is your living situation today?: I have a steady place to live Within the past 12 months, did the food you bought not last and you didn't have the money to get more?: Sometimes True Within the past 12 months, did you worry whether your food would run out before you got money to buy more?: Sometimes True Do you have trouble paying for medicines?: No Do you have trouble getting transportation to medical appointments?: No Do you have trouble paying your heating and electricity bill?: I choose not to answer this question Do you have trouble taking care of your child, family member or friend?: No Do you have trouble with day-to-day activities such as bathing, preparing meals, shopping, managing finances, etc.?: Yes Are you currently unemployed and looking for a job?: No Are you interested in more education?: No Please select the resources that you would like help with: None Currently or been in a relationship where the following occur: I choose not to answer THRIVE Score: 2 AUDIT C Alcohol Use Questionnaire (AUDIT-C) 1. How often do you have a drink containing alcohol?: Never 3. How often do you have six or more drinks on one occasion?: Never Total Score: 0 Score Reviewed/Action Taken: No EILEEN-7 AMB Questionnaire EILEEN-7 Date EILEEN - 7 assessed: 03/23/25 Source: Developed by Drs. Nick Tejada, Nadya Vyas, Adrian Mcallister and colleagues, with an educational gail from [employer]. Review of Systems Const Denies chills, Reports fatigue, Denies fever(s) and Denies headache(s) ENT Denies dysphagia, Denies dizziness, Denies otalgia, Denies headache(s), Denies neck pain, Denies odynophagia and Denies sore throat Card Denies chest pain, Denies palpitations and Denies dyspnea Resp Denies chest congestion, Denies cough and Denies dyspnea GI Reports abdominal pain (diffuse), Reports constipation (chronic), Denies dysphagia, Denies heartburn, Denies diarrhea, Reports nausea (recurrent), Denies odynophagia and Denies vomiting (but reports (+) dry heaving at times) Denies difficulty voiding, Denies nocturia, Denies dysuria and Denies urinary urgency Musc Denies back pain and Denies neck pain Skin/Breast Denies rash Neuro Details: (+) syncopal episode a couple of days ago - see HPI Denies dizziness and Denies headache(s) Endo Reports fatigue and Denies palpitations Physical exam (Primary Care) Vital Signs: Last Vital Signs Pulse 80 04/13/25 11:52 BP 118/80 04/13/25 11:52 Pulse Ox 97 04/13/25 11:52 Oxygen Delivery Method Room Air 04/13/25 11:52 Tobacco/Smoking Status: Tobacco use Status Tobacco use date assessed 04/13/25 04/13/25 11:57 Patient Tobacco Use Status Never used Tobacco 04/13/25 11:57 e-Cigarette/Vaping Use Never Used 04/13/25 11:57 Depression Screening Interpretation: Negative Thrive Assessment: Date of Thrive Assessment Date Thrive assessed 12/13/24 04/13/25 11:57 Currently or been in a relationship where the following occur: I choose not to answer Const General: no acute distress and alert HENMT Ears: TM's normal bilaterally and EAC's normal Throat: Yes posterior oropharynx normal and Yes tonsils normal (no TP congestion) Neck Neck: Yes supple and No lymphadenopathy Thyroid: Thyroid normal Resp Auscultation: clear to auscultation bilaterally, no rales and no wheezes Cardio Rate: regular rate Rhythm: regular rhythm Heart sounds: no murmurs GI Palpation (GI): Tenderness to palpation present (GI) (diffuse), no guarding, not rigid and No Rebound tenderness present Auscultation: normal bowel sounds General: Yes no CVA tenderness Back/Spine/Pelvis Back: no CVA tenderness Thoracic/Lumbar Spine: No lumbar spinal tenderness Skin Rashes: no rashes Extrem General: Yes no clubbing, cyanosis or edema Coding Level of Care Code Est Pt Level 4 (98727) Diagnoses Diffuse abdominal pain R10.84 Assessment & Plan Assessment & Plan (1) Diffuse abdominal pain: Code(s): R10.84 - Generalized abdominal pain Category: Medical Plan: Advised patient that her current abdominal symptoms are likely due to gastroenteritis due to food poisoning superimposed on her chronic constipation Will send her for some labs as well as abdominal x-rays ALTAF for further evaluation Have advised her to make sure she keeps up with her oral fluid intake to prevent dehydration Will start her in the meantime on Ondansetron 4 mg Q 8 hours PRN for symptomatic relief Advised patient that we will reach out to her with further instructions as appropriate once the results of her labs and x-rays show any pertinent findings or information Plan To return as scheduled in May 2025 for her annual physical examination with her PCP Orders: Orders Erythrocyte Sedimentation Rate 04/13/25 M79.7 - Fibromyalgia, R10.13 - Epigastric pain Comprehensive Met. Panel 04/13/25 R10.13 - Epigastric pain C Reactive Protein 04/13/25 R10.13 - Epigastric pain Complete Blood Count Auto Diff 04/13/25 D64.9 - Anemia, unspecified, R10.13 - Epigastric pain XR abdomen 3V 04/13/25 R10.13 - Epigastric pain Medications: New ondansetron 4 mg PO Q8H PRN 30 tabs 1RF nausea and vomiting 10 days
--- OUTSIDE RECORDS SUMMARY | 2025-04-13 15:17 | XMS_ITS | Clinical Summary ---
Author Organization 175 [facility] Address [address] [place] [address] Phone Care Team Providers Care Slip Cover Seamstress Name Role Phone Ashlyn Becker MD Primary Care Provider [phone] Allergies No known active allergies Medications ammonium [...] (10 mg total) by mouth. 5 Active oxyCODONE (ROXICODONE) 5 mg immediate [...] 8:15 AM EDT Office Visit Orthopedic Surgery [address] [phone] Jamar Kyle DPM Post-operative state (Primary Dx) 03/16/2025 2:00 PM EDT Office Visit Orthopedic Surgery [place] [address] [phone] Jamar Kyle DPM Acquired hammer toe of right foot (Primary Dx) 03/03/2025 2:59 PM EDT Anesthesia Event [facility] OR [address] [place] [phone] Oscar Monk DO Steele, Matthew G, CRNA 03/03/2025 1:02 PM EDT - 03/03/2025 2:47 PM EDT Surgery [facility] OR [address] [place] [phone] Jamar Kyle DPM REPAIR HAMMER TOE [94126 (CPT ) +3 more] 03/03/2025 12:02 PM EDT - 03/03/2025 5:05 PM EDT Hospital Encounter [facility] OR [address] [place] [phone] Jamar Kyle DPM Metatarsalgia of right foot; Dermatofibroma of right lower leg; Acquired hammer toe of right foot; Verruca plantaris Discharge Disposition: Home or Self Care 02/27/2025 8:00 AM EDT Consult Orthopedic Surgery [facility] [address] [phone] Jamar Kyle DPM Acquired hammer toe of right foot (Primary Dx); Metatarsalgia of right foot; Dermatofibroma of right lower leg; Verruca plantaris 02/15/2025 Telephone Orthopedic [facility] [address] [phone] Jamar Kyle DPM from Last 3 Months Surgical History Surgery Date Site/Laterality Comments CATARACT EXTRACTION, BILATERAL EYE SURGERY SECTION, LOW TRANSVERSE X 3 FOOT SURGERY X 5 Medical History Medical History Date Comments GERD (gastroesophageal reflux disease) Degenerative joint disease Ulcerative colitis ([facility] V24, [facility] V28) ALMAGUER (nonalcoholic steatohepatitis) Social [...] Care Team (Late st Contact Info) Description 04/14/2025 1:30 PM EDT Office Visit Orthopedic Surgery [facility] [address] [place] [phone] Jamar Kyle DPM [address] [phone] 05/08/2025 8:45 AM EDT Office Visit Orthopedic Surgery - [place] 250 175 [facility] [address] [place] [phone] Jamar Kyle DPM [address] [phone] Health Maintenance Due Date Last Done Comments [...] hammer toe of right foot Verruca plantaris [place] BIOPSY SKIN PUNCH SINGLE LESION 03/03/2025 3:01 PM EDT Metatarsalgia of right foot Dermatofibroma of right lower leg Acquired hammer toe of right foot Verruca plantaris Case Notes MINI C-ARM, k wires; MIXING TUMBLER OPERATOR Special Needs Contacted pt, requested surgery 03/03 12:45pm [place] OSTECTOMY COMPLETE EXCISION OTHER METATARSAL HEAD 03/03/2025 3:01 PM EDT Metatarsalgia of right foot Dermatofibroma of right lower leg Acquired hammer toe of right foot Verruca plantaris Case Notes MINI C-ARM, k wires; MIXING TUMBLER OPERATOR Special Needs Contacted pt, requested surgery 03/03 12:45pm [place] CORRECTION HAMMERTOE 03/03/2025 3:01 PM EDT Metatarsalgia of right foot Dermatofibroma of right lower leg Acquired hammer toe of right foot Verruca plantaris Case Notes MINI C-ARM, k wires; MIXING TUMBLER OPERATOR Special Needs Contacted pt, requested surgery 03/03 12:45pm from Last 3 Months Results * XR Foot 3+ Views Right (03/27/2025 8:17 AM EDT) Only the most recent of2 resultswithin the time period is included. Anatomical Region Laterality Modality Lower Extremities, Foot Right Computed Radiography Narrative 03/27/2025 1:02 PM EDT Right foot 3 views Stable postoperative changes without acute findings us Jamar Kyle DPGriselda IMG XR PROCEDURES [...] entirely ruled out. 03/07/2025 2:01 PM EDT [facility] Comment C) There is no evidence of a dermatofibroma. 03/07/2025 2:01 PM EDT [facility] Gross Description A. Foot, Right, 4th [...] slide.. EVELYN EVELYN 03/07/2025 2:01 PM EDT [facility] Disclaimer Unless otherwise specified, all tissue is 10% NB formalin fixed and paraffin embedded. 03/07/2025 2:01 PM EDT [facility] Tissue Structure of right foot / Unknown 03/03/2025 3:26 PM EDT 03/03/2025 4:04 PM EDT Tissue specimen (specimen) Structure of right foot / Unknown 03/03/2025 3:42 PM EDT 03/03/2025 4:04 PM EDT Tissue specimen (specimen) Structure of right foot / Unknown 03/03/2025 3:43 PM EDT 03/03/2025 4:04 PM EDT Jamar Kyle DPM LAB PATHOLOGY ORDERABLES Final Result [facility] [address] [place] [address], from Last 3 Months Insurance [facility] Care Teams Slip Cover Seamstress Relationship Specialty Start Date End Date Ashlyn Becker MD [address] [place] [address] PCP - General Internal Medicine 02/23/25
== END 2025-04-13 13:14 | disposition home or self-care (01) ==
LOC: HO.HMCH 11:02
PROVIDERS: PCP Internal Medicine; Visit Provider Internal Medicine
DX: R10.84 Generalized abdominal pain (principal)

== ENCOUNTER → 2025-04-13 13:06 | Outpatient (BNV) | payer MEDICAID, SELFPAY | PROVIDERS: PCP Internal Medicine; Visit Provider Radiology Diagnostic Radiology | DX: K59.00 Constipation, unspecified (principal) | CPT/HCPCS: 74021 ==

== ENCOUNTER 2025-04-19 08:08 | Outpatient (AMB) | payer OTHER, SELFPAY ==
--- OUTSIDE RECORDS SUMMARY | 2025-04-14 13:30 | XMS_ITS | Encounter Summary ---
Author Organization [facility] Address [address] [place] [phone] Care Team Providers Care Associate Professor Of Pathology Name Role Phone Ashlyn Becker MD Primary Care Provider [phone] Reason for Visit * Reason Comments Post-op Acquired hammer toe of right foot Encounter Details Date Type Department Care Team ([facility] st Contact Info) Description 04/14/2025 1:30 PM EDT Office Visit Orthopedic Surgery - [place] [address] [phone] Jamar Kyle DPM [address] [phone] Post-operative state (Primary Dx) Social History Tobacco Use Types Packs/Day Years Used Date Smoking Tobacco: Never Smokeless Tobacco: Never Alcohol Use Standard Drinks/Week Comments Not Currently 0 (1 standard drink = 0.6 oz pur e alcohol) Interpersonal Safety Answer Date Record ed Physical Abuse Unrecognized value 03/03/2025 Verbal Abuse Unrecognized value 03/03/2025 Comments No Sex and Gender Information Value Date Recorded Sex Assigned at Not on file Legal Sex Female 3:50 PM EDT Gender Identity Not on file Sexual Orientation Not on file documented as of this encounter Progress Notes * Jamar Kyle DPM - 04/14/2025 1:30 PM EDT S Patient status post surgery on 03/03/2025 doing well at this time request refills of pain medicationreports that she is having chronic swelling she is frustrated pain is well-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 ID # [id number] ROS: GENERAL: Pt denies nausea, fever, vomiting, [...] of systems is noncontributory PAST MEDICAL HISTORY: Patient Active Problem List Diagnosis Metatarsalgia of right foot Dermatofibroma of right lower leg Acquired hammer toe of right foot Verruca plantaris SOCIAL HISTORY: Social History Tobacco Use Smoking status: Never Smokeless tobacco: Never Substance Use Topics Alcohol use: Not Currently ACTIVE MEDICATIONS: Outpatient Medications Marked as Taking for the 04/14/25 encounter (Office Visit) with Jamar Coleman DPM Medication Sig Dispense Refill ammonium lactate (AmLactin) 12 % lotion Apply topically if needed for dry skin. 400 g 0 baclofen (LIORESAL) 10 mg tablet Take 1 tablet (10 mg total) by mouth. dicyclomine (BENTYL) 10 mg capsule Take 1 capsule (10 mg total) by mouth 2 (two) times a day if needed. esomeprazole (NexIUM) [address] capsule Take 1 capsule (40 mg total) by mouth 1 (one) time each day before breakfast. Do not open capsule. lubiprostone (AMITIZA) 24 mcg capsule Take 1 capsule (24 mcg total) by mouth 1 (one) time each day. ondansetron (ZOFRAN) 4 mg tablet Take 1 tablet (4 mg total) by mouth every 8 (eight) hours if needed for nausea or vomiting. oxyCODONE (ROXICODONE) 5 mg immediate release tablet Take 1 tablet (5 mg total) by mouth every 4 (four) hours if needed for severe pain. Max Daily Amount: 30 mg 35 tablet 0 simethicone (MYLICON) 125 mg chewable tablet Chew 1 tablet (125 mg total) every 6 (six) hours if needed for flatulence. ALLERGIES: No Known Allergies PHYSICAL EXAM: Visit Vitals OB Status Postmenopausal Smoking Status Never PODIATRIC EXAMINATION: GENERAL: Patient appears well nourished, [...] degrees, plantar flexion WNL. No muscle atrophy. DERMATOLOGICAL:.Normal scar tissue formation BIOMECHANICS: Ankle ROM WNL, STJ ROM wnl, MTJ ROM wnl, 1st MPJ ROM wnl. Reduced deformity right foot IMAGING: IMPRESSION: 1. Post-operative state PLAN: Pt was seen and examined, history reviewed. Reviewed swelling is within normal limits discussed with patient swelling can last for 6 months after surgery she continue with supportive and compressive therapy Continue protected weightbearing right foot Follow-up in 1 month Jamar Kyle DPM documented in this encounter Plan of Treatment Upcoming Encounters Date Type Department Care Team (Late st Contact Info) Description 05/08/2025 8:45 AM EDT Office Visit Orthopedic Surgery - [place] [address] [phone] Jamar Kyle DPM [address] [phone] documented as of this encounter Visit Diagnoses Diagnosis Post-operative state- Primary Other postprocedural status documented in this encounter Care Teams Associate Professor Of Pathology Relationship Specialty Start Date End Date Ashlyn Becker MD [address] [place] [phone] PCP - General Internal Medicine 02/23/25 documented as of this encounter
--- OUTSIDE RECORDS SUMMARY | 2025-04-19 08:24 | XMS_ITS | Clinical Summary ---
Author Organization 175 [facility] Address 175 [place] [address] Phone Care Team Providers Care Hand Laminator Name Role Phone Ashlyn Becker MD Primary Care Provider [phone] Allergies No known active allergies Medications ammonium [...] Encounters Date Type Department Care Team Description 04/14/2025 1:30 PM EDT Office Visit Orthopedic Surgery [place] [address] [phone] Jamar Kyle DPM Post-operative state (Primary Dx) 03/27/2025 8:15 AM EDT Office Visit Orthopedic Surgery [place] [address] [phone] Jamar Kyle DPM Post-operative state (Primary Dx) 03/16/2025 2:00 PM EDT Office Visit Orthopedic Surgery [place] [address] [phone] Jamar Kyle DPM Acquired hammer toe of right foot (Primary Dx) 03/03/2025 2:59 PM EDT Anesthesia Event [facility] [place] [address] [place] [phone] Oscar Monk DO Steele, Matthew G, CRNA 03/03/2025 1:02 PM EDT - 03/03/2025 2:47 PM EDT Surgery [facility] [place] [address] [place] [phone] Jamar Kyle DPM REPAIR HAMMER TOE [[id number] (CPT ) +3 more] 03/03/2025 12:02 PM EDT - 03/03/2025 5:05 PM EDT Hospital Encounter [facility] [place] [address] [place] [phone] Jamar Kyle DPM Metatarsalgia of right foot; Dermatofibroma of right lower leg; Acquired hammer toe of right foot; Verruca plantaris Discharge Disposition: Home or Self Care 02/27/2025 8:00 AM EDT Consult Orthopedic Surgery [facility] [address] [phone] Jamar Kyle DPM Acquired hammer toe of right foot (Primary Dx); Metatarsalgia of right foot; Dermatofibroma of right lower leg; Verruca plantaris 02/15/2025 Telephone Orthopedic Surgery [facility] [address] [phone] Jamar Kyle DPM from Last 3 Months Surgical History Surgery Date Site/Laterality Comments CATARACT EXTRACTION, BILATERAL EYE SURGERY SECTION, LOW TRANSVERSE X 3 FOOT SURGERY X 5 Medical History Medical History Date Comments GERD (gastroesophageal reflux disease) Degenerative joint disease Ulcerative colitis ([facility] V24, [facility] V28) ALMAGUER (nonalcoholic steatohepatitis) Social History [...] AM EDT Office Visit Orthopedic Surgery - [place] [address] [phone] Jamar Kyle, DPM [address] [phone] Health Maintenance Due Date Last Done Comments Breast Cancer Screening 1965 Colorectal Cancer Screening: Colonoscopy 1965 COVID-19 Vaccine (#1) 1970 DTaP,Tdap,and Td Vaccines (1 - Tdap) 1984 Hepatitis A Vaccines (1 of 2 - Risk 2-dose series) 1984 Hepatitis B Vaccines (1 of 3 - 19+ 3-dose series) 1984 Zoster Vaccines (1 of 2) 1984 Cervical Cancer Screening: P ap Smear 1986 Pneumococcal Vaccine: 50+ Ye ars (1 of 1 - PCV) 2015 HIV Screening 05/20/2024 Hepatitis C Screening 05/20/2024 [...] hammer toe of right foot Verruca plantaris [place] BIOPSY SKIN PUNCH SINGLE LESION 03/03/2025 3:01 PM EDT Metatarsalgia of right foot Dermatofibroma of right lower leg Acquired hammer toe of right foot Verruca plantaris Case Notes MINI C-ARM, k wires; DIETITIAN CONSULTANT Special Needs Contacted pt, requested surgery 03/03 12:45pm [place] OSTECTOMY COMPLETE EXCISION OTHER METATARSAL HEAD 03/03/2025 3:01 PM EDT Metatarsalgia of right foot Dermatofibroma of right lower leg Acquired hammer toe of right foot Verruca plantaris Case Notes MINI C-ARM, k wires; DIETITIAN CONSULTANT Special Needs Contacted pt, requested surgery 03/03 12:45pm [place] CORRECTION HAMMERTOE 03/03/2025 3:01 PM EDT Metatarsalgia of right foot Dermatofibroma of right lower leg Acquired hammer toe of right foot Verruca plantaris Case Notes MINI C-ARM, k wires; DIETITIAN CONSULTANT Special Needs Contacted pt, requested surgery 03/03 [...] entirely ruled out. 03/07/2025 2:01 PM EDT [facility] ([email or web address] Comment C) There is no evidence of a dermatofibroma. 03/07/2025 2:01 PM EDT [facility] ([facility] [[email or web address] Gross Description A. Foot, [...] a 1.3 x 0.9 x 0.4 cm alemida-white, convex articular bone fragment. The cartilage covered [...] slide.. EVELYN EVELYN 03/07/2025 2:01 PM EDT [facility] Disclaimer Unless otherwise specified, all tissue is 10% NB formalin fixed and paraffin embedded. 03/07/2025 2:01 PM EDT [facility] Tissue Structure of right foot / Unknown 03/03/2025 3:26 PM EDT 03/03/2025 4:04 PM EDT Tissue specimen (specimen) Structure of right foot / Unknown 03/03/2025 3:42 PM EDT 03/03/2025 4:04 PM EDT Tissue specimen (specimen) Structure of right foot / Unknown 03/03/2025 3:43 PM EDT 03/03/2025 4:04 PM EDT us Jamar Kyle DPGriselda LAB PATHOLOGY ORDERABLES Final Result [facility] ([facility] [[email or web address] [address] [place] [address], from Last 3 Months Insurance [facility] [employer] Care Teams Hand Laminator Relationship Specialty Start Date End Date Ashlyn Becker MD [address] [place] [phone] PCP - General Internal Medicine 02/23/25
--- NOTE | 2025-04-19 08:37 | MHC.OFFVIS ---
Intake Visit Reasons: Mild Ureteral Dilation Intake Note: New Patient is present for mild ureteral dialation Urology Rx:none Blood Thinners:none Imaging completed: none Imaging : ABD xray 04/13/25, ABD MRI 02/15/25 Dental Equipment Installer And Servicer Required: No Accompanied by: Self / Same As Patient Allergies No Known Allergies Allergy (Verified 04/19/25 08:38) HPI Comments Details: Salena is a pleasant Barbadian-speaking female. She is a patient of Dr. Becker. She seen for the following urologic conditions - right proximal hydro uretero nephrosis Barbadian translation provided in office by qualified medical facilities section director CT performed for abdominal pain. 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 Creatinine 0.76 Repeat imaging in six-month [facility] Medical History Pancreatic atrophy Constipation GERD (gastroesophageal reflux disease) Surgical History History of foot surgery History of cataract surgery (~03/2024) History of Family History Sister Colon cancer, Onset Age: 75 Family/Other Colon cancer Social History Housing: Apartment Are you a primary managed care director to a significant other at home: No Do you presently have visiting nurse or other home services: No Alcohol intake: former Patient Tobacco Use Status: Never used Tobacco e-Cigarette/Vaping Use: Never Used Second Hand Smoke Exposure: No Substance Use Type: Marijuana service: No Current occupational status: unemployed Cognitive needs: No Hearing needs: No Vision needs: No Review of Systems Const Denies chills and Denies fever(s) Card Reports no additional complaints and Denies syncope Resp Denies cough GI Denies abdominal pain and Denies heartburn Reports as per HPI and Denies change in libido Neuro Denies syncope Psych Denies change in libido Endo Denies change in libido Physical Exam Const General: cooperative, healthy appearing, comfortable and no acute distress Orientation/consciousness: patient oriented x3 HEENT Face and sinus: Yes normal facial exam Mouth: moist mucous membranes Neck Neck: Yes normal visual inspection, Yes full ROM and Yes trachea midline Chest Chest palpation & inspection: normal inspection of the chest Resp Effort & Inspection: normal respiratory effort, able to speak in complete sentences and no respiratory distress GI Inspection: Yes normal to inspection Back/Spine/Pelvis Cervical Spine: normal cervical lordosis Thoracic/Lumbar Spine: thoracic and lumbar spine normal to inspection Skin General skin exam: no rashes or lesions noted Neuro General: patient oriented x3, gait normal, tone normal and moves all extremities Extrem General: Yes normal to inspection and Yes capillary refill normal Results AMB Urinalysis, Automated UA Leukoctes 0 Jarod/uL Last Edit by Kathy Esparza MA on 04/19/25 12:41 UA Nitrite Negative Last Edit by Kathy Esparza MA on 04/19/25 12:41 UA Urobilinogen 0.2 mg/dL Last Edit by Kathy Esparza MA on 04/19/25 12:41 UA Protein 0 mg/dL Last Edit by Kathy Esparza MA on 04/19/25 12:41 UA pH 6.0 Last Edit by Kathy Esparza MA on 04/19/25 12:41 UA Blood 10 Bhupendra/uL Last Edit by Kathy Esparza MA on 04/19/25 12:41 UA Specific Hobbs 1.015 Last Edit by Kathy Esparza MA on 04/19/25 12:41 UA Ketone Negative Last Edit by Kathy Esparza MA on 04/19/25 12:41 UA Bilirubin 0 mg/dL Last Edit by Kathy Esparza MA on 04/19/25 12:41 UA Glucose 0 mg/dL Last Edit by Kathy Esparza MA on 04/19/25 12:41 Results Reviewed Results Reviewed: Laboratory Last Values Urine pH (Auto) 6.0 04/19/25 12:08 Specific Hobbs (Auto) 1.015 04/19/25 12:08 Urine Protein (Auto) 0 mg/dL 04/19/25 12:08 Glucose (UA)(Auto) 0 mg/dL 04/19/25 12:08 Urine Ketones (Auto) Negative 04/19/25 12:08 Urine Blood (Auto) 10 Bhupendra/uL 04/19/25 12:08 Urine Nitrite (Auto) Negative 04/19/25 12:08 Urine Bilirubin (Auto) 0 mg/dL 04/19/25 12:08 Urine Urobilinogen (Auto) 0.2 mg/dL 04/19/25 12:08 Leukocyte Esterase (Auto) 0 Jarod/uL 04/19/25 12:08 Assessment & Plan Assessment & Plan (1) Hydronephrosis: Code(s): N13.30 - Unspecified hydronephrosis Category: Medical Plan Six-month follow-up check renal ultrasound Orders: Orders US renal BI 6 Months N13.30 - Unspecified hydronephrosis AMB Urinalysis Automated Today Z13.9 - Encounter for screening, unspecified Patient Instructions: This note is constructed using voice recognition software. While every effort has been made to ensure accuracy special education secretary errors may have been included. Imaging studies, laboratory and physical exam results were discussed and reviewed in detail. No major barriers to patient understanding were identified. An opportunity to ask questions regarding the treatment plan was provided. All questions were answered. The patient expressed understanding and agreement with the above treatment plan. The patient is aware they should contact our office by phone for worsening of their current condition or the appearance of new urologic symptoms. Compliance is encouraged with any medications and followup testing that is ordered. It is a privilege to participate in the urologic care of your patient. If you have any questions or concerns regarding treatment for the above conditions, or other urologic issues, please do not hesitate to contact me. The office telephone contact is [phone]. Sincerely, Dr Corey Rapp MD, [facility] - Urology Compassionate Specialist Care for the Genitourinary System Coding Level of Care Code New Pt Level 3 (63833) Diagnoses Hydronephrosis N13.30
== END 2025-04-19 09:10 | disposition home or self-care (01) ==
LOC: HO.HUSH 08:09
PROVIDERS: PCP Internal Medicine; Visit Provider Urology
DX: Z13.9 Encounter for screening, unspecified (principal); N13.30 Unspecified hydronephrosis
CPT/HCPCS: 99203

== ENCOUNTER → 2025-04-19 08:08 | Outpatient (BNVA) | payer OTHER, SELFPAY | PROVIDERS: PCP Internal Medicine; Visit Provider Urology | DX: N13.30 Unspecified hydronephrosis (principal) | CPT/HCPCS: 81003; 99202 ==

== ENCOUNTER 2025-06-05 08:37 | Outpatient (AMB) | payer OTHER, SELFPAY ==
--- NOTE | 2025-06-05 08:43 | MHC.PC.OV ---
Vital Signs 06/05/25 08:44 Height 5 ft 2 in Weight 132 lb BMI 24.1 BP 110/64 Blood Pressure Location Lt brachial Position Sitting Pulse 71 Pulse Source Pulse Oximeter Temp 96.9 F Temp Source Temporal Artery Scan Pulse Oximetry (%) 90 L Oxygen Delivery Method Room Air Intake Visit Reasons: pe Intake Note: Patient is here today for a physical. Telecommunications Professional Required: Yes Telecommunications Professional Language: Syrian Information Interpreted: non-clinical & clinical Solar Sales Manager: Not Required per policy Accompanied by: Self / Same As Patient Allergies No Known Allergies Allergy (Verified 06/05/25 09:20) Medication List - Last Reconciled 06/05/25 by Ashlyn Becker MD alprazolam 0.5 mg PO DAILY 1 day baclofen 10 mg PO TID 30 days bisacodyl (Dulcolax (bisacodyl)) 10 mg (2 x 5 mg) PO BEDTIME dicyclomine 10 mg PO BID PRN docusate sodium (Colace) 100 mg PO BID esomeprazole magnesium 40 mg PO DAILY hydrocortisone 2.5% (Proctosol HC) 1 appl WA BID-QID PRN [id number]-[id number] (pork) 36,000-114,000- 180,000 unit (Creon) 1 cap PO QID lubiprostone (Amitiza) 24 mcg PO DAILY methylprednisolone 0 mg PO ondansetron 4 mg PO Q8H PRN 10 days polyethylene glycol 3350 (Miralax) 17 grams PO BID PRN psyllium husk (Metamucil) 1 tbsp PO BID simethicone 125 mg PO BID-QID PRN sucralfate 1 g PO BID Tobacco use date assessed: 06/05/25 Dental Screening Dental Screen Date: 04/13/25 HPI HPI Comments History of Present Illness Details The patient is a 60-year-old female who presents for a physical examination. She has no known allergies to medications. Her current medications include baclofen, dicyclomine, docusate for constipation, omeprazole for acidity, Creon, Amitiza, ondansetron for nausea, MiraLAX for constipation, Metamucil, simethicone, and Carafate. Declines flu and tetanus vaccine. Mammogram done this year and was negative. Will be referred for colonoscopy. She complains of right knee pain that started few weeks ago after she fell. There is no deformity. Her past surgical history is positive for a section, cataract surgery, and foot surgery for a hammertoe repair. She has a family history of colon cancer in her sister. [facility] Medical History (Updated 06/05/25 @ 09:32 by Ashlyn Becker MD) Pancreatic atrophy Constipation GERD (gastroesophageal reflux disease) Surgical History History of foot surgery History of cataract surgery (~03/2024) History of Family History Sister Colon cancer, Onset Age: 75 Family/Other Colon cancer Social History Housing: Apartment Are you a primary medicare sales representative to a significant other at home: No Do you presently have visiting nurse or other home services: No Alcohol intake: former Patient Tobacco Use Status: Never used Tobacco e-Cigarette/Vaping Use: Never Used Second Hand Smoke Exposure: No Substance Use Type: Marijuana service: No Current occupational status: unemployed Cognitive needs: No Hearing needs: No Vision needs: No Questionnaire Thrive Questionnaire Date Thrive assessed: 12/13/24 I am a: Patient What is your living situation today?: I have a steady place to live Within the past 12 months, did the food you bought not last and you didn't have the money to get more?: Sometimes True Within the past 12 months, did you worry whether your food would run out before you got money to buy more?: Sometimes True Do you have trouble paying for medicines?: No Do you have trouble getting transportation to medical appointments?: No Do you have trouble paying your heating and electricity bill?: I choose not to answer this question Do you have trouble taking care of your child, family member or friend?: No Do you have trouble with day-to-day activities such as bathing, preparing meals, shopping, managing finances, etc.?: Yes Are you currently unemployed and looking for a job?: No Are you interested in more education?: No Please select the resources that you would like help with: None Currently or been in a relationship where the following occur: I choose not to answer THRIVE Score: 2 EILEEN-7 AMB Questionnaire EILEEN-7 Date EILEEN - 7 assessed: 03/23/25 Source: Developed by Drs. Nick Tejada, Nadya Vyas, Adrian Mcallister and colleagues, with an educational gail from [employer]. Review of Systems Const All systems reviewed & are unremarkable except as noted in HPI and below Card Denies chest pain at rest, Denies chest pain with activity, Denies edema, Denies irregular heart rhythm, Denies claudication, Denies dyspnea, Denies dyspnea on exertion, Denies orthopnea, Denies paroxysmal nocturnal dyspnea and Denies slow heart rate Resp Denies cough, Denies dyspnea and Denies dyspnea on exertion GI Denies abdominal pain, Denies change in bowel habits, Denies excessive flatus, Denies nausea and Denies vomiting Denies urinary incontinence, Denies urinary hesitancy and Denies urinary urgency Musc Denies atrophy, Denies deformity and Denies limited range of motion Skin/Breast Denies bleeding lesions, Denies changing lesions and Denies rash Physical exam (Primary Care) Vital Signs: Last Vital Signs Temp 96.9 F 06/05/25 08:44 Pulse 71 06/05/25 08:44 BP 110/64 06/05/25 08:44 Pulse Ox 90 L 06/05/25 08:44 Oxygen Delivery Method Room Air 06/05/25 08:44 BMI result Body Mass Index 24.1 Tobacco/Smoking Status: Tobacco use Status Tobacco use date assessed 06/05/25 06/05/25 08:51 Patient Tobacco Use Status Never used Tobacco 06/05/25 08:51 e-Cigarette/Vaping Use Never Used 06/05/25 08:51 Thrive Assessment: Date of Thrive Assessment Date Thrive assessed 12/13/24 06/05/25 08:51 Currently or been in a relationship where the following occur: I choose not to answer HENCO Head: Yes normal to inspection, Yes normocephalic and Yes atraumatic Ears: external ears normal Eyes General: appearance normal, both eyes and all related structures Eyelids: Yes eyelids normal Conjunctivae: conjunctivae normal Neck Neck: Yes normal visual inspection and Yes supple Resp Effort & Inspection: normal respiratory effort Auscultation: clear to auscultation bilaterally Cardio Jugular venous distension: no JVD Rate: regular rate Rhythm: regular rhythm Heart sounds: S1 normal heart sound present and S2 normal heart sound present GI Inspection: Yes normal to inspection Palpation (GI): Soft to palpation and nontender Auscultation: normal bowel sounds Skin General skin exam: no rashes or lesions noted Neuro General: no focal motor deficits Extrem General: Yes full ROM Psych Appearance: grossly normal Coding Level of Care Code Est Pt Level 3 (58424) Est Pt Prev Care 40-64y([address]162) Diagnoses Physical exam Z00.00 Right knee pain M25.561 Time Spent (min) 32 Assessment & Plan Assessment & Plan (1) Physical exam: Code(s): Z00.00 - Encounter for general adult medical examination without abnormal findings Category: Medical (2) Right knee pain: Code(s): M25.561 - Pain in right knee Category: Medical Plan Plan 1. Physical exam The patient presented for a routine physical examination. She was offered tetanus and influenza immunizations, which she declined. A referral was made for a colonoscopy for screening, given her family history of colon cancer. 2. Right knee pain X-ray ordered. Orders: Orders Lipid Panel Today Z00.00 - Encounter for general adult medical examination without abnormal findings Comprehensive [place]. Panel Fast Today Z00.00 - Encounter for general adult medical examination without abnormal findings XR knee RT 2V Today M25.561 - Pain in right knee
[2025-06-05 08:44] VITALS: BP 110/64; PULSE 71; TEMP 36.1; O2SAT 90; BMI 24.1
== END 2025-06-05 09:32 | disposition home or self-care (01) ==
LOC: HO.HMCH 08:38
PROVIDERS: PCP Internal Medicine; Visit Provider Internal Medicine
DX: Z00.00 Encounter for general adult medical examination without abnormal findings (principal); M25.561 Pain in right knee

== ENCOUNTER → 2025-06-05 08:37 | Outpatient (BNVA) | payer OTHER, SELFPAY | PROVIDERS: PCP Internal Medicine; Visit Provider Internal Medicine | DX: Z79.899 Other long term (current) drug therapy (principal); M25.561 Pain in right knee | CPT/HCPCS: 99212; 99396 ==